=== PATIENT | male | born 1950 | race Caucasian/White ===

== ENCOUNTER 2024-09-07 07:46 | Inpatient (IN) | payer OTHER ==
[~2024-09-07] VITALS: Ht 177.8 cm; Wt 84.9 kg
--- NOTE | 2024-09-07 08:00 | ECG ---
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
--- NOTE | 2024-09-07 08:04 | ED.PDOC ---
SOB-HPI HPI Comments 74 year old male DK presents to the ED with chief complaint of SOB. EMS reports patient is coming from home where he had been experiencing intermittent SOB for the past 6 weeks, worsening over time. Patient relays that he feels out of breath when exerting himself lightly. EMS states patient had been on 91% spO2 when placed on a mask, however they got it up to 93% on 6L of O2 via NC. Patient denies any chest pain, cough, fever, chills, dizziness, headache, or N/V. Time Seen by MD: 07:54 Reviewed notes: Nurses Notes, Vault Manager Notes, Medications, Allergies Information Source: Patient, Emergency Med Personnel Mode of Arrival: EMS Severity: Moderate Timing: Weeks Duration: Intermittent Context: At Rest, With Light Exertion PE Risk Factors: None History of: None Prehospital treatment: Oxygen Modifying Factors: Nothing Associated Signs and Symptoms: None Past Medical History PAST MEDICAL HISTORY: Cancer, DM, High Lipids, HTN Surgical History: Pacemaker Family History Family History: Reviewed,noncontributory to illness Social History Smoker: Non-Smoker Alcohol: Denies ETOH Use Drugs: Denies Drug Use Lives In: Home Constitutional: denies: chills, diaphoresis, fatigue, fever, malaise, sweats, weakness, others EENTM: denies: blurred vision, double vision, ear bleeding, ear discharge, ear drainage, ear pain, ear ringing, eye pain, eye redness, hearing loss, mouth pain, mouth swelling, nasal discharge, nose bleeding, nose congestion, nose pain, photophobia, tearing, throat pain, throat swelling, voice changes, others Respiratory: reports: shortness of breath, SOB with excertion; denies: cough, hemoptysis, orthopnea, SOB at rest, stridor, wheezing, others Cardiovascular: denies: chest pain, dizzy spells, diaphoresis, Dyspnea on exertion, edema, irregular heart beat, left arm pain, lightheadedness, palpitations, PND, syncope, others Gastrointestinal: denies: abdomen distended, abdominal pain, blood streaked bowels, constipated, diarrhea, dysphagia, difficulty swallowing, hematemesis, melena, nausea, poor appetite, poor fluid intake, rectal bleeding, rectal pain, vomiting, others Genitourinary: denies: burning, dysuria, flank pain, frequency, hematuria, incontinence, penile discharge, penile sore, pain, testicle pain, testicle swel ling, urgency, others Neurological: denies: dizziness, fainting, headache, left sided numbness, left sided weakness, numbness, paresthesia, pre-existing deficit, right sided numbness, right sided weakness, seizure, speech problems, tingling, tremors, weakness, others Musculoskeletal: denies: back pain, gout, joint pain, joint swelling, muscle pain, muscle stiffness, neck pain, others Integumetry: denies: bruises, change in color, change in hair/nails, dryness, laceration, lesions, lumps, rash, wounds, others Allergic/Immunocompromised: denies: Difficulty Healing, Frequent Infections, Hives, Itching, others Hematologic/Lymphatic: denies: anemia, blood clots, easy bleeding, easy bruising, swollen glands, others Endocrine: denies: excessive hunger, excessive sweating, excessive thirst, excessive urination, flushing, intolerance to cold, intolerance to heat, unexplained weight gain, unexplained weight loss, others Psychiatric: denies: anxiety, bipolar disorder, depression, hopeless, panic disorder, schizophrenia, sleepless, suicidal, others All Other Systems: Reviewed and Negative Physical Exam General Appearance: Moderate Distress, Normal HEENT: Normal ENT Inspection, PERRL/EOMI Neck: Full Range of Motion, Non-Tender, Normal, Normal Inspection Respiratory: Accessory Muscle Use, Chest Non-Tender, Respiratory Distress, Other (Coarse breath sounds) Cardiovascular: No Edema, No JVD, No Murmur, No Gallop, Normal Peripheral Pulses, Regular Rate/Rhythm Breast Exam: Deferred Gastrointestinal: No Organomegaly, Non Tender, No Pulsatile Mass, Normal Bowel Sounds, Soft Genitalia: Deferred Pelvic: Deferred Rectal: Deferred Extremities: No calf tenderness, Normal capillary refill, Normal range of motion, Non-tender, Pedal edema, Other (Bilateral lower extremity pitting edema) Musculoskeletal : Apperance: Normal Neurologic: Alert, umbrella frame maker II-XII nml as Tested, No Motor Deficits, Normal Affect, Normal Mood, No Sensory Deficits Cerebellar Function: NOT DONE Reflexes: NOT DONE Skin: Dry, Normal Color, Warm Peripheral Pulses: 3+ Radial (R), 3+ Radial (L) Lymphatic: No Adenopathy Was a procedure done? Was a procedure done?: No Differential Dx Differential Diagnosis: Anxiety, Asthma, Bronchitis, CHF, COPD X-Ray, Labs, Meds, VS Vital Signs Date Time Temp Pulse Resp B/P (MAP) Pulse Ox O2 Delivery O2 Flow Rate FiO2 09/07/24 11:39 66 09/07/24 10:00 65 22 139/70 (93) 96 09/07/24 08:35 70 21 166/81 (109) 96 09/07/24 08:35 166/81 09/07/24 08:35 70 21 94 Nasal Cannula* 4 36 09/07/24 07:59 72 09/07/24 07:50 97.6 72 20 162/82 (108) 93 Lab Test 09/07/24 09:10 09/07/24 08:30 Range/Units White Blood Count 8.7 4.4-10.8 10^3/uL Red Blood Count 3.42 L 4.5-5.90 10^6/uL Hemoglobin 9.6 L 13.5-17.5 g/dL Hematocrit 29.5 L 41.0-53.0 % Mean Corpuscular Volume 86.4 80.0-100.0 fL Mean Corpuscular Hemoglobin 28.0 28.0-32.0 pg Mean Corpuscular Hemoglobin Concent 32.4 32.0-36.0 g/dL Red Cell Distribution Width 17.4 H 11.8-14.3 % Platelet Count 235 140-450 10^3/uL Mean Platelet Volume 8.2 6.9-10.8 fL Neutrophils (%) (Auto) 74.5 37.0-80.0 % Lymphocytes (%) (Auto) 13.8 10.0-50.0 % Monocytes (%) (Auto) 6.9 0.0-12.0 % Eosinophils (%) (Auto) 3.7 0.0-7.0 % Basophils (%) (Auto) 1.1 0.0-2.0 % Neutrophils # (Auto) 6.5 1.6-8.6 10 ^3/uL Lymphocytes # (Auto) 1.2 0.4-5.4 10 ^3/uL Monocytes # (Auto) 0.6 0-1.3 10 ^3/uL Eosinophils # (Auto) 0.3 0-0.8 10 ^3/uL Basophils # (Auto) 0.1 0-0.2 10 ^3/uL Nucleated Red Blood Cells 0.0 % Sodium Level 139 136-145 mmol/L Potassium Level 4.2 3.5-5.1 mmol/L Chloride Level 110 H 98-107 mmol/L Carbon Dioxide Level 17 L 20-31 mmol/L Anion Gap 12 5-15 Blood Urea Nitrogen 46 H 9-23 mg/dL Creatinine 2.53 H 0.700-1.30 mg/dL Glomerular Filtration Rate Calc 26 >90 mL/min BUN/Creatinine Ratio 18.2 10.0-20.0 Serum Glucose 108 H 74-106 mg/dL Lactic Acid Level 1.0 0.4-2.0 mmol/L Calcium Level 9.2 8.7-10.4 mg/dL Troponin I High Sensitivity 55 *H </=54 ng/L B-Type Natriuretic Peptide 1001.77 0-100 pg/mL Blood Gas Specimen Type Arterial Blood Gas Sample Site Right radial Blood Gas Patient Temperature 37.0 Arterial Blood Date Drawn Arterial Blood pH 7.427 7.350-7.450 Arterial Blood Partial Pressure CO2 23.1 L 35.0-48.0 mmHg Arterial Blood Partial Pressure O2 78.0 L 83.0-108.0 mmHg Arterial Blood HCO3 14.9 L 21.0-28.0 mmol/L Arterial Blood Oxygen Saturation 94.6 94.0-98.0 % Arterial Blood Base Excess -7.9 L -2.0-3.0 mmol/L Arterial Blood Oxyhemoglobin 93.8 L 94.0-98.0 % Arterial Blood Carboxyhemoglobin 0.2 L 0.5-1.5 % Arterial Blood Methemoglobin 0.6 0.0-1.5 % Andrés Test Yes Blood Gas Total Hemoglobin 10.70 L 13.5-17.5 g/dL Blood Gas Liter Flow 4.00 Blood Gas Modality Nasal cannula FiO2 % 36.0 Current Medications Medications (Trade) Dose Ordered Sig/Mario Route Start Time Stop Time Status Last Admin Furosemide (Lasix Injection) 20 mg ONCE ONCE IV 09/07/24 08:15 09/07/24 08:16 DC 09/07/24 08:35 Patient alert. Complaining of shortness a breath. Blood pressure elevated. Placed on oxygen. Has a pacemaker in place. Continues to use accessory muscles to help breathe. He is critical. Possibly will need intubation. EKG does show changes. Explained to the patient. Continue cardiac monitoring. Was given clonidine. Mild bilateral extremity pitting edema. [place] approved inpatient admission [id number]. Chest XR: FINDINGS: Lines and Tubes: Left chest wall pacemaker Lungs: Congestion Pleura: No effusion. No pneumothorax. Cardiomediastinal contours: Cardiomegaly Bones: Unremarkable IMPRESSION: Pulmonary vascular congestion Time of 1ST Reevaluation: 08:54 Reevaluation 1ST: Unchanged Patient Education/Counseling: Diagnosis, Treatment Family Education/Counseling: No Family Present Departure 1 Departure Time of Disposition: 08:11 Impression: Primary Impression: Acute respiratory failure Qualified Codes: J96.01 - Acute respiratory failure with hypoxia Additional Impressions: Hypertensive urgency Diastolic heart failure Qualified Codes: I50.33 - Acute on chronic diastolic (congestive) heart failure Disposition: ADMITTED INPATIENT Admit to: Med Surg Condition: Guarded Critical Care Note Critical Care Time?: Yes (45 min-critical care time only) Critical care comment: Placed on oxygen Stability Stability form required: No Heart Score Heart Score: Heart Score Response (Comments) Value History Slightly Suspicious 0 EKG Normal 0 Age >65 2 Risk Factors >3 or Hx ASHD 2 Troponin Normal limit 0 Total 4 I personally scribed for ROSIE BALL MD ([email or web address]) on 09/07/24 at 08:04. Electronically submitted by Doyle Villegas ([email or web address]). I personally scribed for ROSIE BALL MD ([email or web address]) on 09/07/24 at 08:55. Electronically submitted by Doyle Villegas ([email or web address]). ROSIE BALL MD Sep 07, 2024 08:04
[2024-09-07 08:35] VITALS: PULSE 70; RESP 21; O2SAT 94
[2024-09-07] MEDS: FUROSEMIDE 20 MG/2 ML VIAL IV ONE (08:35)
--- NOTE | 2024-09-07 08:49 | DVH ---
CHEST RADIOGRAPH Indication: sob Technique: Single frontal view of the chest was obtained COMPARISON: None FINDINGS: Lines and Tubes: Left chest wall pacemaker Lungs: Congestion Pleura: No effusion. No pneumothorax. Cardiomediastinal contours: Cardiomegaly Bones: Unremarkable IMPRESSION: Pulmonary vascular congestion
[2024-09-07 09:42] LABS: Basophils # (auto) 0.1 10 ^3/uL (0-0.2); Basophils % (auto) 1.1 % (0.0-2.0); Eosinophils # (auto) 0.3 10 ^3/uL (0-0.8); Eosinophils % (auto) 3.7 % (0.0-7.0); Hematocrit 29.5 % (41.0-53.0); Hemoglobin 9.6 g/dL (13.5-17.5); Lymphocytes # (auto) 1.2 10 ^3/uL (0.4-5.4); Lymphocytes % (auto) 13.8 % (10.0-50.0); Mean Corpuscular Hgb Conc. 32.4 g/dL (32.0-36.0); Mean Corpuscular Volume 86.4 fL (80.0-100.0); Monocytes # (auto) 0.6 10 ^3/uL (0-1.3); Monocytes % (auto) 6.9 % (0.0-12.0); Neutrophils # (auto) 6.5 10 ^3/uL (1.6-8.6); Neutrophils % (auto) 74.5 % (37.0-80.0); Platelet Count (auto) 235 10^3/uL (140-450); Red Blood Cells 3.42 10^6/uL (4.5-5.90); Red Cell Distribution Width 17.4 % (11.8-14.3); White Blood Cell 8.7 10^3/uL (4.4-10.8)
[2024-09-07 09:43] LABS: Potassium 4.2 mmol/L (3.5-5.1); Sodium 139 mmol/L (136-145)
[2024-09-07 09:44] LABS: Anion Gap 12 (5-15)
[2024-09-07 09:45] LABS: Calcium 9.2 mg/dL (8.7-10.4)
[2024-09-07 09:49] LABS: BUN/Creatinine Ratio 18.2 (10.0-20.0)
[2024-09-07 09:53] LABS: Blood Urea Nitrogen 46 mg/dL (9-23); Carbon Dioxide 17 mmol/L (20-31); Chloride 110 mmol/L (98-107); Glucose 108 mg/dL (74-106)
[2024-09-07 12:11] LABS: Base Excess -7.9 mmol/L (-2.0-3.0)
[2024-09-07 19:30] VITALS: RESP 22; O2SAT 92
--- NOTE | 2024-09-07 22:44 | DVHHPRES ---
History of Present Illness Resident Creating Document: ERA SPICER RESDIENT History of Present Illness This is a 74-year-old male with past medical history of atrial fibrillation (status post pacemaker), diabetes, dyslipidemia, hypertension, CKD grade 4, BPH brought to the hospital due to shortness of breaths functional class 4 since 6 weeks which progressively has worsened. Shortness of breaths increases with physical activity, and lying down on the bed. Patient also reports, PND, generalized weakness and constipation. Patient denies fever, cough, chest pain, nausea, vomiting, or any recent sick contact. PMHx: atrial fibrillation (status post pacemaker), diabetes, dyslipidemia, hypertension, CKD grade 4, BPH PSHx: Femur fracture (patient was recently at SNF for rehabilitation), bilate rally knee replacement, status post pacemaker Family history: Father had heart failure Social history: Patient uses walker for mobility, lives at home, denies smoking or any other drug use Home medication: Flomax 0.4 mg 2 tablets during the night, finasteride 5 mg daily, amlodipine 10 mg daily, atorvastatin 40 mg daily, sodium bicarbonate 600 mg t.i.d., Eliquis 5 mg b.i.d., sevelamer 800 mg, Lasix 20 mg daily, and insulin Allergic history: No known allergies Review of Systems Review of Systems General: Reports generalized weakness HEENT: No headaches, visiual changes, hearing loss, tinnitus, nasal congestion and discharge, and sore throat. Cardiovascular: Denies chest pain, palpitations, dyspnea on exertion, orthopnea, or claudication. Respiratory: Reports shortness of breath, PND and orthopnea Gastrointestinal: Reports constipation Genitourinary: No dysuria, hematuria, discharge, frequency, urgency, nocturia, incontinence, and urinary retention. Endocrine: No heat or cold intolerance, polydipsia, polyuria, and polyphagia. Neurological: No dizziness, extremity weakness and numbness, tremors, gait disturbance, seizures, and memory impairment. Psychiatric: Denies depression, anxiety,or insomnia. Musculoskeletal: Denies neck pain, stiffness and swelling, back pain, muscle weakness, joint pain, stiffness, swelling, or limited range of motion. Skin: No rashes, itching, skin lesion, changes in hair, nail, skin texture and breast. Hematologic/Lymphatic: Denies easy bruising, bleeding tendencies, or lymph node enlargement. Allergies: Coded Allergies: NO KNOWN ALLERGIES (Unverified , 09/07/24) Exam Vital Signs Vital Signs Date Time Temp Pulse Resp B/P (MAP) Pulse Ox O2 Delivery O2 Flow Rate FiO2 09/07/24 20:00 98.2 70 22 166/79 (108) 92 98.2 09/07/24 19:30 Nasal Cannula* 4 36 Exam General Appearance: Alert, Oriented X3, Cooperative, No acute distress HEENT: Atraumatic, PERRLA, EOMI, Mucous membrane moist/pink Respiratory: Bilateral lower zone crackles Cardiovascular: Regular rate, Normal S1, Normal S2, No murmurs, no chest wall tenderness Abdominal: Normal bowel sounds, Soft, No tenderness, No hepatospenomegaly, No masses Extremities: Bilateral pedal edema Skin: No rashes, No breakdown, No significant lesion Neuro: Normal gait, Normal speech, Strength at 5/5 X4 ext, Normal tone, Sensation intact, Cranial nerves 3-12 NL, Reflexes 2+ Psych/Mental Status: Mental status NL, Mood NL Labs/Xrays Labs Test 09/07/24 09:10 09/07/24 08:30 Range/Units White Blood Count 8.7 4.4-10.8 10^3/uL Red Blood Count 3.42 L 4.5-5.90 10^6/uL Hemoglobin 9.6 L 13.5-17.5 g/dL Hematocrit 29.5 L 41.0-53.0 % Mean Corpuscular Volume 86.4 80.0-100.0 fL Mean Corpuscular Hemoglobin 28.0 28.0-32.0 pg Mean Corpuscular Hemoglobin Concent 32.4 32.0-36.0 g/dL Red Cell Distribution Width 17.4 H 11.8-14.3 % Platelet Count 235 140-450 10^3/uL Mean Platelet Volume 8.2 6.9-10.8 fL Neutrophils (%) (Auto) 74.5 37.0-80.0 % Lymphocytes (%) (Auto) 13.8 10.0-50.0 % Monocytes (%) (Auto) 6.9 0.0-12.0 % Eosinophils (%) (Auto) 3.7 0.0-7.0 % Basophils (%) (Auto) 1.1 0.0-2.0 % Neutrophils # (Auto) 6.5 1.6-8.6 10 ^3/uL Lymphocytes # (Auto) 1.2 0.4-5.4 10 ^3/uL Monocytes # (Auto) 0.6 0-1.3 10 ^3/uL Eosinophils # (Auto) 0.3 0-0.8 10 ^3/uL Basophils # (Auto) 0.1 0-0.2 10 ^3/uL Nucleated Red Blood Cells 0.0 % Sodium Level 139 136-145 mmol/L Potassium Level 4.2 3.5-5.1 mmol/L Chloride Level 110 H 98-107 mmol/L Carbon Dioxide Level 17 L 20-31 mmol/L Anion Gap 12 5-15 Blood Urea Nitrogen 46 H 9-23 mg/dL Creatinine 2.53 H 0.700-1.30 mg/dL Glomerular Filtration Rate Calc 26 >90 mL/min BUN/Creatinine Ratio 18.2 10.0-20.0 Serum Glucose 108 H 74-106 mg/dL Lactic Acid Level 1.0 0.4-2.0 mmol/L Calcium Level 9.2 8.7-10.4 mg/dL Troponin I High Sensitivity 55 *H </=54 ng/L B-Type Natriuretic Peptide 1001.77 0-100 pg/mL Blood Gas Specimen Type Arterial Blood Gas Sample Site Right radial Blood Gas Patient Temperature 37.0 Arterial Blood Date Drawn Arterial Blood pH 7.427 7.350-7.450 Arterial Blood Partial Pressure CO2 23.1 L 35.0-48.0 mmHg Arterial Blood Partial Pressure O2 78.0 L 83.0-108.0 mmHg Arterial Blood HCO3 14.9 L 21.0-28.0 mmol/L Arterial Blood Oxygen Saturation 94.6 94.0-98.0 % Arterial Blood Base Excess -7.9 L -2.0-3.0 mmol/L Arterial Blood Oxyhemoglobin 93.8 L 94.0-98.0 % Arterial Blood Carboxyhemoglobin 0.2 L 0.5-1.5 % Arterial Blood Methemoglobin 0.6 0.0-1.5 % Andrés Test Yes Blood Gas Total Hemoglobin 10.70 L 13.5-17.5 g/dL Blood Gas Liter Flow 4.00 Blood Gas Modality Nasal cannula FiO2 % 36.0 Assessment/Plan Assessment/Plan Possible acute on chronic heart failure with volume overload History of hypertension History of AFib, status post pacemaker Chest x-ray shows bilateral lower and mid zone infiltration with pulmonary vascular congestion EKGs shows junctional rhythm, pacemaker interrogation BNP is raised at 1000 Echocardiogram Lasix 60 mg stat, 60 mg daily Continue amlodipine Start Jardiance 10 mg BiPAP Dyslipidemia Continue atorvastatin History of CKD grade 4 ABGs shows metabolic acidosis with respiratory compensation, pH 7.427 Continue sevelamer Hyperchloremia, monitoring History of diabetes type 2 Insulin mild SS History of BPH Continue Flomax and finasteride Moderate anemia, normocytic normochromic DIET: Cardiac diet DVT PROPHYLAXIS: Continue Eliquis BOWEL REGIMEN: Colace p.r.n. CODE STATUS: Goal of care discussed for more than 21 minutes, full code DISPOSITION: Telemetry Patient's status and paln discussed with the patient and at the bedside. Case discussed with Dr. Kelly Plan discussed with: Patient, Other (RN) My Orders Orders - ERA SPICER RESDIROSANA Procedure Category Date Status Time Admit ADMIT 09/07/24 Transmitted 22:43 Nitroglycerin PHA 09/07/24 Transmitted Sublingual (Ntrostat 22:45 Morphine Sulfate PHA 09/07/24 Transmitted Injection 22:45 Oxygen By Nasal RT 09/07/24 Transmitted Cannula 22:43 Stat Ekg For Chest LEONCIO 09/07/24 Transmitted Pain 22:43 Notify Md Of Changes LEONCIO 09/07/24 Transmitted From Base 22:43 Promotions Manager For LEONCIO 09/07/24 Transmitted 24 Hours 22:43 Emergency Dysrhythmia LEONCIO 09/07/24 Transmitted Protocol 22:43 Rhythm Strips Once LEONCIO 09/07/24 Transmitted Every Shift 22:43 Date of Service: Sep 08, 2024 Billing Provider: JENNIFER KELLY MD Common Visit Codes: [id number] INP/OBS CARE (HIGH) ERA SPICER RESDIENT Sep 07, 2024 22:44 JENNIFER KELLY MD Sep 09, 2024 09:38
[2024-09-07] MEDS ORDERED: NITROGLYCERIN 0.4 MG SL TAB SL PRN ×2 (22:45→23:00)
[2024-09-07] MEDS ORDERED: MORPHINE SULFATE INJ 2 MG/ml SYRG IV PRN ×2 (22:45→23:00)
[2024-09-08] MEDS ORDERED: DEXTROSE (50%) 50ML SYRG IV PRN (01:00)
[2024-09-08] MEDS: FINASTERIDE 5 MG TAB PO ONE (01:52)
[2024-09-08] MEDS: ATORVASTATIN 20 MG TAB PO ONE (01:52)
[2024-09-08] MEDS: TAMSULOSIN HYDROCHLORIDE 0.4 MG CAP PO ONE (01:52)
[2024-09-08] MEDS: FUROSEMIDE 100 MG/10ML VIAL IV ONE (01:53)
[2024-09-08] MEDS: SEVELAMER 800 MG TAB PO ONE (01:53)
[2024-09-08 02:18] LABS: Base Excess -7.7 mmol/L (-2.0-3.0)
[2024-09-08] MEDS: ACETAMINOPHEN 325 MG TAB PO PRN (02:23)
[2024-09-08] MEDS: MELATONIN 5 MG TAB PO SCH (02:24)
[2024-09-08 03:13] VITALS: BP 153/74; PULSE 72; RESP 25; TEMP 98.2; O2SAT 94
[2024-09-08] MEDS: InsuLIN REG 1unit/0.01ml Soln (100units/ml) SC SCH (04:04)
[2024-09-08] MEDS: ACCU-CHEK COMFORT CURVE STRIP VI SCH (04:05)
[2024-09-08] MEDS: FUROSEMIDE 40 MG/4 ML VIAL IV SCH ×2 (04:05→17:36)
[2024-09-08 04:31] LABS: Basophils # (auto) 0.1 10 ^3/uL (0-0.2); Basophils % (auto) 1.2 % (0.0-2.0); Eosinophils # (auto) 0.2 10 ^3/uL (0-0.8); Eosinophils % (auto) 2.9 % (0.0-7.0); Hematocrit 27.9 % (41.0-53.0); Hemoglobin 9.2 g/dL (13.5-17.5); Lymphocytes # (auto) 1.2 10 ^3/uL (0.4-5.4); Lymphocytes % (auto) 13.6 % (10.0-50.0); Mean Corpuscular Hemoglobin 28.8 pg (28.0-32.0); Mean Corpuscular Volume 87.3 fL (80.0-100.0); Monocytes # (auto) 0.7 10 ^3/uL (0-1.3); Monocytes % (auto) 7.7 % (0.0-12.0); Neutrophils # (auto) 6.4 10 ^3/uL (1.6-8.6); Neutrophils % (auto) 74.6 % (37.0-80.0); Platelet Count (auto) 219 10^3/uL (140-450); Red Blood Cells 3.19 10^6/uL (4.5-5.90); Red Cell Distribution Width 17.7 % (11.8-14.3); White Blood Cell 8.7 10^3/uL (4.4-10.8)
[2024-09-08 04:49] LABS: Alanine Aminotransferase 34 U/L (7-40); Albumin 3.7 g/dL (3.2-4.8); Anion Gap 12 (5-15); Aspartate Aminotransferase 35 U/L (13-40); BUN/Creatinine Ratio 18.8 (10.0-20.0); Bilirubin, Total 0.6 mg/dL (0.2-1.0); Potassium 4.5 mmol/L (3.5-5.1); Sodium 140 mmol/L (136-145); Total Protein 6.5 g/dL (5.7-8.2)
[2024-09-08 04:50] LABS: Alkaline Phosphatase 179 U/L (46-116); Blood Urea Nitrogen 46 mg/dL (9-23); Carbon Dioxide 17 mmol/L (20-31); Chloride 111 mmol/L (98-107); Glucose 161 mg/dL (74-106)
--- NOTE | 2024-09-08 06:15 | ECG ---
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
[2024-09-08 08:00] VITALS: PULSE 66; RESP 20; O2SAT 94
[2024-09-08] MEDS: SEVELAMER 800 MG TAB PO SCH (08:53)
[2024-09-08] MEDS ORDERED: FUROSEMIDE 40 MG/4 ML VIAL IV SCH (10:00)
[2024-09-08 10:38] LABS: Urine Bacteria None Seen /hpf (None Seen)
[2024-09-08] MEDS: APIXABAN 2.5 MG TAB PO SCH (10:42)
[2024-09-08] MEDS: FINASTERIDE 5 MG TAB PO SCH (10:42)
[2024-09-08] MEDS: EMPAGLIFLOZIN 10 MG TAB PO SCH (10:43)
[2024-09-08 11:05] LABS: Urine Blood 3+ /uL (Negative); Urine Clarity Clear (Clear); Urine Color Colorless (Yellow); Urine Protein, UAD TRACE (Negative); Urine Specific Gravity 1.008 (1.001-1.035); Urine Squamous Epithelial Cell None Seen /hpf (<5); Urine Urobilinogen Normal (Negative); Urine WBC 2 /HPF (0-3)
[2024-09-08 11:08] LABS: Amphetamine Screen, Urine Neg (NEGATIVE); Barbiturate Scree,Urine Neg (NEGATIVE); Benzodiazephine Screen, Urine Neg (NEGATIVE); Cannabinoid Screen, Urine Neg (NEGATIVE); Cocaine Screen, Urine Neg (NEGATIVE); Opiate Scree,Urine Neg (NEGATIVE); Phencyclidine Screen, Urine Neg (NEGATIVE)
--- NOTE | 2024-09-08 11:56 | DVHINCON2 ---
Date Seen: Sep 08, 2024 Referring Physician MD Marlon Reason for Consultation Pacemaker dysfunction History of Present Illness This is a pleasant 74-year-old man who presented to the emergency room via EMS with a chief complaint of shortness of breath. The patient complains of progressive shortness of breath associated with DOMÍNGUEZ, PND, and lower extremity edema for the past six weeks. Upon EMS arrival he was found with a oxygen saturation level in the 80s% for which he was provided supplemental oxygenation with improved O2 saturations. Denies chest pain, palpitations, diaphoresis, dizziness, or syncopal events. The patient does report a mechanical fall injury where he fell without LOC. Per at bedside, she is worried the patient's permanent pacemaker is not working properly given recent fall injury. They state the patient's pacemaker has not been interrogated since its implantation on 06/25/[address] Lucas at [facility]. The patient and denies ischemic workup in the past including stress test neither a cardiac catheter izations. Significant medical history includes congestive heart failure, unspecified atrial fibrillation on Eliquis therapy, status post permanent pacemaker implantation ([employer]) 06/25/2024, hypertension, dyslipidemia, chronic kidney disease stage 4, insulin-dependent diabetes mellitus, benign prostatic hyperplasia, and obesity. Past Medical History Past medical history reviewed. No other significant than mentioned above. Past Surgical History Permanent pacemaker implantation, 06/25/2024 Bilateral knees Tonsillectomy Right femur Family History Family history reviewed. Social History Denies the use of illicit drugs, alcohol, or tobacco use. Allergies: Coded Allergies: NO KNOWN ALLERGIES (Unverified , 09/07/24) Home Meds Home medications reviewed. Current Medications Current Medications Medications (Trade) Dose Ordered Sig/Mario Route PRN Reason Start Time Stop Time Status Last Admin Nitroglycerin (Ntrostat Sublingual) 0.4 mg Q5MINP PRN SL FOR CHEST PAIN 09/07/24 22:45 09/07/24 22:49 DC Morphine Sulfate 2 mg Q30M PRN IV FOR CHEST PAIN 09/07/24 22:45 09/07/24 22:49 DC Nitroglycerin (Ntrostat Sublingual) 0.4 mg Q5MINP PRN SL FOR CHEST PAIN 09/07/24 23:00 Morphine Sulfate 2 mg Q30M PRN IV FOR CHEST PAIN 09/07/24 23:00 2/3/25 00:58 DC Empaglifozin (Jardiance) 10 mg DAILY PO 09/08/24 10:00 09/08/24 10:43 Apixaban (Eliquis) 2.5 mg BID PO 09/08/24 10:00 09/08/24 10:42 Tamsulosin HCl (Flomax) 0.4 mg QPM PO 09/08/24 18:00 Finasteride (Proscar Tablet) 5 mg DAILY PO 09/08/24 10:00 09/08/24 10:42 Sevelamer HCl (Renagel) 800 mg TIDWM PO 09/08/24 08:00 09/08/24 08:53 Furosemide (Lasix Injection) 40 mg DAILY IV 09/08/24 10:00 09/08/24 03:47 DC Atorvastatin Calcium (Lipitor) 40 mg HS PO 09/08/24 22:00 Diagnostic Test (Pha) (Accu-Chek Comfort Curve T) 1 strip IQ4HR 09/08/24 04:00 09/08/24 08:00 Insulin Human Regular (InsuLIN R) IQ4HR SC 09/08/24 04:00 09/08/24 04:04 Dextrose 50 ml UD PRN IV Blood Sugar LESS THAN 60 09/08/24 01:00 Melatonin (Melatonin) 5 mg HS PO 09/08/24 02:30 09/08/24 02:24 Acetaminophen (Tylenol Tablet) 650 mg Q8HPRN PRN PO PAIN SCALE 1-3 OR TEMP>100.4 09/08/24 02:30 09/08/24 02:23 Furosemide (Lasix Injection) 60 mg DAILY IV 09/08/24 03:45 09/08/24 07:19 DC 09/08/24 04:05 Sodium Bicarbonate 650 mg TID PO 09/08/24 14:00 Furosemide (Lasix Injection) 40 mg DAILY IV 09/09/24 10:00 Review of Systems Constitutional: No symptom reported Ears, Nose, & Throat: No symptom reported Eyes: No symptom reported Neurological: No symptoms reported Pulmonary/Respiratory: SOB, DOMÍNGUEZ, PND Cardiovascular: BLE edema Gastrointestinal: No symptom reported Genitourinary: No symptom reported Musculoskeletal: No symptom reported Skin: No symptom reported Psychiatric: No symptom reported Endocrine: No symptom reported Hemotologic/Lymphatic: No symptom reported Vital Signs Vital Signs Date Time Temp Pulse Resp B/P (MAP) Pulse Ox O2 Delivery O2 Flow Rate FiO2 09/08/24 08:49 97.8 65 20 131/91 (104) 93 97.8 09/08/24 03:13 5.0 40 09/07/24 19:30 Nasal Cannula* Physical Exam General Appearance: Cooperative. Lethargic. Obese. Multiple acute respiratory distress Head Exam: Normal inspection Neck Exam: Normal inspection. Non-tender. Normal alignment Pulmonary/Respiratory: Chest non-tender. Crackles to bilateral breath sounds Cardiovascular/Chest: Irregularly irregular rate and rhythm. AFib, controlled rate. No murmurs. No JVD. Peripheral Pulses: 2+ Radial (R). 2+ Radial (L). 2+ Pedal (R). 2+ Pedal (L) Abdominal Exam: Normal bowel sounds. Soft. Nontender. No hepatospenomegaly. No masses Ankle Exam: Positive ankle edema, 2+ Lower extremities: Positive lower extremity edema, 2+ Neuro/Mental Status: A&O x4. Coherent Thoughts/Psych: Normal thought pattern. Appropriate mood and affect. Good judgement and insight Appearance: In no acute distress Skin Exam: Normal inspection. Normal color. Warm. Dry Labs/Diagnostic Data Labs Test 09/08/24 10:15 09/08/24 08:30 09/08/24 03:54 09/08/24 01:50 Range/Units Urine Color Colorless Yellow Urine Clarity Clear Clear Urine pH 5.0 5.0-9.0 Urine Specific Vance 1.008 1.001-1.035 Urine Protein Trace H Negative Urine Ketones Negative Negative Urine Blood 3+ H Negative /uL Urine Nitrite Negative Negative Urine Bilirubin Negative Negative Urine Urobilinogen Normal Negative mg/dL Urine Leukocyte Esterase Negative Negative /uL Urine RBC 80 0 - 3 /hpf Urine Microscopic WBC 2 0-3 /HPF Urine Squamous Epithelial Cells None seen <5 /hpf Urine Bacteria None seen None Seen /hpf Urine Glucose Normal Normal mg/dL Urine Opiates Screen Neg NEGATIVE Urine Fentanyl Screen Neg NEGATIVE Urine Barbiturates Screen Neg NEGATIVE Urine Phencyclidine Screen Neg NEGATIVE Urine Amphetamines Screen Neg NEGATIVE Urine Benzodiazepines Screen Neg NEGATIVE Urine Cocaine Screen Neg NEGATIVE Urine Cannabinoids Screen Neg NEGATIVE POC Glucose 113 H 70-106 mg/dl White Blood Count 8.7 4.4-10.8 10^3/uL Red Blood Count 3.19 L 4.5-5.90 10^6/uL Hemoglobin 9.2 L 13.5-17.5 g/dL Hematocrit 27.9 L 41.0-53.0 % Mean Corpuscular Volume 87.3 80.0-100.0 fL Mean Corpuscular Hemoglobin 28.8 28.0-32.0 pg Mean Corpuscular Hemoglobin Concent 33.0 32.0-36.0 g/dL Red Cell Distribution Width 17.7 H 11.8-14.3 % Platelet Count 219 140-450 10^3/uL Mean Platelet Volume 8.0 6.9-10.8 fL Neutrophils (%) (Auto) 74.6 37.0-80.0 % Lymphocytes (%) (Auto) 13.6 10.0-50.0 % Monocytes (%) (Auto) 7.7 0.0-12.0 % Eosinophils (%) (Auto) 2.9 0.0-7.0 % Basophils (%) (Auto) 1.2 0.0-2.0 % Neutrophils # (Auto) 6.4 1.6-8.6 10 ^3/uL Lymphocytes # (Auto) 1.2 0.4-5.4 10 ^3/uL Monocytes # (Auto) 0.7 0-1.3 10 ^3/uL Eosinophils # (Auto) 0.2 0-0.8 10 ^3/uL Basophils # (Auto) 0.1 0-0.2 10 ^3/uL Nucleated Red Blood Cells 0.0 % Sodium Level 140 136-145 mmol/L Potassium Level 4.5 3.5-5.1 mmol/L Chloride Level 111 H 98-107 mmol/L Carbon Dioxide Level 17 L 20-31 mmol/L Anion Gap 12 5-15 Blood Urea Nitrogen 46 H 9-23 mg/dL Creatinine 2.45 H 0.700-1.30 mg/dL Glomerular Filtration Rate Calc 27 >90 mL/min BUN/Creatinine Ratio 18.8 10.0-20.0 Serum Glucose 161 H 74-106 mg/dL Calcium Level 9.0 8.7-10.4 mg/dL Magnesium Level 2.3 1.6-2.6 mg/dL Total Bilirubin 0.6 0.2-1.0 mg/dL Aspartate Amino Transferase (AST) 35 13-40 U/L Alanine Aminotransferase (ALT) 34 7-40 U/L Alkaline Phosphatase 179 H 46-116 U/L Troponin I High Sensitivity 50 </=54 ng/L Total Protein 6.5 5.7-8.2 g/dL Albumin 3.7 3.2-4.8 g/dL Blood Gas Specimen Type Arterial Blood Gas Sample Site Right radial Blood Gas Patient Temperature 37.0 Arterial Blood Date Drawn Arterial Blood pH 7.422 7.350-7.450 Arterial Blood Partial Pressure CO2 23.8 L 35.0-48.0 mmHg Arterial Blood Partial Pressure O2 69.9 L 83.0-108.0 mmHg Arterial Blood HCO3 15.2 L 21.0-28.0 mmol/L Arterial Blood Oxygen Saturation 93.5 L 94.0-98.0 % Arterial Blood Base Excess -7.7 L -2.0-3.0 mmol/L Arterial Blood Oxyhemoglobin 92.9 L 94.0-98.0 % Arterial Blood Carboxyhemoglobin 0.1 L 0.5-1.5 % Arterial Blood Methemoglobin 0.5 0.0-1.5 % Andrés Test Yes Blood Gas Total Hemoglobin 10.80 L 13.5-17.5 g/dL Blood Gas Liter Flow 5.00 Blood Gas Modality Nasal cannula Blood Gas Spontaneous Rate 20 FiO2 % 40.0 Test 09/07/24 09:10 Range/Units Lactic Acid Level 1.0 0.4-2.0 mmol/L B-Type Natriuretic Peptide 1001.77 0-100 pg/mL Microbiology Date/Time Source Procedure Growth Status 09/07/24 11:42 Urine - Jensen Port Urine Culture - Preliminary Resulted 09/07/24 09:10 Blood Blood Culture - Preliminary NO GROWTH AFTER 24 HOURS OF INCUBATION. Resulted Assessment Acute on chronic unspecified heart failure, NYHA Class IV Acute hypoxic respiratory failure NSTEMI, likely type 2 secondary to above Unspecified atrial fibrillation, on Eliquis therapy Presence of dual-chamber permanent pacemaker ([employer]) Insulin-dependent diabetes mellitus Hypertension Dyslipidemia Advanced CKD Stage IV Anemia and chronic disease Obesity Plan/Recommendation (Dr. Patterson) The patient with a decompensated heart failure we will continue preload and afterload reduction as tolerated. Strict I&Os, daily weight, fluid restrictions. Initiate GDMT for CHF including Coreg and Jardiance. Rest of medications held given advanced CKD. The patient could benefit for eventual ischemic work-up once renal function recovers vs HD initiation. Continue Eliquis therapy ([id number] Score: 4 points, HAS-BLED Score: 3 points) and BB for rate control. Pacemaker interrogation completed with device function found to be optimal with no evidence of dysfunction. Thank you for allowing us to participate in this patient's care. Please call if you have any questions or concerns. This medical document was created using an electronic medical record system with voice recognition software and computerized dictation system. Although this document has been carefully reviewed, there might still be some phonetic and typographical errors. Occasional wrong-word or ``sound-alike substitutions may have occurred due to the inherent limitations of voice recognition software. These areas are purely typographical due to imperfections of the software programs and do not reflect any compromise in the patient's medical care. Please read the chart carefully and recognize, using context, where these substitutions have occurred. Plan discussed with: Patient, Other NYHA Physical activity limitations: Class3(Marked) ordinary (activity causes symtoms) Date of Service: Sep 08, 2024 Billing Provider: SILVA JOHNSTON Cardiology Common Codes: [id number] INP/OBS CARE (High) SILVA JOHNSTON Sep 08, 2024 11:56
[2024-09-08] MEDS: CARVEDILOL 3.125 MG TAB PO ONE (12:19)
[2024-09-08] MEDS: APIXABAN 2.5 MG TAB PO ONE (12:20)
--- NOTE | 2024-09-08 12:40 | DVHPN2 ---
Progress Note Date Seen: Sep 08, 2024 Medical Necessity Reason Pt with a Central, PICC or Fol: Yes The following are medically ne: Pa Catheter Reason for pa catheter: Strict I&O Subjective Patient reports: No new complaints Review of Systems: HEENT:Normal, CVS:Normal, RESPIRATORY:Normal, GI:Normal, :Normal, MSK:Normal, NEURO:Normal Objective vital signs Vital Sign Date Time Temp Pulse Resp B/P (MAP) Pulse Ox O2 Delivery O2 Flow Rate FiO2 09/08/24 12:19 65 147/69 09/08/24 11:30 98.2 20 94 98.2 09/08/24 03:13 5.0 40 09/07/24 19:30 Nasal Cannula* Total Intake and Output 09/07/24 09/07/24 09/08/24 15:00 23:00 07:00 Output Total 800 ml 1100 ml Balance -800 ml -1100 ml medications Current Medications Medications Dose Ordered Sig/Mario Route Start Time Stop Time Status Last Admin Dose Admin Nitroglycerin 0.4 mg Q5MINP PRN SL 09/07/24 23:00 Empaglifozin 10 mg DAILY PO 09/08/24 10:00 09/08/24 10:43 10 MG Tamsulosin HCl 0.4 mg QPM PO 09/08/24 18:00 Finasteride 5 mg DAILY PO 09/08/24 10:00 09/08/24 10:42 5 MG Sevelamer HCl 800 mg TIDWM PO 09/08/24 08:00 09/08/24 12:19 800 MG Atorvastatin Calcium 40 mg HS PO 09/08/24 22:00 Diagnostic Test (Pha) 1 strip IQ4HR 09/08/24 04:00 09/08/24 12:29 1 STRIP Insulin Human Regular IQ4HR SC 09/08/24 04:00 09/08/24 12:26 3 UNITS Dextrose 50 ml UD PRN IV 09/08/24 01:00 Melatonin 5 mg HS PO 09/08/24 02:30 09/08/24 02:24 5 MG Acetaminophen 650 mg Q8HPRN PRN PO 09/08/24 02:30 09/08/24 02:23 650 MG Sodium Bicarbonate 650 mg TID PO 09/08/24 14:00 Apixaban 5 mg BID PO 09/08/24 22:00 Furosemide 40 mg BIDD IV 09/08/24 18:00 Carvedilol 3.125 mg Q12HR PO 09/08/24 22:00 Examination: GENERAL:Normal, HEENT:Normal, NECK:Normal, LUNGS:Normal, LUNGS:Abnormal (on oxygen), CVS:Normal, ABDOMEN:Normal, MSK:Normal, MSK:Abnormal (edema++), SKIN:Normal, NEURO:Normal, :Normal laboratory and microbiology Laboratory Tests 09/08/24 03:54 Test 09/08/24 03:54 Range/Units Serum Glucose 161 H 74-106 mg/dL Microbiology Date/Time Source Procedure Growth Status 09/07/24 11:42 Urine - Pa Port Urine Culture - Preliminary Resulted 09/07/24 09:10 Blood Blood Culture - Preliminary NO GROWTH AFTER 24 HOURS OF INCUBATION. Resulted Problem List/Assessment/Plan Problem List/Assessment/Plan #1 acute resp failure: cont oxygen #2 acute systolic/diastolic heart failure: lasix iv #3 a fib with secondary hypercoaguable state: on eliquis #4 s/p pacer #5 ckd stage 4 #6 dm: ssi #7 anemia #8 nstemi ?type 2 advance care planning- full code- time spent 19 mins Plan discussed with: Patient, Spouse Date of Service: Sep 08, 2024 Billing Provider: ALCIDES GUZMAN MD Common Visit Codes: [id number] INP/OBS CARE(HIGH) Secondary Visit Codes: [id number] CARE PLAN 30 MINUTES ALCIDES GUZMAN MD Sep 08, 2024 12:40
--- NOTE | 2024-09-08 13:29 | DVH ---
INDICATION: RENAL FAILURE TECHNIQUE: Multiple real-time sonographic images of the kidneys and bladder were obtained. COMPARISON: None FINDINGS: The right kidney measures 8 cm in length, which is small in size. There is cortical renal atrophy of the right kidney. There is hydronephrosis. Dilated right proximal ureter is visualized. Suggestion of echogenic foci in the lower pole of the right kidney suggestive of renal calcifications. The left kidney measures 12 cm in length, which is normal in size. There is increased echogenicity of the left kidney. No hydronephrosis. The urinary bladder is decompressed with Jensen catheter. Incidentally visualized small to moderate right pleural effusion. IMPRESSION: Mild right hydronephrosis. Dilated right proximal ureter is visualized. Suggestion of echogenic foci in the lower pole of the right kidney suggestive of renal calcifications. Right cortical renal atroph y and scarring.
[2024-09-08] MEDS ORDERED: SODIUM BICARBONATE 650 MG TAB PO SCH (14:00)
[2024-09-08] MEDS: TAMSULOSIN HYDROCHLORIDE 0.4 MG CAP PO SCH (17:36)
[2024-09-08 20:30] VITALS: PULSE 69; RESP 18; O2SAT 96
[2024-09-08] MEDS: CARVEDILOL 3.125 MG TAB PO SCH (21:52)
[2024-09-08] MEDS: APIXABAN 5 MG TAB PO SCH (21:52)
[2024-09-08] MEDS: ATORVASTATIN 20 MG TAB PO SCH (21:52)
[2024-09-08] MEDS: SODIUM BICARBONATE 650 MG TAB PO SCH (21:53)
[2024-09-08 23:43] VITALS: BP 140/78; PULSE 56; RESP 19; TEMP 98.1; O2SAT 91
[2024-09-09] VITALS (8 sets, daily range): BP systolic 120–157; BP diastolic 56–79; PULSE 65–66; RESP 16–20; TEMP 97.4–98.7; O2SAT 91–98
[2024-09-09] MEDS ORDERED: AMLO1TAB22 PO (05:54)
[2024-09-09] MEDS ORDERED: ATOR-507 PO (05:54)
[2024-09-09] MEDS ORDERED: FINA5TAB4 PO (05:54)
[2024-09-09] MEDS ORDERED: APIX5TAB PO (05:54)
[2024-09-09] MEDS ORDERED: TAMS-35 PO (05:54)
[2024-09-09] MEDS ORDERED: INSREG3 SC (05:54)
[2024-09-09] MEDS ORDERED: FURO1TAB33 PO (05:54)
--- NOTE | 2024-09-09 06:45 | DVH ---
EXAM: XR Cervical Spine, 6 or More Views CLINICAL INDICATION: CHF TECHNIQUE: Frontal, lateral, oblique and flexion/extension views of the cervical spine. COMPARISON: XY CHEST PORTABLE on DOS: 09/07/24 FINDINGS: VERTEBRAE: Unremarkable. No acute fracture. Normal alignment. No instability. DISC SPACES: No acute findings. No significant narrowing. SOFT TISSUES: Unremarkable. HEART: Cardiomegaly with pulmonary congestion and edema. Superimposed pneumonia cannot be excluded. Left cardiac. OTHER FINDINGS: . . . .. IMPRESSION: Cardiomegaly with pulmonary congestion and edema. Superimposed pneumonia cannot be excluded.
[2024-09-09 07:47] LABS: Basophils # (auto) 0.1 10 ^3/uL (0-0.2); Basophils % (auto) 1.2 % (0.0-2.0); Eosinophils # (auto) 0.5 10 ^3/uL (0-0.8); Eosinophils % (auto) 5.7 % (0.0-7.0); Hematocrit 30.7 % (41.0-53.0); Hemoglobin 10.2 g/dL (13.5-17.5); Lymphocytes # (auto) 1.3 10 ^3/uL (0.4-5.4); Lymphocytes % (auto) 14.2 % (10.0-50.0); Mean Corpuscular Hemoglobin 28.5 pg (28.0-32.0); Mean Corpuscular Hgb Conc. 33.4 g/dL (32.0-36.0); Mean Corpuscular Volume 85.2 fL (80.0-100.0); Monocytes # (auto) 0.7 10 ^3/uL (0-1.3); Monocytes % (auto) 7.2 % (0.0-12.0); Neutrophils # (auto) 6.6 10 ^3/uL (1.6-8.6); Neutrophils % (auto) 71.7 % (37.0-80.0); Platelet Count (auto) 257 10^3/uL (140-450); Red Cell Distribution Width 17.4 % (11.8-14.3); White Blood Cell 9.2 10^3/uL (4.4-10.8)
--- NOTE | 2024-09-09 09:00 | DVHPN2 ---
Consult Progress Note Date Seen: Sep 09, 2024 Subjective Review of Systems: CVS:Normal, RESPIRATORY:Abnormal, NEURO:Normal Other Systems: C/o mild SOB, improving Objective vital signs Vital Sign Date Time Temp Pulse Resp B/P (MAP) Pulse Ox O2 Delivery O2 Flow Rate FiO2 09/09/24 08:37 66 157/79 09/09/24 05:00 98.2 19 94 98.2 09/08/24 23:43 Nasal Cannula* 6 44 Total Intake and Output 09/08/24 09/08/24 09/09/24 15:00 23:00 07:00 Intake Total 250 ml Output Total 2500 ml 1050 ml Balance -2500 ml -800 ml medications Current Medications Medications Dose Ordered Sig/Mario Route Start Time Stop Time Status Last Admin Dose Admin Nitroglycerin 0.4 mg Q5MINP PRN SL 09/07/24 23:00 Empaglifozin 10 mg DAILY PO 09/08/24 10:00 09/09/24 08:31 10 MG Tamsulosin HCl 0.4 mg QPM PO 09/08/24 18:00 09/08/24 17:36 0.4 MG Finasteride 5 mg DAILY PO 09/08/24 10:00 09/09/24 08:30 5 MG Sevelamer HCl 800 mg TIDWM PO 09/08/24 08:00 09/09/24 08:30 800 MG Atorvastatin Calcium 40 mg HS PO 09/08/24 22:00 09/08/24 21:52 40 MG Diagnostic Test (Pha) 1 strip IQ4HR 09/08/24 04:00 09/09/24 08:00 1 STRIP Insulin Human Regular IQ4HR SC 09/08/24 04:00 09/08/24 23:34 3 UNITS Dextrose 50 ml UD PRN IV 09/08/24 01:00 Melatonin 5 mg HS PO 09/08/24 02:30 09/08/24 21:52 5 MG Acetaminophen 650 mg Q8HPRN PRN PO 09/08/24 02:30 09/08/24 02:23 650 MG Apixaban 5 mg BID PO 09/08/24 22:00 09/09/24 08:30 5 MG Furosemide 40 mg BIDD IV 09/08/24 18:00 09/09/24 05:10 40 MG Carvedilol 3.125 mg Q12HR PO 09/08/24 22:00 09/09/24 08:37 3.125 MG Sodium Bicarbonate 650 mg BID PO 09/08/24 22:00 09/09/24 08:30 650 MG Examination: LUNGS:Abnormal (Bilateral crackles), CVS:Normal (V-paced rhythm), NEURO:Normal laboratory and microbiology Laboratory Tests 09/09/24 07:00 Test 09/09/24 07:00 Range/Units Serum Glucose Pending Problem List/Assessment/Plan Problem List/Assessment/Plan Acute on chronic decompensated HFrEF, NYHA Class IV Acute hypoxic respiratory failure NSTEMI, likely type 2 secondary to above Unspecified atrial fibrillation, on Eliquis therapy Presence of dual-chamber permanent pacemaker ([employer]) Aortic valve stenosis, moderate degree Pulmonary hypertension, moderate to severe degree Insulin-dependent diabetes mellitus Hypertension Dyslipidemia Advanced CKD Stage IV Anemia and chronic disease Obesity Plan/Recommendation (Dr. Patterson) Transthoracic echocardiogram revealed EF 40% with predominant septal hypokinesis, moderate TR, moderate PAH, and moderate aortic stenosis. Continue preload and afterload reduction as tolerated. Strict I&Os, daily weight, fluid restrictions. Continue GDMT for CHF including Coreg and Jardiance. Rest of medications held given advanced CKD. The patient could benefit for eventual ischemic work-up once renal function recovers vs HD initiation. Continue Eliquis therapy ([id number] Score: 4 points, HAS-BLED Score: 3 points) and BB for rate control. Pacemaker interrogation completed with device function found to be optimal and no evidence of dysfunction. Thank you for allowing us to participate in this patient's care. Please call if you have any questions or concerns. This medical document was created using an electronic medical record system with voice recognition software and computerized dictation system. Although this document has been carefully reviewed, there might still be some phonetic and typographical errors. Occasional wrong-word or ``sound-alike substitutions may have occurred due to the inherent limitations of voice recognition software. These areas are purely typographical due to imperfections of the software programs and do not reflect any compromise in the patient's medical care. Please read the chart carefully and recognize, using context, where these substitutions have occurred. Plan discussed with: Patient, Other Date of Service: Sep 09, 2024 Billing Provider: SILVA JOHNSTON SPA MANAGER Cardiology Common Codes: [id number] HOSP CARESILVA Hutchinson [facility] Sep 09, 2024 09:00
[2024-09-09 09:04] LABS: Anion Gap 13 (5-15); Sodium 143 mmol/L (136-145)
[2024-09-09 09:05] LABS: Calcium 9.4 mg/dL (8.7-10.4)
[2024-09-09 09:08] LABS: Carbon Dioxide 20 mmol/L (20-31); Chloride 110 mmol/L (98-107)
[2024-09-09 09:10] LABS: BUN/Creatinine Ratio 19.7 (10.0-20.0); Glucose 95 mg/dL (74-106)
--- NOTE | 2024-09-09 09:20 | DVHSR ---
APPROVED REPORT EXAM: Two-dimensional and M-mode echocardiogram with Doppler and color Doppler. Blood Pressure: 148/64 mmHg INDICATION HF Surgery/Intervention Pacemaker: [employer] Height: 5'10", Weight: 200 DIMENSIONS LVDd4.2 (3.8-5.7cm)LA (2D)4.3 (1.9-4.0cm)Aortic Root3.8 (2.0-3.7cm) LVDs3.2 (2.5-4.0cm)LA (MM) (1.9-4.0cm)Aortic Cusp Exc1.0 (1.5-2.0cm) EF (%) 45.0 (55-70%)Rt. Atrium4.2 (1.9-4.0cm)Asc. Aorta cm IVSd1.2 (0.7-1.1cm)RV (D) (1.8-2.4cm) PWd1.3 (0.7-1.1cm) Mitral Valve MitralMitral Stenosis E wave1.20m/sMV Mean GR.mmHg A wave0.44m/sMV Peak GR.mmHg E/A ratio2.72D MVAcm2 DECEL [id number] 1/2 Timems Aortic Valve Aortic ValveAortic Stenosis V10.59m/Radha Mean GR.14mmHg V22.56m/Radha Peak GR.26mmHg LVOT Diameter2.4 (1.8-2.4cm)Doppler AVA1.04cm2 Pulmonic Valve V21.08m/s Tricuspid Valve TR Velocity3.34m/s [id number] Other Information Quality : LimitedRhythm : Technically limited study due to body habitus. Conclusion Sinus rhythm. Bi atrial enlargement. Aortic root enlargement. LVH. Aortic sclerosis/stenosis and diminished excursion of leaflets with a 26 mmHg peak gradient and a 14 mmHg mean gradient accross the AV. This suggest moderate given diminished cardiac output. OMID 1. 04 squared cm . Moderate MAC, normal TV and PV. EF diminished at 40% with predominant septal hypokinesis. Underlying global hypkinesis. Normal RV fu nction. Moderate MR and TR with pulmonary HTN. Small pericardial effusion not hemodynamically significant. Pacing lead noted in RV
[2024-09-09 09:28] LABS: Blood Urea Nitrogen 46 mg/dL (9-23)
[2024-09-09] MEDS ORDERED: FUROSEMIDE 40 MG/4 ML VIAL IV SCH (10:00)
[2024-09-09] MEDS: metOLazone 5 MG TAB PO ONE (10:30)
[2024-09-09] MEDS ORDERED: DEXTROSE (50%) 50ML SYRG IV PRN (10:30)
--- NOTE | 2024-09-09 10:31 | DVHPN2 ---
Progress Note Date Seen: Sep 09, 2024 Medical Necessity Reason Pt with a Central, PICC or Fol: Yes The following are medically ne: Pa Catheter Reason for pa catheter: Strict I&O Subjective Patient reports: No new complaints Review of Systems: HEENT:Normal, CVS:Normal, RESPIRATORY:Normal, GI:Normal, :Normal, MSK:Normal, NEURO:Normal Objective vital signs Vital Sign Date Time Temp Pulse Resp B/P (MAP) Pulse Ox O2 Delivery O2 Flow Rate FiO2 09/09/24 09:50 97.5 66 20 157/79 (105) 95 97.5 09/08/24 23:43 Nasal Cannula* 6 44 Total Intake and Output 09/08/24 09/08/24 09/09/24 15:00 23:00 07:00 Intake Total 250 ml Output Total 2500 ml 1050 ml Balance -2500 ml -800 ml medications Current Medications Medications Dose Ordered Sig/Mario Route Start Time Stop Time Status Last Admin Dose Admin Nitroglycerin 0.4 mg Q5MINP PRN SL 09/07/24 23:00 Empaglifozin 10 mg DAILY PO 09/08/24 10:00 09/09/24 08:31 10 MG Tamsulosin HCl 0.4 mg QPM PO 09/08/24 18:00 09/08/24 17:36 0.4 MG Finasteride 5 mg DAILY PO 09/08/24 10:00 09/09/24 08:30 5 MG Sevelamer HCl 800 mg TIDWM PO 09/08/24 08:00 09/09/24 08:30 800 MG Atorvastatin Calcium 40 mg HS PO 09/08/24 22:00 09/08/24 21:52 40 MG Diagnostic Test (Pha) 1 strip IQ4HR 09/08/24 04:00 09/09/24 08:00 1 STRIP Insulin Human Regular IQ4HR SC 09/08/24 04:00 09/08/24 23:34 3 UNITS Dextrose 50 ml UD PRN IV 09/08/24 01:00 Melatonin 5 mg HS PO 09/08/24 02:30 09/08/24 21:52 5 MG Acetaminophen 650 mg Q8HPRN PRN PO 09/08/24 02:30 09/08/24 02:23 650 MG Apixaban 5 mg BID PO 09/08/24 22:00 09/09/24 08:30 5 MG Furosemide 40 mg BIDD IV 09/08/24 18:00 09/09/24 05:10 40 MG Carvedilol 3.125 mg Q12HR PO 09/08/24 22:00 09/09/24 08:37 3.125 MG Sodium Bicarbonate 650 mg BID PO 09/08/24 22:00 09/09/24 08:30 650 MG Examination: GENERAL:Normal, HEENT:Normal, NECK:Normal, LUNGS:Normal, LUNGS:Abnormal (on oxygen, rales+), ABDOMEN:Normal, MSK:Normal, SKIN:Normal, NEURO:Normal, :Normal laboratory and microbiology Laboratory Tests 09/09/24 07:00 Test 09/09/24 07:00 Range/Units Serum Glucose 95 74-106 mg/dL Microbiology Date/Time Source Procedure Growth Status 09/07/24 11:42 Urine - Pa Port Urine Culture - Preliminary Resulted 09/07/24 09:10 Blood Blood Culture - Preliminary NO GROWTH AFTER 48 HOURS OF INCUBATION. Resulted Problem List/Assessment/Plan Problem List/Assessment/Plan #1 acute resp failure: cont oxygen #2 acute systolic/diastolic heart failure: lasix iv, metolazone #3 a fib with secondary hypercoaguable state: on eliquis #4 s/p pacer #5 ckd stage 4 #6 dm: ssi #7 anemia #8 nstemi ?type 2 advance care planning- full code- time spent 19 mins Plan discussed with: Patient, Spouse My Orders My Orders Orders - ALCIDES GUZMAN MD Procedure Category Date Status Time Sodium Bicarb Tab PHA 09/08/24 In Process 22:00 *[facility] CONS 09/08/24 Transmitted [place] 12:35 Kidney US 09/08/24 Resulted 12:35 Chest Portable XY 09/09/24 Resulted 06:00 Hemoglobin A1c LAB 09/09/24 In Process 06:00 Date of Service: Sep 09, 2024 Billing Provider: ALCIDES GUZMAN MD Common Visit Codes: [id number] INP/OBS CARE([facility]) ALCIDES GUZMAN MD Sep 09, 2024 10:31
[2024-09-09] MEDS: InsuLIN REG 1unit/0.01ml Soln (100units/ml) SC SCH (11:30)
[2024-09-09] MEDS: ACCU-CHEK COMFORT CURVE STRIP VI SCH (11:30)
--- NOTE | 2024-09-09 19:14 | DVHINCON2 ---
Date of service: Sep 09, 2024 Reason for Consultation jayro History of Present Illness 74 years old male with past medical history of AFib, pacemaker, diabetes, dyslipidemia, hypertension, Chronic kidney disease four, knee replacement, pacemaker placement, presented with chief complaints of shortness of breath progressively worsening Kidney ultrasound has been done on admission showing mild right hydronephrosis dilated proximal ureter Past Medical History per hpi Past Surgical History per hpi Allergies: Coded Allergies: NO KNOWN ALLERGIES (Unverified , 09/07/24) Home Meds Reported Medications Insulin Regular (Human) (Humulin R) 100 Unit/Ml Inj, SC, INJ 09/09/24 Finasteride (Finasteride) 5 Mg Tab, 5 MG PO DAILY for 30 Days, MG 09/09/24 Apixaban Base (ELIQUIS) 5 Mg Tab, PO BID, TAB 09/09/24 Furosemide (Lasix) 20 Mg Tb, 20 MG PO, TAB 09/09/24 Tamsulosin Hcl (Flomax) 0.4 Mg Cap, 0.8 MG PO, CAP 09/09/24 Amlodipine Besylate (Amlodipine Besylate) 5 Mg Tab, 10 MG PO DAILY for 30 Days, MG 09/09/24 Atorvastatin Calcium (Lipitor) 40 Mg Tab, 40 MG PO, TAB 09/09/24 Current Medications Current Medications Medications (Trade) Dose Ordered Sig/Mario Route PRN Reason Start Time Stop Time Status Last Admin Atorvastatin Calcium (Lipitor) 40 mg HS PO 09/08/24 22:00 09/08/24 21:52 Furosemide (Lasix Injection) 40 mg DAILY IV 09/09/24 10:00 09/08/24 11:57 DC Apixaban (Eliquis) 5 mg BID PO 09/08/24 22:00 09/09/24 08:30 Carvedilol (Coreg Tablet) 3.125 mg Q12HR PO 09/08/24 22:00 09/09/24 08:37 Sodium Bicarbonate 650 mg BID PO 09/08/24 22:00 09/09/24 08:30 Diagnostic Test (Pha) (Accu-Chek Comfort Curve T) 1 strip ACHS 09/09/24 11:30 09/09/24 17:00 Insulin Human Regular (InsuLIN R) ACHS SC 09/09/24 11:30 09/09/24 11:30 Dextrose 50 ml UD PRN IV Blood Sugar LESS THAN 60 2/4/25 10:30 Docusate Sodium (Colace Capsule) 100 mg BIDPRN PRN PO FOR CONSTIPATION 09/09/24 16:00 Family History: Diabetes mellitus G8 BROTHER FH: kidney disease G8 SISTER Review of Systems HEENT-denies headache, denies vision changes, no hearing issue, denies neck complaints, denies throat issues Respiratory system-denies cough, + shortness of breath Cardiovascular system-denies chest pain, denies palpitations Abdomen-denies abdominal pain, denies nausea, denies vomiting, denies constipation or diarrhea Musculoskeletal-+swelling in the legs, denies pain in the extremities Genitourinary-denies urinary symptoms like dysuria, stream issues Neuro-denies dizziness, denies seizures Psychiatric-denies psychiatric history H&P Exam Vital Signs/I&O Vital Sign Date Time Temp Pulse Resp B/P (MAP) Pulse Ox O2 Delivery O2 Flow Rate FiO2 09/09/24 17:28 97.9 66 18 133/71 (91) 98 97.9 09/09/24 08:00 Nasal Cannula* 6 44 Intake and Output 09/08/24 09/09/24 19:00 07:00 Intake Total 250 ml Output Total 2500 ml 1050 ml Balance -2500 ml -800 ml Intake Oral 250 ml Output Urine Total 2500 ml 1050 ml Physical Exam General-not in any distress HEENT-normocephalic, no icterus, no pallor, neck supple Respiratory-fair air entry bilateral, no rhonchi, no wheeze [id number] heard, no murmurs appreciated Abdominal-soft, nontender, nondistended Musculoskeletal-+ pedal edema, no calf tenderness Genitourinary-deferred Neuro-awake alert oriented x3, Psychiatric-not agitated, cooperative, Labs/Diagnostic Data Labs/Diagnostic Data Laboratory Tests Test 09/09/24 12:24 09/09/24 12:23 09/09/24 08:22 09/09/24 07:00 Range/Units POC Glucose 244 H 254 H 105 70-106 mg/dl White Blood Count 9.2 4.4-10.8 10^3/uL Red Blood Count 3.60 L 4.5-5.90 10^6/uL Hemoglobin 10.2 L 13.5-17.5 g/dL Hematocrit 30.7 #L 41.0-53.0 % Mean Corpuscular Volume 85.2 80.0-100.0 fL Mean Corpuscular Hemoglobin 28.5 28.0-32.0 pg Mean Corpuscular Hemoglobin Concent 33.4 32.0-36.0 g/dL Red Cell Distribution Width 17.4 H 11.8-14.3 % Platelet Count 257 140-450 10^3/uL Mean Platelet Volume 8.2 6.9-10.8 fL Neutrophils (%) (Auto) 71.7 37.0-80.0 % Lymphocytes (%) (Auto) 14.2 10.0-50.0 % Monocytes (%) (Auto) 7.2 0.0-12.0 % Eosinophils (%) (Auto) 5.7 0.0-7.0 % Basophils (%) (Auto) 1.2 0.0-2.0 % Neutrophils # (Auto) 6.6 1.6-8.6 10 ^3/uL Lymphocytes # (Auto) 1.3 0.4-5.4 10 ^3/uL Monocytes # (Auto) 0.7 0-1.3 10 ^3/uL Eosinophils # (Auto) 0.5 0-0.8 10 ^3/uL Basophils # (Auto) 0.1 0-0.2 10 ^3/uL Nucleated Red Blood Cells 0.0 % Sodium Level 143 136-145 mmol/L Potassium Level 4.0 3.5-5.1 mmol/L Chloride Level 110 H 98-107 mmol/L Carbon Dioxide Level 20 20-31 mmol/L Anion Gap 13 5-15 Blood Urea Nitrogen 46 H 9-23 mg/dL Creatinine 2.33 H 0.700-1.30 mg/dL Glomerular Filtration Rate Calc 29 >90 mL/min BUN/Creatinine Ratio 19.7 10.0-20.0 Serum Glucose 95 74-106 mg/dL Hemoglobin A1c < 3.8 <5.7 % A1C Calcium Level 9.4 8.7-10.4 mg/dL Test 09/09/24 03:44 09/08/24 23:11 09/08/24 20:51 09/08/24 16:26 Range/Units POC Glucose 83 176 H 235 H 131 H 70-106 mg/dl Test 09/08/24 10:15 09/08/24 08:30 09/08/24 04:00 09/08/24 03:54 Range/Units Urine Color Colorless Yellow Urine Clarity Clear Clear Urine pH 5.0 5.0-9.0 Urine Specific [place] 1.008 1.001-1.035 Urine Protein Trace H Negative Urine Ketones Negative Negative Urine Blood 3+ H Negative /uL Urine Nitrite Negative Negative Urine Bilirubin Negative Negative Urine Urobilinogen Normal Negative mg/dL Urine Leukocyte Esterase Negative Negative /uL Urine RBC 80 0 - 3 /hpf Urine Microscopic WBC 2 0-3 /HPF Urine Squamous Epithelial Cells None seen <5 /hpf Urine Bacteria None seen None Seen /hpf Urine Glucose Normal Normal mg/dL Urine Opiates Screen Neg NEGATIVE Urine Fentanyl Screen Neg NEGATIVE Urine Barbiturates Screen Neg NEGATIVE Urine Phencyclidine Screen Neg NEGATIVE Urine Amphetamines Screen Neg NEGATIVE Urine Benzodiazepines Screen Neg NEGATIVE Urine Cocaine Screen Neg NEGATIVE Urine Cannabinoids Screen Neg NEGATIVE POC Glucose 113 H 163 H 70-106 mg/dl White Blood Count 8.7 4.4-10.8 10^3/uL Red Blood Count 3.19 L 4.5-5.90 10^6/uL Hemoglobin 9.2 L 13.5-17.5 g/dL Hematocrit 27.9 L 41.0-53.0 % Mean Corpuscular Volume 87.3 80.0-100.0 fL Mean Corpuscular Hemoglobin 28.8 28.0-32.0 pg Mean Corpuscular Hemoglobin Concent 33.0 32.0-36.0 g/dL Red Cell Distribution Width 17.7 H 11.8-14.3 % Platelet Count 219 140-450 10^3/uL Mean Platelet Volume 8.0 6.9-10.8 fL Neutrophils (%) (Auto) 74.6 37.0-80.0 % Lymphocytes (%) (Auto) 13.6 10.0-50.0 % Monocytes (%) (Auto) 7.7 0.0-12.0 % Eosinophils (%) (Auto) 2.9 0.0-7.0 % Basophils (%) (Auto) 1.2 0.0-2.0 % Neutrophils # (Auto) 6.4 1.6-8.6 10 ^3/uL Lymphocytes # (Auto) 1.2 0.4-5.4 10 ^3/uL Monocytes # (Auto) 0.7 0-1.3 10 ^3/uL Eosinophils # (Auto) 0.2 0-0.8 10 ^3/uL Basophils # (Auto) 0.1 0-0.2 10 ^3/uL Nucleated Red Blood Cells 0.0 % Sodium Level 140 136-145 mmol/L Potassium Level 4.5 3.5-5.1 mmol/L Chloride Level 111 H 98-107 mmol/L Carbon Dioxide Level 17 L 20-31 mmol/L Anion Gap 12 5-15 Blood Urea Nitrogen 46 H 9-23 mg/dL Creatinine 2.45 H 0.700-1.30 mg/dL Glomerular Filtration Rate Calc 27 >90 mL/min BUN/Creatinine Ratio 18.8 10.0-20.0 Serum Glucose 161 H 74-106 mg/dL Calcium Level 9.0 8.7-10.4 mg/dL Magnesium Level 2.3 1.6-2.6 mg/dL Total Bilirubin 0.6 0.2-1.0 mg/dL Aspartate Amino Transferase (AST) 35 13-40 U/L Alanine Aminotransferase (ALT) 34 7-40 U/L Alkaline Phosphatase 179 H 46-116 U/L Troponin I High Sensitivity 50 </=54 ng/L Total Protein 6.5 5.7-8.2 g/dL Albumin 3.7 3.2-4.8 g/dL Test 09/08/24 01:50 09/07/24 09:10 09/07/24 08:30 Range/Units Blood Gas Specimen Type Arterial Arterial Blood Gas Sample Site Right radial Right radial Blood Gas Patient Temperature 37.0 37.0 Arterial Blood Date Drawn [id number] Arterial Blood pH 7.422 7.427 7.350-7.450 Arterial Blood Partial Pressure CO2 23.8 L 23.1 L 35.0-48.0 mmHg Arterial Blood Partial Pressure O2 69.9 L 78.0 L 83.0-108.0 mmHg Arterial Blood HCO3 15.2 L 14.9 L 21.0-28.0 mmol/L Arterial Blood Oxygen Saturation 93.5 L 94.6 94.0-98.0 % Arterial Blood Base Excess -7.7 L -7.9 L -2.0-3.0 mmol/L Arterial Blood Oxyhemoglobin 92.9 L 93.8 L 94.0-98.0 % Arterial Blood Carboxyhemoglobin 0.1 L 0.2 L 0.5-1.5 % Arterial Blood Methemoglobin 0.5 0.6 0.0-1.5 % Andrés Test Yes Yes Blood Gas Total Hemoglobin 10.80 L 10.70 L 13.5-17.5 g/dL Blood Gas Liter Flow 5.00 4.00 Blood Gas Modality Nasal cannula Nasal cannula Blood Gas Spontaneous Rate 20 FiO2 % 40.0 36.0 White Blood Count 8.7 4.4-10.8 10^3/uL Red Blood Count 3.42 L 4.5-5.90 10^6/uL Hemoglobin 9.6 L 13.5-17.5 g/dL Hematocrit 29.5 L 41.0-53.0 % Mean Corpuscular Volume 86.4 80.0-100.0 fL Mean Corpuscular Hemoglobin 28.0 28.0-32.0 pg Mean Corpuscular Hemoglobin Concent 32.4 32.0-36.0 g/dL Red Cell Distribution Width 17.4 H 11.8-14.3 % Platelet Count 235 140-450 10^3/uL Mean Platelet Volume 8.2 6.9-10.8 fL Neutrophils (%) (Auto) 74.5 37.0-80.0 % Lymphocytes (%) (Auto) 13.8 10.0-50.0 % Monocytes (%) (Auto) 6.9 0.0-12.0 % Eosinophils (%) (Auto) 3.7 0.0-7.0 % Basophils (%) (Auto) 1.1 0.0-2.0 % Neutrophils # (Auto) 6.5 1.6-8.6 10 ^3/uL Lymphocytes # (Auto) 1.2 0.4-5.4 10 ^3/uL Monocytes # (Auto) 0.6 0-1.3 10 ^3/uL Eosinophils # (Auto) 0.3 0-0.8 10 ^3/uL Basophils # (Auto) 0.1 0-0.2 10 ^3/uL Nucleated Red Blood Cells 0.0 % Sodium Level 139 136-145 mmol/L Potassium Level 4.2 3.5-5.1 mmol/L Chloride Level 110 H 98-107 mmol/L Carbon Dioxide Level 17 L 20-31 mmol/L Anion Gap 12 5-15 Blood Urea Nitrogen 46 H 9-23 mg/dL Creatinine 2.53 H 0.700-1.30 mg/dL Glomerular Filtration Rate Calc 26 >90 mL/min BUN/Creatinine Ratio 18.2 10.0-20.0 Serum Glucose 108 H 74-106 mg/dL Lactic Acid Level 1.0 0.4-2.0 mmol/L Calcium Level 9.2 8.7-10.4 mg/dL Troponin I High Sensitivity 55 *H </=54 ng/L B-Type Natriuretic Peptide 1001.77 0-100 pg/mL Microbiology Date/Time Source Procedure Growth Status 09/07/24 11:42 Urine - [place] Port Urine Culture - Final Complete Assessment Acute kidney injury on Chronic kidney disease four likely cardiorenal syndrome Acute on chronic systolic Congestive heart failure exacerbation Aortic stenosis Acute hypoxic respiratory failure Mild right hydronephrosis//abnormal renal ultrasound Hematuria likely secondary to Jensen Recommendations Agree with IV Lasix b.i.d.,, SGLT2 I Urology consult We will follow renal function closely Plan discussed with: Patient QUITA BARNETT MD Sep 09, 2024 19:14
[2024-09-09] MEDS ORDERED: SEVE800T10 PO (20:37)
[2024-09-09] MEDS ORDERED: SODI650T PO (20:37)
[2024-09-09] MEDS ORDERED: INSU1INJ3 SC (20:41)
[2024-09-10] VITALS (8 sets, daily range): BP systolic 111–137; BP diastolic 55–75; PULSE 65–70; RESP 17–20; TEMP 97.6–99; O2SAT 91–100
[2024-09-10 07:47] LABS: Potassium 4.2 mmol/L (3.5-5.1); Sodium 143 mmol/L (136-145)
[2024-09-10 07:49] LABS: Anion Gap 12 (5-15); Calcium 9.3 mg/dL (8.7-10.4); Carbon Dioxide 24 mmol/L (20-31)
[2024-09-10 07:54] LABS: BUN/Creatinine Ratio 18.7 (10.0-20.0)
[2024-09-10 08:13] LABS: Blood Urea Nitrogen 47 mg/dL (9-23); Chloride 107 mmol/L (98-107); Glucose 143 mg/dL (74-106)
--- NOTE | 2024-09-10 10:18 | DVHDS2 ---
Discharge Summary Date of Admission Sep 07, 2024 at 22:43 Date of Discharge: Sep 10, 2024 Labs/Diagnostic Data: Laboratory Results Test 09/10/24 07:15 09/10/24 05:30 09/09/24 07:00 09/08/24 10:15 Sodium Level 143 mmol/L (136-145) Potassium Level 4.2 mmol/L (3.5-5.1) Chloride Level 107 mmol/L (98-107) Carbon Dioxide Level 24 mmol/L (20-31) Anion Gap 12 (5-15) Blood Urea Nitrogen 47 mg/dL (9-23) Creatinine 2.52 mg/dL (0.700-1.30) Glomerular Filtration Rate Calc 26 mL/min (>90) BUN/Creatinine Ratio 18.7 (10.0-20.0) Serum Glucose 143 mg/dL (74-106) Calcium Level 9.3 mg/dL (8.7-10.4) Thyroid Stimulating Hormone (TSH) 1.05 uIU/mL (0.55-4.78) Cortisol AM Sample 21.20 ug/dL (5.27-22.45) POC Glucose 145 mg/dl (70-106) White Blood Count 9.2 10^3/uL (4.4-10.8) Red Blood Count 3.60 10^6/uL (4.5-5.90) Hemoglobin 10.2 g/dL (13.5-17.5) Hematocrit 30.7 % (41.0-53.0) Mean Corpuscular Volume 85.2 fL (80.0-100.0) Mean Corpuscular Hemoglobin 28.5 pg (28.0-32.0) Mean Corpuscular Hemoglobin Concent 33.4 g/dL (32.0-36.0) Red Cell Distribution Width 17.4 % (11.8-14.3) Platelet Count 257 10^3/uL (140-450) Mean Platelet Volume 8.2 fL (6.9-10.8) Neutrophils (%) (Auto) 71.7 % (37.0-80.0) Lymphocytes (%) (Auto) 14.2 % (10.0-50.0) Monocytes (%) (Auto) 7.2 % (0.0-12.0) Eosinophils (%) (Auto) 5.7 % (0.0-7.0) Basophils (%) (Auto) 1.2 % (0.0-2.0) Neutrophils # (Auto) 6.6 10 ^3/uL (1.6-8.6) Lymphocytes # (Auto) 1.3 10 ^3/uL (0.4-5.4) Monocytes # (Auto) 0.7 10 ^3/uL (0-1.3) Eosinophils # (Auto) 0.5 10 ^3/uL (0-0.8) Basophils # (Auto) 0.1 10 ^3/uL (0-0.2) Nucleated Red Blood Cells 0.0 % Hemoglobin A1c < 3.8 % A1C (<5.7) Urine Color Colorless (Yellow) Urine Clarity Clear (Clear) Urine pH 5.0 (5.0-9.0) Urine Specific [place] 1.008 (1.001-1.035) Urine Protein Trace (Negative) Urine Ketones Negative (Negative) Urine Blood 3+ /uL (Negative) Urine Nitrite Negative (Negative) Urine Bilirubin Negative (Negative) Urine Urobilinogen Normal mg/dL (Negative) Urine Leukocyte Esterase Negative /uL (Negative) Urine RBC 80 /hpf (0 - 3) Urine Microscopic WBC 2 /HPF (0-3) Urine Squamous Epithelial Cells None seen /hpf (<5) Urine Bacteria None seen /hpf (None Seen) Urine Glucose Normal mg/dL (Normal) Urine Opiates Screen Neg (NEGATIVE) Urine Fentanyl Screen Neg (NEGATIVE) Urine Barbiturates Screen Neg (NEGATIVE) Urine Phencyclidine Screen Neg (NEGATIVE) Urine Amphetamines Screen Neg (NEGATIVE) Urine Benzodiazepines Screen Neg (NEGATIVE) Urine Cocaine Screen Neg (NEGATIVE) Urine Cannabinoids Screen Neg (NEGATIVE) Test 09/08/24 03:54 09/08/24 01:50 09/07/24 09:10 Magnesium Level 2.3 mg/dL (1.6-2.6) Total Bilirubin 0.6 mg/dL (0.2-1.0) Aspartate Amino Transferase (AST) 35 U/L (13-40) Alanine Aminotransferase (ALT) 34 U/L (7-40) Alkaline Phosphatase 179 U/L (46-116) Troponin I High Sensitivity 50 ng/L (</=54) Total Protein 6.5 g/dL (5.7-8.2) Albumin 3.7 g/dL (3.2-4.8) Blood Gas Specimen Type Arterial Blood Gas Sample Site Right radial Blood Gas Patient Temperature 37.0 Arterial Blood Date Drawn Arterial Blood pH 7.422 (7.350-7.450) Arterial Blood Partial Pressure CO2 23.8 mmHg (35.0-48.0) Arterial Blood Partial Pressure O2 69.9 mmHg (83.0-108.0) Arterial Blood HCO3 15.2 mmol/L (21.0-28.0) Arterial Blood Oxygen Saturation 93.5 % (94.0-98.0) Arterial Blood Base Excess -7.7 mmol/L (-2.0-3.0) Arterial Blood Oxyhemoglobin 92.9 % (94.0-98.0) Arterial Blood Carboxyhemoglobin 0.1 % (0.5-1.5) Arterial Blood Methemoglobin 0.5 % (0.0-1.5) Andrés Test Yes Blood Gas Total Hemoglobin 10.80 g/dL (13.5-17.5) Blood Gas Liter Flow 5.00 Blood Gas Modality Nasal cannula Blood Gas Spontaneous Rate 20 FiO2 % 40.0 Lactic Acid Level 1.0 mmol/L (0.4-2.0) B-Type Natriuretic Peptide 1001.77 pg/mL (0-100) Other Laboratory Tests 09/10/24 07:15 09/09/24 07:00 Brief Hx & Hospital Course: see dictated note Condition at Discharge: Fair Final Diagnosis/Problems List chf Discharge Disposition: Acute Care Facility Discharge Instruct/Medications Diet: Cardiac 2g Na,low cholest Activity: No Restrictions, As Tolerated Follow Up/Referral: [facility] with [facility] Medications: per oct Discharge Statement: "Patient was advised to return to the ER or call 911 if any headaches, dizziness, shortness of breath, chest pain, abdominal pain, bleeding, fevers, or worsening of medical condition. Patient was counseled about treatment plan, medications, possible side effects, patientverbalized understanding. All questions were answered to the best of my ability. This discharge took greater then 30 minutes in planning, reviewing documentation, counseling the patient, and discussing with other team members." ASSESSMENT ASSESSMENT Assessment chf Date of Service: Sep 10, 2024 Billing Provider: ALCIDES GUZMAN MD Common Visit Codes: 45843-BHE/OBS DISCH DAY >30min ALCIDES GUZMAN MD Sep 10, 2024 10:18
--- NOTE | 2024-09-10 10:38 | DVHDS ---
DATE OF DISCHARGE: 09/10/2024 TRANSFER SUMMARY DATE OF TRANSFER: 09/10/2024 The patient is a 74-year-old gentleman who was admitted with history of increasing shortness of breath and generalized weakness. He has history of atrial fibrillation, pacemaker, congestive heart failure, CKD stage IV, BPH, diabetes, hyperlipidemia, and hypertension. HOSPITAL COURSE: The patient had evidence of congestive heart failure. The patient had blood cultures and urine cultures that were negative. Creatinine remained at about 2.3-2.5. The patient's BNP was elevated. Troponin was elevated at 55. The patient was seen in Cardiology consult by Dr. Patterson. Echocardiogram done showed ejection fraction of 40%. The patient will now be transferred to [place] for further management. FINAL DIAGNOSES: * Acute respiratory failure. * Acute systolic/diastolic heart failure. * Atrial fibrillation with secondary hypercoagulable state. * History of pacemaker. * Chronic kidney disease stage IV. * Diabetes mellitus. * Anemia. * [id number] myocardial infarction, questionable type 2. Time spent in discharge planning and review of plan with the patient, nursing, and paperwork was 41 minutes. MD ASHKAN Aj/POLO TID: [id number] RECEIPT: [id number]
[2024-09-10] MEDS: metOLazone 5 MG TAB PO ONE (11:15)
--- NOTE | 2024-09-10 12:48 | DVHPN2 ---
Consult Progress Note Date Seen: Sep 10, 2024 Subjective Review of Systems: CVS:Normal, RESPIRATORY:Normal, NEURO:Normal Objective vital signs Vital Sign Date Time Temp Pulse Resp B/P (MAP) Pulse Ox O2 Delivery O2 Flow Rate FiO2 09/10/24 11:15 118/57 09/10/24 10:45 66 09/10/24 08:58 99.0 18 91 99.0 09/10/24 08:00 Nasal Cannula* 6 44 Total Intake and Output 09/09/24 09/09/24 09/10/24 15:00 23:00 07:00 Intake Total 400 ml 550 ml Output Total 4250 ml Balance 400 ml -3700 ml medications Current Medications Medications Dose Ordered Sig/Mario Route Start Time Stop Time Status Last Admin Dose Admin Nitroglycerin 0.4 mg Q5MINP PRN SL 09/07/24 23:00 Empaglifozin 10 mg DAILY PO 09/08/24 10:00 09/10/24 09:45 10 MG Tamsulosin HCl 0.4 mg QPM PO 09/08/24 18:00 09/09/24 19:00 0.4 MG Finasteride 5 mg DAILY PO 09/08/24 10:00 09/10/24 09:44 5 MG Sevelamer HCl 800 mg TIDWM PO 09/08/24 08:00 09/10/24 12:39 800 MG Atorvastatin Calcium 40 mg HS PO 09/08/24 22:00 09/09/24 21:13 40 MG Melatonin 5 mg HS PO 09/08/24 02:30 09/09/24 21:13 5 MG Acetaminophen 650 mg Q8HPRN PRN PO 09/08/24 02:30 09/08/24 02:23 650 MG Apixaban 5 mg BID PO 09/08/24 22:00 09/10/24 09:44 5 MG Furosemide 40 mg BIDD IV 09/08/24 18:00 09/10/24 05:34 40 MG Carvedilol 3.125 mg Q12HR PO 09/08/24 22:00 09/10/24 09:45 3.125 MG Sodium Bicarbonate 650 mg BID PO 09/08/24 22:00 09/10/24 09:44 650 MG Diagnostic Test (Pha) 1 strip ACHS 09/09/24 11:30 09/10/24 11:15 1 STRIP Insulin Human Regular ACHS SC 09/09/24 11:30 09/10/24 06:18 2 UNITS Dextrose 50 ml UD PRN IV 09/09/24 10:30 Docusate Sodium 100 mg BIDPRN PRN PO 09/09/24 16:00 Metolazone 2.5 mg DAILY PO 09/11/24 10:00 Examination: LUNGS:Normal, CVS:Normal, NEURO:Normal laboratory and microbiology Laboratory Tests 09/10/24 07:15 09/09/24 07:00 Test 09/10/24 07:15 Range/Units Serum Glucose 143 H 74-106 mg/dL Problem List/Assessment/Plan Problem List/Assessment/Plan Acute on chronic decompensated HFrEF, NYHA Class IV Acute hypoxic respiratory failure NSTEMI, likely type 2 secondary to above Unspecified atrial fibrillation, on Eliquis therapy Presence of dual-chamber permanent pacemaker ([employer] [employer]) Aortic valve stenosis, moderate degree Pulmonary hypertension, moderate to severe degree Insulin-dependent diabetes mellitus Hypertension Dyslipidemia Advanced CKD Stage IV Anemia and chronic disease Obesity Plan/Recommendation (Dr. Patterson) Transthoracic echocardiogram revealed EF 40% with predominant septal hypokinesis, moderate TR, moderate PAH, and moderate aortic stenosis. Continue preload and afterload reduction as tolerated. Strict I&Os, daily weight, fluid restrictions. Continue GDMT for CHF including Coreg and Jardiance. Rest of medications held given advanced CKD. The patient could benefit for eventual ischemic work-up once renal function recovers vs HD initiation. Continue Eliquis therapy ([id number] Score: 4 points, HAS-BLED Score: 3 points) and BB for rate control. Pacemaker interrogation completed with device function found to be optimal and no evidence of dysfunction. Cardiac stable. We will sign off at this time. Kindly call if in need to re-consult. Thank you for allowing us to participate in this patient's care. This medical document was created using an electronic medical record system with voice recognition software and computerized dictation system. Although this document has been carefully reviewed, there might still be some phonetic and typographical errors. Occasional wrong-word or ``sound-alike substitutions may have occurred due to the inherent limitations of voice recognition software. These areas are purely typographical due to imperfections of the software programs and do not reflect any compromise in the patient's medical care. Please read the chart carefully and recognize, using context, where these substitutions have occurred. Plan discussed with: Patient, Other Date of Service: Sep 10, 2024 Billing Provider: SILVA JOHNSTON Cardiology Common Codes: 49070-IHEONTUOZS INP/OBS CARE(Mod) SILVA JOHNSTON Sep 10, 2024 12:47
--- NOTE | 2024-09-10 16:55 | DVHPN2 ---
Progress Note Date Seen: Sep 10, 2024 Medical Necessity Reason Pt with a Central, PICC or Fol: Yes The following are medically ne: Pa Catheter Reason for pa catheter: Strict I&O Subjective Patient reports: No new complaints, Feels better Review of Systems: HEENT:Normal, CVS:Normal, RESPIRATORY:Normal, GI:Normal, :Normal, MSK:Normal, NEURO:Normal Objective vital signs Vital Sign Date Time Temp Pulse Resp B/P (MAP) Pulse Ox O2 Delivery O2 Flow Rate FiO2 09/10/24 13:02 98.2 66 18 123/58 (79) 100 98.2 09/10/24 08:00 Nasal Cannula* 6 44 Total Intake and Output 09/09/24 09/09/24 09/10/24 15:00 23:00 07:00 Intake Total 400 ml 550 ml Output Total 4250 ml Balance 400 ml -3700 ml medications Current Medications Medications Dose Ordered Sig/Mario Route Start Time Stop Time Status Last Admin Dose Admin Nitroglycerin 0.4 mg Q5MINP PRN SL 09/07/24 23:00 Empaglifozin 10 mg DAILY PO 09/08/24 10:00 09/10/24 09:45 10 MG Tamsulosin HCl 0.4 mg QPM PO 09/08/24 18:00 09/09/24 19:00 0.4 MG Finasteride 5 mg DAILY PO 09/08/24 10:00 09/10/24 09:44 5 MG Sevelamer HCl 800 mg TIDWM PO 09/08/24 08:00 09/10/24 12:39 800 MG Atorvastatin Calcium 40 mg HS PO 09/08/24 22:00 09/09/24 21:13 40 MG Melatonin 5 mg HS PO 09/08/24 02:30 09/09/24 21:13 5 MG Acetaminophen 650 mg Q8HPRN PRN PO 09/08/24 02:30 09/08/24 02:23 650 MG Apixaban 5 mg BID PO 09/08/24 22:00 09/10/24 09:44 5 MG Carvedilol 3.125 mg Q12HR PO 09/08/24 22:00 09/10/24 09:45 3.125 MG Sodium Bicarbonate 650 mg BID PO 09/08/24 22:00 09/10/24 09:44 650 MG Diagnostic Test (Pha) 1 strip ACHS 09/09/24 11:30 09/10/24 11:15 1 STRIP Insulin Human Regular ACHS SC 09/09/24 11:30 09/10/24 06:18 2 UNITS Dextrose 50 ml UD PRN IV 09/09/24 10:30 Docusate Sodium 100 mg BIDPRN PRN PO 09/09/24 16:00 Metolazone 2.5 mg DAILY PO 09/11/24 10:00 Furosemide 20 mg BIDD IV 09/10/24 18:00 UNV Examination: GENERAL:Normal, HEENT:Normal, NECK:Normal, LUNGS:Normal, CVS:Normal, ABDOMEN:Normal, MSK:Normal, SKIN:Normal, NEURO:Normal, :Normal laboratory and microbiology Laboratory Tests 09/10/24 07:15 09/09/24 07:00 Test 09/10/24 07:15 Range/Units Serum Glucose 143 H 74-106 mg/dL Microbiology Date/Time Source Procedure Growth Status 09/07/24 11:42 Urine - Pa Port Urine Culture - Final Complete 09/07/24 09:10 Blood Blood Culture - Preliminary NO GROWTH AFTER 72 HOURS OF INCUBATION. Resulted Problem List/Assessment/Plan Problem List/Assessment/Plan Acute kidney injury on Chronic kidney disease four likely obstructive etiology + cardiorenal syndrome Acute on chronic systolic Congestive heart failure exacerbation Aortic stenosis Acute hypoxic respiratory failure Mild right hydronephrosis//abnormal renal ultrasound Hematuria likely secondary to Pa Recommendations Reduce Lasix dose approximately 12 L urine output recorded yesterday and today//hold metolazone Urology consult given ultrasound findings Plan for transfer to [facility] We will follow renal function closely Plan discussed with: Patient My Orders My Orders Orders - QUITA BARNETT MD Procedure Category Date Status Time Furosemide Injection PHA 09/10/24 Logged (Lasix Injection) 18:00 QUITA BARNETT MD Sep 10, 2024 16:55
[2024-09-10] MEDS: FUROSEMIDE 20 MG/2 ML VIAL IV SCH (17:24)
--- NOTE | 2024-09-10 17:53 | DVH ---
CHEST RADIOGRAPH Indication: edema Technique: Single frontal view of the chest was obtained Comparison: XY CHEST PORTABLE on DOS: 09/09/24, XY CHEST PORTABLE on DOS: 09/07/24 FINDINGS: Lines and Tubes: None. Left-sided approach dual lead pacemaker terminating within right atrium and r ight ventricle. Lungs: No focal consolidation. Diffuse interstitial prominence with obscuration of the left hemidiaph ragm No pneumothorax. Cardiomediastinal contours: Borderline cardiomegaly Bones: No acute osseous abnormality. IMPRESSION: Borderline cardiomegaly with pulmonary edema and possible small left-sided pleural effusion ; improve d from prior imaging. Underlying infectious process can not be excluded
[2024-09-10] MEDS: DOCUSATE SOD 100 MG CAP PO PRN (20:09)
[2024-09-11] VITALS (8 sets, daily range): BP systolic 120–140; BP diastolic 63–76; PULSE 62–70; RESP 17–20; TEMP 97.3–98.3; O2SAT 92–98
--- NOTE | 2024-09-11 06:56 | DVH ---
CHEST RADIOGRAPH Indication: chf Technique: Single frontal view of the chest was obtained Comparison: XY CHEST PORTABLE on DOS: 09/10/24 FINDINGS: Lines and Tubes: Dual-chamber pacemaker with right atrial and ventricular leads. Lungs: Pulmonary edema is unchanged. Pleura: Stable left pleural effusion. No pneumothorax. Cardiomediastinal contours: Cardiomegaly. Bones: No acute osseous abnormality. IMPRESSION: 1. No significant interval change.
[2024-09-11 07:33] LABS: Calcium 9.1 mg/dL (8.7-10.4); Chloride 105 mmol/L (98-107); Potassium 3.5 mmol/L (3.5-5.1); Sodium 139 mmol/L (136-145)
[2024-09-11 07:34] LABS: Anion Gap 10 (5-15); Carbon Dioxide 24 mmol/L (20-31)
[2024-09-11 07:39] LABS: BUN/Creatinine Ratio 18.9 (10.0-20.0); Blood Urea Nitrogen 47 mg/dL (9-23); Glucose 172 mg/dL (74-106)
--- NOTE | 2024-09-11 09:58 | DVHPN2 ---
Progress Note Date Seen: Sep 11, 2024 Medical Necessity Reason Pt with a Central, PICC or Fol: No Reason for pa catheter: Strict I&O Subjective Patient reports: No new complaints Review of Systems: HEENT:Normal, CVS:Normal, RESPIRATORY:Normal, GI:Normal, :Normal, MSK:Normal, NEURO:Normal Objective vital signs Vital Sign Date Time Temp Pulse Resp B/P (MAP) Pulse Ox O2 Delivery O2 Flow Rate FiO2 09/11/24 06:11 120/76 09/11/24 05:00 98.0 70 17 93 98.0 09/10/24 20:00 Nasal Cannula* 6 44 Total Intake and Output 09/10/24 09/10/24 09/11/24 15:00 23:00 07:00 Intake Total 700 ml 310 ml Output Total 3000 ml 1900 ml Balance -2300 ml -1590 ml medications Current Medications Medications Dose Ordered Sig/Mario Route Start Time Stop Time Status Last Admin Dose Admin Nitroglycerin 0.4 mg Q5MINP PRN SL 09/07/24 23:00 Empaglifozin 10 mg DAILY PO 09/08/24 10:00 09/10/24 09:45 10 MG Tamsulosin HCl 0.4 mg QPM PO 09/08/24 18:00 09/10/24 17:24 0.4 MG Finasteride 5 mg DAILY PO 09/08/24 10:00 09/10/24 09:44 5 MG Sevelamer HCl 800 mg TIDWM PO 09/08/24 08:00 09/10/24 17:23 800 MG Atorvastatin Calcium 40 mg HS PO 09/08/24 22:00 09/10/24 20:09 40 MG Melatonin 5 mg HS PO 09/08/24 02:30 09/10/24 20:23 5 MG Acetaminophen 650 mg Q8HPRN PRN PO 09/08/24 02:30 09/08/24 02:23 650 MG Apixaban 5 mg BID PO 09/08/24 22:00 09/10/24 20:10 5 MG Carvedilol 3.125 mg Q12HR PO 09/08/24 22:00 09/10/24 20:10 3.125 MG Sodium Bicarbonate 650 mg BID PO 09/08/24 22:00 09/10/24 20:23 650 MG Diagnostic Test (Pha) 1 strip ACHS 09/09/24 11:30 09/11/24 06:11 1 STRIP Insulin Human Regular ACHS SC 09/09/24 11:30 09/11/24 06:12 3 UNITS Dextrose 50 ml UD PRN IV 09/09/24 10:30 Docusate Sodium 100 mg BIDPRN PRN PO 09/09/24 16:00 09/10/24 20:09 100 MG Furosemide 20 mg BIDD IV 09/10/24 18:00 09/11/24 06:11 20 MG Examination: GENERAL:Normal, HEENT:Normal, NECK:Normal, LUNGS:Normal, LUNGS:Abnormal (ON OXYGEN), CVS:Normal, ABDOMEN:Normal, MSK:Normal, SKIN:Normal, NEURO:Normal, :Normal laboratory and microbiology Laboratory Tests 09/11/24 06:36 09/09/24 07:00 Test 09/11/24 06:36 Range/Units Serum Glucose 172 H 74-106 mg/dL Microbiology Date/Time Source Procedure Growth Status 09/07/24 11:42 Urine - Pa Port Urine Culture - Final Complete 09/07/24 09:10 Blood Blood Culture - Preliminary NO GROWTH AFTER 72 HOURS OF INCUBATION. Resulted Problem List/Assessment/Plan Problem List/Assessment/Plan #1 acute resp failure: cont oxygen #2 acute systolic/diastolic heart failure: lasix iv, metolazone #3 a fib with secondary hypercoaguable state: on eliquis #4 s/p pacer #5 ckd stage 4 #6 dm: ssi #7 anemia #8 nstemi ?type 2 dc plan for am advance care planning- full code- time spent 19 mins Plan discussed with: Patient My Orders My Orders Orders - ALCIDES GUZMAN MD Procedure Category Date Status Time Discharge DISCHARGE 09/10/24 Transmitted 10:06 * Trucker Hand CONS 09/10/24 Transmitted Consult Chest Portable XY 09/11/24 Resulted 06:00 D/C Pa LEONCIO 09/11/24 Verified 09:55 Basic Metabolic Panel LAB 09/12/24 Verified 06:00 Abg W/ Co-Ox RT 09/12/24 Verified 06:00 Date of Service: Sep 11, 2024 Billing Provider: ALCIDES GUZMAN MD Common Visit Codes: [id number] INP/OBS CARE(HIGH) ALCIDES GUZMAN MD Sep 11, 2024 09:58
[2024-09-11] MEDS ORDERED: metOLazone 5 MG TAB PO SCH (10:00)
[2024-09-11] MEDS ORDERED: DOCUSATE SOD 100 MG CAP PO PRN (10:00)
[2024-09-11] MEDS: FUROSEMIDE 20 MG/2 ML VIAL IV ONE (10:11)
[2024-09-11] MEDS: POLYETHYLENE GLYCOL 17 GM PWDR PO ONE (10:15)
[2024-09-11] MEDS: metOLazone 5 MG TAB PO ONE (10:15)
[2024-09-11] MEDS: DOCUSATE SOD 100 MG CAP PO ONE (10:16)
--- NOTE | 2024-09-11 16:44 | DVHPN2 ---
Progress Note Date Seen: Sep 11, 2024 Medical Necessity Reason Pt with a Central, PICC or Fol: No Reason for pa catheter: Strict I&O Subjective Patient reports: No new complaints, Feels better Objective vital signs Vital Sign Date Time Temp Pulse Resp B/P (MAP) Pulse Ox O2 Delivery O2 Flow Rate FiO2 09/11/24 13:00 98.3 65 18 137/68 (91) 98 98.3 09/11/24 08:00 Nasal Cannula* 5 40 Total Intake and Output 09/10/24 09/10/24 09/11/24 15:00 23:00 07:00 Intake Total 700 ml 310 ml Output Total 3000 ml 1900 ml Balance -2300 ml -1590 ml medications Current Medications Medications Dose Ordered Sig/Mario Route Start Time Stop Time Status Last Admin Dose Admin Nitroglycerin 0.4 mg Q5MINP PRN SL 09/07/24 23:00 Empaglifozin 10 mg DAILY PO 09/08/24 10:00 09/11/24 10:12 10 MG Tamsulosin HCl 0.4 mg QPM PO 09/08/24 18:00 09/10/24 17:24 0.4 MG Finasteride 5 mg DAILY PO 09/08/24 10:00 09/11/24 10:12 5 MG Sevelamer HCl 800 mg TIDWM PO 09/08/24 08:00 09/11/24 12:16 800 MG Atorvastatin Calcium 40 mg HS PO 09/08/24 22:00 09/10/24 20:09 40 MG Melatonin 5 mg HS PO 09/08/24 02:30 09/10/24 20:23 5 MG Acetaminophen 650 mg Q8HPRN PRN PO 09/08/24 02:30 09/08/24 02:23 650 MG Apixaban 5 mg BID PO 09/08/24 22:00 09/11/24 10:12 5 MG Carvedilol 3.125 mg Q12HR PO 09/08/24 22:00 09/11/24 10:12 3.125 MG Sodium Bicarbonate 650 mg BID PO 09/08/24 22:00 09/11/24 10:11 650 MG Diagnostic Test (Pha) 1 strip ACHS 09/09/24 11:30 09/11/24 11:30 1 STRIP Insulin Human Regular ACHS SC 09/09/24 11:30 09/11/24 12:15 4 UNITS Dextrose 50 ml UD PRN IV 09/09/24 10:30 Furosemide 20 mg BIDD IV 09/10/24 18:00 09/11/24 06:11 20 MG Docusate Sodium 100 mg BIDPRN PRN PO 09/11/24 10:00 laboratory and microbiology Laboratory Tests 09/11/24 06:36 09/09/24 07:00 Test 09/11/24 06:36 Range/Units Serum Glucose 172 H 74-106 mg/dL Microbiology Date/Time Source Procedure Growth Status 09/07/24 11:42 Urine - Pa Port Urine Culture - Final Complete 09/07/24 09:10 Blood Blood Culture - Preliminary NO GROWTH AFTER 72 HOURS OF INCUBATION. Resulted Problem List/Assessment/Plan Problem List/Assessment/Plan Acute kidney injury on Chronic kidney disease four likely obstructive etiology + cardiorenal syndrome Acute on chronic systolic Congestive heart failure exacerbation Aortic stenosis Acute hypoxic respiratory failure Mild right hydronephrosis//abnormal renal ultrasound Hematuria likely secondary to Ap Recommendations Reduce Lasix dose Urology consult given ultrasound findings Plan for transfer to [facility] We will follow renal function closely Plan discussed with: Patient My Orders My Orders Orders - QUITA BARNETT MD Procedure Category Date Status Time Chest Portable XY 09/10/24 Resulted 16:55 Furosemide Injection PHA 09/10/24 In Process (Lasix Injection) 18:00 QUITA BARNETT MD Sep 11, 2024 16:44
[2024-09-12 01:00] VITALS: BP 126/54; PULSE 65; RESP 20; TEMP 98.1; O2SAT 95
[2024-09-12 05:00] VITALS: BP 141/69; PULSE 61; RESP 18; TEMP 98; O2SAT 96
[2024-09-12 06:55] LABS: Anion Gap 11 (5-15); Carbon Dioxide 26 mmol/L (20-31); Chloride 103 mmol/L (98-107); Potassium 3.9 mmol/L (3.5-5.1); Sodium 140 mmol/L (136-145)
[2024-09-12 06:57] LABS: Calcium 8.9 mg/dL (8.7-10.4)
[2024-09-12 07:01] LABS: BUN/Creatinine Ratio 19.4 (10.0-20.0); Glucose 184 mg/dL (74-106)
[2024-09-12 07:03] LABS: Blood Urea Nitrogen 52 mg/dL (9-23)
[2024-09-12 08:00] VITALS: PULSE 65; PULSE 66; RESP 17; O2SAT 96
[2024-09-12 09:00] VITALS: BP 110/72; PULSE 66; RESP 17; TEMP 98; O2SAT 96
[2024-09-12 12:02] LABS: Base Excess 1.2 mmol/L (-2.0-3.0)
[2024-09-12 13:00] VITALS: BP 146/72; PULSE 65; RESP 17; TEMP 97.5; O2SAT 96
[2024-09-12] MEDS ORDERED: FURO1TAB31 PO (14:41)
--- NOTE | 2024-09-12 14:46 | DVHPN2 ---
Subjective Patient denies any symptoms at this time. Reviewed: Care Plan, H&P, Labs, Medications, Previous Orders Changes from previous H/P or p: No Changes General: Per HPI Objective Vitals Vital Signs Date Time Temp Pulse Resp B/P (MAP) Pulse Ox O2 Delivery O2 Flow Rate FiO2 09/12/24 13:00 97.5 65 17 146/72 (96) 96 97.5 09/12/24 08:00 Nasal Cannula* 2 28 Intake/Output Intake and Output 09/12/24 07:00 Intake Total 1710 ml Output Total 1400 ml Balance 310 ml Intake Oral 1710 ml Output Urine Total 1400 ml # Voids 2 # Bowel Movements 1 General Appearance: Alert, Oriented X3, Cooperative, No acute distress HEENT: Atraumatic, PERRLA Lungs: Clear to auscultation, Normal air movement Cardiovascular: Normal S1, Normal S2, Other (Irregular) Abdomen: Normal bowel sounds, Soft, No tenderness Musculoskeletal: Normal sensory function, Normal motor function Extremities: No clubbing, No cyanosis, No edema Neuro: Normal gait, Normal speech Skin: Dry, Intact Psych/Mental Status: Mental status NL, Mood NL Medications Current Medications Medications Dose Ordered Sig/Mario Route Start Time Stop Time Status Last Admin Dose Admin Nitroglycerin 0.4 mg Q5MINP PRN SL 09/07/24 23:00 Empaglifozin 10 mg DAILY PO 09/08/24 10:00 09/12/24 09:04 10 MG Tamsulosin HCl 0.4 mg QPM PO 09/08/24 18:00 09/11/24 17:33 0.4 MG Finasteride 5 mg DAILY PO 09/08/24 10:00 09/12/24 09:04 5 MG Sevelamer HCl 800 mg TIDWM PO 09/08/24 08:00 09/12/24 11:33 800 MG Atorvastatin Calcium 40 mg HS PO 09/08/24 22:00 09/11/24 21:16 40 MG Melatonin 5 mg HS PO 09/08/24 02:30 09/11/24 21:16 5 MG Acetaminophen 650 mg Q8HPRN PRN PO 09/08/24 02:30 09/12/24 12:15 650 MG Apixaban 5 mg BID PO 09/08/24 22:00 09/12/24 09:04 5 MG Carvedilol 3.125 mg Q12HR PO 09/08/24 22:00 09/12/24 09:04 3.125 MG Sodium Bicarbonate 650 mg BID PO 09/08/24 22:00 09/12/24 09:04 650 MG Diagnostic Test (Pha) 1 strip ACHS 09/09/24 11:30 09/12/24 11:33 1 STRIP Insulin Human Regular ACHS SC 09/09/24 11:30 09/12/24 11:36 6 UNITS Dextrose 50 ml UD PRN IV 09/09/24 10:30 Furosemide 20 mg BIDD IV 09/10/24 18:00 09/12/24 05:50 20 MG Docusate Sodium 100 mg BIDPRN PRN PO 09/11/24 10:00 Laboratory Results Laboratory Tests 09/09/24 07:00 09/12/24 06:08 Chemistry Test 09/12/24 06:08 Calcium Level 8.9 mg/dL (8.7-10.4) Urinalysis Test 09/08/24 10:15 Urine Color Colorless (Yellow) Urine Clarity Clear (Clear) Urine pH 5.0 (5.0-9.0) Urine Specific [place] 1.008 (1.001-1.035) Urine Protein Trace (Negative) H Urine Ketones Negative (Negative) Urine Blood 3+ /uL (Negative) H Urine Nitrite Negative (Negative) Urine Bilirubin Negative (Negative) Urine Urobilinogen Normal mg/dL (Negative) Urine Leukocyte Esterase Negative /uL (Negative) Urine RBC 80 /hpf (0 - 3) Urine Microscopic WBC 2 /HPF (0-3) Urine Squamous Epithelial Cells None seen /hpf (<5) Urine Bacteria None seen /hpf (None Seen) Urine Glucose Normal mg/dL (Normal) Blood Gas Results Test 09/12/24 11:56 Arterial Blood pH 7.489 (7.350-7.450) FiO2 % 21.0 Microbiology Microbiology Date/Time Source Procedure Growth Status 09/07/24 11:42 Urine - [place] Port Urine Culture - Final Complete 09/07/24 09:10 Blood Blood Culture - Final NO GROWTH AFTER 5 DAYS OF INCUBATION. Complete Labs and/or images reviewed: Labs reviewed by me, Image(s) reviewed by me Assessment/Plan Assessment/Plan Impression: -acute hypoxic respiratory failure -acute on chronic systolic and diastolic heart failure -atrial fibrillation -chronic kidney disease stage four -diabetes mellitus -anemia of chronic disease -NSTEMI type 2 secondary to decompensated heart failure Plan: -patient has been weaned off of oxygen -nephrology consultation: Recommendations reviewed -anticoagulation with Eliquis -continue goal-directed heart failure medication. -discussion made with primary hospitalist. Patient will be discharged home instead of being transferred to acute care facility within the [facility]. Patient was had medication reconciliation performed of his medications. Lasix will be increased from 20 mg to 40 mg p.o. daily. Patient will follow up with his [facility] PCP with the next 1-2 weeks. Total time spent with patient discussing and formulating plan of care: 35 minutes. This medical document was created using an electronic medical record system with arGEN-[employer] dictation system. Although this document has been carefully reviewed, there may still be some phonetic and typographical errors. These areas are purely typographical due to imperfections of the software programs, and do not reflect any compromise in the patient's medical care. Plan discussed with: Patient, Other (RN) Date of Service: Sep 12, 2024 Billing Provider: DUKE MOHAN NP Common Visit Codes: [id number] INP/OBS CARE(HIGH) DUKE MOHAN NP Sep 12, 2024 14:45
[2024-09-12 15:31] VITALS: BP 136/71; PULSE 78; RESP 18; TEMP 98.4; O2SAT 98
== END 2024-09-12 17:36 | disposition home or self-care (01) | DRG 280 ==
LOC: ER 07:46 → EDBD 07:46 → ER 10:30 → TELE 22:43 → ER 22:50 → TELE-CENTR 09-08 23:00
PROVIDERS: ATTEND Nurse Practitioner Acute Care
DX: I13.0 Hypertensive heart and chronic kidney disease with heart failure and stage 1 through stage 4 chronic kidney disease, or unspecified chronic kidney disease (principal); I50.43 Acute on chronic combined systolic (congestive) and diastolic (congestive) heart failure; I21.A1 Myocardial infarction type 2; J96.01 Acute respiratory failure with hypoxia; N18.4 Chronic kidney disease, stage 4 (severe); N13.30 Unspecified hydronephrosis; N17.9 Acute kidney failure, unspecified; D68.69 Other thrombophilia; D63.1 Anemia in chronic kidney disease; I16.0 Hypertensive urgency; I48.91 Unspecified atrial fibrillation; E66.9 Obesity, unspecified; N40.0 Benign prostatic hyperplasia without lower urinary tract symptoms; E11.22 Type 2 diabetes mellitus with diabetic chronic kidney disease; E78.5 Hyperlipidemia, unspecified; E87.8 Other disorders of electrolyte and fluid balance, not elsewhere classified; I35.0 Nonrheumatic aortic (valve) stenosis; Z96.659 Presence of unspecified artificial knee joint; Z95.0 Presence of cardiac pacemaker; Z79.01 Long term (current) use of anticoagulants; Z79.4 Long term (current) use of insulin; Z83.3 Family history of diabetes mellitus; Z68.26 Body mass index [BMI] 26.0-26.9, adult
CPT/HCPCS: 36415; 36600; 71045; 76775; 80048; 80053; 80307; 81001; 82533; 82805; 82962; 83036; 83605; 83735; 83880; 84443; 84484; 85025; 87040; 87086; 93005; 93306; 96374; 97110; 97116; 97163; 99291; G0378; J1815

== ENCOUNTER 2024-10-14 11:49 | Inpatient (IN) | payer OTHER ==
[~2024-10-14] VITALS: Ht 177.8 cm; Wt 86.3 kg
[~2024-10-14 11:49] MED LIST: AMLO1TAB22 PO; APIX5TAB PO; ATOR-507 PO; FINA5TAB4 PO; FURO1TAB31 PO; INSU1INJ3 SC; SEVE800T10 PO; SODI650T PO; TAMS-35 PO
--- NOTE | 2024-10-14 12:06 | ECG ---
[facility] Test Date: 2024-10-14 Test Time: 11:58:37 Pat Name: LISA HERRERA Department: ER Room: 0223T Gender: M [employer] Supervisor: MIGUEL : 1950 Requested By: IGNACIO MARTINEZ Order Number: [id number] Reading MD: Valdo Patterson Measurements Intervals [place] Rate: 99 P: 0 NC: 0 QRS: -58 QRSD: 179 T: -80 QT: 370 QTc: 475 Interpretive Statements Atrial fibrillation Ventricular bigeminy Left bundle branch block Electronically Signed On 10-18-2024 18:42:54 PDT by Valdo Patterson Please click the below link to view image of tracing.
[2024-10-14] MEDS: DEXTROSE 50% SYRINGE 50 ML IV ONE (12:07)
[2024-10-14 12:10] VITALS: O2SAT 97
--- NOTE | 2024-10-14 12:15 | ED.PDOC ---
Altered Mental Status HPI Comments 74 year old male brought in by EMS presents to the ED with a chief complaint of ALOC onset today (10/14/24.) Per EMS, patient was found by with low blood sugar, states blood sugar is usually low when he wakes up, drinks orange juice and improves. EMS states upon their arrival patient's BS was 32 with pinpoint pupils, Narcan was given, placed on O2. Upon ED arrival, BS was 47, BP 132/67, O2 82% NC was not able to answer questions, was placed on NRB 15L improved to 97%, treated with 1 amp dextrose improved BS to 147. Patient was only able to say he was cold, not answering questions. PMHx HTN, DM, HLD, CHF, CKF. No other symptoms or modifying factors present at this time. Chief Complaint: ALOC Time Seen by MD: 11:47 Primary Care Provider: UNKNOWN Reviewed Notes: Medications, Allergies Allergies: Coded Allergies: NO KNOWN ALLERGIES (Unverified , 09/07/24) Home Meds Active Scripts Furosemide (Lasix) 40 Mg Tab, 40 MG PO DAILY for 30 Days, #30 TAB Prov:[facility] 09/12/24 Reported Medications Insulin NPH Isophane & Reg (Hu (Humulin 70/30 Kwikpen (70-30) 100 Unit/ml) 1 Inj Inj, SC IF BS >100, GIVE 30 UNITS INSULIN SC. 09/09/24 Sevelamer Carbonate (Sevelamer Carbonate) 800 Mg Tab, 1 TAB PO TID 09/09/24 Sodium Bicarbonate (Sodium Bicarbonate) 650 Mg Tab, 650 MG PO TID, TAB 09/09/24 Finasteride (Finasteride) 5 Mg Tab, 5 MG PO DAILY for 30 Days, MG 09/09/24 Apixaban Base (ELIQUIS) 5 Mg Tab, 5 MG PO BID, TAB 09/09/24 Tamsulosin Hcl (Flomax) 0.4 Mg Cap, 0.8 MG PO HS, CAP 09/09/24 Amlodipine Besylate (Amlodipine Besylate) 5 Mg Tab, 10 MG PO DAILY for 30 Days, MG 09/09/24 Atorvastatin Calcium (Lipitor) 40 Mg Tab, 40 MG PO DAILY, TAB 09/09/24 Information Source: Patient, Emergency Med Personnel Mode of Arrival: EMS Severity: Moderate Timing: Hours Duration: Since onset Prehospital treatment: Oxygen Quality: Decreased Alertness, Change in Behavior History of: Diabetes Past Medical History PAST MEDICAL HISTORY: Cancer, CHF, CKF, DM, High Lipids, HTN Surgical History: Pacemaker Family History Family History: Reviewed,noncontributory to illness Social History Smoker: Non-Smoker Alcohol: Denies ETOH Use Drugs: Denies Drug Use Lives In: Home Unable to Obtain due to: Altered Mental Status Physical Exam General Appearance: No Apparent Distress, Normal HEENT: Normal ENT Inspection, Pharynx Normal, TMs Normal Neck: Full Range of Motion, Non-Tender, Normal, Normal Inspection Respiratory: Chest Non-Tender, Lungs Clear, No Accessory Muscle Use, No Respiratory Distress, Normal Breath Sounds Cardiovascular: No Edema, No JVD, No Murmur, No Gallop, Normal Peripheral Pulses, Regular Rate/Rhythm Breast Exam: Deferred Gastrointestinal: No Organomegaly, Non Tender, No Pulsatile Mass, Normal Bowel Sounds, Soft Genitalia: Deferred Pelvic: Deferred Rectal: Deferred Extremities: No calf tenderness, Normal capillary refill, Normal inspection, Normal range of motion, Non-tender, No pedal edema Musculoskeletal : Apperance: Normal Neurologic: Other (Patient unresponsive) Cerebellar Function: Normal Reflexes: Normal Skin: Dry, Normal Color, Warm Lymphatic: No Adenopathy Was a procedure done? Was a procedure done?: No Differential Diagnosis (ALOC) Differential Diagnosis: Hypoglycemia, DKA, Encephalopathy, Sepsis, Hypoxemia, Drug Overdose, Heart Failure, Renal Failure X-Ray, Labs, Meds, VS Vital Signs Date Time Temp Pulse Resp B/P (MAP) Pulse Ox O2 Delivery O2 Flow Rate FiO2 10/14/24 14:45 65 12 134/64 10/14/24 14:00 65 14 126/64 10/14/24 13:21 97.1 65 17 139/56 (83) 95 97.1 10/14/24 12:40 69 15 133/56 (81) 96 10/14/24 12:10 97 Non-Rebreather 15 N/A 10/14/24 12:08 92.5 65 25 92/43 (59) 97 92.5 10/14/24 11:58 99 10/14/24 11:49 92.5 72 20 132/86 (101) 92 Lab Test 10/14/24 14:19 10/14/24 13:28 10/14/24 12:31 10/14/24 12:19 Range/Units Lactic Acid Level 2.0 0.4-2.0 mmol/L Troponin I High Sensitivity 94 *H </=54 ng/L Urine Color Yellow Yellow Urine Clarity Clear Clear Urine pH 6.5 5.0-9.0 Urine Specific [place] 1.014 1.001-1.035 Urine Protein 1+ H Negative Urine Ketones Negative Negative Urine Blood Negative Negative /uL Urine Nitrite Negative Negative Urine Bilirubin Negative Negative Urine Urobilinogen Normal Negative mg/dL Urine Leukocyte Esterase Negative Negative /uL Urine RBC <1 0 - 3 /hpf Urine Microscopic WBC < 1 0-3 /HPF Urine Squamous Epithelial Cells Few <5 /hpf Urine Bacteria None seen None Seen /hpf Urine Glucose Normal Normal mg/dL Blood Gas Specimen Type Venous Blood Gas Sample Site Other Blood Gas Patient Temperature 37.0 Arterial Blood Date Drawn [id number] Andrés Test N/a Venous Blood pH 7.435 H 7.320-7.430 Venous Blood pCO2 at Patient Temp 33.6 L 38.0-54.0 mmHg Venous Blood pO2 at Patient Temp 48.2 H 23.0-48.0 mmHg Venous Blood HCO3 22.1 22.0-29.0 mmol/L Venous Blood Base Excess -1.4 -2.0-3.0 mmol/L Blood Gas Liter Flow 15.00 Blood Gas Modality Mask - nrb FiO2 % 100.0 Blood Gas Comments Test 10/14/24 12:10 Range/Units White Blood Count 7.7 4.4-10.8 10^3/uL Red Blood Count 3.57 L 4.5-5.90 10^6/uL Hemoglobin 10.1 L 13.5-17.5 g/dL Hematocrit 31.2 L 41.0-53.0 % Mean Corpuscular Volume 87.2 80.0-100.0 fL Mean Corpuscular Hemoglobin 28.4 28.0-32.0 pg Mean Corpuscular Hemoglobin Concent 32.6 32.0-36.0 g/dL Red Cell Distribution Width 18.7 H 11.8-14.3 % Platelet Count 152 140-450 10^3/uL Mean Platelet Volume 8.6 6.9-10.8 fL Neutrophils (%) (Auto) 82.2 H 37.0-80.0 % Lymphocytes (%) (Auto) 10.5 10.0-50.0 % Monocytes (%) (Auto) 6.1 0.0-12.0 % Eosinophils (%) (Auto) 0.3 0.0-7.0 % Basophils (%) (Auto) 0.9 0.0-2.0 % Neutrophils # (Auto) 6.4 1.6-8.6 10 ^3/uL Lymphocytes # (Auto) 0.8 0.4-5.4 10 ^3/uL Monocytes # (Auto) 0.5 0-1.3 10 ^3/uL Eosinophils # (Auto) 0 0-0.8 10 ^3/uL Basophils # (Auto) 0.1 0-0.2 10 ^3/uL Nucleated Red Blood Cells 0.0 % Sodium Level 142 136-145 mmol/L Potassium Level 4.8 3.5-5.1 mmol/L Chloride Level 107 98-107 mmol/L Carbon Dioxide Level 22 20-31 mmol/L Anion Gap 13 5-15 Blood Urea Nitrogen 47 H 9-23 mg/dL Creatinine 3.31 H 0.700-1.30 mg/dL Glomerular Filtration Rate Calc 19 >90 mL/min BUN/Creatinine Ratio 14.2 10.0-20.0 Serum Glucose 143 H 74-106 mg/dL Lactic Acid Level 3.5 *H 0.4-2.0 mmol/L Calcium Level 9.5 8.7-10.4 mg/dL Total Bilirubin 0.9 0.2-1.0 mg/dL Aspartate Amino Transferase (AST) 29 13-40 U/L Alanine Aminotransferase (ALT) 28 7-40 U/L Alkaline Phosphatase 124 H 46-116 U/L Troponin I High Sensitivity 78 *H </=54 ng/L B-Type Natriuretic Peptide 556.86 0-100 pg/mL Total Protein 7.7 5.7-8.2 g/dL Albumin 4.5 3.2-4.8 g/dL Current Medications Medications (Trade) Dose Ordered Sig/Mario Route Start Time Stop Time Status Last Admin Dextrose 50 ml ONCE ONCE IV 10/14/24 12:15 10/14/24 12:16 DC 10/14/24 12:18 Cefepime HCl 50 ml @ 12.5 mls/hr ONCE ONCE IV 10/14/24 13:00 10/14/24 16:59 10/14/24 13:40 Morphine Sulfate 4 mg ONCE ONCE IV 10/14/24 13:15 10/14/24 14:24 DC 10/14/24 14:00 Ondansetron HCl (Zofran) 4 mg ONCE ONCE IV 10/14/24 13:15 10/14/24 14:24 DC 10/14/24 14:[address] [address] Ph: [phone] DIAGNOSTIC IMAGING Diagnostic Imaging Report : [id number] Signed PATIENT: LISA HERRERAT: [id number] UNIT: [id number] : 1950 LOC: ER ROOM / BED: / AGE / SEX: 74 / M ADM STATUS: REG ER SERVICE 1200 ORDERING PHYSICIAN: IGNACIO MARTINEZ MD PROCEDURE(s): CXRP - CHEST PORTABLE REASON: ams ORDER NUMBER(s): [id number], ACCESSION NUMBER(s): [id number] CHEST RADIOGRAPH Indication: ams Technique: Single frontal view of the chest was obtained COMPARISON: XY CHEST PORTABLE on DOS: 09/11/24, XY CHEST PORTABLE on DOS: 09/10/24, XY CHEST PORTABLE on DOS: 09/09/24, XY CHEST PORTABLE on DOS: 09/07/24 FINDINGS: Lines and Tubes: Left chest wall pacemaker Lungs: Multifocal airspace disease. Pleura: No effusion. No pneumothorax. Cardiomediastinal contours: Cardiomegaly Bones: Unremarkable IMPRESSION: Multifocal airspace disease. ATED BY: JEREMIAH ORTEGA MD DICTATED DATE/TIME: 10/14/24 122 SIGNED BY: JEREMIAH ORTEGA MD SIGNED DATE/TIME: 10/14/24 1223 CC: [address] [address] Ph: [phone] DIAGNOSTIC IMAGING Diagnostic Imaging Report : [id number] Signed PATIENT: LISA HERRERAT: [id number] UNIT: [id number] : 1950 LOC: ER ROOM / BED: / AGE / SEX: 74 / M ADM STATUS: REG ER SERVICE 1200 ORDERING PHYSICIAN: IGNACIO MARTINEZ MD PROCEDURE(s): HWOCT - HEAD WITHOUT CONTRAST REASON: [facility] ORDER NUMBER(s): [id number], ACCESSION NUMBER(s): [id number] EXAM: CT HEAD WITHOUT CONTRAST HISTORY: ams COMPARISON: None TECHNIQUE: Axial images of the head were obtained and reformatted in coronal and sagittal planes. All CT scans at this medical facility are performed using dose modulation techniques as appropriate to a performed exam including the following: Automated exposure control was utilized; adjustment of the MA and/or KV according to patient size; and use of iterative reconstruction technique. CT Dose: CTDI volume is 69.55 mGy. Dose-length product is 1370.31 mGy*cm FINDINGS: There is no evidence of acute intracranial hemorrhage, mass, mass effect midline shift. There is no hydrocephalus or extra-axial fluid collection. There are c hronic microvascular ischemic changes in the supratentorial white matter. There is a small chronic lacunar infarct right caudate head region. Is likely a small chronic infarct in the right frontal lobe, just anterior to the right lateral ventricle. The visualized paranasal sinuses and mastoid air cells are clear. The calvarium is intact. IMPRESSION: 1. No acute intracranial process. HS:Y ATED BY: BRANDYN LUCAS MD DICTATED DATE/TIME: 10/14/241331 SIGNED BY: BRANDYN LUCAS MD SIGNED DATE/TIME: 10/14/241331 CC: Time of 1ST Reevaluation: 12:17 Reevaluation 1ST: Unchanged Patient Education/Counseling: Diagnosis, Treatment, Prognosis Family Education/Counseling: No Family Present Additional Information The following tests were ordered, and results were reviewed by me: BNP, CBC, CMP, LA W/ REFLEX, TROP -x3, UA, XY CHEST, CT HEAD WITHOUT CONTRAST, BLOOD CULTURE, VBG, EKG Additional Information was gathered from interviewing the following independent historians: EMS I reviewed and agreed with the following test results read by other providers: XY CHEST, CT HEAD WITHOUT CONTRAST I discussed treatment and results with medical personnel and: patient Departure 1 Departure Time of Disposition: 15:24 ([facility] authorization [id number] to admit here.Patient presented unresponsive likely secondary to hypoglycemia. Patient with elevated lactic acid elevated troponin. We will empirically cover patient with antibiotics. Patient has a amount of heart failure so we will not give the patient a fluid bolus and patient is blood pressure within range. We will admit patient for further workup and expert consultation.) Impression: Primary Impression: Metabolic encephalopathy Additional Impressions: Hypocalcemia Generalized weakness Disposition: ADMITTED INPATIENT Admit to: [facility] Condition: Guarded Critical Care Note Critical Care Time?: Yes Critical care comment: Altered mental status, unresponsive Authorized and Performed by: Ignacio Martinez MD Total critical care time: Approximately 49 minutes Due to a high probability of clinically significant, life threatening de terioration, the patient required my highest level of preparedness to intervene emergently and I personally spent this critical care time directly and personally managing the patient. This critical care time included obtaining a history; examining the patient; pulse oximetry; ordering and review of studies; arranging urgent treatment with development of a management plan; evaluation of patient's response to treatment; frequent reassessment; and, discussions with other providers. This critical care time was performed to assess and manage the high probability of imminent, life-threatening deterioration that could result in multi-organ failure. It was exclusive of separately billable procedures and treating other patients and teaching time. Please see my other sections and the rest of the note for further information on patient assessment and treatment. Stability Stability form required: No I personally scribed for IGNACIO MARTINEZ MD ([email or web address]) on 10/14/24 at 12:15. Electronically submitted by Karen Hilliard ([email or web address]). I personally scribed for IGNACIO MARTINEZ MD ([email or web address]) on 10/14/24 at 12:16. Electronically submitted by Karen Hilliard ([email or web address]). I personally scribed for IGNACIO MARTINEZ MD ([email or web address]) on 10/14/24 at 12:33. Electronically submitted by Karen Hilliard ([email or web address]). I personally scribed for IGNACIO MARTINEZ MD ([email or web address]) on 10/14/24 at 12:40. Electronically submitted by Karen Hilliard ([email or web address]). I personally scribed for IGNACIO MARTINEZ MD ([email or web address]) on 10/14/24 at 13:52. Electronically submitted by Karen Hilliard ([email or web address]). IGNACIO MARTINEZ MD Oct 14, 2024 12:15
[2024-10-14] MEDS: DEXTROSE (50%) 50ML SYRG IV ONE (12:18)
[2024-10-14 12:24] LABS: Basophils # (auto) 0.1 10 ^3/uL (0-0.2); Basophils % (auto) 0.9 % (0.0-2.0); Eosinophils # (auto) 0 10 ^3/uL (0-0.8); Eosinophils % (auto) 0.3 % (0.0-7.0); Hematocrit 31.2 % (41.0-53.0); Hemoglobin 10.1 g/dL (13.5-17.5); Lymphocytes # (auto) 0.8 10 ^3/uL (0.4-5.4); Lymphocytes % (auto) 10.5 % (10.0-50.0); Mean Corpuscular Hemoglobin 28.4 pg (28.0-32.0); Mean Corpuscular Hgb Conc. 32.6 g/dL (32.0-36.0); Mean Corpuscular Volume 87.2 fL (80.0-100.0); Monocytes # (auto) 0.5 10 ^3/uL (0-1.3); Monocytes % (auto) 6.1 % (0.0-12.0); Neutrophils # (auto) 6.4 10 ^3/uL (1.6-8.6); Neutrophils % (auto) 82.2 % (37.0-80.0); Platelet Count (auto) 152 10^3/uL (140-450); Red Blood Cells 3.57 10^6/uL (4.5-5.90); Red Cell Distribution Width 18.7 % (11.8-14.3); White Blood Cell 7.7 10^3/uL (4.4-10.8)
--- NOTE | 2024-10-14 12:25 | DVH ---
CHEST RADIOGRAPH Indication: ams Technique: Single frontal view of the chest was obtained COMPARISON: XY CHEST PORTABLE on DOS: 09/11/24, XY CHEST PORTABLE on DOS: 09/10/24, XY CHEST PORTABLE on DOS: 09/09/24, XY CHEST PORTABLE on DOS: 09/07/24 FINDINGS: Lines and Tubes: Left chest wall pacemaker Lungs: Multifocal airspace disease. Pleura: No effusion. No pneumothorax. Cardiomediastinal contours: Cardiomegaly Bones: Unremarkable IMPRESSION: Multifocal airspace disease.
[2024-10-14 12:32] LABS: Urine Bacteria None Seen /hpf (None Seen)
[2024-10-14 12:42] LABS: Alanine Aminotransferase 28 U/L (7-40); Albumin 4.5 g/dL (3.2-4.8); Anion Gap 13 (5-15); Aspartate Aminotransferase 29 U/L (13-40); BUN/Creatinine Ratio 14.2 (10.0-20.0); Bilirubin, Total 0.9 mg/dL (0.2-1.0); Calcium 9.5 mg/dL (8.7-10.4); Carbon Dioxide 22 mmol/L (20-31); Potassium 4.8 mmol/L (3.5-5.1); Sodium 142 mmol/L (136-145); Total Protein 7.7 g/dL (5.7-8.2)
[2024-10-14 12:46] LABS: Urine Blood Negative /uL (Negative); Urine Clarity Clear (Clear); Urine Color Yellow (Yellow); Urine Protein, UAD 1+ (Negative); Urine Specific Gravity 1.014 (1.001-1.035); Urine Squamous Epithelial Cell FEW /hpf (<5); Urine Urobilinogen Normal (Negative); Urine WBC < 1 /HPF (0-3); Urine pH 6.5 (5.0-9.0)
[2024-10-14 12:56] LABS: Alkaline Phosphatase 124 U/L (46-116); Blood Urea Nitrogen 47 mg/dL (9-23); Chloride 107 mmol/L (98-107); Glucose 143 mg/dL (74-106); Lactic Acid w/Reflex 3.5 mmol/L (0.4-2.0)
--- NOTE | 2024-10-14 13:34 | DVH ---
EXAM: CT HEAD WITHOUT CONTRAST HISTORY: ams COMPARISON: None TECHNIQUE: Axial images of the head were obtained and reformatted in coronal and sagittal planes. All CT scans at this medical facility are performed using dose modulation techniques as appropriate t o a performed exam including the following: Automated exposure control was utilized; adjustment of th e MA and/or KV according to patient size; and use of iterative reconstruction technique. CT Dose: CTDI volume is 69.55 mGy. Dose-length product is 1370.31 mGy*cm FINDINGS: There is no evidence of acute intracranial hemorrhage, mass, mass effect midline shift. There is no h ydrocephalus or extra-axial fluid collection. There are chronic microvascular ischemic changes in th e supratentorial white matter. There is a small chronic lacunar infarct right caudate head region. I s likely a small chronic infarct in the right frontal lobe, just anterior to the right lateral ventri fili. The visualized paranasal sinuses and mastoid air cells are clear. The calvarium is intact. IMPRESSION: 1. No acute intracranial process. HS:Y
[2024-10-14] MEDS: CEFEPIME 2GM/50ML NS 50 ML IV ONE (13:40)
[2024-10-14] MEDS: ONDANSETRON HCL 4 MG/2 ML VIAL IV ONE (14:00)
[2024-10-14] MEDS: MORPHINE SULFATE 4 MG/ML SYR/VIAL IV ONE (14:00)
[2024-10-14] MEDS ORDERED: MORPHINE SULFATE INJ 2 MG/ml SYRG IV PRN (19:15)
[2024-10-14] MEDS ORDERED: DEXTROSE (50%) 50ML SYRG IV PRN (19:15)
[2024-10-14] MEDS ORDERED: ACETAMINOPHEN 325 MG TAB PO PRN (19:15)
[2024-10-14] MEDS ORDERED: ONDANSETRON HCL 4 MG/2 ML VIAL IV PRN (19:15)
[2024-10-14] MEDS ORDERED: NITROGLYCERIN 0.4 MG SL TAB SL PRN (19:15)
[2024-10-14 19:38] VITALS: PULSE 65; RESP 14; O2SAT 94
--- NOTE | 2024-10-14 21:07 | DVHHP2 ---
History of Present Illness Reason for Visit: Altered mental status History of Present Illness 74-year-old male presents for evaluation of altered mental status. Patient was noted by to be progressively more confused. Noted to have low blood sugars. Patient was also mildly hypoxic on arrival and was placed on non-rebreather. Patient is currently lethargic oriented x2. No complaints of chest pain. No abdominal pain. Past Medical History Diabetes mellitus, kidney disease dyslipidemia hypertension, cancer Past Surgical History Pacemaker Family History Noncontributory Smoke: No ALCOHOL: none Drugs: None Lives: with Family Review of Systems Allergies: Coded Allergies: NO KNOWN ALLERGIES (Unverified , 09/07/24) Medications Current Medications Medications Dose Ordered Sig/Mario Route Start Time Stop Time Status Last Admin Dose Admin Ceftriaxone Sodium 50 ml @ 100 mls/hr DAILY@09 IV 10/15/24 09:00 UNV Azithromycin 250 ml @ 125 mls/hr DAILY IV 10/15/24 10:00 UNV Amlodipine Besylate 10 mg DAILY PO 10/15/24 10:00 UNV Apixaban 5 mg BID PO 10/14/24 22:00 UNV Atorvastatin Calcium 40 mg HS PO 10/14/24 22:00 UNV Furosemide 40 mg DAILY PO 10/15/24 10:00 UNV Tamsulosin HCl 0.4 mg QPM PO 10/15/24 18:00 UNV Sodium Bicarbonate 650 mg BID PO 10/14/24 22:00 UNV Sevelamer HCl 800 mg TIDWM PO 10/15/24 08:00 UNV Diagnostic Test (Pha) 1 strip IQ4HR 10/14/24 20:00 UNV Insulin Human Regular IQ4HR SC 10/14/24 20:00 UNV Dextrose 50 ml UD PRN IV 10/14/24 19:15 UNV Acetaminophen/ Hydrocodone Bitart 1 tab Q4HP PRN PO 10/14/24 19:15 UNV Ondansetron HCl 4 mg Q4HP PRN IV 10/14/24 19:15 UNV Acetaminophen 650 mg Q6HP PRN PO 10/14/24 19:15 UNV Nitroglycerin 0.4 mg Q5MINP PRN SL 10/14/24 19:15 UNV Morphine Sulfate 2 mg Q30M PRN IV 10/14/24 19:15 UNV Exam Vital Signs Vital Signs Date Time Temp Pulse Resp B/P (MAP) Pulse Ox O2 Delivery O2 Flow Rate FiO2 10/14/24 19:38 98.0 65 14 129/68 (88) 94 98.0 10/14/24 19:38 Nasal Cannula* 6 N/A Non-Rebreather Exam Gen: 74-year-old male in mild distress Skin: Warm, dry, normal color and texture, no rash. HEENT: Normocephalic atraumatic, mucous membranes moist and pink. Neck: Cervical and supraclavicular nodes normal without enlargement, trachea is midline, thyroid gland is normal without masses. Pulmonary: Lateral rhonchi Cardiac: Regular rate and rhythm. No murmur Abdomen: Soft, nontender, nondistended, bowel sounds present all 4 quadrants, no guarding, no rigidity, no organomegaly. Extremities: No cyanosis, clubbing, no edema Neuro: Lethargic, normal affect and speech, no focal motor deficits. Labs/Xrays ORDERING PHYSICIAN: ERA SPICER PROCEDURE(s): ECIDC - ECHO 2D MODE CARDIAC DOP REASON: HF ORDER NUMBER(s): [id number], ACCESSION NUMBER(s): [id number] APPROVED REPORT EXAM: Two-dimensional and M-mode echocardiogram with Doppler and color Doppler. Blood Pressure: 148/64 mmHg INDICATION HF Surgery/Intervention Pacemaker: RISK FACTORS Height: 5'10", Weight: 200 DIMENSIONS LVDd 4.2 (3.8-5.7cm) LA (2D) 4.3 (1.9-4.0cm) Aortic Root 3.8 (2.0- 3.7cm) LVDs 3.2 (2.5-4.0cm) LA (MM) (1.9-4.0cm) Aortic Cusp Exc 1.0 (1.5- 2.0cm) EF (%) 45.0 (55-70%) Rt. Atrium 4.2 (1.9-4.0cm) Asc. Aorta cm IVSd 1.2 (0.7-1.1cm) RV (D) (1.8-2.4cm) PWd 1.3 (0.7-1.1cm) Mitral Valve Mitral Mitral Stenosis E wave 1.20m/s MV Mean GR. mmHg A wave 0.44m/s MV Peak GR. mmHg E/A ratio 2.7 2D MVA cm2 DECEL Time 175ms PRESS 1/2 Time ms Aortic Valve Aortic Valve Aortic Stenosis V1 0.59m/s AO Mean GR. 14mmHg V2 2.56m/s AO Peak GR. 26mmHg LVOT Diameter 2.4 (1.8-2.4cm) Doppler OMID 1.04cm2 Pulmonic Valve V2 1.08m/s Tricuspid Valve TR Velocity 3.34m/s RVSP 53mmHg Other Information Quality : Limited Rhythm : Technically limited study due to body habitus. Conclusion Sinus rhythm. Bi atrial enlargement. Aortic root enlargement. LVH. Aortic sclerosis/stenosis and diminished excursion of leaflets with a 26 mmHg peak gradient and a 14 mmHg mean gradient accross the AV. This suggest moderate given diminished cardiac output. OMID 1.04 squared cm . Moderate MAC, normal TV and PV. EF diminished at 40% with predominant septal hypokinesis. Underlying global hypkinesis. Normal RV function. Moderate MR and TR with pulmonary HTN. Small pericardial effusion not hemodynamically significant. Pacing lead noted in RV SIGNED BY: MARILY HERNANDEZ Sr., MD ORDERING PHYSICIAN: IGNACIO MARTINEZ MD PROCEDURE(s): CXRP - CHEST PORTABLE REASON: [facility] ORDER NUMBER(s): [id number], ACCESSION NUMBER(s): [id number] CHEST RADIOGRAPH Indication: ams Technique: Single frontal view of the chest was obtained COMPARISON: XY CHEST PORTABLE on DOS: 09/11/24, XY CHEST PORTABLE on DOS: 09/10/24, XY CHEST PORTABLE on DOS: 09/09/24, XY CHEST PORTABLE on DOS: 09/07/24 FINDINGS: Lines and Tubes: Left chest wall pacemaker Lungs: Multifocal airspace disease. Pleura: No effusion. No pneumothorax. Cardiomediastinal contours: Cardiomegaly Bones: Unremarkable IMPRESSION: Multifocal airspace disease. 12: ORDERING PHYSICIAN: IGNACIO MARTINEZ MD PROCEDURE(s): HWOCT - HEAD WITHOUT CONTRAST REASON: [facility] ORDER NUMBER(s): [id number], ACCESSION NUMBER(s): [id number] EXAM: CT HEAD WITHOUT CONTRAST HISTORY: ams COMPARISON: None TECHNIQUE: Axial images of the head were obtained and reformatted in coronal and sagittal planes. All CT scans at this medical facility are performed using dose modulation techniques as appropriate to a performed exam including the following: Automated exposure control was utilized; adjustment of the MA and/or KV according to patient size; and use of iterative reconstruction technique. CT Dose: CTDI volume is 69.55 mGy. Dose-length product is 1370.31 mGy*cm FINDINGS: There is no evidence of acute intracranial hemorrhage, mass, mass effect midline shift. There is no hydrocephalus or extra-axial fluid collection. There are chronic microvascular ischemic changes in the supratentorial white matter. There is a small chronic lacunar infarct right caudate head region. Is likely a small chronic infarct in the right frontal lobe, just anterior to the right lateral ventricle. The visualized paranasal sinuses and mastoid air cells are clear. The calvarium is intact. IMPRESSION: 1. No acute intracranial process. HS:Y ATED BY: BRANDYN LUCAS MD DICTATED DATE/TIME: 10/14/24 1332 Labs Test 10/14/24 18:49 10/14/24 15:26 10/14/24 14:19 10/14/24 12:31 Range/Units POC Glucose 127 H 70-106 mg/dl Troponin I High Sensitivity 139 *H </=54 ng/L Lactic Acid Level 2.0 0.4-2.0 mmol/L Urine Color Yellow Yellow Urine Clarity Clear Clear Urine pH 6.5 5.0-9.0 Urine Specific [place] 1.014 1.001-1.035 Urine Protein 1+ H Negative Urine Ketones Negative Negative Urine Blood Negative Negative /uL Urine Nitrite Negative Negative Urine Bilirubin Negative Negative Urine Urobilinogen Normal Negative mg/dL Urine Leukocyte Esterase Negative Negative /uL Urine RBC <1 0 - 3 /hpf Urine Microscopic WBC < 1 0-3 /HPF Urine Squamous Epithelial Cells Few <5 /hpf Urine Bacteria None seen None Seen /hpf Urine Glucose Normal Normal mg/dL Test 10/14/24 12:19 10/14/24 12:10 Range/Units Blood Gas Specimen Type Venous Blood Gas Sample Site Other Blood Gas Patient Temperature 37.0 Arterial Blood Date Drawn [id number] Andrés Test N/a Venous Blood pH 7.435 H 7.320-7.430 Venous Blood pCO2 at Patient Temp 33.6 L 38.0-54.0 mmHg Venous Blood pO2 at Patient Temp 48.2 H 23.0-48.0 mmHg Venous Blood HCO3 22.1 22.0-29.0 mmol/L Venous Blood Base Excess -1.4 -2.0-3.0 mmol/L Blood Gas Liter Flow 15.00 Blood Gas Modality Mask - nrb FiO2 % 100.0 Blood Gas Comments White Blood Count 7.7 4.4-10.8 10^3/uL Red Blood Count 3.57 L 4.5-5.90 10^6/uL Hemoglobin 10.1 L 13.5-17.5 g/dL Hematocrit 31.2 L 41.0-53.0 % Mean Corpuscular Volume 87.2 80.0-100.0 fL Mean Corpuscular Hemoglobin 28.4 28.0-32.0 pg Mean Corpuscular Hemoglobin Concent 32.6 32.0-36.0 g/dL Red Cell Distribution Width 18.7 H 11.8-14.3 % Platelet Count 152 140-450 10^3/uL Mean Platelet Volume 8.6 6.9-10.8 fL Neutrophils (%) (Auto) 82.2 H 37.0-80.0 % Lymphocytes (%) (Auto) 10.5 10.0-50.0 % Monocytes (%) (Auto) 6.1 0.0-12.0 % Eosinophils (%) (Auto) 0.3 0.0-7.0 % Basophils (%) (Auto) 0.9 0.0-2.0 % Neutrophils # (Auto) 6.4 1.6-8.6 10 ^3/uL Lymphocytes # (Auto) 0.8 0.4-5.4 10 ^3/uL Monocytes # (Auto) 0.5 0-1.3 10 ^3/uL Eosinophils # (Auto) 0 0-0.8 10 ^3/uL Basophils # (Auto) 0.1 0-0.2 10 ^3/uL Nucleated Red Blood Cells 0.0 % Sodium Level 142 136-145 mmol/L Potassium Level 4.8 3.5-5.1 mmol/L Chloride Level 107 98-107 mmol/L Carbon Dioxide Level 22 20-31 mmol/L Anion Gap 13 5-15 Blood Urea Nitrogen 47 H 9-23 mg/dL Creatinine 3.31 H 0.700-1.30 mg/dL Glomerular Filtration Rate Calc 19 >90 mL/min BUN/Creatinine Ratio 14.2 10.0-20.0 Serum Glucose 143 H 74-106 mg/dL Calcium Level 9.5 8.7-10.4 mg/dL Total Bilirubin 0.9 0.2-1.0 mg/dL Aspartate Amino Transferase (AST) 29 13-40 U/L Alanine Aminotransferase (ALT) 28 7-40 U/L Alkaline Phosphatase 124 H 46-116 U/L B-Type Natriuretic Peptide 556.86 0-100 pg/mL Total Protein 7.7 5.7-8.2 g/dL Albumin 4.5 3.2-4.8 g/dL Assessment/Plan Assessment/Plan Assessment Metabolic encephalopathy Multifocal pneumonia Early sepsis Hypoglycemia Diabetes mellitus Mild troponin elevation Acute on chronic renal failure Status post pacemaker Plan Admit the patient to telemetry to the hospitalist Resume home medications Nephrology consultation Rocephin/azithromycin Continue treatment per orders. Plan discussed with: Patient My Orders Orders - CASHALCIDES Cruz AGACNP Procedure Category Date Status Time Ceftriaxone 1gm/50ml PHA 10/15/24 Logged D5w (Rocephin) 09:00 Azithromycin 500mg/ PHA 10/15/24 Logged 250ml (Zithromax 50 10:00 Azithromycin 500mg/ PHA 10/14/24 Logged 250ml (Zithromax 50 19:15 Sodium Chloride 0.9% PHA 10/14/24 Logged 19:15 Consistent DIET 10/15/24 Transmitted Carb(Ccho)Diabetes Breakfast Amlodipine Tablet PHA 10/15/24 Logged (Norvasc Tablet) 10:00 Apixaban (Eliquis) PHA 10/14/24 Logged 22:00 Atorvastatin (Lipitor) PHA 10/14/24 Logged 22:00 Furosemide Tablet PHA 10/15/24 Logged (Lasix Tablet) 10:00 Tamsulosin PHA 10/15/24 Logged Hydrochloride (Flomax) 18:00 Sodium Bicarb Tab PHA 10/14/24 Logged 22:00 Sevelamer (Renagel) PHA 10/15/24 Logged 08:00 *[facility] CONS 10/14/24 Transmitted -[place] 19:10 Basic Metabolic Panel LAB 10/15/24 Verified 04:00 Glucose Blood PHA 10/14/24 Logged (Accu-Chek Comfort 20:00 Insulin R (Human) PHA 10/14/24 Logged (Insulin R) 20:00 Dextrose 50% Syringe PHA 10/14/24 Logged 19:15 Admit ADMIT 10/14/24 Transmitted 19:10 Hydrocodone-Acet PHA 10/14/24 Logged 5/325mg Tab ([place] 19:15 Ondansetron Hcl PHA 10/14/24 Logged (Zofran) 19:15 Complete Blood Count LAB 10/15/24 Verified 04:00 Condition: Fair [place] 10/14/24 In Process 19:10 Acetaminophen Tablet [facility] 10/14/24 Logged (Tylenol Tablet) 19:15 Bedrest With Bathroom [facility] 10/14/24 In Process Privileg 19:10 Nitroglycerin [facility] 10/14/24 Logged Sublingual (Ntrostat 19:15 Morphine Sulfate [facility] 10/14/24 Logged Injection 19:15 Stat Ekg For Chest [facility] 10/14/24 In Process Pain 19:10 Notify Md Of Changes [facility] 10/14/24 In Process From Base 19:10 [employer] [facility] 10/14/24 In Process 24 Hours 19:10 Emergency Dysrhythmia [facility] 10/14/24 In Process Protocol 19:10 Rhythm Strips Once [facility] 10/14/24 In Process Every Shift 19:10 Oxygen By Nasal RT 10/14/24 Transmitted Cannula 19:10 Aspirin Tablet [facility] 10/15/24 Verified 10:00 Date of Service: Oct 14, 2024 Billing Provider: ALCIDES CASH Common Visit Codes: [id number] INP/OBS CARE (HIGH) ALCIDES CASH Oct 14, 2024 21:07
[2024-10-14] MEDS ORDERED: ALBUTEROL SULF 2.5 MG/0.5ML(0.5%) NEB SOLN NEB PRN (21:15)
[2024-10-14 21:54] VITALS: PULSE 65; RESP 18; O2SAT 97
[2024-10-14] MEDS: InsuLIN REG 1unit/0.01ml Soln (100units/ml) SC SCH (22:00)
[2024-10-14] MEDS: SODIUM CHLORIDE 0.9% 1,000 ML IV ONE (22:16)
[2024-10-14] MEDS: SODIUM BICARBONATE 650 MG TAB PO SCH (22:17)
[2024-10-14] MEDS: AZITHROMYCIN 500MG/ 250ML 250 ML IV ONE (22:17)
[2024-10-14] MEDS: APIXABAN 5 MG TAB PO SCH (22:17)
[2024-10-14] MEDS: HYDROcodone-ACET 5/325MG TAB PO PRN (22:18)
[2024-10-14] MEDS: ATORVASTATIN 20 MG TAB PO SCH (22:18)
[2024-10-14] MEDS: ACCU-CHEK COMFORT CURVE STRIP VI SCH (22:19)
[2024-10-15] VITALS (12 sets, daily range): BP systolic 110–148; BP diastolic 60–70; PULSE 61–86; RESP 16–20; TEMP 98.1–98.7; O2SAT 90–97
[2024-10-15 07:25] LABS: Basophils # (auto) 0.1 10 ^3/uL (0-0.2); Basophils % (auto) 1.2 % (0.0-2.0); Eosinophils # (auto) 0.2 10 ^3/uL (0-0.8); Eosinophils % (auto) 3.5 % (0.0-7.0); Hematocrit 31.6 % (41.0-53.0); Hemoglobin 9.8 g/dL (13.5-17.5); Lymphocytes # (auto) 1.2 10 ^3/uL (0.4-5.4); Lymphocytes % (auto) 19.6 % (10.0-50.0); Mean Corpuscular Hemoglobin 27.8 pg (28.0-32.0); Mean Corpuscular Hgb Conc. 31.1 g/dL (32.0-36.0); Mean Corpuscular Volume 89.4 fL (80.0-100.0); Monocytes # (auto) 0.5 10 ^3/uL (0-1.3); Monocytes % (auto) 7.6 % (0.0-12.0); Neutrophils # (auto) 4.2 10 ^3/uL (1.6-8.6); Neutrophils % (auto) 68.1 % (37.0-80.0); Nucleated Red Blood Cells % 0.2 %; Platelet Count (auto) 136 10^3/uL (140-450); Red Blood Cells 3.53 10^6/uL (4.5-5.90); Red Cell Distribution Width 19.8 % (11.8-14.3); White Blood Cell 6.2 10^3/uL (4.4-10.8)
[2024-10-15] MEDS: amLODIPine BESYLATE 5 MG TAB PO SCH (09:19)
[2024-10-15] MEDS: FUROSEMIDE 40 MG TAB PO SCH (09:20)
[2024-10-15] MEDS: SEVELAMER 800 MG TAB PO SCH (09:20)
[2024-10-15] MEDS: cefTRIAXone 1GM/50ML D5W 50 ML IV SCH (09:21)
[2024-10-15] MEDS ORDERED: AZITHROMYCIN 500MG/ 250ML 250 ML IV SCH (10:00)
--- NOTE | 2024-10-15 11:15 | DVHPN2 ---
Progress Note Date Seen: Oct 15, 2024 Medical Necessity Reason Pt with a Central, PICC or Fol: Yes The following are medically ne: Pa Catheter Reason for pa catheter: Strict I&O Subjective Patient reports: No new complaints Review of Systems: HEENT:Normal, CVS:Normal, RESPIRATORY:Normal, GI:Normal, :Normal, MSK:Normal, NEURO:Normal Objective vital signs Vital Sign Date Time Temp Pulse Resp B/P (MAP) Pulse Ox O2 Delivery O2 Flow Rate FiO2 10/15/24 09:29 98.4 66 18 118/70 (86) 94 98.4 10/15/24 01:46 Nasal Cannula* 6 44 Total Intake and Output 10/14/24 10/14/24 10/15/24 15:00 23:00 07:00 Intake Total 12.5 ml 25.0 ml Output Total 500 ml Balance 12.5 ml 25.0 ml -500 ml medications Current Medications Medications Dose Ordered Sig/Mario Route Start Time Stop Time Status Last Admin Dose Admin Ceftriaxone Sodium 50 ml @ 100 mls/hr DAILY@09 IV 10/15/24 09:00 10/15/24 09:21 100 MLS/HR Azithromycin 250 ml @ 125 mls/hr DAILY IV 10/15/24 10:00 Amlodipine Besylate 10 mg DAILY PO 10/15/24 10:00 10/15/24 09:19 10 MG Apixaban 5 mg BID PO 10/14/24 22:00 10/15/24 09:20 5 MG Atorvastatin Calcium 40 mg HS PO 10/14/24 22:00 10/14/24 22:18 40 MG Furosemide 40 mg DAILY PO 10/15/24 10:00 10/15/24 09:20 40 MG Tamsulosin HCl 0.4 mg QPM PO 10/15/24 18:00 Sodium Bicarbonate 650 mg BID PO 10/14/24 22:00 10/15/24 09:21 650 MG Sevelamer HCl 800 mg TIDWM PO 10/15/24 08:00 10/15/24 09:20 800 MG Diagnostic Test (Pha) 1 strip IQ4HR 10/14/24 20:00 10/15/24 08:00 1 STRIP Insulin Human Regular IQ4HR SC 10/14/24 20:00 10/15/24 00:00 3 UNITS Dextrose 50 ml UD PRN IV 10/14/24 19:15 Acetaminophen/ Hydrocodone Bitart 1 tab Q4HP PRN PO 10/14/24 19:15 10/14/24 22:18 1 TAB Ondansetron HCl 4 mg Q4HP PRN IV 10/14/24 19:15 Acetaminophen 650 mg Q6HP PRN PO 10/14/24 19:15 Nitroglycerin 0.4 mg Q5MINP PRN SL 10/14/24 19:15 Morphine Sulfate 2 mg Q30M PRN IV 10/14/24 19:15 Aspirin 162 mg DAILY PO 10/15/24 10:00 Albuterol 2.5 mg Q6HPRN PRN NEB 10/14/24 21:15 Examination: GENERAL:Normal, HEENT:Normal, NECK:Normal, LUNGS:Normal, LUNGS:Abnormal (on oxygen, rales), CVS:Normal, ABDOMEN:Normal, MSK:Normal, MSK:Abnormal (edema+), SKIN:Normal, NEURO:Normal, :Normal laboratory and microbiology Laboratory Tests 10/15/24 06:07 Test 10/15/24 08:39 Range/Units Serum Glucose Pending Problem List/Assessment/Plan Problem List/Assessment/Plan * Acute respiratory failure. * Acute systolic/diastolic heart failure: lasix iv * Atrial fibrillation with secondary hypercoagulable state. * History of pacemaker. * Chronic kidney disease stage IV: nephro eval * Diabetes mellitus: ssi * encephalopathy with hypoglycemia: ssi * Anemia/thrombocytopenia * nstemi ?type 2 advance care planning- full code- time spent 19 mins Plan discussed with: Patient Date of Service: Oct 15, 2024 Billing Provider: ALCIDES GUZMAN MD Common Visit Codes: [id number] INP/OBS CARE(HIGH) Secondary Visit Codes: [id number] CARE PLAN 30 MINUTES ALCIDES GUZMAN MD Oct 15, 2024 11:14
[2024-10-15 12:04] LABS: Chloride 106 mmol/L (98-107); Sodium 136 mmol/L (136-145)
[2024-10-15 12:05] LABS: Anion Gap 6 (5-15); Carbon Dioxide 24 mmol/L (20-31)
[2024-10-15 12:06] LABS: Calcium 9.5 mg/dL (8.7-10.4)
--- NOTE | 2024-10-15 12:08 | DVHINCON2 ---
OSKAR ZULETA RESIDENT 10/15/24 1208: Date of service: Oct 15, 2024 Referring Physician Bharath Cash Reason for Consultation RADHA on CKD History of Present Illness Mr. Hoover, a 74-year-old male with a history of diabetes, kidney disease, dyslipidemia, hypertension, and cancer, and a pacemaker, presented with altered mental status, progressively worsening confusion, and low blood sugar. He was mildly hypoxic on arrival and placed on a non-rebreather mask. Currently, he is lethargic and oriented to person and place, with no complaints of chest or abdominal pain. Poor historian, caregiver yet to talk to. Past Medical History Diabetes mellitus, kidney disease dyslipidemia hypertension, cancer Past Surgical History Pacemaker Allergies: Coded Allergies: NO KNOWN ALLERGIES (Unverified , 09/07/24) Home Meds Active Scripts Furosemide (Lasix) 40 Mg Tab, 40 MG PO DAILY for 30 Days, #30 TAB Prov:DUKE MOHAN RIVET THROWER 09/12/24 Reported Medications Insulin NPH Isophane & Reg (Hu (Humulin 70/30 Kwikpen (70-30) 100 Unit/ml) 1 Inj Inj, SC IF BS >100, GIVE 30 UNITS INSULIN SC. 09/09/24 Sevelamer Carbonate (Sevelamer Carbonate) 800 Mg Tab, 1 TAB PO TID 09/09/24 Sodium Bicarbonate (Sodium Bicarbonate) 650 Mg Tab, 650 MG PO TID, TAB 09/09/24 Finasteride (Finasteride) 5 Mg Tab, 5 MG PO DAILY for 30 Days, MG 09/09/24 Apixaban Base (ELIQUIS) 5 Mg Tab, 5 MG PO BID, TAB 09/09/24 Tamsulosin Hcl (Flomax) 0.4 Mg Cap, 0.8 MG PO HS, CAP 09/09/24 Amlodipine Besylate (Amlodipine Besylate) 5 Mg Tab, 10 MG PO DAILY for 30 Days, MG 09/09/24 Atorvastatin Calcium (Lipitor) 40 Mg Tab, 40 MG PO DAILY, TAB 09/09/24 Current Medications Current Medications Medications (Trade) Dose Ordered Sig/Mario Route PRN Reason Start Time Stop Time Status Last Admin Ceftriaxone Sodium 50 ml @ 100 mls/hr DAILY@09 IV 10/15/24 09:00 10/15/24 11:16 DC 10/15/24 09:21 Azithromycin 250 ml @ 125 mls/hr DAILY IV 10/15/24 10:00 10/15/24 11:16 DC Amlodipine Besylate (Norvasc Tablet) 10 mg DAILY PO 10/15/24 10:00 10/15/24 11:16 DC 10/15/24 09:19 Apixaban (Eliquis) 5 mg BID PO 10/14/24 22:00 10/15/24 11:16 DC 10/15/24 09:20 Atorvastatin Calcium (Lipitor) 40 mg HS PO 10/14/24 22:00 10/14/24 22:18 Furosemide (Lasix Tablet) 40 mg DAILY PO 10/15/24 10:00 10/15/24 11:16 DC 10/15/24 09:20 Tamsulosin HCl (Flomax) 0.4 mg QPM PO 10/15/24 18:00 Sodium Bicarbonate 650 mg BID PO 10/14/24 22:00 10/15/24 09:21 Sevelamer HCl (Renagel) 800 mg TIDWM PO 10/15/24 08:00 10/15/24 09:20 Diagnostic Test (Pha) (Accu-Chek Comfort Curve T) 1 strip IQ4HR 10/14/24 20:00 10/15/24 08:00 Insulin Human Regular (InsuLIN R) IQ4HR SC 10/14/24 20:00 10/15/24 00:00 Dextrose 50 ml UD PRN IV Blood Sugar LESS THAN 60 10/14/24 19:15 Acetaminophen/ Hydrocodone Bitart ([place]lin 5/325MG Tab) 1 tab Q4HP PRN PO MODERATE PAIN (4-6 PAIN SCALE) 10/14/24 19:15 10/14/24 22:18 Ondansetron HCl (Zofran) 4 mg Q4HP PRN IV NAUSEA / VOMITING 10/14/24 19:15 Acetaminophen (Tylenol Tablet) 650 mg Q6HP PRN PO PAIN SCALE 1-3 OR TEMP>100.4 10/14/24 19:15 Nitroglycerin (Ntrostat Sublingual) 0.4 mg Q5MINP PRN SL FOR CHEST PAIN 10/14/24 19:15 Morphine Sulfate 2 mg Q30M PRN IV FOR CHEST PAIN 10/14/24 19:15 Aspirin 162 mg DAILY PO 10/15/24 10:00 Albuterol (Ventolin Medneb) 2.5 mg Q6HPRN PRN NEB SHORTNESS OF BREATH 10/14/24 21:15 Apixaban (Eliquis) 2.5 mg BID PO 10/15/24 22:00 Furosemide (Lasix Injection) 40 mg BIDD IV 10/15/24 18:00 Finasteride (Proscar Tablet) 5 mg DAILY PO 10/16/24 10:00 Family History: Diabetes mellitus G8 BROTHER FH: kidney disease G8 SISTER Review of Systems HEENT:Normal, CVS:Normal, RESPIRATORY:Normal, GI:Normal, :Normal, MSK:Normal, NEURO: Confusion, hypoglycemia H&P Exam Vital Signs/I&O Vital Sign Date Time Temp Pulse Resp B/P (MAP) Pulse Ox O2 Delivery O2 Flow Rate FiO2 10/15/24 09:29 98.4 66 18 118/70 (86) 94 98.4 10/15/24 09:09 Nasal Cannula* 6 44 Intake and Output0 10/14/24 10/15/24 19:00 07:00 Intake Total 37.5 ml Output Total 500 ml Balance 37.5 ml -500 ml Intake IV Total 37.5 ml Output Urine Total 500 ml Physical Exam GENERAL:Normal, HEENT:Normal, NECK:Normal, LUNGS:Normal 6L NC, CVS:Normal, ABDOMEN:Normal, MSK:Abnormal, SKIN:Normal, NEURO:Normal, :Normal Labs/Diagnostic Data Labs/Diagnostic Data Laboratory Tests Test 10/15/24 09:07 10/15/24 08:39 10/15/24 06:07 10/15/24 04:24 Range/Units POC Glucose 130 H 125 H 70-106 mg/dl White Blood Count 6.2 4.4-10.8 10^3/uL Red Blood Count 3.53 L 4.5-5.90 10^6/uL Hemoglobin 9.8 L 13.5-17.5 g/dL Hematocrit 31.6 L 41.0-53.0 % Mean Corpuscular Volume 89.4 80.0-100.0 fL Mean Corpuscular Hemoglobin 27.8 L 28.0-32.0 pg Mean Corpuscular Hemoglobin Concent 31.1 L 32.0-36.0 g/dL Red Cell Distribution Width 19.8 H 11.8-14.3 % Platelet Count 136 L 140-450 10^3/uL Mean Platelet Volume 8.9 6.9-10.8 fL Neutrophils (%) (Auto) 68.1 37.0-80.0 % Lymphocytes (%) (Auto) 19.6 10.0-50.0 % Monocytes (%) (Auto) 7.6 0.0-12.0 % Eosinophils (%) (Auto) 3.5 0.0-7.0 % Basophils (%) (Auto) 1.2 0.0-2.0 % Neutrophils # (Auto) 4.2 1.6-8.6 10 ^3/uL Lymphocytes # (Auto) 1.2 0.4-5.4 10 ^3/uL Monocytes # (Auto) 0.5 0-1.3 10 ^3/uL Eosinophils # (Auto) 0.2 0-0.8 10 ^3/uL Basophils # (Auto) 0.1 0-0.2 10 ^3/uL Nucleated Red Blood Cells 0.2 % Test 10/15/24 00:39 10/14/24 21:15 10/14/24 18:49 10/14/24 17:54 Range/Units POC Glucose 173 H 148 H 127 H 57 L 70-106 mg/dl Test 10/14/24 15:26 10/14/24 14:19 10/14/24 13:28 10/14/24 12:31 Range/Units Troponin I High Sensitivity 139 *H 94 *H </=54 ng/L Lactic Acid Level 2.0 0.4-2.0 mmol/L Urine Color Yellow Yellow Urine Clarity Clear Clear Urine pH 6.5 5.0-9.0 Urine Specific [place] 1.014 1.001-1.035 Urine Protein 1+ H Negative Urine Ketones Negative Negative Urine Blood Negative Negative /uL Urine Nitrite Negative Negative Urine Bilirubin Negative Negative Urine Urobilinogen Normal Negative mg/dL Urine Leukocyte Esterase Negative Negative /uL Urine RBC <1 0 - 3 /hpf Urine Microscopic WBC < 1 0-3 /HPF Urine Squamous Epithelial Cells Few <5 /hpf Urine Bacteria None seen None Seen /hpf Urine Glucose Normal Normal mg/dL Test 10/14/24 12:19 10/14/24 12:10 Range/Units Blood Gas Specimen Type Venous Blood Gas Sample Site Other Blood Gas Patient Temperature 37.0 Arterial Blood Date Drawn Andrés Test N/a Venous Blood pH 7.435 H 7.320-7.430 Venous Blood pCO2 at Patient Temp 33.6 L 38.0-54.0 mmHg Venous Blood pO2 at Patient Temp 48.2 H 23.0-48.0 mmHg Venous Blood HCO3 22.1 22.0-29.0 mmol/L Venous Blood Base Excess -1.4 -2.0-3.0 mmol/L Blood Gas Liter Flow 15.00 Blood Gas Modality Mask - nrb FiO2 % 100.0 Blood Gas Comments White Blood Count 7.7 4.4-10.8 10^3/uL Red Blood Count 3.57 L 4.5-5.90 10^6/uL Hemoglobin 10.1 L 13.5-17.5 g/dL Hematocrit 31.2 L 41.0-53.0 % Mean Corpuscular Volume 87.2 80.0-100.0 fL Mean Corpuscular Hemoglobin 28.4 28.0-32.0 pg Mean Corpuscular Hemoglobin Concent 32.6 32.0-36.0 g/dL Red Cell Distribution Width 18.7 H 11.8-14.3 % Platelet Count 152 140-450 10^3/uL Mean Platelet Volume 8.6 6.9-10.8 fL Neutrophils (%) (Auto) 82.2 H 37.0-80.0 % Lymphocytes (%) (Auto) 10.5 10.0-50.0 % Monocytes (%) (Auto) 6.1 0.0-12.0 % Eosinophils (%) (Auto) 0.3 0.0-7.0 % Basophils (%) (Auto) 0.9 0.0-2.0 % Neutrophils # (Auto) 6.4 1.6-8.6 10 ^3/uL Lymphocytes # (Auto) 0.8 0.4-5.4 10 ^3/uL Monocytes # (Auto) 0.5 0-1.3 10 ^3/uL Eosinophils # (Auto) 0 0-0.8 10 ^3/uL Basophils # (Auto) 0.1 0-0.2 10 ^3/uL Nucleated Red Blood Cells 0.0 % Sodium Level 142 136-145 mmol/L Potassium Level 4.8 3.5-5.1 mmol/L Chloride Level 107 98-107 mmol/L Carbon Dioxide Level 22 20-31 mmol/L Anion Gap 13 5-15 Blood Urea Nitrogen 47 H 9-23 mg/dL Creatinine 3.31 H 0.700-1.30 mg/dL Glomerular Filtration Rate Calc 19 >90 mL/min BUN/Creatinine Ratio 14.2 10.0-20.0 Serum Glucose 143 H 74-106 mg/dL Lactic Acid Level 3.5 *H 0.4-2.0 mmol/L Calcium Level 9.5 8.7-10.4 mg/dL Total Bilirubin 0.9 0.2-1.0 mg/dL Aspartate Amino Transferase (AST) 29 13-40 U/L Alanine Aminotransferase (ALT) 28 7-40 U/L Alkaline Phosphatase 124 H 46-116 U/L Troponin I High Sensitivity 78 *H </=54 ng/L B-Type Natriuretic Peptide 556.86 0-100 pg/mL Total Protein 7.7 5.7-8.2 g/dL Albumin 4.5 3.2-4.8 g/dL Assessment Nephrology Consult Assessment: #Likely RADHA due to VMN, could be cardiorenal in etiology #Chronic kidney disease stage IV, follows nephrology in [facility]. #Acute respiratory failure on 6 L NC. #Acute systolic/diastolic heart failure #Atrial fibrillation with secondary hypercoagulable state. #History of pacemaker. #H/o Diabetes mellitus HbA1c 3.8 likely adjusted due to progressive CKD #thrombocytopenia #Likely NSTEMI II #Known BPH, yet to rule out postrenal obstruction Findings: #GFR: 26>24>19 #Creatinine: 2.33>2.49>2.68>3.31 #I&O: 37.5-500= -462.5, still making urine. #Urinalysis, mostly unremarkable, 1+ protein but Ur Sp Gr. 1.014 Plan/Recommendation Plan: #Continue lasix 40 bid daily. #Strict I&O and check Daily weight, Avoid Nephrotoxics, Avoid hyper/hypo tension, Fluid Restriction, cardiac diet with 2 gm salt restriction. #Daily BMP, and Correct electrolytes. #Kidney Ultrasound ordered to follow. #Electrolytes urine K Na Protein Creatinine, check FeNa and BUN: Cr. ratio. #Rest of the treatment as per primary team. Thank you for the opportunity to follow up on your patient. In case of any question feel free to reach out to the Nephrology team. Discussed with Nephrology attending Dr. Wright. Plan discussed with: Patient, Other (primary team, RN) FRANK WRIGTH MD 10/15/24 1246: Date of service: Oct 15, 2024 Referring Physician BHARATH CASH, NURSE PRACTITIONER Reason for Consultation Acute kidney injury Allergies: Coded Allergies: NO KNOWN ALLERGIES (Unverified , 09/07/24) Home Meds Active Scripts Furosemide (Lasix) 40 Mg Tab, 40 MG PO DAILY for 30 Days, #30 TAB Prov:DUKE MOHAN RIVET THROWER 09/12/24 Reported Medications Insulin NPH Isophane & Reg (Hu (Humulin 70/30 Kwikpen (70-30) 100 Unit/ml) 1 Inj Inj, SC IF BS >100, GIVE 30 UNITS INSULIN SC. 09/09/24 Sevelamer Carbonate (Sevelamer Carbonate) 800 Mg Tab, 1 TAB PO TID 09/09/24 Sodium Bicarbonate (Sodium Bicarbonate) 650 Mg Tab, 650 MG PO TID, TAB 09/09/24 Finasteride (Finasteride) 5 Mg Tab, 5 MG PO DAILY for 30 Days, MG 09/09/24 Apixaban Base (ELIQUIS) 5 Mg Tab, 5 MG PO BID, TAB 09/09/24 Tamsulosin Hcl (Flomax) 0.4 Mg Cap, 0.8 MG PO HS, CAP 09/09/24 Amlodipine Besylate (Amlodipine Besylate) 5 Mg Tab, 10 MG PO DAILY for 30 Days, MG 09/09/24 Atorvastatin Calcium (Lipitor) 40 Mg Tab, 40 MG PO DAILY, TAB 09/09/24 Family History: Diabetes mellitus G8 BROTHER FH: kidney disease G8 SISTER Assessment Patient seen and examined by myself today on rounds with the medicine resident. I agree with his assessment and plan as documented in this consult note OSKAR ZULETA RESIDENT Oct 15, 2024 12:08 FRANK WRIGHT MD Oct 15, 2024 12:46
[2024-10-15 12:10] LABS: BUN/Creatinine Ratio 14.2 (10.0-20.0); Glucose 103 mg/dL (74-106)
[2024-10-15 12:13] LABS: Blood Urea Nitrogen 46 mg/dL (9-23)
[2024-10-15] MEDS: ASPirin 81 mg TAB PO SCH (12:22)
[2024-10-15 12:25] LABS: Potassium 5.6 mmol/L (3.5-5.1)
[2024-10-15] MEDS: FUROSEMIDE 40 MG/4 ML VIAL IV ONE (12:44)
[2024-10-15] MEDS: SODIUM ZIRCONIUM CYCL 10 GM PAK PO ONE ×2 (13:21→22:28)
[2024-10-15] MEDS: DEXTROSE (50%) 50ML SYRG IV ONE ×2 (13:21→22:22)
[2024-10-15] MEDS: InsuLIN REG 1unit/0.01ml Soln (100units/ml) IV ONE ×2 (13:30→22:38)
--- NOTE | 2024-10-15 13:42 | DVH ---
INDICATION: RADHA TECHNIQUE: Multiple real-time sonographic images of the kidneys and bladder were obtained. COMPARISON: US KIDNEY on DOS: 09/08/24 FINDINGS: The right kidney measures 9 cm in length, which is normal in size. There is normal echogeni city of the right kidney. No hydronephrosis. The left kidney measures 11 cm in length, which is normal in size. There is normal echogenicity of th e left kidney. No hydronephrosis. 1 left renal cyst. No large intraluminal masses are seen in the bladder. Small bilateral pleural effusions IMPRESSION: 1. Normal sonographic appearance of the kidneys. No hydronephrosis. 2. Small bilateral pleural effusions
[2024-10-15 15:08] LABS: Sodium Urine < 10 mmol/L (40-220)
[2024-10-15 15:11] LABS: Protein, Urine 121.7 mg/dL (1-14)
[2024-10-15 15:14] LABS: Creatinine, Urine 96.93 mg/dL (30.0-125.0)
--- NOTE | 2024-10-15 16:41 | DVH ---
EXAM: US RT UPPER DVT Clinical History: R/O DVT Comparison: None Technique: Duplex Doppler evaluation of the deep venous systems of the right upper extremity including color D oppler and spectral/pulsed waveform analysis was performed. Findings: Normal compressibility and color Doppler flow is seen in the right upper extremity veins including th e internal jugular, subclavian, axillary, brachial, radial and ulnar veins. Impression: 1. No sonographic evidence for right upper extremity DVT.
[2024-10-15] MEDS: TAMSULOSIN HYDROCHLORIDE 0.4 MG CAP PO SCH (18:16)
[2024-10-15] MEDS: FUROSEMIDE 40 MG/4 ML VIAL IV SCH (18:16)
[2024-10-15] MEDS: CALCIUM GLUC 1,000mg/50ml-NS 50 ML IV ONE (22:18)
[2024-10-15] MEDS: MELATONIN 5 MG TAB PO ONE (22:29)
[2024-10-15] MEDS: SODIUM BICARB 8.4% 50Meq/50ml SYR Vial IV ONE (22:29)
[2024-10-15] MEDS: APIXABAN 5 MG TAB PO SCH (22:30)
[2024-10-16] VITALS (9 sets, daily range): BP systolic 107–137; BP diastolic 46–69; PULSE 60–67; RESP 16–20; TEMP 97.7–98.4; O2SAT 88–95
[2024-10-16] MEDS: FINASTERIDE 5 MG TAB PO SCH (08:48)
[2024-10-16 10:15] LABS: Basophils # (auto) 0.1 10 ^3/uL (0-0.2); Basophils % (auto) 1.8 % (0.0-2.0); Eosinophils # (auto) 0.3 10 ^3/uL (0-0.8); Eosinophils % (auto) 5.8 % (0.0-7.0); Hematocrit 28.1 % (41.0-53.0); Hemoglobin 9.2 g/dL (13.5-17.5); Lymphocytes # (auto) 1.1 10 ^3/uL (0.4-5.4); Lymphocytes % (auto) 19.7 % (10.0-50.0); Mean Corpuscular Hemoglobin 28.5 pg (28.0-32.0); Mean Corpuscular Hgb Conc. 32.8 g/dL (32.0-36.0); Mean Corpuscular Volume 87.1 fL (80.0-100.0); Monocytes # (auto) 0.5 10 ^3/uL (0-1.3); Monocytes % (auto) 8.4 % (0.0-12.0); Neutrophils # (auto) 3.6 10 ^3/uL (1.6-8.6); Neutrophils % (auto) 64.3 % (37.0-80.0); Platelet Count (auto) 114 10^3/uL (140-450); Red Blood Cells 3.23 10^6/uL (4.5-5.90); Red Cell Distribution Width 18.8 % (11.8-14.3); White Blood Cell 5.6 10^3/uL (4.4-10.8)
[2024-10-16 10:31] LABS: Alanine Aminotransferase 18 U/L (7-40); Albumin 3.7 g/dL (3.2-4.8); Alkaline Phosphatase 95 U/L (46-116); Anion Gap 8 (5-15); Aspartate Aminotransferase 19 U/L (13-40); BUN/Creatinine Ratio 15.7 (10.0-20.0); Calcium 8.9 mg/dL (8.7-10.4); Carbon Dioxide 27 mmol/L (20-31); Chloride 101 mmol/L (98-107); Sodium 136 mmol/L (136-145); Total Protein 6.2 g/dL (5.7-8.2)
[2024-10-16 10:32] LABS: Bilirubin, Total 0.7 mg/dL (0.2-1.0)
[2024-10-16 10:43] LABS: Blood Urea Nitrogen 54 mg/dL (9-23); Glucose 112 mg/dL (74-106); Potassium 5.1 mmol/L (3.5-5.1)
--- NOTE | 2024-10-16 11:56 | DVHPN2 ---
Progress Note Date Seen: Oct 16, 2024 Medical Necessity Reason Pt with a Central, PICC or Fol: Yes The following are medically ne: Pa Catheter Reason for pa catheter: Strict I&O Subjective Patient reports: No new complaints Other Systems: Patient seen and examined by myself today in follow-up Objective vital signs Vital Sign Date Time Temp Pulse Resp B/P (MAP) Pulse Ox O2 Delivery O2 Flow Rate FiO2 10/16/24 08:57 97.8 67 16 137/69 (91) 90 97.8 10/15/24 20:22 Nasal Cannula 4.0 10/15/24 20:22 36 Total Intake and Output 10/15/24 10/15/24 10/16/24 15:00 23:00 07:00 Intake Total 850 ml 814 ml Output Total 425 ml 400 ml Balance 425 ml 414 ml medications Current Medications Medications Dose Ordered Sig/Mario Route Start Time Stop Time Status Last Admin Dose Admin Atorvastatin Calcium 40 mg HS PO 10/14/24 22:00 10/15/24 22:29 40 MG Tamsulosin HCl 0.4 mg QPM PO 10/15/24 18:00 10/15/24 18:16 0.4 MG Sodium Bicarbonate 650 mg BID PO 10/14/24 22:00 10/16/24 08:48 650 MG Sevelamer HCl 800 mg TIDWM PO 10/15/24 08:00 10/16/24 11:34 800 MG Diagnostic Test (Pha) 1 strip IQ4HR 10/14/24 20:00 10/16/24 11:36 1 STRIP Insulin Human Regular IQ4HR SC 10/14/24 20:00 10/15/24 20:26 3 UNITS Dextrose 50 ml UD PRN IV 10/14/24 19:15 Acetaminophen/ Hydrocodone Bitart 1 tab Q4HP PRN PO 10/14/24 19:15 10/15/24 13:44 1 TAB Ondansetron HCl 4 mg Q4HP PRN IV 10/14/24 19:15 Acetaminophen 650 mg Q6HP PRN PO 10/14/24 19:15 Nitroglycerin 0.4 mg Q5MINP PRN SL 10/14/24 19:15 Morphine Sulfate 2 mg Q30M PRN IV 10/14/24 19:15 Aspirin 162 mg DAILY PO 10/15/24 10:00 10/16/24 08:48 162 MG Albuterol 2.5 mg Q6HPRN PRN NEB 10/14/24 21:15 Apixaban 2.5 mg BID PO 10/15/24 22:00 10/16/24 08:49 2.5 MG Furosemide 40 mg BIDD IV 10/15/24 18:00 10/16/24 05:47 40 MG Finasteride 5 mg DAILY PO 10/16/24 10:00 10/16/24 08:48 5 MG Examination: LUNGS:Normal, CVS:Normal, MSK:Normal laboratory and microbiology Laboratory Tests 10/16/24 10:00 Test 10/16/24 10:00 Range/Units Serum Glucose 112 H 74-106 mg/dL Microbiology Date/Time Source Procedure Growth Status 10/14/24 12:10 Blood Blood Culture - Preliminary NO GROWTH AFTER 24 HOURS OF INCUBATION. Resulted Problem List/Assessment/Plan Problem List/Assessment/Plan Acute kidney injury superimposed Chronic Kidney Disease stage 4 secondary to hemodynamic mediated Chronic kidney disease stage IV, follows nephrology in [facility]. Acute respiratory failure on 6 L NC. Acute systolic/diastolic heart failure Atrial fibrillation with secondary hypercoagulable state. Diabetes mellitus Thrombocytopenia, mild NSTEMI BPH Anemia of chronic kidney disease Recommendations Kidney function stabilize Chronic Kidney Disease stage 4 Increased urine output I agree with diuresis Kidney ultrasound reported within normal limit No indication for acute hemodialysis Blood pressure control Renal diet We will continue to follow up Plan discussed with: Patient FRANK BIANCHI MD Oct 16, 2024 11:56
--- NOTE | 2024-10-16 13:13 | DVHDS2 ---
Discharge Summary Date of Admission Oct 14, 2024 at 19:10 Date of Discharge: Oct 16, 2024 Labs/Diagnostic Data: Laboratory Results Test 10/16/24 11:31 10/16/24 10:00 10/15/24 14:50 10/14/24 15:26 POC Glucose 102 mg/dl (70-106) White Blood Count 5.6 10^3/uL (4.4-10.8) Red Blood Count 3.23 10^6/uL (4.5-5.90) Hemoglobin 9.2 g/dL (13.5-17.5) Hematocrit 28.1 % (41.0-53.0) Mean Corpuscular Volume 87.1 fL (80.0-100.0) Mean Corpuscular Hemoglobin 28.5 pg (28.0-32.0) Mean Corpuscular Hemoglobin Concent 32.8 g/dL (32.0-36.0) Red Cell Distribution Width 18.8 % (11.8-14.3) Platelet Count 114 10^3/uL (140-450) Mean Platelet Volume 8.6 fL (6.9-10.8) Neutrophils (%) (Auto) 64.3 % (37.0-80.0) Lymphocytes (%) (Auto) 19.7 % (10.0-50.0) Monocytes (%) (Auto) 8.4 % (0.0-12.0) Eosinophils (%) (Auto) 5.8 % (0.0-7.0) Basophils (%) (Auto) 1.8 % (0.0-2.0) Neutrophils # (Auto) 3.6 10 ^3/uL (1.6-8.6) Lymphocytes # (Auto) 1.1 10 ^3/uL (0.4-5.4) Monocytes # (Auto) 0.5 10 ^3/uL (0-1.3) Eosinophils # (Auto) 0.3 10 ^3/uL (0-0.8) Basophils # (Auto) 0.1 10 ^3/uL (0-0.2) Nucleated Red Blood Cells 0.0 % Sodium Level 136 mmol/L (136-145) Potassium Level 5.1 mmol/L (3.5-5.1) Chloride Level 101 mmol/L (98-107) Carbon Dioxide Level 27 mmol/L (20-31) Anion Gap 8 (5-15) Blood Urea Nitrogen 54 mg/dL (9-23) Creatinine 3.43 mg/dL (0.700-1.30) Glomerular Filtration Rate Calc 18 mL/min (>90) BUN/Creatinine Ratio 15.7 (10.0-20.0) Serum Glucose 112 mg/dL (74-106) Calcium Level 8.9 mg/dL (8.7-10.4) Total Bilirubin 0.7 mg/dL (0.2-1.0) Aspartate Amino Transferase (AST) 19 U/L (13-40) Alanine Aminotransferase (ALT) 18 U/L (7-40) Alkaline Phosphatase 95 U/L (46-116) Total Protein 6.2 g/dL (5.7-8.2) Albumin 3.7 g/dL (3.2-4.8) Urine Osmolality 404 mOsm/kg Urine Creatinine 96.93 mg/dL (30.0-125.0) Urine Sodium < 10 mmol/L (40-220) Urine Total Protein 121.7 mg/dL (1-14) Troponin I High Sensitivity 139 ng/L (</=54) Test 10/14/24 14:19 10/14/24 12:31 10/14/24 12:19 10/14/24 12:10 Lactic Acid Level 2.0 mmol/L (0.4-2.0) Urine Color Yellow (Yellow) Urine Clarity Clear (Clear) Urine pH 6.5 (5.0-9.0) Urine Specific Phyllis 1.014 (1.001-1.035) Urine Protein 1+ (Negative) Urine Ketones Negative (Negative) Urine Blood Negative /uL (Negative) Urine Nitrite Negative (Negative) Urine Bilirubin Negative (Negative) Urine Urobilinogen Normal mg/dL (Negative) Urine Leukocyte Esterase Negative /uL (Negative) Urine RBC <1 /hpf (0 - 3) Urine Microscopic WBC < 1 /HPF (0-3) Urine Squamous Epithelial Cells Few /hpf (<5) Urine Bacteria None seen /hpf (None Seen) Urine Glucose Normal mg/dL (Normal) Blood Gas Specimen Type Venous Blood Gas Sample Site Other Blood Gas Patient Temperature 37.0 Arterial Blood Date Drawn Andrés Test N/a Venous Blood pH 7.435 (7.320-7.430) Venous Blood pCO2 at Patient Temp 33.6 mmHg (38.0-54.0) Venous Blood pO2 at Patient Temp 48.2 mmHg (23.0-48.0) Venous Blood HCO3 22.1 mmol/L (22.0-29.0) Venous Blood Base Excess -1.4 mmol/L (-2.0-3.0) Blood Gas Liter Flow 15.00 Blood Gas Modality Mask - nrb FiO2 % 100.0 Blood Gas Comments B-Type Natriuretic Peptide 556.86 pg/mL (0-100) Other Laboratory Tests 10/16/24 10:00 Brief Hx & Hospital Course: SEE DICTATED NOTE Condition at Discharge: Fair Final Diagnosis/Problems List chf Discharge Disposition: Acute Care Facility Discharge Instruct/Medications Diet: Cardiac 2g Na,low cholest Activity: No Restrictions, As Tolerated Follow Up/Referral: fu with flanagan Medications: per oct Discharge Statement: "Patient was advised to return to the ER or call 911 if any headaches, dizziness, shortness of breath, chest pain, abdominal pain, bleeding, fevers, or worsening of medical condition. Patient was counseled about treatment plan, medications, possible side effects, patientverbalized understanding. All questions were answered to the best of my ability. This discharge took greater then 30 minutes in planning, reviewing documentation, counseling the patient, and discussing with other team members." ASSESSMENT ASSESSMENT Assessment chf Date of Service: Oct 16, 2024 Billing Provider: ALCIDES GUZMAN MD Common Visit Codes: 85985-LNU/OBS DISCH DAY >30min ALCIDES GUZMAN MD Oct 16, 2024 13:13
[2024-10-16] MEDS ORDERED: DEXTROSE (50%) 50ML SYRG IV PRN (13:15)
--- NOTE | 2024-10-16 13:28 | DVHDS ---
DATE OF DISCHARGE: 10/16/2024 HISTORY OF PRESENT ILLNESS: The patient is a 74-year-old gentleman who was admitted with history of increasing confusion and low blood sugars. The patient was also hypoxic. He has history of previous kidney disease, pacemaker, diabetes, congestive heart failure, hypertension, hyperlipidemia. HOSPITAL COURSE: The patient was seen in nephrology consult by Dr. Wright. The patient's creatinine was elevated at 3.31. BNP was 556. The patient also had mildly elevated troponin levels and was noted to be hypoglycemic. The patient's blood cultures have been negative. Chest x-ray showed evidence of multifocal airspace disease. Renal ultrasound showed no hydronephrosis. The patient had a head CT that showed no acute intracranial process and Doppler of right upper extremity was negative for DVT. The patient will now be transferred to [place] for further management. FINAL DIAGNOSES: Therefore, * [id number] systolic/diastolic heart failure. * Acute respiratory failure. * Encephalopathy with hypoglycemia. * Atrial fibrillation with secondary hypercoagulable state. * History of pacemaker. * Chronic kidney disease, stage 4. * Diabetes mellitus. * Anemia with thrombocytopenia. * Non-ST elevation myocardial infarction, likely type 2. Time spent in discharge planning and review of plan with the patient, nursing and paperwork was 39 minutes. MD ASHKAN Aj/BALTAZAR TID: [id number] RECEIPT: [id number]
[2024-10-16] MEDS: FUROSEMIDE 100 MG/10ML VIAL IV SCH (18:48)
[2024-10-16] MEDS: ACCU-CHEK COMFORT CURVE STRIP VI SCH (18:49)
[2024-10-16] MEDS: InsuLIN REG 1unit/0.01ml Soln (100units/ml) SC SCH (18:49)
[2024-10-17] VITALS (10 sets, daily range): BP systolic 121–135; BP diastolic 44–72; PULSE 58–74; RESP 16–20; TEMP 97.2–98.8; O2SAT 90–97
[2024-10-17 06:55] LABS: Basophils # (auto) 0.1 10 ^3/uL (0-0.2); Basophils % (auto) 1.4 % (0.0-2.0); Eosinophils # (auto) 0.2 10 ^3/uL (0-0.8); Eosinophils % (auto) 3.4 % (0.0-7.0); Hematocrit 28.6 % (41.0-53.0); Hemoglobin 9.4 g/dL (13.5-17.5); Lymphocytes # (auto) 0.8 10 ^3/uL (0.4-5.4); Lymphocytes % (auto) 11.2 % (10.0-50.0); Mean Corpuscular Hgb Conc. 32.8 g/dL (32.0-36.0); Mean Corpuscular Volume 85.1 fL (80.0-100.0); Monocytes # (auto) 0.5 10 ^3/uL (0-1.3); Monocytes % (auto) 7.2 % (0.0-12.0); Neutrophils # (auto) 5.4 10 ^3/uL (1.6-8.6); Neutrophils % (auto) 76.8 % (37.0-80.0); Nucleated Red Blood Cells % 0.1 %; Platelet Count (auto) 115 10^3/uL (140-450); Red Blood Cells 3.36 10^6/uL (4.5-5.90); Red Cell Distribution Width 18.4 % (11.8-14.3); White Blood Cell 7.1 10^3/uL (4.4-10.8)
[2024-10-17 06:58] LABS: Chloride 100 mmol/L (98-107); Potassium 4.5 mmol/L (3.5-5.1); Sodium 137 mmol/L (136-145)
[2024-10-17 06:59] LABS: Anion Gap 11 (5-15); Carbon Dioxide 26 mmol/L (20-31)
[2024-10-17 07:04] LABS: BUN/Creatinine Ratio 15.6 (10.0-20.0); Blood Urea Nitrogen 54 mg/dL (9-23); Glucose 98 mg/dL (74-106)
--- NOTE | 2024-10-17 10:33 | DVHPNRES ---
Progress Note Date Seen: Oct 17, 2024 Resident Creating Document: OSKAR ZULETA RESIDENT Medical Necessity Reason Pt with a Central, PICC or Fol: Yes The following are medically ne: Pa Catheter Reason for pa catheter: Strict I&O Subjective Patient reports: Feels better Objective vital signs Vital Sign Date Time Temp Pulse Resp B/P (MAP) Pulse Ox O2 Delivery O2 Flow Rate FiO2 10/17/24 06:20 94 Nasal Cannula* 3 32 10/17/24 05:55 135/44 10/17/24 05:00 97.2 65 16 97.2 Total Intake and Output 10/16/24 10/16/24 10/17/24 15:00 23:00 07:00 Intake Total 650 ml 200 ml Output Total 800 ml 1800 ml Balance -150 ml -1600 ml medications Current Medications Medications Dose Ordered Sig/Mario Route Start Time Stop Time Status Last Admin Dose Admin Atorvastatin Calcium 40 mg HS PO 10/14/24 22:00 10/16/24 22:08 40 MG Tamsulosin HCl 0.4 mg QPM PO 10/15/24 18:00 10/16/24 18:47 0.4 MG Sodium Bicarbonate 650 mg BID PO 10/14/24 22:00 10/17/24 09:54 650 MG Sevelamer HCl 800 mg TIDWM PO 10/15/24 08:00 10/17/24 09:54 800 MG Acetaminophen/ Hydrocodone Bitart 1 tab Q4HP PRN PO 10/14/24 19:15 10/15/24 13:44 1 TAB Ondansetron HCl 4 mg Q4HP PRN IV 10/14/24 19:15 Acetaminophen 650 mg Q6HP PRN PO 10/14/24 19:15 Nitroglycerin 0.4 mg Q5MINP PRN SL 10/14/24 19:15 Morphine Sulfate 2 mg Q30M PRN IV 10/14/24 19:15 Aspirin 162 mg DAILY PO 10/15/24 10:00 10/17/24 09:54 162 MG Albuterol 2.5 mg Q6HPRN PRN NEB 10/14/24 21:15 Apixaban 2.5 mg BID PO 10/15/24 22:00 10/17/24 09:54 2.5 MG Finasteride 5 mg DAILY PO 10/16/24 10:00 10/17/24 09:54 5 MG Furosemide 80 mg BIDD IV 10/16/24 18:00 10/17/24 05:55 80 MG Diagnostic Test (Pha) 1 strip ACHS 10/16/24 17:00 10/17/24 06:26 1 STRIP Insulin Human Regular ACHS SC 10/16/24 17:00 10/16/24 22:13 4 UNITS Dextrose 50 ml UD PRN IV 10/16/24 13:15 Examination GENERAL:Normal, HEENT:Normal, NECK:Normal, LUNGS:Normal 2L NC, CVS:Normal, ABDOMEN:Normal, MSK:Abnormal, mild 1+ pitting edema b/l LL, left elbow injury now dressed, no active bleeding, SKIN:Normal, NEURO:Normal, hard of hearing, :Normal laboratory and microbiology Laboratory Tests 10/17/24 05:45 Test 10/17/24 05:45 Range/Units Serum Glucose 98 74-106 mg/dL Microbiology Date/Time Source Procedure Growth Status 10/14/24 12:10 Blood Blood Culture - Preliminary NO GROWTH AFTER 48 HOURS OF INCUBATION. Resulted Labs and/or images reviewed: Labs reviewed by me, Image(s) reviewed by me Problem List/Assessment/Plan Problem List/Assessment/Plan Mr. Hoover, a 74-year-old male with a history of diabetes, kidney disease, dyslipidemia, hypertension, and cancer, and a pacemaker, presented with altered mental status, progressively worsening confusion, and low blood sugar. He was mildly hypoxic on arrival and placed on a non-rebreather mask. Currently, he is lethargic and oriented to person and place, with no complaints of chest or abdominal pain. Poor historian, caregiver yet to talk to. Feels better diuresing well on IV lasix, hypoxemia improving now on 2L NC. Assessment: #Likely RADHA due to VMN, could be cardiorenal in etiology #Chronic kidney disease stage IV, follows nephrology in [facility]. #Acute respiratory failure on 6 L NC>2L #Acute systolic/diastolic heart failure #Atrial fibrillation with secondary hypercoagulable state. #History of pacemaker. #H/o Diabetes mellitus HbA1c imrpoved adjusted due to progressive CKD #thrombocytopenia,stable. #Likely NSTEMI II Findings: #GFR: 26>24>19>18>18 #Creatinine: 2.33>2.49>2.68>3.31>3.23>3.43>3.46 #I&O: 850-2600=-1750 #Urinalysis, mostly unremarkable, 1+ protein but Ur Sp Gr. 1.014 #Kidney Ultrasound, unremakrable #Hyperkalemia improved with lasix, insulin, dextrose and lokelma. Plan: #Continue lasix 80 bid daily. Sodium bicarbonate 650 bid continue. #Strict I&O and check Daily weight, Avoid Nephrotoxics, Avoid hyper/hypo tension, Fluid Restriction, cardiac diet with 2 gm salt restriction. #Daily BMP, and Correct electrolytes. #Rest of the treatment as per primary team. Ok to transfer to [facility] from nephrology perspective. Thank you for the opportunity to follow up on your patient. In case of any question feel free to reach out to the Nephrology team. Discussed with Nephrology attending Dr. Whitney. Plan discussed with: Patient, Other (RN primary team. ) My Orders My Orders Orders - OSKAR ZULETA RESIDENT Procedure Category Date Status Time Furosemide Injection PHA 10/16/24 In Process (Lasix Injection) 18:00 Dietary Evaluation Review Comments: 1. If not on HD, CCHO-60 Renal Sepcific 60g protein restriction, 3K, low Phos Diet 2. If on HD, CCHO-60 Renal standard 3K, low phos dietdiet Expected Outcomes/Goals: controlled DM, less uremic symptoms OSKAR ZULETA RESIDENT Oct 17, 2024 10:33
--- NOTE | 2024-10-17 16:49 | DVHPN2 ---
Subjective update 10/17 - patient improving edema in rales. Improving symptomatically. Nephrology following. No acute indication of HD. Yesterday plan was to transfer patient to [place] for ongoing diuresis, and consult in network nephrology/primary retail security professional. Patient wants to transfer plan and continue thickening of the left lateral treatment here at [facility]. We will continue diuresis polyps and appreciate nephrology following. Patient is closing to euvolemia. Patient likely to be discharge tomorrow once off of oxygen as he was no on home oxygen. Likely DC home tomorrow with Lasix 40 p.o. b.i.d. up to t.i.d. p.r.n. to control low-sodium edema. Reviewed: H&P Changes from previous H/P or p: No Changes General: Per HPI Objective Vitals Vital Signs Date Time Temp Pulse Resp B/P (MAP) Pulse Ox O2 Delivery O2 Flow Rate FiO2 10/17/24 13:00 97.9 66 16 130/67 (88) 92 97.9 10/17/24 08:00 Nasal Cannula* 3 32 Intake/Output Intake and Output 10/17/24 07:00 Intake Total 850 ml Output Total 2600 ml Balance -1750 ml Intake Oral 850 ml Output Urine Total 2600 ml Exam GEN: Healthy appearing, well-developed, NAD. HEENT: NC/AT; MMM. CV: Systolic murmur 2/6 LUNGS: Rales up to mid lungs bilateral ABD: Soft, NT/ND, NBS, no masses or organomegaly. EXT: Pitting edema bilateral extremities +1 up to olguin NEURO: Ambulating with no limitations. No focal deficits. Only for Medications Current Medications Medications Dose Ordered Sig/Mario Route Start Time Stop Time Status Last Admin Dose Admin Atorvastatin Calcium 40 mg HS PO 10/14/24 22:00 10/16/24 22:08 40 MG Tamsulosin HCl 0.4 mg QPM PO 10/15/24 18:00 10/16/24 18:47 0.4 MG Sodium Bicarbonate 650 mg BID PO 10/14/24 22:00 10/17/24 09:54 650 MG Sevelamer HCl 800 mg TIDWM PO 10/15/24 08:00 10/17/24 12:19 800 MG Acetaminophen/ Hydrocodone Bitart 1 tab Q4HP PRN PO 10/14/24 19:15 10/15/24 13:44 1 TAB Ondansetron HCl 4 mg Q4HP PRN IV 10/14/24 19:15 Acetaminophen 650 mg Q6HP PRN PO 10/14/24 19:15 Nitroglycerin 0.4 mg Q5MINP PRN SL 10/14/24 19:15 Morphine Sulfate 2 mg Q30M PRN IV 10/14/24 19:15 Aspirin 162 mg DAILY PO 10/15/24 10:00 10/17/24 09:54 162 MG Apixaban 2.5 mg BID PO 10/15/24 22:00 10/17/24 09:54 2.5 MG Finasteride 5 mg DAILY PO 10/16/24 10:00 10/17/24 09:54 5 MG Furosemide 80 mg BIDD IV 10/16/24 18:00 10/17/24 05:55 80 MG Diagnostic Test (Pha) 1 strip ACHS 10/16/24 17:00 10/17/24 12:17 1 STRIP Insulin Human Regular ACHS SC 10/16/24 17:00 10/17/24 12:18 4 UNITS Dextrose 50 ml UD PRN IV 10/16/24 13:15 Laboratory Results Laboratory Tests 10/17/24 05:45 Chemistry Test 10/17/24 05:45 Calcium Level 9.0 mg/dL (8.7-10.4) Urinalysis Test 10/14/24 12:31 10/15/24 14:50 Urine Color Yellow (Yellow) Urine Clarity Clear (Clear) Urine pH 6.5 (5.0-9.0) Urine Specific [place] 1.014 (1.001-1.035) Urine Protein 1+ (Negative) H Urine Ketones Negative (Negative) Urine Blood Negative /uL (Negative) Urine Nitrite Negative (Negative) Urine Bilirubin Negative (Negative) Urine Urobilinogen Normal mg/dL (Negative) Urine Leukocyte Esterase Negative /uL (Negative) Urine RBC <1 /hpf (0 - 3) Urine Microscopic WBC < 1 /HPF (0-3) Urine Squamous Epithelial Cells Few /hpf (<5) Urine Bacteria None seen /hpf (None Seen) Urine Glucose Normal mg/dL (Normal) Urine Osmolality 404 mOsm/kg Urine Creatinine 96.93 mg/dL (30.0-125.0) Urine Sodium < 10 mmol/L (40-220) L Urine Total Protein 121.7 mg/dL (1-14) H Microbiology Microbiology Date/Time Source Procedure Growth Status 10/14/24 12:10 Blood Blood Culture - Preliminary NO GROWTH AFTER 72 HOURS OF INCUBATION. Resulted Labs and/or images reviewed: Labs reviewed by me, Image(s) reviewed by me Assessment/Plan Assessment/Plan Mr. Hoover, a 74-year-old male with a history of diabetes, kidney disease, dyslipidemia, hypertension, and cancer, and a pacemaker, presented with altered mental status, progressively worsening confusion, and low blood sugar. He was mildly hypoxic on arrival and placed on a non-rebreather mask. update 10/17 - patient improving edema in rales. Improving symptomatically. Nephrology following. No acute indication of HD. Yesterday plan was to transfer patient to [place] for ongoing diuresis, and consult in network nephrology/primary retail security professional. Patient wants to transfer plan and continue thickening of the left lateral treatment here at [facility]. We will continue diuresis polyps and appreciate nephrology following. Patient is closing to euvolemia. Patient likely to be discharge tomorrow once off of oxygen as he was no on home oxygen. Likely DC home tomorrow with Lasix 40 p.o. b.i.d. up to t.i.d. p.r.n. to control low-sodium edema. * [id number] systolic/diastolic heart failure * Acute respiratory failure * Encephalopathy with hypoglycemia * Atrial fibrillation with secondary hypercoagulable state * History of pacemaker * Chronic kidney disease, stage 4 * Diabetes mellitus * Anemia with thrombocytopenia * Non-ST elevation myocardial infarction, likely type 2 -Continue home medication Eliquis, aspirin, Lipitor, finasteride, Flomax - continue cefdinir 100 p.o. t.i.d. with meals -Per nephrology started sodium bicarb 650 mg p.o. b.i.d. -Nasal cannula oxygen goal > under 2% -Continue Lasix IV 80 b.i.d., under euvolemia, likely we will reach tomorrow -Appreciate continued following with Nephrology -Diabetic diet Diabetic diet DVT prophylaxis on home Eliquis GI prophylaxis tolerating p.o. Med surge Full code Plan discussed with: Patient My Orders Orders - CATRACHITA BRIONES MD Procedure Category Date Status Time * [place] Waitress/Waiter CONS 10/17/24 Transmitted Consult Date of Service: Oct 17, 2024 Billing Provider: CATRACHITA BRIONES MD Common Visit Codes: [id number] INP/OBS CARE(HIGH) CATRACHITA BRIONES MD Oct 17, 2024 16:49
[2024-10-18] VITALS (8 sets, daily range): BP systolic 116–144; BP diastolic 50–70; PULSE 62–67; RESP 16–18; TEMP 97.7–98.7; O2SAT 94–98
[2024-10-18 07:38] LABS: Alanine Aminotransferase 16 U/L (7-40); Albumin 3.3 g/dL (3.2-4.8); Alkaline Phosphatase 93 U/L (46-116); Anion Gap 12 (5-15); Aspartate Aminotransferase 19 U/L (13-40); BUN/Creatinine Ratio 13.7 (10.0-20.0); Bilirubin, Total 0.9 mg/dL (0.2-1.0); Calcium 8.8 mg/dL (8.7-10.4); Carbon Dioxide 23 mmol/L (20-31); Chloride 102 mmol/L (98-107); Potassium 3.8 mmol/L (3.5-5.1); Sodium 137 mmol/L (136-145); Total Protein 5.9 g/dL (5.7-8.2)
[2024-10-18 07:41] LABS: Blood Urea Nitrogen 43 mg/dL (9-23); Glucose 110 mg/dL (74-106)
--- NOTE | 2024-10-18 17:44 | DVHPN2 ---
Subjective Reported dark tarry stools Reviewed: H&P Changes from previous H/P or p: No Changes General: Per HPI Objective Vitals Vital Signs Date Time Temp Pulse Resp B/P (MAP) Pulse Ox O2 Delivery O2 Flow Rate FiO2 10/18/24 17:38 127/86 10/18/24 16:47 97.7 65 18 94 97.7 10/18/24 08:00 Nasal Cannula* 3 32 Intake/Output Intake and Output 10/18/24 06:59 Intake Total 1700 ml Output Total 6000 ml Balance -4300 ml Intake Oral 1700 ml Output Urine Total 6000 ml # Bowel Movements 1 General Appearance: Alert, Oriented X3, Cooperative, mild distress HEENT: Atraumatic, PERRLA Neck: Carotid Bruits [place] Lungs: Clear to auscultation, Normal air movement Cardiovascular: Normal S1, Normal S2 Abdomen: Normal bowel sounds, Soft, No tenderness, No hepatospenomegaly, No masses Musculoskeletal: Normal sensory function, Normal motor function Neuro: Normal gait, Normal speech Psych/Mental Status: Mental status NL, Mood NL Medications Current Medications Medications Dose Ordered Sig/Mario Route Start Time Stop Time Status Last Admin Dose Admin Atorvastatin Calcium 40 mg HS PO 10/14/24 22:00 10/17/24 22:02 40 MG Tamsulosin HCl 0.4 mg QPM PO 10/15/24 18:00 10/18/24 17:28 0.4 MG Sodium Bicarbonate 650 mg BID PO 10/14/24 22:00 10/18/24 10:32 650 MG Sevelamer HCl 800 mg TIDWM PO 10/15/24 08:00 10/18/24 17:28 800 MG Acetaminophen/ Hydrocodone Bitart 1 tab Q4HP PRN PO 10/14/24 19:15 10/15/24 13:44 1 TAB Ondansetron HCl 4 mg Q4HP PRN IV 10/14/24 19:15 Acetaminophen 650 mg Q6HP PRN PO 10/14/24 19:15 Nitroglycerin 0.4 mg Q5MINP PRN SL 10/14/24 19:15 Morphine Sulfate 2 mg Q30M PRN IV 10/14/24 19:15 Apixaban 2.5 mg BID PO 10/15/24 22:00 10/18/24 10:32 2.5 MG Finasteride 5 mg DAILY PO 10/16/24 10:00 10/18/24 10:32 5 MG Furosemide 80 mg BIDD IV 10/16/24 18:00 10/18/24 17:38 80 MG Diagnostic Test (Pha) 1 strip ACHS 10/16/24 17:00 10/18/24 17:37 1 STRIP Insulin Human Regular ACHS SC 10/16/24 17:00 10/18/24 17:36 4 UNITS Dextrose 50 ml UD PRN IV 10/16/24 13:15 Pantoprazole Sodium 40 mg DAILY IV 10/19/24 10:00 UNV Laboratory Results Laboratory Tests 10/17/24 05:45 10/18/24 04:41 Chemistry Test 10/18/24 04:41 Albumin 3.3 g/dL (3.2-4.8) Calcium Level 8.8 mg/dL (8.7-10.4) Total Protein 5.9 g/dL (5.7-8.2) LFT Test 10/18/24 04:41 Alanine Aminotransferase (ALT) 16 U/L (7-40) Alkaline Phosphatase 93 U/L (46-116) Aspartate Amino Transferase (AST) 19 U/L (13-40) Total Bilirubin 0.9 mg/dL (0.2-1.0) Urinalysis Test 10/14/24 12:31 10/15/24 14:50 Urine Color Yellow (Yellow) Urine Clarity Clear (Clear) Urine pH 6.5 (5.0-9.0) Urine Specific [place] 1.014 (1.001-1.035) Urine Protein 1+ (Negative) H Urine Ketones Negative (Negative) Urine Blood Negative /uL (Negative) Urine Nitrite Negative (Negative) Urine Bilirubin Negative (Negative) Urine Urobilinogen Normal mg/dL (Negative) Urine Leukocyte Esterase Negative /uL (Negative) Urine RBC <1 /hpf (0 - 3) Urine Microscopic WBC < 1 /HPF (0-3) Urine Squamous Epithelial Cells Few /hpf (<5) Urine Bacteria None seen /hpf (None Seen) Urine Glucose Normal mg/dL (Normal) Urine Osmolality 404 mOsm/kg Urine Creatinine 96.93 mg/dL (30.0-125.0) Urine Sodium < 10 mmol/L (40-220) L Urine Total Protein 121.7 mg/dL (1-14) H Microbiology Microbiology Date/Time Source Procedure Growth Status 3/11/25 12:10 Blood Blood Culture - Preliminary NO GROWTH AFTER 72 HOURS OF INCUBATION. Resulted Labs and/or images reviewed: Labs reviewed by me, Image(s) reviewed by me Assessment/Plan Assessment/Plan Impression: * Acute respiratory failure. * Acute systolic/diastolic heart failure: lasix iv * Atrial fibrillation with secondary hypercoagulable state. * History of pacemaker. * Chronic kidney disease stage IV: nephro eval * Diabetes mellitus: ssi * encephalopathy with hypoglycemia: ssi * Anemia/thrombocytopenia * nstemi ?type 2 Events: Patient had bloody stool. -stop aspirin, continue Eliquis -start PPI -FOBT -repeat H&H in a.m. -re-evaluate for discharge in a.m. Total time spent with patient discussing and formulating plan of care: 35 minutes. This medical document was created using an electronic medical record system with [employer] dictation system. Although this document has been carefully reviewed, there may still be some phonetic and typographical errors. These areas are purely typographical due to imperfections of the software programs, and do not reflect any compromise in the patient's medical care. Plan discussed with: Patient, Other (RN) My Orders Orders - DUKE MOHAN NP Procedure Category Date Status Time Cover Wound With Dry LEONCIO 10/18/24 In Process Dressing 10:33 Stool Occult Blood LAB 10/18/24 Logged 16:00 Hemoglobin & LAB 10/19/24 Verified Hematocrit 04:00 Pantoprazole PHA 10/19/24 Logged (Protonix) 10:00 Date of Service: Oct 18, 2024 Billing Provider: DUKE MOHAN NP Common Visit Codes: [id number] INP/OBS CARE(HIGH) DUKE MOHAN NP Oct 18, 2024 17:44
[2024-10-19] VITALS (8 sets, daily range): BP systolic 120–148; BP diastolic 51–68; PULSE 59–71; RESP 16–19; TEMP 97.4–98.8; O2SAT 96–99
[2024-10-19 02:30] LABS: Basophils # (auto) 0.1 10 ^3/uL (0-0.2); Basophils % (auto) 1.7 % (0.0-2.0); Eosinophils # (auto) 0.2 10 ^3/uL (0-0.8); Eosinophils % (auto) 2.9 % (0.0-7.0); Hematocrit 31.2 % (41.0-53.0); Hemoglobin 10.6 g/dL (13.5-17.5); Lymphocytes # (auto) 1.1 10 ^3/uL (0.4-5.4); Lymphocytes % (auto) 14.8 % (10.0-50.0); Mean Corpuscular Hemoglobin 28.7 pg (28.0-32.0); Mean Corpuscular Hgb Conc. 33.9 g/dL (32.0-36.0); Mean Corpuscular Volume 84.8 fL (80.0-100.0); Monocytes # (auto) 0.6 10 ^3/uL (0-1.3); Monocytes % (auto) 7.6 % (0.0-12.0); Neutrophils # (auto) 5.6 10 ^3/uL (1.6-8.6); Platelet Count (auto) 141 10^3/uL (140-450); Red Blood Cells 3.68 10^6/uL (4.5-5.90); Red Cell Distribution Width 18.6 % (11.8-14.3); White Blood Cell 7.6 10^3/uL (4.4-10.8)
[2024-10-19 07:26] LABS: Hematocrit 31.1 % (41.0-53.0); Hemoglobin 10.7 g/dL (13.5-17.5)
--- NOTE | 2024-10-19 10:03 | DVHPN2 ---
Subjective Denies any further rectal bleeding. Reviewed: H&P Changes from previous H/P or p: No Changes General: Per HPI Objective Vitals Vital Signs Date Time Temp Pulse Resp B/P (MAP) Pulse Ox O2 Delivery O2 Flow Rate FiO2 10/19/24 05:30 139/54 10/19/24 05:00 98.7 65 19 97 98.7 10/18/24 20:00 Nasal Cannula* 3 32 Intake/Output Intake and Output 10/19/24 07:00 Intake Total 1235 ml Output Total 4050 ml Balance -2815 ml Intake Oral 1235 ml Output Urine Total 4050 ml # Bowel Movements 3 General Appearance: Alert, Oriented X3, Cooperative, mild distress HEENT: Atraumatic, PERRLA Neck: Carotid Bruits [place] Lungs: Clear to auscultation, Normal air movement Cardiovascular: Normal S1, Normal S2 Abdomen: Normal bowel sounds, Soft, No tenderness, No hepatospenomegaly, No masses Musculoskeletal: Normal sensory function, Normal motor function Neuro: Normal gait, Normal speech Psych/Mental Status: Mental status NL, Mood NL Medications Current Medications Medications Dose Ordered Sig/Mario Route Start Time Stop Time Status Last Admin Dose Admin Atorvastatin Calcium 40 mg HS PO 10/14/24 22:00 10/18/24 22:05 40 MG Tamsulosin HCl 0.4 mg QPM PO 10/15/24 18:00 10/18/24 17:28 0.4 MG Sodium Bicarbonate 650 mg BID PO 10/14/24 22:00 10/18/24 22:05 650 MG Sevelamer HCl 800 mg TIDWM PO 10/15/24 08:00 10/19/24 08:32 800 MG Acetaminophen/ Hydrocodone Bitart 1 tab Q4HP PRN PO 10/14/24 19:15 10/15/24 13:44 1 TAB Ondansetron HCl 4 mg Q4HP PRN IV 10/14/24 19:15 Acetaminophen 650 mg Q6HP PRN PO 10/14/24 19:15 Nitroglycerin 0.4 mg Q5MINP PRN SL 10/14/24 19:15 Morphine Sulfate 2 mg Q30M PRN IV 10/14/24 19:15 Apixaban 2.5 mg BID PO 10/15/24 22:00 10/18/24 22:05 2.5 MG Finasteride 5 mg DAILY PO 10/16/24 10:00 10/18/24 10:32 5 MG Furosemide 80 mg BIDD IV 10/16/24 18:00 10/19/24 05:30 80 MG Diagnostic Test (Pha) 1 strip ACHS 10/16/24 17:00 10/19/24 06:12 1 STRIP Insulin Human Regular ACHS SC 10/16/24 17:00 10/18/24 22:06 3 UNITS Dextrose 50 ml UD PRN IV 10/16/24 13:15 Pantoprazole Sodium 40 mg DAILY IV 10/19/24 10:00 Laboratory Results Laboratory Tests 10/18/24 04:41 10/19/24 02:08 10/19/24 06:43 Urinalysis Test 10/14/24 12:31 10/15/24 14:50 Urine Color Yellow (Yellow) Urine Clarity Clear (Clear) Urine pH 6.5 (5.0-9.0) Urine Specific [place] 1.014 (1.001-1.035) Urine Protein 1+ (Negative) H Urine Ketones Negative (Negative) Urine Blood Negative /uL (Negative) Urine Nitrite Negative (Negative) Urine Bilirubin Negative (Negative) Urine Urobilinogen Normal mg/dL (Negative) Urine Leukocyte Esterase Negative /uL (Negative) Urine RBC <1 /hpf (0 - 3) Urine Microscopic WBC < 1 /HPF (0-3) Urine Squamous Epithelial Cells Few /hpf (<5) Urine Bacteria None seen /hpf (None Seen) Urine Glucose Normal mg/dL (Normal) Urine Osmolality 404 mOsm/kg Urine Creatinine 96.93 mg/dL (30.0-125.0) Urine Sodium < 10 mmol/L (40-220) L Urine Total Protein 121.7 mg/dL (1-14) H Microbiology Microbiology Date/Time Source Procedure Growth Status 10/14/24 12:10 Blood Blood Culture - Preliminary NO GROWTH AFTER 72 HOURS OF INCUBATION. Resulted Labs and/or images reviewed: Labs reviewed by me, Image(s) reviewed by me Assessment/Plan Assessment/Plan Impression: -acute respiratory failure -acute on chronic systolic and diastolic heart failure -atrial fibrillation -diabetes mellitus -metabolic encephalopathy -anemia -rectal bleeding -NSTEMI, probable type 2 -CKD stage 4 Plan: -FOBT positive, aspirin stopped, continue with IV Protonix. Continue Eliquis given no drop in H&H. GI consultation -continue O2 supplementation to keep saturation greater 92% -nephrology consultation: Recommendations reviewed -regular insulin sliding scale -repeat BMP, H&H in a.m.. -physical therapy -long discussion made with the patient regarding further course of action. Patient request not to be transferred to [facility]. Patient also is agreeable for GI consultation and repeat labs tomorrow. Total time spent with patient discussing and formulating plan of care: 35 minutes. This medical document was created using an electronic medical record system with [employer] dictation system. Although this document has been carefully reviewed, there may still be some phonetic and typographical errors. These areas are purely typographical due to imperfections of the software programs, and do not reflect any compromise in the patient's medical care. Plan discussed with: Patient, Other (RN) My Orders Orders - DUKE MOHAN NP Procedure Category Date Status Time Cover Wound With Dry LEONCIO 10/18/24 In Process Dressing 10:33 Pantoprazole PHA 10/19/24 In Process (Protonix) 10:00 * Gi Dvh Dispatcher Maintenance CONS 10/19/24 Transmitted 08:53 Basic Metabolic Panel LAB 10/20/24 Verified 04:00 Hemoglobin & LAB 10/20/24 Verified Hematocrit 04:00 Date of Service: Oct 19, 2024 Billing Provider: DUKE MOHAN NP Common Visit Codes: [id number] INP/OBS CARE(HIGH) DUKE MOHAN NP Oct 19, 2024 10:03
[2024-10-19] MEDS: PANTOPRAZOLE 40 MG/10 ML VIAL INJ IV SCH (10:42)
--- NOTE | 2024-10-19 10:52 | DVHPN2 ---
Progress Note - Dictate Date Seen: Oct 19, 2024 Medical Necessity Reason Pt with a Central, PICC or Fol: Yes The following are medically ne: Pa Catheter Reason for pa catheter: Strict I&O Subjective Transfer held due to concern for possible enteral blood loss vital signs Vital Sign Date Time Temp Pulse Resp B/P (MAP) Pulse Ox O2 Delivery O2 Flow Rate FiO2 10/19/24 09:00 97.4 65 17 148/55 (86) 96 97.4 10/18/24 20:00 Nasal Cannula* 3 32 Total Intake and Output 10/18/24 10/18/24 10/19/24 15:00 23:00 07:00 Intake Total 960 ml 275 ml Output Total 1100 ml 2950 ml Balance -140 ml -2675 ml medications Current Medications Medications Dose Ordered Sig/Mario Route Start Time Stop Time Status Last Admin Dose Admin Atorvastatin Calcium 40 mg HS PO 10/14/24 22:00 10/18/24 22:05 40 MG Tamsulosin HCl 0.4 mg QPM PO 10/15/24 18:00 10/18/24 17:28 0.4 MG Sodium Bicarbonate 650 mg BID PO 10/14/24 22:00 10/19/24 10:42 650 MG Sevelamer HCl 800 mg TIDWM PO 10/15/24 08:00 10/19/24 08:32 800 MG Acetaminophen/ Hydrocodone Bitart 1 tab Q4HP PRN PO 10/14/24 19:15 10/15/24 13:44 1 TAB Ondansetron HCl 4 mg Q4HP PRN IV 10/14/24 19:15 Acetaminophen 650 mg Q6HP PRN PO 10/14/24 19:15 Nitroglycerin 0.4 mg Q5MINP PRN SL 10/14/24 19:15 Morphine Sulfate 2 mg Q30M PRN IV 10/14/24 19:15 Apixaban 2.5 mg BID PO 10/15/24 22:00 10/19/24 10:42 2.5 MG Finasteride 5 mg DAILY PO 10/16/24 10:00 10/19/24 10:42 5 MG Furosemide 80 mg BIDD IV 10/16/24 18:00 10/19/24 05:30 80 MG Diagnostic Test (Pha) 1 strip ACHS 10/16/24 17:00 10/19/24 06:12 1 STRIP Insulin Human Regular ACHS SC 10/16/24 17:00 10/18/24 22:06 3 UNITS Dextrose 50 ml UD PRN IV 10/16/24 13:15 Pantoprazole Sodium 40 mg DAILY IV 10/19/24 10:00 10/19/24 10:42 40 MG objective Gen: nad heent: nc/at, mmm lungs: cta anteriorly cvs: no rub abd: soft, bowel sounds audible ext: no edema skin: no rash neuro: alert and oriented laboratory and microbiology Laboratory Tests 10/19/24 06:43 10/19/24 02:08 10/18/24 04:41 Test 10/18/24 04:41 Range/Units Serum Glucose 110 H 74-106 mg/dL Assessment/Plan IMP: 1) Hemodynamically mediated RADHA/VMN, prerenal state 2) CKD stage IV - being followed at [place] 3) acute hypoxemic respiratory failure 4) acute systolic and diastolic heart failure 5) type 2 diabetes with CKD REC: - continue with oral loop diuretic - we will repeat basic chemistry panel in a.m. - noted possible transfer to [facility] Dietary Evaluation Review Comments: [facility]. [facility] 60g protein restriction, 3K, low Phos Diet 2. If on HD, CCHO-60 Renal standard 3K, low phos dietdiet Expected Outcomes/Goals: controlled DM, less uremic symptoms Plan discussed with: Patient KAYLEIGH CARDENAS MD Oct 19, 2024 10:51
--- NOTE | 2024-10-19 15:42 | DVHINCON2 ---
Date of service: Oct 19, [address] Martinez Reason for Consultation GI bleed rectal bleeding History of Present Illness This 74-year-old had be admitted to the hospital with altered level of consciousness with low blood sugars. Blood sugar was 47 on admission patient has been better was about to be discharged but had some rectal bleeding and hence the reason for the GI consult Denies any abdominal pain nausea vomiting hematemesis had some mild rectal bleeding. Per the apparently as per the patient in the bleeding has stopped now Has history of hypertension diabetes congestive heart failure chronic kidney failure he is also on Eliquis Past Medical History Diabetes hypertension hyperlipidemia congestive heart failure: Kidney failure And hypoglycemic Past Surgical History None Family History: Diabetes mellitus G8 BROTHER FH: kidney disease G8 SISTER Family History Noncontributory Social History Denies smoking or drinking Allergies: Coded Allergies: NO KNOWN ALLERGIES (Unverified , 09/07/24) Home Meds Active Scripts Furosemide (Lasix) 40 Mg Tab, 40 MG PO DAILY for 30 Days, #30 TAB Prov:DUKE MOHAN CATEGORY ANALYST 09/12/24 Reported Medications Insulin NPH Isophane & Reg (Hu (Humulin 70/30 Kwikpen (70-30) 100 Unit/ml) 1 Inj Inj, SC IF BS >100, GIVE 30 UNITS INSULIN SC. 09/09/24 Sevelamer Carbonate (Sevelamer Carbonate) 800 Mg Tab, 1 TAB PO TID 09/09/24 Sodium Bicarbonate (Sodium Bicarbonate) 650 Mg Tab, 650 MG PO TID, TAB 09/09/24 Finasteride (Finasteride) 5 Mg Tab, 5 MG PO DAILY for 30 Days, MG 09/09/24 Apixaban Base (ELIQUIS) 5 Mg Tab, 5 MG PO BID, TAB 09/09/24 Tamsulosin Hcl (Flomax) 0.4 Mg Cap, 0.8 MG PO HS, CAP 09/09/24 Amlodipine Besylate (Amlodipine Besylate) 5 Mg Tab, 10 MG PO DAILY for 30 Days, MG 09/09/24 Atorvastatin Calcium (Lipitor) 40 Mg Tab, 40 MG PO DAILY, TAB 09/09/24 Current Medications Current Medications Medications (Trade) Dose Ordered Sig/Mario Route PRN Reason Start Time Stop Time Status Last Admin Pantoprazole Sodium (Protonix) 40 mg DAILY IV 10/19/24 10:00 10/19/24 10:42 Review of Systems Unremarkable Vital Signs Vital Signs Date Time Temp Pulse Resp B/P (MAP) Pulse Ox O2 Delivery O2 Flow Rate FiO2 10/19/24 12:45 97.8 59 16 142/66 (91) 96 97.8 10/19/24 08:00 Nasal Cannula* 3 32 Physical Exam Abdomen soft nontender no mass bowel sounds normal Vital signs stable Lungs clear cardiovascular unremarkable Extremities no edema no varicose Neuro grossly intact Labs/Diagnostic Data Labs Test 10/19/24 12:17 10/19/24 06:43 10/19/24 02:08 10/19/24 00:10 Range/Units POC Glucose 211 H 70-106 mg/dl Hemoglobin 10.7 L 13.5-17.5 g/dL Hematocrit 31.1 L 41.0-53.0 % White Blood Count 7.6 4.4-10.8 10^3/uL Red Blood Count 3.68 L 4.5-5.90 10^6/uL Mean Corpuscular Volume 84.8 80.0-100.0 fL Mean Corpuscular Hemoglobin 28.7 28.0-32.0 pg Mean Corpuscular Hemoglobin Concent 33.9 32.0-36.0 g/dL Red Cell Distribution Width 18.6 H 11.8-14.3 % Platelet Count 141 140-450 10^3/uL Mean Platelet Volume 8.4 6.9-10.8 fL Neutrophils (%) (Auto) 73.0 37.0-80.0 % Lymphocytes (%) (Auto) 14.8 10.0-50.0 % Monocytes (%) (Auto) 7.6 0.0-12.0 % Eosinophils (%) (Auto) 2.9 0.0-7.0 % Basophils (%) (Auto) 1.7 0.0-2.0 % Neutrophils # (Auto) 5.6 1.6-8.6 10 ^3/uL Lymphocytes # (Auto) 1.1 0.4-5.4 10 ^3/uL Monocytes # (Auto) 0.6 0-1.3 10 ^3/uL Eosinophils # (Auto) 0.2 0-0.8 10 ^3/uL Basophils # (Auto) 0.1 0-0.2 10 ^3/uL Nucleated Red Blood Cells 0.0 % Stool Occult Blood Positive Negative Stool Occult Blood Sample #3 Negative Test 10/18/24 04:41 10/15/24 14:50 10/14/24 15:26 10/14/24 14:19 Range/Units Sodium Level 137 136-145 mmol/L Potassium Level 3.8 3.5-5.1 mmol/L Chloride Level 102 98-107 mmol/L Carbon Dioxide Level 23 20-31 mmol/L Anion Gap 12 5-15 Blood Urea Nitrogen 43 #H 9-23 mg/dL Creatinine 3.15 H 0.700-1.30 mg/dL Glomerular Filtration Rate Calc 20 >90 mL/min BUN/Creatinine Ratio 13.7 10.0-20.0 Serum Glucose 110 H 74-106 mg/dL Calcium Level 8.8 8.7-10.4 mg/dL Total Bilirubin 0.9 0.2-1.0 mg/dL Aspartate Amino Transferase (AST) 19 13-40 U/L Alanine Aminotransferase (ALT) 16 7-40 U/L Alkaline Phosphatase 93 46-116 U/L Total Protein 5.9 5.7-8.2 g/dL Albumin 3.3 3.2-4.8 g/dL Urine Osmolality 404 mOsm/kg Urine Creatinine 96.93 30.0-125.0 mg/dL Urine Sodium < 10 L 40-220 mmol/L Urine Total Protein 121.7 H 1-14 mg/dL Troponin I High Sensitivity 139 *H </=54 ng/L Lactic Acid Level 2.0 0.4-2.0 mmol/L Test 10/14/24 12:31 10/14/24 12:19 10/14/24 12:10 Range/Units Urine Color Yellow Yellow Urine Clarity Clear Clear Urine pH 6.5 5.0-9.0 Urine Specific [place] 1.014 1.001-1.035 Urine Protein 1+ H Negative Urine Ketones Negative Negative Urine Blood Negative Negative /uL Urine Nitrite Negative Negative Urine Bilirubin Negative Negative Urine Urobilinogen Normal Negative mg/dL Urine Leukocyte Esterase Negative Negative /uL Urine RBC <1 0 - 3 /hpf Urine Microscopic WBC < 1 0-3 /HPF Urine Squamous Epithelial Cells Few <5 /hpf Urine Bacteria None seen None Seen /hpf Urine Glucose Normal Normal mg/dL Blood Gas Specimen Type Venous Blood Gas Sample Site Other Blood Gas Patient Temperature 37.0 Arterial Blood Date Drawn [id number] Andrés Test N/a Venous Blood pH 7.435 H 7.320-7.430 Venous Blood pCO2 at Patient Temp 33.6 L 38.0-54.0 mmHg Venous Blood pO2 at Patient Temp 48.2 H 23.0-48.0 mmHg Venous Blood HCO3 22.1 22.0-29.0 mmol/L Venous Blood Base Excess -1.4 -2.0-3.0 mmol/L Blood Gas Liter Flow 15.00 Blood Gas Modality Mask - nrb FiO2 % 100.0 Blood Gas Comments B-Type Natriuretic Peptide 556.86 0-100 pg/mL Microbiology Date/Time Source Procedure Growth Status 10/14/24 12:10 Blood Blood Culture - Final NO GROWTH AFTER 5 DAYS OF INCUBATION. Complete Assessment 74-year-old with a history of hypoglycemia admitted with blood sugar was corrected patient has got history of diabetes hypertension congestive heart failure according kidney failure patient had some rectal bleeding apparently which has stopped now hemoglobin is stable patient is also on Eliquis Hemoglobin is 10 Impression from constipation as well as some irritation in the colon nonspecific colitis especially with the Eliquis Plan/Recommendation We will recommend to watch closely make sure the stools are soft A follow the hemoglobin If bleeding persist may need to for further evaluation and stopping the Eliquis, the time being the patient seems to have no further bleeding and stable Recommend stool softeners and supportive care and follow the hemoglobin closely May need elective workup later especially if bleeding persists Thank you Dr. Balderrama Plan discussed with: Patient SUSANA BALDERRAMA MD Oct 19, 2024 15:42
[2024-10-20 01:00] VITALS: BP 123/52; PULSE 65; RESP 17; TEMP 97.9; O2SAT 94
[2024-10-20 05:00] VITALS: BP 105/54; PULSE 67; RESP 17; TEMP 98.2; O2SAT 96
[2024-10-20 06:13] VITALS: BP 118/50
[2024-10-20 07:16] LABS: Anion Gap 8 (5-15); Carbon Dioxide 30 mmol/L (20-31); Chloride 103 mmol/L (98-107); Sodium 141 mmol/L (136-145)
[2024-10-20 07:17] LABS: Calcium 9.2 mg/dL (8.7-10.4)
[2024-10-20 07:21] LABS: Hematocrit 31.9 % (41.0-53.0); Hemoglobin 10.5 g/dL (13.5-17.5)
[2024-10-20 07:22] LABS: BUN/Creatinine Ratio 15.8 (10.0-20.0)
[2024-10-20 07:26] LABS: Blood Urea Nitrogen 42 mg/dL (9-23); Glucose 113 mg/dL (74-106); Potassium 3.5 mmol/L (3.5-5.1)
[2024-10-20 08:00] VITALS: PULSE 65; RESP 19; O2SAT 96
[2024-10-20 08:56] VITALS: BP 120/66; PULSE 65; RESP 19; TEMP 97.6; O2SAT 96
--- NOTE | 2024-10-20 10:26 | DVHPNRES ---
Progress Note Date Seen: Oct 20, 2024 Resident Creating Document: OSKAR ZULETA RESIDENT Medical Necessity Reason Pt with a Central, PICC or Fol: Yes The following are medically ne: Pa Catheter Reason for pa catheter: Strict I&O Subjective Patient reports: No new complaints, Feels better Review of Systems: HEENT:Normal, CVS:Normal, RESPIRATORY:Abnormal (1L/RA, subjective SOB , PND, orhtopenea continues. ), GI:Normal, :Normal, MSK:Normal, NEURO:Normal Objective vital signs Vital Sign Date Time Temp Pulse Resp B/P (MAP) Pulse Ox O2 Delivery O2 Flow Rate FiO2 10/20/24 08:56 97.6 65 19 120/66 (84) 96 97.6 10/19/24 20:00 Nasal Cannula* 3 32 Total Intake and Output 10/19/24 10/19/24 10/20/24 15:00 23:00 07:00 Intake Total 500 ml 0 ml Balance 500 ml 0 ml medications Current Medications Medications Dose Ordered Sig/Mario Route Start Time Stop Time Status Last Admin Dose Admin Atorvastatin Calcium 40 mg HS PO 10/14/24 22:00 10/19/24 21:14 40 MG Tamsulosin HCl 0.4 mg QPM PO 10/15/24 18:00 10/19/24 17:42 0.4 MG Sodium Bicarbonate 650 mg BID PO 10/14/24 22:00 10/20/24 09:04 650 MG Sevelamer HCl 800 mg TIDWM PO 10/15/24 08:00 10/20/24 09:05 800 MG Acetaminophen/ Hydrocodone Bitart 1 tab Q4HP PRN PO 10/14/24 19:15 10/15/24 13:44 1 TAB Ondansetron HCl 4 mg Q4HP PRN IV 10/14/24 19:15 Acetaminophen 650 mg Q6HP PRN PO 10/14/24 19:15 Nitroglycerin 0.4 mg Q5MINP PRN SL 10/14/24 19:15 Morphine Sulfate 2 mg Q30M PRN IV 10/14/24 19:15 Apixaban 2.5 mg BID PO 10/15/24 22:00 10/20/24 09:05 2.5 MG Finasteride 5 mg DAILY PO 10/16/24 10:00 10/20/24 09:04 5 MG Furosemide 80 mg BIDD IV 10/16/24 18:00 10/19/24 17:43 80 MG Diagnostic Test (Pha) 1 strip ACHS 10/16/24 17:00 10/20/24 06:05 1 STRIP Insulin Human Regular ACHS SC 10/16/24 17:00 10/19/24 21:26 6 UNITS Dextrose 50 ml UD PRN IV 10/16/24 13:15 Pantoprazole Sodium 40 mg DAILY IV 10/19/24 10:00 10/20/24 09:04 40 MG Examination GENERAL:Normal, HEENT:Normal, NECK:Normal, LUNGS:Normal 1L NC/RA, CVS:Normal, ABDOMEN:Normal, MSK:Abnormal, improved pitting edema b/l LL,close to euvolemia left elbow injury now dressed, no active bleeding, SKIN:Normal, NEURO:Normal, hard of hearing b/l, :Normal laboratory and microbiology Laboratory Tests 10/20/24 06:39 10/19/24 02:08 Test 10/20/24 06:39 Range/Units Serum Glucose 113 H 74-106 mg/dL Microbiology Date/Time Source Procedure Growth Status 10/14/24 12:10 Blood Blood Culture - Final NO GROWTH AFTER 5 DAYS OF INCUBATION. Complete Labs and/or images reviewed: Labs reviewed by me, Image(s) reviewed by me Problem List/Assessment/Plan Problem List/Assessment/Plan Mr. Hoover, a 74-year-old male with a history of diabetes, kidney disease, dyslipidemia, hypertension, and cancer, and a pacemaker, presented with altered mental status, progressively worsening confusion, and low blood sugar. He was mildly hypoxic on arrival and placed on a non-rebreather mask. Currently, he is lethargic and oriented to person and place, with no complaints of chest or abdominal pain. Poor historian, caregiver yet to talk to. Feels better diuresing well on IV lasix, hypoxemia improving now on 2L NC>1L. At home not on home oxygen, eager to go home, continues to show reluctance to go to [facility]. Assessment: # Likely RADHA due to VMN, could be cardiorenal in etiology, improving. # Chronic kidney disease stage IV, follows nephrology in [facility]. # Acute respiratory failure on 6 L NC>2L>1L / RA # Acute systolic/diastolic heart failure # Atrial fibrillation with secondary hypercoagulable state. # History of pacemaker. # H/o Diabetes mellitus HbA1c imrpoved adjusted due to progressive CKD # thrombocytopenia, imrpoved stable. # Likely NSTEMI II # Hyperkalemia improved with lasix, insulin, dextrose and lokelma. # Aortic sclerosis/stenosis likely contributory to Findings: #BUN: 47>46>54>54>43>42 #GFR: 26>24>19>18>18>20>25 #Creatinine: 2.33>2.49>2.68>3.31>3.23>3.43>3.46>3.15>2.65 #Lat 24 hour, I&O: [id number] #Urinalysis, mostly unremarkable, 1+ protein but Ur Sp Gr. 1.014 <10 Na #Kidney Ultrasound, unremakrable #Close to euvolumia Plan: #Recheck CXR #Continue IV lasix 80 bid daily. Sodium bicarbonate 650 bid and sevelamer 800 po tid continue. #Strict I&O and check Daily weight, Avoid Nephrotoxics, Avoid hyper/hypo tension, Fluid Restriction, cardiac diet with 2 gm salt restriction. #Daily BMP, check phosphate, magnesium and Correct electrolytes. #At discharge consider 60mg BID lasix oral with close follow up with primary Management Analyst at [facility] in a week. #Rest of the treatment as per primary team, and GI. Ok to transfer to [facility] from nephrology perspective. Thank you for the opportunity to follow up on your patient. In case of any question feel free to reach out to the Nephrology team. Discussed with Nephrology attending Dr. Barnett. Addendum Patient seen and examined, plan discussed with resident. Agree with above, we will follow closely Plan discussed with: Patient, Other (RN, Primary team. ) Dietary Evaluation Review Comments: 1. If not on HD, CCHO-60 Renal Sepcific 60g protein restriction, 3K, low Phos Diet 2. If on HD, CCHO-60 Renal standard 3K, low phos dietdiet Expected Outcomes/Goals: controlled DM, less uremic symptoms OSKAR ZULETA Oct 20, 2024 10:26 QUITA BARNETT MD Oct 20, 2024 16:01
[2024-10-20] MEDS ORDERED: FURO1TAB31 PO (11:27)
--- NOTE | 2024-10-20 11:29 | DVHPN2 ---
Progress Note Date Seen: Oct 20, 2024 Medical Necessity Reason Pt with a Central, PICC or Fol: No Subjective Patient reports: No new complaints Review of Systems: HEENT:Normal, CVS:Normal, RESPIRATORY:Normal, GI:Normal, :Normal, MSK:Normal, NEURO:Normal Objective vital signs Vital Sign Date Time Temp Pulse Resp B/P (MAP) Pulse Ox O2 Delivery O2 Flow Rate FiO2 10/20/24 08:56 97.6 65 19 120/66 (84) 96 97.6 10/19/24 20:00 Nasal Cannula* 3 32 Total Intake and Output 10/19/24 10/19/24 10/20/24 14:59 22:59 06:59 Intake Total 500 ml 0 ml Balance 500 ml 0 ml medications Current Medications Medications Dose Ordered Sig/Mario Route Start Time Stop Time Status Last Admin Dose Admin Atorvastatin Calcium 40 mg HS PO 10/14/24 22:00 10/19/24 21:14 40 MG Tamsulosin HCl 0.4 mg QPM PO 10/15/24 18:00 10/19/24 17:42 0.4 MG Sodium Bicarbonate 650 mg BID PO 10/14/24 22:00 10/20/24 09:04 650 MG Sevelamer HCl 800 mg TIDWM PO 10/15/24 08:00 10/20/24 09:05 800 MG Acetaminophen/ Hydrocodone Bitart 1 tab Q4HP PRN PO 10/14/24 19:15 10/15/24 13:44 1 TAB Ondansetron HCl 4 mg Q4HP PRN IV 10/14/24 19:15 Acetaminophen 650 mg Q6HP PRN PO 10/14/24 19:15 Nitroglycerin 0.4 mg Q5MINP PRN SL 10/14/24 19:15 Morphine Sulfate 2 mg Q30M PRN IV 10/14/24 19:15 Apixaban 2.5 mg BID PO 10/15/24 22:00 10/20/24 09:05 2.5 MG Finasteride 5 mg DAILY PO 10/16/24 10:00 10/20/24 09:04 5 MG Furosemide 80 mg BIDD IV 10/16/24 18:00 10/19/24 17:43 80 MG Diagnostic Test (Pha) 1 strip ACHS 10/16/24 17:00 10/20/24 06:05 1 STRIP Insulin Human Regular ACHS SC 10/16/24 17:00 10/19/24 21:26 6 UNITS Dextrose 50 ml UD PRN IV 10/16/24 13:15 Pantoprazole Sodium 40 mg DAILY IV 10/19/24 10:00 10/20/24 09:04 40 MG Examination: GENERAL:Normal, HEENT:Normal, NECK:Normal, LUNGS:Normal, CVS:Normal, ABDOMEN:Normal, MSK:Normal, SKIN:Normal, NEURO:Normal, :Normal laboratory and microbiology Laboratory Tests 10/20/24 06:39 10/19/24 02:08 Test 10/20/24 06:39 Range/Units Serum Glucose 113 H 74-106 mg/dL Microbiology Date/Time Source Procedure Growth Status 10/14/24 12:10 Blood Blood Culture - Final NO GROWTH AFTER 5 DAYS OF INCUBATION. Complete Problem List/Assessment/Plan Problem List/Assessment/Plan * Acute respiratory failure. * Acute systolic/diastolic heart failure: lasix iv * Atrial fibrillation with secondary hypercoagulable state. * History of pacemaker. * Chronic kidney disease stage IV: nephro eval * Diabetes mellitus: ssi * encephalopathy with hypoglycemia: ssi * Anemia/thrombocytopenia * nstemi ?type 2 advance care planning- full code- time spent 19 mins dc planning for today, increase lasix to 60 mg bid Plan discussed with: Patient, Spouse My Orders My Orders Orders - ALCIDES GUZMAN MD Procedure Category Date Status Time Discontinue Jensen LEONCIO 10/20/24 In Process Catheter 11:16 Discharge DISCHARGE 10/20/24 Transmitted 11:16 Dietary Evaluation Review Comments: 1. If not on HD, CCHO-60 Renal Sepcific 60g protein restriction, 3K, low Phos Diet 2. If on HD, CCHO-60 Renal standard 3K, low phos dietdiet Expected Outcomes/Goals: controlled DM, less uremic symptoms Date of Service: Oct 20, 2024 Billing Provider: ALCIDES GUZMAN MD Common Visit Codes: [id number] INP/OBS CARE(HIGH) ALCIDES GUZMAN MD Oct 20, 2024 11:29
--- NOTE | 2024-10-20 12:25 | DVHPN2 ---
Progress Note Date Seen: Oct 20, 2024 Resident Creating Document: WESLY SCHAFFER RESIDENT Medical Necessity Reason Pt with a Central, PICC or Fol: No Subjective Review of Systems 74-year-old had be admitted to the hospital with altered level of consciousness with low blood sugars. Blood sugar was 47 on admission patient has been better was about to be discharged but had some rectal bleeding and hence the reason for the GI consult Denies any abdominal pain nausea vomiting hematemesis had some mild rectal bleeding. Per the apparently as per the patient in the bleeding has stopped now Has history of hypertension diabetes congestive heart failure chronic kidney failure he is also on Eliquis. Patient does not want any GI procedures like EGD, colonoscopy due to patient's concern about risks of the procedures. Objective vital signs Vital Sign Date Time Temp Pulse Resp B/P (MAP) Pulse Ox O2 Delivery O2 Flow Rate FiO2 10/20/24 08:56 97.6 65 19 120/66 (84) 96 97.6 10/19/24 20:00 Nasal Cannula* 3 32 Total Intake and Output 10/19/24 10/19/24 10/20/24 15:00 23:00 07:00 Intake Total 500 ml 0 ml Balance 500 ml 0 ml medications Current Medications Medications Dose Ordered Sig/Mario Route Start Time Stop Time Status Last Admin Dose Admin Atorvastatin Calcium 40 mg HS PO 10/14/24 22:00 10/19/24 21:14 40 MG Tamsulosin HCl 0.4 mg QPM PO 10/15/24 18:00 10/19/24 17:42 0.4 MG Sodium Bicarbonate 650 mg BID PO 10/14/24 22:00 10/20/24 09:04 650 MG Sevelamer HCl 800 mg TIDWM PO 10/15/24 08:00 10/20/24 09:05 800 MG Acetaminophen/ Hydrocodone Bitart 1 tab Q4HP PRN PO 10/14/24 19:15 10/15/24 13:44 1 TAB Ondansetron HCl 4 mg Q4HP PRN IV 10/14/24 19:15 Acetaminophen 650 mg Q6HP PRN PO 10/14/24 19:15 Nitroglycerin 0.4 mg Q5MINP PRN SL 10/14/24 19:15 Morphine Sulfate 2 mg Q30M PRN IV 10/14/24 19:15 Apixaban 2.5 mg BID PO 10/15/24 22:00 10/20/24 09:05 2.5 MG Finasteride 5 mg DAILY PO 10/16/24 10:00 10/20/24 09:04 5 MG Furosemide 80 mg BIDD IV 10/16/24 18:00 10/19/24 17:43 80 MG Diagnostic Test (Pha) 1 strip ACHS 10/16/24 17:00 10/20/24 06:05 1 STRIP Insulin Human Regular ACHS SC 10/16/24 17:00 10/19/24 21:26 6 UNITS Dextrose 50 ml UD PRN IV 10/16/24 13:15 Pantoprazole Sodium 40 mg DAILY IV 10/19/24 10:00 10/20/24 09:04 40 MG Examination General: Patient is not in acute distress Abdomen soft nontender no mass bowel sounds normal MSK:Abnormal, mild 1+ pitting edema b/l LL, left elbow injury now dressed, no active bleeding, Neuro grossly intact laboratory and microbiology Laboratory Tests 10/20/24 06:39 10/19/24 02:08 Test 10/20/24 06:39 Range/Units Serum Glucose 113 H 74-106 mg/dL Microbiology Date/Time Source Procedure Growth Status 10/14/24 12:10 Blood Blood Culture - Final NO GROWTH AFTER 5 DAYS OF INCUBATION. Complete Problem List/Assessment/Plan Problem List/Assessment/Plan # Anemia/thrombocytopenia # constipation # nonspecific colitis # RADHA on CKD #Acute systolic/diastolic heart failure #Atrial fibrillation with secondary hypercoagulable state. #History of pacemaker. #H/o Diabetes mellitus HbA1c imrpoved adjusted due to progressive CKD #thrombocytopenia,stable. #Likely NSTEMI II - continue Protonix 40 mg daily - stool softeners and supportive care and follow the hemoglobin close - May need elective workup later especially if bleeding persists -CEA ordered - Patient does not want any GI procedures like EGD, colonoscopy due to patient's concern about risks of the procedures. Thank you so much for the opportunity to consult on your patient. GI team will follow the patient. In case of any questions or concerns please feel free to reach out. Case discussed with Dr. Lee Ann Baxter. The patient and caregiver team agreed to the plan. Plan discussed with: Patient Dietary Evaluation Review Comments: 1. If not on HD, CCHO-60 Renal Sepcific 60g protein restriction, 3K, low Phos Diet 2. If on HD, CCHO-60 Renal standard 3K, low phos dietdiet Expected Outcomes/Goals: controlled DM, less uremic symptoms WESLY SCHAFFER RESIDENT Oct 20, 2024 12:25
[2024-10-20 13:03] VITALS: BP 138/69; PULSE 78; RESP 19; TEMP 97.5; O2SAT 96
--- NOTE | 2024-10-20 13:41 | DVH ---
EXAM: XY CHEST PORTABLE Indication: CHF exacerbation and hypoxia interval change Technique: Single frontal view of the chest was obtained Comparison: XY CHEST PORTABLE on DOS: 10/14/24, XY CHEST PORTABLE on DOS: 09/11/24, XY CHEST PORTABLE on DOS: 09/10/24, XY CHEST PORTABLE on DOS: 09/09/24, XY CHEST PORTABLE on DOS: 09/07/24 FINDINGS: Lines and Tubes: Cardiac pacemaker projects over left chest wall. Lungs: Pulmonary vascular congestion. Pleura: Trace left pleural effusion. No pneumothorax. Cardiomediastinal contours: Cardiomegaly. Bones: No acute osseous abnormality. IMPRESSION: Cardiomegaly with pulmonary vascular congestion. Trace left pleural effusion.
== END 2024-10-20 16:00 | disposition home or self-care (01) | DRG 280 ==
LOC: ER 11:49 → EDBD 11:49 → OVERFLOW 19:10 → TELE-CENTR 19:20
PROVIDERS: ADMIT Internal Medicine; ATTEND Internal Medicine
DX: I13.0 Hypertensive heart and chronic kidney disease with heart failure and stage 1 through stage 4 chronic kidney disease, or unspecified chronic kidney disease (principal); G93.41 Metabolic encephalopathy; I21.A1 Myocardial infarction type 2; J96.01 Acute respiratory failure with hypoxia; I50.43 Acute on chronic combined systolic (congestive) and diastolic (congestive) heart failure; N17.0 Acute kidney failure with tubular necrosis; D68.69 Other thrombophilia; K62.5 Hemorrhage of anus and rectum; N18.4 Chronic kidney disease, stage 4 (severe); E11.649 Type 2 diabetes mellitus with hypoglycemia without coma; I48.91 Unspecified atrial fibrillation; D69.6 Thrombocytopenia, unspecified; N40.0 Benign prostatic hyperplasia without lower urinary tract symptoms; D64.9 Anemia, unspecified; E11.22 Type 2 diabetes mellitus with diabetic chronic kidney disease; E78.5 Hyperlipidemia, unspecified; K59.00 Constipation, unspecified; K52.9 Noninfective gastroenteritis and colitis, unspecified; E83.51 Hypocalcemia; Z95.0 Presence of cardiac pacemaker; Z79.01 Long term (current) use of anticoagulants; Z83.3 Family history of diabetes mellitus; Z79.899 Other long term (current) drug therapy; Z79.4 Long term (current) use of insulin
CPT/HCPCS: 36415; 36600; 70450; 71045; 76775; 80048; 80053; 81001; 82270; 82378; 82570; 82805; 82962; 83605; 83735; 83880; 83935; 84100; 84132; 84156; 84300; 84484; 85014; 85018; 85025; 86850; 86900; 86901; 87040; 93005; 93971; 97110; 97116; 97163; 97530; 99291; G0378; J0692; J1815; J2405; J2470

== ENCOUNTER 2024-10-25 10:03 | Emergency (ER) | payer OTHER ==
[~2024-10-25] VITALS: Ht 175.3 cm; Wt 94.0 kg
[2024-10-25 10:10] VITALS: PULSE 65; RESP 13; O2SAT 96
--- NOTE | 2024-10-25 10:32 | ED.PDOC ---
Musculoskeletal HPI Comments 74 year old male brought in by EMS presents to the ED with a chief complaint of fall onset today (10/25/24) around 09:40. Per EMS, states patient was walking to the bathroom when he began experiencing dizziness, slipped on tile floor, fell on the ground and landed on RT side. Patient is currently experiencing RT hip and RT thigh pain as well as neck pain and headache. Upon EMS arrival BS was in the 30s, D10 was given, BS increased to 187. Upon triage BS was 151. Patient was placed on c-collar by EMS and was given D10 and Fentanyl for pain. He is currently on Eliquis. PMHx CHF, HLD, HTN, DM, cancer. Denies LOC, chest pain, shortness of breath, nausea, vomiting, diarrhea, abdominal pain. No other symptoms or modifying factors present at this time. Chief Complaint: Fall Injury Time Seen by MD: 10:15 Primary Care Provider: UNKNOWN Reviewed Notes: Medications, Allergies Allergies: Coded Allergies: NO KNOWN ALLERGIES (Unverified , 09/07/24) Home Meds Active Scripts Furosemide (Lasix) 40 Mg Tab, 60 MG PO BID for 30 Days, #90 TAB 1 Refill Prov:ALCIDES GUZMAN MD 10/20/24 Reported Medications Insulin NPH Isophane & Reg (Hu (Humulin 70/30 Kwikpen (70-30) 100 Unit/ml) 1 Inj Inj, SC IF BS >100, GIVE 30 UNITS INSULIN SC. 09/09/24 Sevelamer Carbonate (Sevelamer Carbonate) 800 Mg Tab, 1 TAB PO TID 09/09/24 Sodium Bicarbonate (Sodium Bicarbonate) 650 Mg Tab, 650 MG PO TID, TAB 09/09/24 Finasteride (Finasteride) 5 Mg Tab, 5 MG PO DAILY for 30 Days, MG 09/09/24 Apixaban Base (ELIQUIS) 5 Mg Tab, 5 MG PO BID, TAB 09/09/24 Tamsulosin Hcl (Flomax) 0.4 Mg Cap, 0.8 MG PO HS, CAP 09/09/24 Amlodipine Besylate (Amlodipine Besylate) 5 Mg Tab, 10 MG PO DAILY for 30 Days, MG 09/09/24 Atorvastatin Calcium (Lipitor) 40 Mg Tab, 40 MG PO DAILY, TAB 09/09/24 Discontinued Scripts Furosemide (Lasix) 40 Mg Tab, 40 MG PO DAILY for 30 Days, #30 TAB Prov:BANILTON PattonWALL GELACIO 09/12/24 Information Source: Patient, Emergency Med Personnel Mode of Arrival: EMS Location: Right Extremity Location: Hip, Thigh Timing: Hours Prehospital treatment: C-Collar, Pain Meds (fentanyl), Treatment (D-10) Severity: Moderate Able to Move Extremity: Yes Bear Weight: Limited Pain: Moderate Mechanism: Spontaneous Circumstances: Fall Onset of Symptoms: After Trauma Symptoms: Swelling, Pain DVT Risk Factors: CHF Associated signs and symptoms: Thigh pain, Hip pain, Neck pain Past Medical History PAST MEDICAL HISTORY: Cancer, CHF, CKF, DM, High Lipids, HTN Surgical History: Pacemaker Family History Family History: Reviewed,noncontributory to illness Social History Smoker: Non-Smoker Alcohol: Denies ETOH Use Drugs: Denies Drug Use Lives In: Home Constitutional: denies: chills, diaphoresis, fatigue, fever, malaise, sweats, weakness, others EENTM: denies: blurred vision, double vision, ear bleeding, ear discharge, ear drainage, ear pain, ear ringing, eye pain, eye redness, hearing loss, mouth pain, mouth swelling, nasal discharge, nose bleeding, nose congestion, nose pain, photophobia, tearing, throat pain, throat swelling, voice changes, others Respiratory: denies: cough, hemoptysis, orthopnea, SOB at rest, shortness of breath, SOB with excertion, stridor, wheezing, others Cardiovascular: denies: chest pain, dizzy spells, diaphoresis, Dyspnea on exertion, edema, irregular heart beat, left arm pain, lightheadedness, palpitations, PND, syncope, others Gastrointestinal: denies: abdomen distended, abdominal pain, blood streaked bowels, constipated, diarrhea, dysphagia, difficulty swallowing, hematemesis, melena, nausea, poor appetite, poor fluid intake, rectal bleeding, rectal pain, vomiting, others Genitourinary: denies: burning, dysuria, flank pain, frequency, hematuria, incontinence, penile discharge, penile sore, pain, testicle pain, testicle swelling, urgency, others Neurological: reports: headache; denies: dizziness, fainting, left sided numbness, left sided weakness, numbness, paresthesia, pre-existing deficit, right sided numbness, right sided weakness, seizure, speech problems, tingling, tremors, weakness, others Musculoskeletal: reports: joint pain, neck pain, others (RT hip pain, RT thigh pain, ); denies: back pain, gout, joint swelling, muscle pain, muscle stiffness Integumetry: denies: bruises, change in color, change in hair/nails, dryness, laceration, lesions, lumps, rash, wounds, others Allergic/Immunocompromised: denies: Difficulty Healing, Frequent Infections, Hives, Itching, others Hematologic/Lymphatic: denies: anemia, blood clots, easy bleeding, easy bruising, swollen glands, others Endocrine: denies: excessive hunger, excessive sweating, excessive thirst, excessive urination, flushing, intolerance to cold, intolerance to heat, unexplained weight gain, unexplained weight loss, others Psychiatric: denies: anxiety, bipolar disorder, depression, hopeless, panic disorder, schizophrenia, sleepless, suicidal, others All Other Systems: Reviewed and Negative Physical Exam General Appearance: No Apparent Distress, Normal HEENT: Normal ENT Inspection, Pharynx Normal, TMs Normal Neck: Full Range of Motion, Non-Tender, Normal, Normal Inspection Respiratory: Chest Non-Tender, Lungs Clear, No Accessory Muscle Use, No Respiratory Distress, Normal Breath Sounds Cardiovascular: No Edema, No JVD, No Murmur, No Gallop, Normal Peripheral Pulses, Regular Rate/Rhythm Breast Exam: Deferred Gastrointestinal: No Organomegaly, Non Tender, No Pulsatile Mass, Normal Bowel Sounds, Soft Genitalia: Deferred Pelvic: Deferred Rectal: Deferred Extremities: Normal capillary refill, Pedal edema (+2), Tender (cervical spine, RT hip ) Musculoskeletal : Apperance: Normal Neurologic: Alert, manager quality II-XII nml as Tested, No Motor Deficits, Normal Affect, Normal Mood, No Sensory Deficits Cerebellar Function: Normal Reflexes: Normal Skin: Dry, Normal Color, Warm Lymphatic: No Adenopathy Was a procedure done? Was a procedure done?: No EKG EKG : Concan: LAD Cardiac Rhythm: NSR (65 bpm) Hypertrophy: LVH (with secondary repolarization abnormality) Comments short IA intervals. Nonspecific IVCD with LAD. LVH with secondary repolarization abnormality. Baseline wander in lead (s) V3. Differential Diagnosis EXT Differential Diagnosis: Fracture, Sprain, Dislocation, DJD, Contusion, Strain, Neurovascular injury, Arthritis, Bursitis X-Ray, Labs, Meds, VS Vital Signs Date Time Temp Pulse Resp B/P (MAP) Pulse Ox O2 Delivery O2 Flow Rate FiO2 10/25/24 14:32 65 16 121/65 10/25/24 14:06 65 18 121/65 10/25/24 14:00 65 16 121/65 (83) 95 10/25/24 13:03 126/62 10/25/24 12:00 65 10/25/24 12:00 65 18 131/64 (86) 97 10/25/24 10:11 97.8 67 18 142/70 (94) 98 97.8 10/25/24 10:10 65 13 137/66 (89) 96 10/25/24 10:10 65 13 96 Nasal Cannula* 2 28 10/25/24 10:06 65 Lab Test 10/25/24 13:49 10/25/24 12:02 10/25/24 11:15 10/25/24 10:30 Range/Units POC Glucose 135 H 116 H 125 H 70-106 mg/dl White Blood Count 6.8 4.4-10.8 10^3/uL Red Blood Count 3.60 L 4.5-5.90 10^6/uL Hemoglobin 10.2 L 13.5-17.5 g/dL Hematocrit 30.8 L 41.0-53.0 % Mean Corpuscular Volume 85.5 80.0-100.0 fL Mean Corpuscular Hemoglobin 28.2 28.0-32.0 pg Mean Corpuscular Hemoglobin Concent 33.0 32.0-36.0 g/dL Red Cell Distribution Width 18.0 H 11.8-14.3 % Platelet Count 180 140-450 10^3/uL Mean Platelet Volume 8.7 6.9-10.8 fL Neutrophils (%) (Auto) 76.0 37.0-80.0 % Lymphocytes (%) (Auto) 13.8 10.0-50.0 % Monocytes (%) (Auto) 7.5 0.0-12.0 % Eosinophils (%) (Auto) 2.0 0.0-7.0 % Basophils (%) (Auto) 0.7 0.0-2.0 % Neutrophils # (Auto) 5.2 1.6-8.6 10 ^3/uL Lymphocytes # (Auto) 0.9 0.4-5.4 10 ^3/uL Monocytes # (Auto) 0.5 0-1.3 10 ^3/uL Eosinophils # (Auto) 0.1 0-0.8 10 ^3/uL Basophils # (Auto) 0 0-0.2 10 ^3/uL Nucleated Red Blood Cells 0.1 % Sodium Level 141 136-145 mmol/L Potassium Level 3.7 3.5-5.1 mmol/L Chloride Level 105 98-107 mmol/L Carbon Dioxide Level 26 20-31 mmol/L Anion Gap 10 5-15 Blood Urea Nitrogen 43 H 9-23 mg/dL Creatinine 2.32 H 0.700-1.30 mg/dL Glomerular Filtration Rate Calc 29 >90 mL/min BUN/Creatinine Ratio 18.5 10.0-20.0 Serum Glucose 155 H 74-106 mg/dL Calcium Level 9.4 8.7-10.4 mg/dL Troponin I High Sensitivity 24 </=54 ng/L Current Medications Medications (Trade) Dose Ordered Sig/Mario Route Start Time Stop Time Status Last Admin Fentanyl Citrate 12.5 mcg ONCE ONCE IV 10/25/24 12:45 10/25/24 12:50 DC 10/25/24 13:03 Sodium Chloride 1,000 ml @ 100 mls/hr Q10H ONCE IV 10/25/24 12:45 10/25/24 22:44 10/25/24 13:07 Morphine Sulfate 2 mg ONCE ONCE IV 10/25/24 14:00 10/25/24 14:01 DC 10/25/24 14:06 Ondansetron HCl (Zofran) 4 mg ONCE ONCE IV 10/25/24 14:00 10/25/24 14:01 DC 10/25/24 14:[address] [address] Ph: [phone] DIAGNOSTIC IMAGING Diagnostic Imaging Report : [id number] Signed PATIENT: LISA HERRERAACCT: [id number] UNIT: [id number] : 1950 LOC: ER ROOM / BED: / AGE / SEX: 74 / M ADM STATUS: REG ER SERVICE 1017 ORDERING PHYSICIAN: PANFILO SIDDIQUI MD PROCEDURE(s): CS2 - CERVICAL WITHOUT CONTRAST REASON: INJURY ORDER NUMBER(s): [id number], ACCESSION NUMBER(s): [id number] Procedure: CT CERVICAL WITHOUT CONTRAST 10/25/2024 10:28 AM Indication: INJURY Comparison Study: None. Technique: Axial images were obtained and reformatted in coronal and sagittal planes. All CT scans at this medical facility are performed using dose modulation techniques as appropriate to a performed exam including the following: Automated exposure control was utilized; adjustment of the MA and/or KV according to patient size; and use of iterative reconstruction technique. CT Dose: CTDI volume is 19.22 mGy. Dose-length product is 554.99 mGy*cm FINDINGS: Bones: The vertebrae are normal in height. 2 mm grade 1 anterolisthesis of C7 on T1, likely degenerative in nature. Lateral masses C1 and C2 are well aligned. The posterior facet joints are well aligned. Multilevel degenerative disc disease, uncovertebral and posterior facet arthropathy of the cervical spine with evidence of central canal and neural foramina stenosis. Soft tissues: Paraspinal and prevertebral soft tissues are within normal limits. Atherosclerotic calcification of the bilateral carotids. Partially seen left subclavian line. Small bilateral pleural effusions noted, right greater than left. IMPRESSION: 1. Straightening of normal lordosis that could be positional, reflect muscle spasm or pain. Correlate clinically. 2. No acute osseous abnormality. 3. Multilevel degenerative disc disease and posterior facet arthropathy of the cervical spine. ATED BY: IRLANDA DELGADO MD DICTATED DATE/TIME: 10/25/241134 SIGNED BY: IRLANDA DELGADO MD SIGNED DATE/TIME: 10/25/24 113 CC: [place] [id number] Ph: [phone] DIAGNOSTIC IMAGING Diagnostic Imaging Report : [id number] Signed PATIENT: LISA HERRERAACCT: [id number] UNIT: [id number] : 1950 LOC: ER ROOM / BED: / AGE / SEX: 74 / M ADM STATUS: REG ER SERVICE 1017 ORDERING PHYSICIAN: PANFILO SIDDIQUI MD PROCEDURE(s): RHPCT - CT R HIP WITH OUT CONTRAST REASON: INJURY ORDER NUMBER(s): [id number], ACCESSION NUMBER(s): [id number] Procedure: CT CT R HIP WITH OUT CONTRAST 10/25/2024 10:31 AM Indication: INJURY Comparison Study: None Technique: Axial images right hip were obtained and reformatted in coronal and sagittal planes. All CT scans at this medical facility are performed using dose modulation techniques as appropriate to a performed exam including the following: Automated exposure control was utilized; adjustment of the MA and/or KV according to patient size; and use of iterative reconstruction technique. CT Dose: CTDI volume is 13.69 mGy. Dose-length product is 315.64 mGy*cm FINDINGS: Bones: Acute comminuted nondisplaced intra-articular fracture of the acetabulum. The hip joint is maintained. Intertrochanteric fracture status post ORIF with 3 partially threaded screws. Nondisplaced fracture of degraded trochanter noted. Deformity of the femoral neck suggesting an old impacted subcapital femoral neck fracture. Acute nondisplaced fracture of the superior and inferior pubic rami noted. Symphysis pubis is not included in the field of view and can not be evaluated. Soft tissues: Diffuse atherosclerotic calcification noted . IMPRESSION: 1. Acute comminuted nondisplaced intra-articular acetabular fracture. 2. Acute nondisplaced superior and inferior pubic rami fractures. 3. Subacute intertrochanteric fracture and chronic appearing subcapital femoral neck fracture status post ORIF. ATED BY: IRLANDA DELGADO MD DICTATED DATE/TIME: 10/25/24 115 SIGNED BY: IRLANDA DELGADO MD SIGNED DATE/TIME: 10/25/241157 CC: [place] [id number] Ph: [phone] DIAGNOSTIC IMAGING Diagnostic Imaging Report : [id number] Signed PATIENT: LISA HERRERAACCT: [id number] UNIT: [id number] : 1950 LOC: ER ROOM / BED: / AGE / SEX: 74 / M ADM STATUS: REG ER SERVICE 16 ORDERING PHYSICIAN: PANFILO SIDDIQUI MD PROCEDURE(s): HWOCT - HEAD WITHOUT CONTRAST REASON: INJURY ORDER NUMBER(s): [id number], ACCESSION NUMBER(s): [id number] EXAM: CT Head Without Intravenous Contrast CLINICAL INDICATION: INJURY TECHNIQUE: Axial computed tomography images of the head/brain without intravenous contrast. This CT exam was performed using one or more of the following dose reduction techniques: automated exposure control, adjustment of the mA and/or kV according to patient size, and/or use of iterative reconstruction technique. CONTRAST: RADIATION DOSE: CTDIvol = 53.99 mGy, DLP = 971.88 mGy-cm COMPARISON: CT HEAD WITHOUT CONTRAST on DOS: 10/14/24 FINDINGS: BRAIN AND EXTRA-AXIAL SPACES: Areas of decreased attenuation in the deep cerebral white matter are consistent with small vessel ischemic/degenerative changes. No acute intracranial hemorrhage, midline shift or mass effect. If symptoms persist, further evaluation with MRI is recommended. The cerebral and cerebellar sulci are prominent consistent with brain atrophy. BONES/JOINTS: Unremarkable. No acute fracture. SOFT TISSUES: Unremarkable. SINUSES: Unremarkable as visualized. No acute sinusitis. MASTOID AIR CELLS: Unremarkable as visualized. No mastoid effusion. OTHER FINDINGS: . . IMPRESSION: 1. Small vessel ischemic/degenerative changes. 2. No acute intracranial hemorrhage, midline shift or mass effect. If symptoms persist, further evaluation with MRI is recommended. 3. Generalized brain atrophy. ATED BY: MARIANA THIBODEAUX MD DICTATED DATE/TIME: 10/25/241108 SIGNED BY: MARIANA THIBODEAUX MD SIGNED DATE/TIME: 10/25/241108 CC: [place] [address] Ph: [phone] DIAGNOSTIC IMAGING Diagnostic Imaging Report : [id number] Signed PATIENT: LISA HERRERAT: [id number] UNIT: [id number] : 1950 LOC: ER ROOM / BED: / AGE / SEX: 74 / M ADM STATUS: REG ER SERVICE 16 ORDERING PHYSICIAN: PANFILO SIDDIQUI MD PROCEDURE(s): RFEM - R FEMUR XRAY REASON: INJURY ORDER NUMBER(s): [id number], ACCESSION NUMBER(s): [id number] XY R FEMUR XRAY, INDICATION: INJURY TECHNICAL DATA: Frontal and lateral views were obtained of the right femur. COMPARISON: None FINDINGS: Intact right femur hardware from an old healed fracture deformity. Soft tissues are normal. IMPRESSION: Intact right femur hardware from an old healed fracture deformity. No acute fracture or dislocation. ATED BY: DUSTY SALGADO MD DICTATED DATE/TIME: 10/25/24 1120 SIGNED BY: DUSTY SALGADO MD SIGNED DATE/TIME: 10/25/24 1120 CC: [place] [id number] Ph: [phone] DIAGNOSTIC IMAGING Diagnostic Imaging Report : [id number] Signed PATIENT: LISA HERRERA EARLACCT: [id number] UNIT: [id number] : 1950 LOC: ER ROOM / BED: / AGE / SEX: 74 / M ADM STATUS: REG ER SERVICE 1017 ORDERING PHYSICIAN: PANFILO SIDDIQUI MD PROCEDURE(s): CXRP - CHEST PORTABLE REASON: INJURY ORDER NUMBER(s): [id number], ACCESSION NUMBER(s): [id number] EXAM: XR Chest, 1 View CLINICAL INDICATION: INJURY TECHNIQUE: Frontal view of the chest. COMPARISON: XY CHEST PORTABLE on DOS: 10/20/24, XY CHEST PORTABLE on DOS: 10/14/24, XY CHEST PORTABLE on DOS: 09/11/24, XY CHEST PORTABLE on DOS: 09/10/24, XY CHEST PORTABLE on DOS: 09/09/24 FINDINGS: LUNGS AND PLEURAL SPACES: Mild pulmonary congestion. No consolidation. No pneumothorax. HEART: Unremarkable. No cardiomegaly. MEDIASTINUM: Unremarkable. Normal mediastinal contour. BONES/JOINTS: Unremarkable. No acute fracture. TUBES, LINES AND DEVICES: Left-sided cardiac pacemaker. OTHER FINDINGS: . . IMPRESSION: Mild pulmonary congestion. ATED BY: MARIANA THIBODEAUX MD DICTATED DATE/TIME: 10/25/24 1158 SIGNED BY: MARIANA THIBODEAUX MD SIGNED DATE/TIME: 10/25/24 1158 CC: Time of 1ST Reevaluation: 10:45 Reevaluation 1ST: Unchanged Time of 2ND Reevaluation: 13:13 Reevaluation 2ND: Improved Patient Education/Counseling: Diagnosis, Treatment, Prognosis, Need For Follow Up Family Education/Counseling: Diagnosis, Treatment, Prognosis, Need For Follow Up Additional Information Previous visit documents reviewed: 10/14/24, 09/07/2024 The following tests were ordered, and results were reviewed by me: EKG, CT R HIP WITHOUT CONTRAST, XR R FEMUR, CT HEAD WITHOUT CONTRAST, XY CHEST, CT CERVICAL WITHOUT CONTRAST, TROP, CBC, BMP Additional Information was gathered from interviewing the following independent historians: EMS, I reviewed and agreed with the following test results read by other providers: CT R HIP WITHOUT CONTRAST, XR R FEMUR,, knee xray, CT HEAD WITHOUT CONTRAST, XY CHEST, CT CERVICAL WITHOUT CONTRAST I discussed treatment and results with medical personnel and: Patient, and Dr Celestin at [facility]. i also sent the ct images and videos to his secured [employer] number for his orthopedist to review #[phone] Departure 1 Departure Time of Disposition: 13:15 Impression: Primary Impression: Falling Additional Impressions: Acetabulum fracture Qualified Codes: S32.401A - Unspecified fracture of right acetabulum, initial encounter for closed fracture Pubic ramus fracture Qualified Codes: S32.591A - Other specified fracture of right pubis, initial encounter for closed fracture Intertrochanteric fracture Qualified Codes: S72.144A - Nondisplaced intertrochanteric fracture of right femur, initial encounter for closed fracture Disposition: 02 SHORT TERM HOSPITAL Condition: Serious Discharged With: Self, Spouse Critical Care Note Critical Care Time?: Yes (55 min-critical care time only) Critical care comment: Due to concerns for patients condition deteriorating, the care required my highest level of attention and readiness to intervene. I assessed the patient, reviewed the medical records, ordered the appropriate tests and treatments, then reassessed for results and responsiveness. I communicated with medical personnel and consultants and formulated a plan of care. Total critical care time excludes any procedures Stability Stability form required: Yes Initial call: 13:00 Stable for transfer: Intended for transfer (higher level of care. acetabular fracture) I personally scribed for PANFILO SIDDIQUI MD ([facility]) on 10/25/24 at 10:32. Electr onically submitted by Karen Hilliard ([email or web address]). I personally scribed for PANFILO SIDDIQUI MD ([facility]) on 10/25/24 at 10:33. Electronically submitted by Karen Hilliard ([email or web address]). I personally scribed for PANFILO SIDDIQUI MD ([facility]) on 10/25/24 at 11:57. Electronically submitted by Karen Hilliard ([email or web address]). I personally scribed for PANFILO SIDDIQUI MD ([facility]) on 10/25/24 at 12:37. Electronically submitted by Karen Hilliard ([email or web address]). I personally scribed for PANFILO SIDDIQUI MD ([facility]) on 10/25/24 at 13:09. Electronically submitted by Karen Hilliard ([email or web address]). PANFILO SIDDIQUI MD Oct 25, 2024 10:32
[2024-10-25 10:42] LABS: Basophils # (auto) 0 10 ^3/uL (0-0.2); Basophils % (auto) 0.7 % (0.0-2.0); Eosinophils # (auto) 0.1 10 ^3/uL (0-0.8); Hematocrit 30.8 % (41.0-53.0); Hemoglobin 10.2 g/dL (13.5-17.5); Lymphocytes # (auto) 0.9 10 ^3/uL (0.4-5.4); Lymphocytes % (auto) 13.8 % (10.0-50.0); Mean Corpuscular Hemoglobin 28.2 pg (28.0-32.0); Mean Corpuscular Volume 85.5 fL (80.0-100.0); Monocytes # (auto) 0.5 10 ^3/uL (0-1.3); Monocytes % (auto) 7.5 % (0.0-12.0); Neutrophils # (auto) 5.2 10 ^3/uL (1.6-8.6); Nucleated Red Blood Cells % 0.1 %; Platelet Count (auto) 180 10^3/uL (140-450); White Blood Cell 6.8 10^3/uL (4.4-10.8)
[2024-10-25 10:53] LABS: Chloride 105 mmol/L (98-107); Potassium 3.7 mmol/L (3.5-5.1); Sodium 141 mmol/L (136-145)
[2024-10-25 10:55] LABS: Anion Gap 10 (5-15); Calcium 9.4 mg/dL (8.7-10.4); Carbon Dioxide 26 mmol/L (20-31)
[2024-10-25 11:00] LABS: BUN/Creatinine Ratio 18.5 (10.0-20.0); Blood Urea Nitrogen 43 mg/dL (9-23); Glucose 155 mg/dL (74-106)
--- NOTE | 2024-10-25 11:12 | DVH ---
EXAM: CT Head Without Intravenous Contrast CLINICAL INDICATION: INJURY TECHNIQUE: Axial computed tomography images of the head/brain without intravenous contrast. This CT exam was performed using one or more of the following dose reduction techniques: automated exposure control, adjustment of the mA and/or kV according to patient size, and/or use of iterative reconstru ction technique. CONTRAST: RADIATION DOSE: CTDIvol = 53.99 mGy, DLP = 971.88 mGy-cm COMPARISON: CT HEAD WITHOUT CONTRAST on DOS: 10/14/24 FINDINGS: BRAIN AND EXTRA-AXIAL SPACES: Areas of decreased attenuation in the deep cerebral white matter are consistent with small vessel ischemic/degenerative changes. No acute intracranial hemorrhage, midlin e shift or mass effect. If symptoms persist, further evaluation with MRI is recommended. The cerebra l and cerebellar sulci are prominent consistent with brain atrophy. BONES/JOINTS: Unremarkable. No acute fracture. SOFT TISSUES: Unremarkable. SINUSES: Unremarkable as visualized. No acute sinusitis. MASTOID AIR CELLS: Unremarkable as visualized. No mastoid effusion. OTHER FINDINGS: . . IMPRESSION: 1. Small vessel ischemic/degenerative changes. 2. No acute intracranial hemorrhage, midline shift or mass effect. If symptoms persist, further eval uation with MRI is recommended. 3. Generalized brain atrophy.
--- NOTE | 2024-10-25 11:22 | DVH ---
XY R FEMUR XRAY, INDICATION: INJURY TECHNICAL DATA: Frontal and lateral views were obtained of the right femur. COMPARISON: None FINDINGS: Intact right femur hardware from an old healed fracture deformity. Soft tissues are normal. IMPRESSION: Intact right femur hardware from an old healed fracture deformity. No acute fracture or dislocation.
--- NOTE | 2024-10-25 11:38 | DVH ---
Procedure: CT CERVICAL WITHOUT CONTRAST 10/25/2024 10:28 AM Indication: INJURY Comparison Study: None. Technique: Axial images were obtained and reformatted in coronal and sagittal planes. All CT scans at this medical facility are performed using dose modulation techniques as appropriate t o a performed exam including the following: Automated exposure control was utilized; adjustment of th e MA and/or KV according to patient size; and use of iterative reconstruction technique. CT Dose: CTDI volume is 19.22 mGy. Dose-length product is 554.99 mGy*cm FINDINGS: Bones: The vertebrae are normal in height. 2 mm grade 1 anterolisthesis of C7 on T1, likely degenera tive in nature. Lateral masses C1 and C2 are well aligned. The posterior facet joints are well aligne d. Multilevel degenerative disc disease, uncovertebral and posterior facet arthropathy of the cervica l spine with evidence of central canal and neural foramina stenosis. Soft tissues: Paraspinal and prevertebral soft tissues are within normal limits. Atherosclerotic calc ification of the bilateral carotids. Partially seen left subclavian line. Small bilateral pleural eff usions noted, right greater than left. IMPRESSION: 1. Straightening of normal lordosis that could be positional, reflect muscle spasm or pain. Correlate clinically. 2. No acute osseous abnormality. 3. Multilevel degenerative disc disease and posterior facet arthropathy of the cervical spine.
--- NOTE | 2024-10-25 12:00 | DVH ---
Procedure: CT CT R HIP WITH OUT CONTRAST 10/25/2024 10:31 AM Indication: INJURY Comparison Study: None Technique: Axial images right hip were obtained and reformatted in coronal and sagittal planes. All C T scans at this medical facility are performed using dose modulation techniques as appropriate to a p erformed exam including the following: Automated exposure control was utilized; adjustment of the MA and/or KV according to patient size; and use of iterative reconstruction technique. CT Dose: CTDI vol ume is 13.69 mGy. Dose-length product is 315.64 mGy*cm FINDINGS: Bones: Acute comminuted nondisplaced intra-articular fracture of the acetabulum. The hip joint is ma intained. Intertrochanteric fracture status post ORIF with 3 partially threaded screws. Nondisplaced fracture of degraded trochanter noted. Deformity of the femoral neck suggesting an old impacted subca pital femoral neck fracture. Acute nondisplaced fracture of the superior and inferior pubic rami note d. Symphysis pubis is not included in the field of view and can not be evaluated. Soft tissues: Diffuse atherosclerotic calcification noted . IMPRESSION: 1. Acute comminuted nondisplaced intra-articular acetabular fracture. 2. Acute nondisplaced superior and inferior pubic rami fractures. 3. Subacute intertrochanteric fracture and chronic appearing subcapital femoral neck fracture status post ORIF.
--- NOTE | 2024-10-25 12:00 | DVH ---
EXAM: XR Chest, 1 View CLINICAL INDICATION: INJURY TECHNIQUE: Frontal view of the chest. COMPARISON: XY CHEST PORTABLE on DOS: 10/20/24, XY CHEST PORTABLE on DOS: 10/14/24, XY CHEST PORTABLE on DOS: 09/11/24, XY CHEST PORTABLE on DOS: 09/10/24, XY CHEST PORTABLE on DOS: 09/09/24 FINDINGS: LUNGS AND PLEURAL SPACES: Mild pulmonary congestion. No consolidation. No pneumothorax. HEART: Unremarkable. No cardiomegaly. MEDIASTINUM: Unremarkable. Normal mediastinal contour. BONES/JOINTS: Unremarkable. No acute fracture. TUBES, LINES AND DEVICES: Left-sided cardiac pacemaker. OTHER FINDINGS: . . IMPRESSION: Mild pulmonary congestion.
[2024-10-25] MEDS: fentaNYL CITRATE 100 MCG/2 ML VL IV ONE (13:03)
[2024-10-25] MEDS: SODIUM CHLORIDE 0.9% 1,000 ML IV ONE (13:07)
--- NOTE | 2024-10-25 13:36 | DVH ---
CLINICAL INDICATION: injury TECHNIQUE: 3-view right knee XY R KNEE 3V XRAY Comparison: None FINDINGS/IMPRESSION: : Right knee prosthesis well positioned. No loosening. Severe vascular calcification of the superficia l femoral and popliteal arteries. No acute changes
[2024-10-25] MEDS: ONDANSETRON HCL 4 MG/2 ML VIAL IV ONE (14:05)
[2024-10-25] MEDS: MORPHINE SULFATE INJ 2 MG/ml SYRG IV ONE ×2 (14:06→17:45)
[2024-10-25 18:00] VITALS: TEMP 97.8; O2SAT 94
[2024-10-25 18:31] VITALS: BP 129/69; PULSE 65; RESP 16
--- NOTE | 2024-10-27 10:01 | ECG ---
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
== END 2024-10-25 18:50 | disposition short-term general hospital (02) ==
LOC: EDUNIT# 10:03 → EDBD 10:03 → ER 10:03
DX: S32.401A Unspecified fracture of right acetabulum, initial encounter for closed fracture (principal); S32.501A Unspecified fracture of right pubis, initial encounter for closed fracture; S72.144A Nondisplaced intertrochanteric fracture of right femur, initial encounter for closed fracture; E11.9 Type 2 diabetes mellitus without complications; E78.5 Hyperlipidemia, unspecified; I11.0 Hypertensive heart disease with heart failure; I50.9 Heart failure, unspecified; Z79.899 Other long term (current) drug therapy; Z95.0 Presence of cardiac pacemaker; Z79.01 Long term (current) use of anticoagulants; W01.0XXA Fall on same level from slipping, tripping and stumbling without subsequent striking against object, initial encounter; Y93.89 Activity, other specified; Y92.89 Other specified places as the place of occurrence of the external cause; Y99.8 Other external cause status
CPT/HCPCS: 36415; 51702; 70450; 71045; 72125; 73552; 73562; 73700; 80048; 82947; 84484; 85025; 93005; 96361; 96374; 96375; 96376; 99285; A4315; J2270; J2405; J3010; 82962

== ENCOUNTER 2025-01-20 23:08 | Inpatient (IN) | payer OTHER ==
[~2025-01-20] VITALS: Ht 180.3 cm; Wt 93.2 kg
[~2025-01-20 23:08] MED LIST changes: +AMLO1TAB23 PO; +FURO40TA4 PO
[2025-01-20 23:39] VITALS: PULSE 65; RESP 25; O2SAT 95
[2025-01-20] MEDS: DEXTROSE 50% SYRINGE 50 ML IV ONE (23:44)
[2025-01-20] MEDS: DEXTROSE (50%) 50ML SYRG IV ONE (23:45)
[2025-01-21 00:01] LABS: Basophils # (auto) 0.1 10 ^3/uL (0-0.2); Basophils % (auto) 1.5 % (0.0-2.0); Eosinophils # (auto) 0.1 10 ^3/uL (0-0.8); Eosinophils % (auto) 2.5 % (0.0-7.0); Hematocrit 32.3 % (41.0-53.0); Hemoglobin 10.7 g/dL (13.5-17.5); Lymphocytes # (auto) 1.1 10 ^3/uL (0.4-5.4); Lymphocytes % (auto) 21.3 % (10.0-50.0); Mean Corpuscular Hemoglobin 27.9 pg (28.0-32.0); Mean Corpuscular Hgb Conc. 33.1 g/dL (32.0-36.0); Mean Corpuscular Volume 84.1 fL (80.0-100.0); Monocytes # (auto) 0.5 10 ^3/uL (0-1.3); Neutrophils # (auto) 3.4 10 ^3/uL (1.6-8.6); Neutrophils % (auto) 64.7 % (37.0-80.0); Nucleated Red Blood Cells % 0.1 %; Platelet Count (auto) 133 10^3/uL (140-450); Red Blood Cells 3.84 10^6/uL (4.5-5.90); Red Cell Distribution Width 17.9 % (11.8-14.3); White Blood Cell 5.2 10^3/uL (4.4-10.8)
[2025-01-21 00:08] LABS: Urine Bacteria None Seen /hpf (None Seen)
[2025-01-21 00:14] LABS: Chloride 105 mmol/L (98-107); Potassium 4.6 mmol/L (3.5-5.1); Sodium 141 mmol/L (136-145)
[2025-01-21 00:15] LABS: Anion Gap 13 (5-15); Carbon Dioxide 23 mmol/L (20-31)
[2025-01-21 00:16] LABS: Calcium 8.5 mg/dL (8.7-10.4)
[2025-01-21 00:16] LABS: Urine Blood 1+ /uL (Negative); Urine Clarity Turbid (Clear); Urine Color Yellow (Yellow); Urine Protein, UAD 1+ (Negative); Urine Specific Gravity 1.016 (1.001-1.035); Urine Squamous Epithelial Cell None Seen /hpf (<5); Urine Urobilinogen Normal (Negative); Urine WBC 258 /HPF (0-3)
[2025-01-21 00:20] LABS: BUN/Creatinine Ratio 11.7 (10.0-20.0)
[2025-01-21 00:23] LABS: Blood Urea Nitrogen 52 mg/dL (9-23); Glucose 167 mg/dL (74-106); Lactic Acid w/Reflex 2.3 mmol/L (0.4-2.0)
[2025-01-21] MEDS: SODIUM CHLORIDE 0.9% 1,000 ML IV ONE ×2 (00:34)
[2025-01-21] MEDS: cefTRIAXone 1GM/50ML D5W 50 ML IV ONE (00:44)
--- NOTE | 2025-01-21 00:58 | DVH ---
CT HEAD WITHOUT CONTRAST INDICATION: aloc EXAM DATE: 01/21/2025 12:04 AM COMPARISON: CT HEAD WITHOUT CONTRAST on DOS: 10/25/24, CT HEAD WITHOUT CONTRAST on DOS: 10/14/24 RADIATION DOSE: CTDIvol: 61.03 mGy, DLP: 1200.8 mGy*cm PROCEDURE: CT scans of the head were obtained from the vertex to the skull base. Sagittal and coronal reconstructions were provided. All CT scans at this medical facility are performed using dose modulation techniques as appropriate t o a performed exam including the following: Automated exposure control was utilized; adjustment of th e MA and/or KV according to patient size; and use of iterative reconstruction technique. FINDINGS: Evaluation is degraded by motion artifact. No acute territorial infarct, intracranial hemorrhage, or mass effect. There are global involutional changes with compensatory prominence of the ventricles and sulci. Patchy periventricular and subcorti marisol white matter hypoattenuation is nonspecific but may be related to small vessel ischemic disease. Chronic deep cerebral lacunar infarcts. Tiny chronic right cerebellar infarct. There are bilateral lens implants. The paranasal sinuses and mastoid air cells are clear. The osseou s structures are unremarkable. IMPRESSION: 1. No acute territorial infarct, intracranial hemorrhage, or mass effect. 2. Age-related involutional changes. Chronic ischemic changes as detailed.
[2025-01-21] MEDS: ONDANSETRON HCL 4 MG/2 ML VIAL IV ONE (01:09)
[2025-01-21] MEDS: MORPHINE SULFATE 4 MG/ML SYR/VIAL IV ONE (01:10)
--- NOTE | 2025-01-21 01:17 | DVH ---
CHEST RADIOGRAPH Indication: sob Technique: Single frontal view of the chest was obtained Comparison: XY CHEST PORTABLE on DOS: 10/25/24, XY CHEST PORTABLE on DOS: 10/20/24, XY CHEST PORTABLE o n DOS: 10/14/24, XY CHEST PORTABLE on DOS: 09/11/24, XY CHEST PORTABLE on DOS: 09/10/24 FINDINGS/IMPRESSION: There are fqgu-uokixvp-ioph-right pleural effusions. There are hazy opacities throughout the lungs, likely at least partially referable to pulmonary vascular congestion. There is no definite pneumoth orax. Unchanged appearance of the cardiomediastinal silhouette. Left-sided dual-chamber pacemaker. Unchanged osseous structures.
--- NOTE | 2025-01-21 01:18 | ED.PDOC ---
History of Present Illness HPI Comments 74 y/o M is BIBA for c/o generalized weakness and visual hallucinations. Per EMS report, patient's spouse called, reporting on patient endorsing symptoms all day, today. He is reported to see bugs that are not there in regards to hallucinations. Patient has an extensive history that includes: AFib, acute res piratory failure, anemia with thrombocytopenia, CHF, CKF IV, encephalopathy with hypoglycemia, DM, HLD, HTN, NSTEMI II, and pacemaker. Vitals were noted to have been stable and within normal limits, with a blood glucose of 84. At time of assessment, patient also complains of generalized bodyaches and foul-smelling urine. Chief Complaint: General Weakness Time Seen by MD: 23:35 Primary Care Provider: UNKNOWN Reviewed Notes: Nurses Notes, Non Destructive Testing Specialist Notes, Medications, Allergies Allergies: Coded Allergies: NO KNOWN ALLERGIES (Unverified , 09/07/24) Home Meds Active Scripts Furosemide (Lasix) 40 Mg Tab, 60 MG PO BID for 30 Days, #90 TAB 1 Refill Prov:ALCIDES GUZMAN MD 10/20/24 Reported Medications Insulin NPH Isophane & Reg (Hu (Humulin 70/30 Kwikpen (70-30) 100 Unit/ml) 1 Inj Inj, SC IF BS >100, GIVE 30 UNITS INSULIN SC. 09/09/24 Sevelamer Carbonate (Sevelamer Carbonate) 800 Mg Tab, 1 TAB PO TID 09/09/24 Sodium Bicarbonate (Sodium Bicarbonate) 650 Mg Tab, 650 MG PO TID, TAB 09/09/24 Finasteride (Finasteride) 5 Mg Tab, 5 MG PO DAILY for 30 Days, MG 09/09/24 Apixaban Base (ELIQUIS) 5 Mg Tab, 5 MG PO BID, TAB 09/09/24 Tamsulosin Hcl (Flomax) 0.4 Mg Cap, 0.8 MG PO HS, CAP 09/09/24 Amlodipine Besylate (Amlodipine Besylate) 5 Mg Tab, 10 MG PO DAILY for 30 Days, MG 09/09/24 Atorvastatin Calcium (Lipitor) 40 Mg Tab, 40 MG PO DAILY, TAB 09/09/24 Information Source: Patient, Emergency Med Personnel Mode of Arrival: EMS Severity: Moderate Timing: Hours Duration: Since onset Prehospital treatment: 12 Lead EKG, Accucheck, Urgent Care Nurse Practitioner Past Medical History PAST MEDICAL HISTORY: AFIB, Anemia (with thrombocytopenia), CHF (chronic systolic/diastolic heart failure), CKF (stage IV), DM, High Lipids, HTN, DE (NSTEMI type II ) Past Medical History (Other): Acute respiratory failure Encephalopathy with hypoglycemia Surgical History: Pacemaker Family History Family History: Reviewed,noncontributory to illness Social History Smoker: Non-Smoker Alcohol: Denies ETOH Use Drugs: Denies Drug Use Lives In: Home All Other Systems: Reviewed and Negative (Comprehensive systems review obtained and negative except for what is stated in the HPI.) Physical Exam General Appearance: Mild Distress, Normal HEENT: Normal ENT Inspection, Pharynx Normal, TMs Normal Neck: Full Range of Motion, Non-Tender, Normal, Normal Inspection Respiratory: Chest Non-Tender, Lungs Clear, No Accessory Muscle Use, No Respiratory Distress, Normal Breath Sounds Cardiovascular: No Edema, No JVD, No Murmur, No Gallop, Normal Peripheral Pulses, Regular Rate/Rhythm Breast Exam: Deferred Gastrointestinal: No Organomegaly, Non Tender, No Pulsatile Mass, Normal Bowel Sounds, Soft Genitalia: Deferred Pelvic: Deferred Rectal: Deferred Extremities: No calf tenderness, Normal capillary refill, Normal inspection, Normal range of motion, Non-tender, No pedal edema Musculoskeletal : Apperance: Normal Neurologic: Alert (A&Ox4), surfboard maker II-XII nml as Tested, No Motor Deficits, Normal Affect, Normal Mood, No Sensory Deficits Cerebellar Function: Normal Reflexes: Normal Skin: Dry, Normal Color, Warm Lymphatic: No Adenopathy Was a procedure done? Was a procedure done?: No EKG EKG : Pulse Rate (adult): 65 [place]: Normal Cardiac Rhythm: Junctional Block: LBBB Hypertrophy: None ST: Normal Differential Dx Considerations may include: Viral syndrome, electrolyte imbalance, dehydration, UTI, encephalopathy, hypoglycemia, among others X-Ray, Labs, Meds, VS Vital Signs Date Time Temp Pulse Resp B/P (MAP) Pulse Ox O2 Delivery O2 Flow Rate FiO2 01/21/25 01:18 65 01/21/25 01:10 65 27 108/68 01/21/25 01:00 65 27 107/65 (79) 96 01/20/25 23:39 65 25 95 Nasal Cannula* 4 36 01/20/25 23:39 97.7 65 25 109/68 (82) 95 97.7 01/20/25 23:18 65 01/20/25 23:15 97.5 65 30 103/68 (80) 96 97.5 Lab Test 01/21/25 00:02 01/20/25 23:54 01/20/25 23:41 Range/Units Urine Color Yellow Yellow Urine Clarity Turbid H Clear Urine pH 7.0 5.0-9.0 Urine Specific [place] 1.016 1.001-1.035 Urine Protein 1+ H Negative Urine Ketones Negative Negative Urine Blood 1+ H Negative /uL Urine Nitrite Negative Negative Urine Bilirubin Negative Negative Urine Urobilinogen Normal Negative mg/dL Urine Leukocyte Esterase 3+ Negative /uL Urine RBC 23 0 - 3 /hpf Urine Microscopic WBC 258 H 0-3 /HPF Urine Squamous Epithelial Cells None seen <5 /hpf Urine Bacteria None seen None Seen /hpf Urine Glucose Normal Normal mg/dL White Blood Count 5.2 4.4-10.8 10^3/uL Red Blood Count 3.84 L 4.5-5.90 10^6/uL Hemoglobin 10.7 L 13.5-17.5 g/dL Hematocrit 32.3 L 41.0-53.0 % Mean Corpuscular Volume 84.1 80.0-100.0 fL Mean Corpuscular Hemoglobin 27.9 L 28.0-32.0 pg Mean Corpuscular Hemoglobin Concent 33.1 32.0-36.0 g/dL Red Cell Distribution Width 17.9 H 11.8-14.3 % Platelet Count 133 L 140-450 10^3/uL Mean Platelet Volume 8.7 6.9-10.8 fL Neutrophils (%) (Auto) 64.7 37.0-80.0 % Lymphocytes (%) (Auto) 21.3 10.0-50.0 % Monocytes (%) (Auto) 10.0 0.0-12.0 % Eosinophils (%) (Auto) 2.5 0.0-7.0 % Basophils (%) (Auto) 1.5 0.0-2.0 % Neutrophils # (Auto) 3.4 1.6-8.6 10 ^3/uL Lymphocytes # (Auto) 1.1 0.4-5.4 10 ^3/uL Monocytes # (Auto) 0.5 0-1.3 10 ^3/uL Eosinophils # (Auto) 0.1 0-0.8 10 ^3/uL Basophils # (Auto) 0.1 0-0.2 10 ^3/uL Nucleated Red Blood Cells 0.1 % Sodium Level 141 136-145 mmol/L Potassium Level 4.6 3.5-5.1 mmol/L Chloride Level 105 98-107 mmol/L Carbon Dioxide Level 23 20-31 mmol/L Anion Gap 13 5-15 Blood Urea Nitrogen 52 H 9-23 mg/dL Creatinine 4.46 H 0.700-1.30 mg/dL Glomerular Filtration Rate Calc 13 >90 mL/min BUN/Creatinine Ratio 11.7 10.0-20.0 Serum Glucose 167 H 74-106 mg/dL Lactic Acid Level 2.3 *H 0.4-2.0 mmol/L Calcium Level 8.5 L 8.7-10.4 mg/dL Ammonia 13 11-32 umol/L POC Glucose 54 L 70-106 mg/dl Current Medications Medications (Trade) Dose Ordered Sig/Mario Route Start Time Stop Time Status Last Admin Dextrose 50 ml ONCE ONCE IV 01/21/25 00:00 01/21/25 00:01 DC 01/20/25 23:45 Ceftriaxone Sodium 50 ml @ 100 mls/hr ONCE ONCE IV 01/21/25 00:30 01/21/25 00:59 DC 01/21/25 00:44 Sodium Chloride 1,000 ml @ 1,000 mls/hr Q1H ONCE IV 01/21/25 00:30 01/21/25 01:29 01/21/25 00:34 Morphine Sulfate 4 mg ONCE ONCE IV 01/21/25 01:00 01/21/25 01:01 DC 01/21/25 01:10 Ondansetron HCl (Zofran) 4 mg ONCE ONCE IV 01/21/25 01:00 01/21/25 01:01 DC 01/21/25 01:09 X-Ray, Labs, Meds, VS Comment Chest x-ray: FINDINGS/IMPRESSION: There are acau-auyyrym-uisq-right pleural effusions. There are hazy opacities throughout the lungs, likely at least partially referable to pulmonary vascular congestion. There is no definite pneumothorax. Unchanged appearance of the cardiomediastinal silhouette. Left-sided dual-chamber pacemaker. Unchanged osseous structures. Spoke with with [facility], they will work on transfer, authorization #[id number] Patient will be given Lasix 80 mg for peripheral edema Patient be started on Rocephin 1 g for urinary tract infection Patient is on 4 L nasal cannula maintaining 94% oxygenation Time of 1ST Reevaluation: 00:05 Reevaluation 1ST: Unchanged Patient Education/Counseling: Diagnosis, Treatment Family Education/Counseling: No Family Present Additional Information Previous visits reviewed: September 07, 2024, October 14, 2024, and October 25, 2024 encounters for heart failure, metabolic encephalopathy, and fall. The following tests were ordered, and results were reviewed by me: CT head w/o contrast, EKG, lactic acid, UA, ammonia, BMP, CBC, blood culture, CXR Additional Information was gathered from interviewing the following independent historians: EMS I reviewed and agreed with the following test results read by other providers: CT head w/o contrast, CXR I discussed treatment and results with medical personnel and: patient SEPSIS Sepsis Screen Date sepsis recognized/suspect: Jan 20, 2025 Time Sepsis recognized/suspect: 2338 Recent Procedure: No On Antibiotic Therapy: No Respiratory Rate >20: Yes Heart Rate >90: No Temp<36 C (96.8 F) or >38.3 C: No SBP <90 or MAP <65 mmHG: No New Acute Mental Status Change: Yes Is the patient on CPAP, BIPAP,: No Orders/Vitals/Labs Physician Orders Electrocardigram (01/20/25 23:32) Head Without Contrast (01/20/25 23:35) Chest Xray 1 View (01/20/25 23:35) Insert Jensen Catheter QSHIFT (01/20/25 23:49) Blood Culture (01/20/25 23:49) Sodium Chloride 0.9% (01/21/25 00:30) Sodium Chloride 0.9% (01/21/25 00:30) Furosemide Injection (Lasix Injection) (01/21/25 01:30) Vital Signs Date Time Temp Pulse Resp B/P (MAP) Pulse Ox O2 Delivery O2 Flow Rate FiO2 01/21/25 01:18 65 01/21/25 01:10 65 27 108/68 01/21/25 01:00 65 27 107/65 (79) 96 01/20/25 23:39 65 25 95 Nasal Cannula* 4 36 01/20/25 23:39 97.7 65 25 109/68 (82) 95 97.7 01/20/25 23:18 65 01/20/25 23:15 97.5 65 30 103/68 (80) 96 97.5 Laboratory Tests Test 01/20/25 23:54 Lactic Acid Level 2.3 mmol/L (0.4-2.0) *H White Blood Count 5.2 10^3/uL (4.4-10.8) Medications Medications Dose Ordered Sig/Mario Route Start Time Stop Time Status Last Admin Dose Admin Ceftriaxone Sodium 50 ml @ 100 mls/hr ONCE ONCE IV 01/21/25 00:30 01/21/25 00:59 DC 01/21/25 00:44 Dextrose 50 ml ONCE ONCE IV 01/21/25 00:00 01/21/25 00:01 DC 01/20/25 23:45 Morphine Sulfate 4 mg ONCE ONCE IV 01/21/25 01:00 01/21/25 01:01 DC 01/21/25 01:10 Ondansetron HCl 4 mg ONCE ONCE IV 01/21/25 01:00 01/21/25 01:01 DC 01/21/25 01:09 Sodium Chloride 1,000 ml @ 1,000 mls/hr Q1H ONCE IV 01/21/25 00:30 01/21/25 01:29 01/21/25 00:34 Departure 1 Departure Time of Disposition: 01:26 Impression: Primary Impression: Acute respiratory failure Qualified Codes: J96.01 - Acute respiratory failure with hypoxia Additional Impressions: Metabolic encephalopathy Generalized weakness UTI (urinary tract infection) Qualified Codes: N30.01 - Acute cystitis with hematuria Elevated lactic acid level Disposition: 02 SHORT TERM HOSPITAL Condition: Guarded Discharged With: Self Critical Care Note Critical Care Time?: No Stability Stability form required: No Heart Score Heart Score: Heart Score Response (Comments) Value History N/A 0 EKG N/A 0 Age N/A 0 Risk Factors N/A 0 Troponin N/A 0 Total 0 I personally scribed for BRANDON PÉREZ ([email or web address]) on 01/21/25 at 01:18. Electronically submitted by Roosevelt Byrd ([email or web address]). BRANDON PÉREZ [facility] Jan 21, 2025 01:18
[2025-01-21] MEDS: FUROSEMIDE 100 MG/10ML VIAL IV ONE ×2 (01:35→03:51)
[2025-01-21] MEDS: DEXTROSE (50%) 50ML SYRG IV ONE (01:49)
[2025-01-21] MEDS: DEXTROSE 10% 1,000 ML IV ONE (02:10)
--- NOTE | 2025-01-21 03:42 | DVHHPRES ---
History of Present Illness Resident Creating Document: KIRIT IBRAHIM RESIDENT History of Present Illness 74-year-old male with past medical history of CHF, AFib, history of pacemaker, CKD stage 4, diabetes mellitus, anemia, BPH, diabetes mellitus presented with complaints of generalized weakness and hallucinations as per past one day. also mentioned about foul smelling urine, patient is currently mentioning of no active complaints but does not remember what happened and why he came to the hospital. He Is Currently on 5 L of oxygen through facial mask. On Presenting to the ED patient was treated with IV fluids and IV antibiotics by the ER physician. Patient was not mentioning of any hallucinations, chest pain, shortness of breath, cough, nausea, vomiting, diarrhea, abdominal pain. Patient was recently [facility] eight weeks ago for right leg bone fracture for which he had rehab for two weeks and after that patient went to home. Medical history CHF, AFib, history of pacemaker, CKD stage 4, diabetes mellitus, anemia, BPH, diabetes mellitus Surgical history Surgery for hip fracture eight weeks ago Medication history Was, amlodipine, statins, finasteride, Lasix, insulin, tamsulosin Social history Denied smoking, marijuana, alcohol and any other drug intake Review of Systems Review of Systems as described in the HPI Allergies: Coded Allergies: NO KNOWN ALLERGIES (Unverified , 09/07/24) Exam Vital Signs Vital Signs Date Time Temp Pulse Resp B/P (MAP) Pulse Ox O2 Delivery O2 Flow Rate FiO2 01/21/25 02:10 65 16 106/66 01/21/25 01:00 96 01/20/25 23:39 Nasal Cannula* 4 36 01/20/25 23:39 97.7 97.7 Exam Examination General Appearance: Alert, Oriented X3, Cooperative, No acute distress HEENT: EOMI Respiratory: Clear to auscultation, Normal air movement Cardiovascular: Regular rate, Normal S1, Normal S2 Abdominal: Normal bowel sounds Extremities: No cyanosis, No edema, Normal pulses, No tenderness/swelling Skin: No rashes, No breakdown Neuro: Normal Speech POCUS done at bedside <50% collapsibility of IVC B lines with Pleural Effusion ( seen on lung USG) Labs/Xrays Labs Test 01/21/25 01:55 01/21/25 00:02 01/20/25 23:54 01/20/25 23:41 Range/Units Lactic Acid Level 1.8 0.4-2.0 mmol/L Urine Color Yellow Yellow Urine Clarity Turbid H Clear Urine pH 7.0 5.0-9.0 Urine Specific [place] 1.016 1.001-1.035 Urine Protein 1+ H Negative Urine Ketones Negative Negative Urine Blood 1+ H Negative /uL Urine Nitrite Negative Negative Urine Bilirubin Negative Negative Urine Urobilinogen Normal Negative mg/dL Urine Leukocyte Esterase 3+ Negative /uL Urine RBC 23 0 - 3 /hpf Urine Microscopic WBC 258 H 0-3 /HPF Urine Squamous Epithelial Cells None seen <5 /hpf Urine Bacteria None seen None Seen /hpf Urine Glucose Normal Normal mg/dL White Blood Count 5.2 4.4-10.8 10^3/uL Red Blood Count 3.84 L 4.5-5.90 10^6/uL Hemoglobin 10.7 L 13.5-17.5 g/dL Hematocrit 32.3 L 41.0-53.0 % Mean Corpuscular Volume 84.1 80.0-100.0 fL Mean Corpuscular Hemoglobin 27.9 L 28.0-32.0 pg Mean Corpuscular Hemoglobin Concent 33.1 32.0-36.0 g/dL Red Cell Distribution Width 17.9 H 11.8-14.3 % Platelet Count 133 L 140-450 10^3/uL Mean Platelet Volume 8.7 6.9-10.8 fL Neutrophils (%) (Auto) 64.7 37.0-80.0 % Lymphocytes (%) (Auto) 21.3 10.0-50.0 % Monocytes (%) (Auto) 10.0 0.0-12.0 % Eosinophils (%) (Auto) 2.5 0.0-7.0 % Basophils (%) (Auto) 1.5 0.0-2.0 % Neutrophils # (Auto) 3.4 1.6-8.6 10 ^3/uL Lymphocytes # (Auto) 1.1 0.4-5.4 10 ^3/uL Monocytes # (Auto) 0.5 0-1.3 10 ^3/uL Eosinophils # (Auto) 0.1 0-0.8 10 ^3/uL Basophils # (Auto) 0.1 0-0.2 10 ^3/uL Nucleated Red Blood Cells 0.1 % Sodium Level 141 136-145 mmol/L Potassium Level 4.6 3.5-5.1 mmol/L Chloride Level 105 98-107 mmol/L Carbon Dioxide Level 23 20-31 mmol/L Anion Gap 13 5-15 Blood Urea Nitrogen 52 H 9-23 mg/dL Creatinine 4.46 H 0.700-1.30 mg/dL Glomerular Filtration Rate Calc 13 >90 mL/min BUN/Creatinine Ratio 11.7 10.0-20.0 Serum Glucose 167 H 74-106 mg/dL Calcium Level 8.5 L 8.7-10.4 mg/dL Ammonia 13 11-32 umol/L POC Glucose 54 L 70-106 mg/dl Assessment/Plan Assessment/Plan Assessment and Plan # AHRF due to CHF exacerbation ?Pneumonia -IV lasix -IV antibiotics -sputum culture #?Sepsis due to UTI -IV fluids judicious use due to CHF exacerbations -Pancultures MRSA screen -meropenam considering multiple hospital admissions lactic acid levels #pleural effusion due to CHF -chest USG #Afib, controlled -heparin currently prophylactic, consider switching to eliquis #Metabolic encephalopathy due to UTI, hypoglycemia #Hypoglycemia due to Sepsis #Failure to thrive #UTI -IV D10 @ 40 cc/hr -IV meropenam -urine culture #HFrEF. acute exacerbation -echo BNP, Trops IV lasix Last echo 40% EF POCUS done at bedside <50% collapsibility of IVC, with diameter of approx 2. 45 B lines with Pleural Effusion ( seen on lung USG) Suggesting elevated CVP( volume overload ) #pulmonary hypertension, likely due to group 2 -last echo RVSP 53 mmHG -echo BNP, Trops IV lasix Last echo 40% EF #Mild thrombocytopenia , could be because of possible Sepsis -monitor #RADHA over CKD due to Cardiorenal Syndrome -IV lasix -monitor -Nephrology consult #history of pacemaker #DM2, currently hypoglycemic -accuchecks q2hr #Normocytic anemia, likely due to CKD FOBT positive during last admission, could be due to minor mucosal injury and patient on eliquis Repeat FOBT monitor CBC #History of BPH resume home meds on discharge DVT prophylaxis -Heparin SC Cardiac/Consistent Carb diet Code status: FULL CODE Case discussion with dr Orozco Plan discussed with: Patient, Other Date of Service: Jan 21, 2025 Billing Provider: TIA OROZCO MD Common Visit Codes: 26111-JOPEQZY INP/OBS CARE (HIGH) Secondary Visit Codes: 23558-VBIUOHLG CARE PLAN 30 MINUTES KIRIT IBRAHIM RESIDENT Jan 21, 2025 03:42
[2025-01-21] MEDS: MEROPENEM 500MG IVPB 50 ML IV ONE (03:48)
[2025-01-21] MEDS: FUROSEMIDE 20 MG/2 ML VIAL IV ONE (03:55)
[2025-01-21 04:23] LABS: Basophils # (auto) 0.1 10 ^3/uL (0-0.2); Eosinophils # (auto) 0.1 10 ^3/uL (0-0.8); Eosinophils % (auto) 2.5 % (0.0-7.0); Hematocrit 33.2 % (41.0-53.0); Hemoglobin 10.9 g/dL (13.5-17.5); Lymphocytes # (auto) 1.3 10 ^3/uL (0.4-5.4); Lymphocytes % (auto) 22.9 % (10.0-50.0); Mean Corpuscular Hgb Conc. 32.7 g/dL (32.0-36.0); Mean Corpuscular Volume 85.7 fL (80.0-100.0); Monocytes # (auto) 0.5 10 ^3/uL (0-1.3); Monocytes % (auto) 9.8 % (0.0-12.0); Neutrophils # (auto) 3.4 10 ^3/uL (1.6-8.6); Neutrophils % (auto) 62.8 % (37.0-80.0); Nucleated Red Blood Cells % 0.3 %; Platelet Count (auto) 141 10^3/uL (140-450); Red Blood Cells 3.88 10^6/uL (4.5-5.90); Red Cell Distribution Width 18.1 % (11.8-14.3); White Blood Cell 5.5 10^3/uL (4.4-10.8)
[2025-01-21 04:32] LABS: INR 1.45 (0.9-1.15); Partial Thromboplastin Time 38.7 SEC (24.5-34.5); Prothrombin Time 14.8 sec (9.3-11.8)
[2025-01-21 04:36] LABS: Alanine Aminotransferase 21 U/L (7-40); Alkaline Phosphatase 98 U/L (46-116); Anion Gap 13 (5-15); Aspartate Aminotransferase 25 U/L (<34); BUN/Creatinine Ratio 11.4 (10.0-20.0); Carbon Dioxide 24 mmol/L (20-31); Potassium 4.4 mmol/L (3.5-5.1); Total Protein 6.6 g/dL (5.7-8.2)
[2025-01-21 04:37] LABS: Albumin 3.7 g/dL (3.2-4.8); Bilirubin, Total 0.6 mg/dL (0.2-1.0)
[2025-01-21 04:40] LABS: Blood Urea Nitrogen 47 mg/dL (9-23); Calcium 8.4 mg/dL (8.7-10.4); Chloride 110 mmol/L (98-107); Glucose 56 mg/dL (74-106); Sodium 147 mmol/L (136-145)
[2025-01-21 04:42] LABS: COVID19 ANTIGEN SOFIA FIA NEGATIVE (NEGATIVE); Rapid Influenza A Negative (Negative); Rapid Influenza B Negative (Negative)
[2025-01-21] MEDS: DEXTROSE (50%) 50ML SYRG IV PRN (05:11)
[2025-01-21] MEDS: HEPARIN SODIUM (PORCINE) 5000 UNITS/ML 1ML VIAL SC SCH (06:23)
[2025-01-21] MEDS: InsuLIN REG 1unit/0.01ml Soln (100units/ml) SC SCH (06:28)
[2025-01-21] MEDS: ACCU-CHEK COMFORT CURVE STRIP VI SCH (06:28)
--- NOTE | 2025-01-21 07:11 | ECG ---
[facility] Test Date: 2025-01-20 Test Time: 23:18:50 Pat Name: LISA HERRERA Department: ED Room: 0277 Gender: M Manager Behavior: ED : 1950 Requested By: BRANDON PÉREZ Order Number: [id number] Reading MD: Valdo Patterson Measurements Intervals [place] Rate: 65 P: 0 IN: 0 QRS: -53 QRSD: 161 T: 112 QT: 508 QTc: 529 Interpretive Statements Junctional rhythm Left bundle branch block Electronically Signed On 01-23-2025 21:16:13 PDT by Valdo Patterson Please click the below link to view image of tracing.
[2025-01-21 08:00] VITALS: PULSE 65; RESP 14; O2SAT 92
--- NOTE | 2025-01-21 08:01 | DVH ---
US CHEST ULTRASOUND, HISTORY: pleural effusion COMPARISON(S): None TECHNICAL DATA: Transverse and longitudinal images are obtained of the chest. FINDING: IMPRESSION(S): Moderate bilateral pleural effusion.
[2025-01-21] MEDS: MEROPENEM 500MG IVPB 50 ML IV SCH (10:20)
[2025-01-21] MEDS: FUROSEMIDE 100 MG/10ML VIAL IV SCH (10:21)
[2025-01-21] MEDS: ALBUMIN 25% 100 ML IV ONE (11:19)
[2025-01-21 12:07] LABS: Folate (Folic Acid) > 48.00 ng/mL (>5.38)
--- NOTE | 2025-01-21 12:42 | DVH ---
CLINICAL INDICATION: Trauma, pain TECHNIQUE: XY R HIP COMPLETE XRAY Comparison: None FINDINGS/IMPRESSION: : There is no evidence of acute fracture or dislocation. Soft tissues are unremarkable. Sensitivity of the examination is limited secondary to under penetration of the views. Intramedullary amanda and screw fixation of the femur. Surgical screw fixation of the right hip. Moderate to severe degenerative changes of bilateral hips.
--- NOTE | 2025-01-21 13:27 | DVHPN2 ---
Subjective Seen and examined at bedside in the ED. Patient is on 8L oxygen facemask. I tried calling the patients spouse, no answer. Cont Merrem and add Doxy. Changes from previous H/P or p: No Changes Objective Vitals Vital Signs Date Time Temp Pulse Resp B/P (MAP) Pulse Ox O2 Delivery O2 Flow Rate FiO2 01/21/25 10:30 95.0 95.0 01/21/25 10:21 107/65 01/21/25 10:15 65 14 92 01/21/25 08:00 Simple Mask* 8 60 Intake/Output Intake and Output 01/21/25 07:00 Intake Total 1240 ml Balance 1240 ml Intake IV Total 1240 ml General Appearance: Alert, Oriented X3, Cooperative, mild distress Lungs: Other (Creps) Cardiovascular: Regular rate, Normal S1, Normal S2 Abdomen: Normal bowel sounds, Soft Psych/Mental Status: Mental status NL Medications Current Medications Medications Dose Ordered Sig/Mario Route Start Time Stop Time Status Last Admin Dose Admin Meropenem 50 ml @ 17 mls/hr Q12HR IV 01/21/25 10:00 01/21/25 10:20 17 MLS/HR Diagnostic Test (Pha) 1 strip ACHS 01/21/25 07:00 01/21/25 12:58 1 STRIP Insulin Human Regular ACHS SC 01/21/25 07:00 Dextrose 50 ml UD PRN IV 01/21/25 03:30 01/21/25 05:11 50 ML Heparin Sodium (Porcine) 5,000 units Q8HR SC 01/21/25 06:00 01/21/25 06:23 5,000 UNITS Furosemide 80 mg BIDD IV 01/21/25 08:00 01/21/25 10:21 80 MG Laboratory Results Laboratory Tests 01/21/25 03:52 Chemistry Test 01/20/25 23:54 01/21/25 03:52 Calcium Level 8.5 mg/dL (8.7-10.4) L 8.4 mg/dL (8.7-10.4) L Albumin 3.7 g/dL (3.2-4.8) Total Protein 6.6 g/dL (5.7-8.2) Coagulation Test 01/21/25 03:52 Prothrombin Time 14.8 sec (9.3-11.8) H Prothrombin Time INR 1.45 (0.9-1.15) H Activated Partial Thromboplast Time 38.7 SEC (24.5-34.5) H Cardiac Markers Test 01/20/25 23:53 B-Type Natriuretic Peptide 1313.25 pg/mL (0-100) LFT Test 01/21/25 03:52 Alanine Aminotransferase (ALT) 21 U/L (7-40) Alkaline Phosphatase 98 U/L (46-116) Aspartate Amino Transferase (AST) 25 U/L (<34) Total Bilirubin 0.6 mg/dL (0.2-1.0) HgA1c, TSH Test 01/20/25 23:53 Hemoglobin A1c 6.2 % A1C (<5.7) H Thyroid Stimulating Hormone (TSH) 3.98 uIU/mL (0.55-4.78) Urinalysis Test 01/21/25 00:02 Urine Color Yellow (Yellow) Urine Clarity Turbid (Clear) H Urine pH 7.0 (5.0-9.0) Urine Specific [place] 1.016 (1.001-1.035) Urine Protein 1+ (Negative) H Urine Ketones Negative (Negative) Urine Blood 1+ /uL (Negative) H Urine Nitrite Negative (Negative) Urine Bilirubin Negative (Negative) Urine Urobilinogen Normal mg/dL (Negative) Urine Leukocyte Esterase 3+ /uL (Negative) Urine RBC 23 /hpf (0 - 3) Urine Microscopic WBC 258 /HPF (0-3) H Urine Squamous Epithelial Cells None seen /hpf (<5) Urine Bacteria None seen /hpf (None Seen) Urine Glucose Normal mg/dL (Normal) Microbiology Microbiology Date/Time Source Procedure Growth Status 01/21/25 02:57 Nose MRSA Screen - Final Complete Assessment/Plan Assessment/Plan # Sepsis due to UTI vs PNA? - Abx # Acute on Chronic Systolic CHF - Lasix IV # Pulm HTN # RADHA on CKD4 due to ATN - Nephro Consult - Monitor renal function # Acute Hypoxic Resp Failure - Titrate Oxygen down critical care time 50 mins Unstable to transfer to [place] Plan discussed with: Patient My Orders Orders - TIA OROZCO MD Procedure Category Date Status Time R Hip Complete Xray XY 01/21/25 Resulted 10:54 Urinalysis LAB 01/21/25 Logged 13:21 Urine Sodium LAB 01/21/25 Logged 13:21 Urine Creatinine LAB 01/21/25 Logged 13:21 Osmolality Urine LAB 01/21/25 Logged 13:21 Urine LAB 01/21/25 Logged Protein/Creatinine Basic Metabolic Panel LAB 01/22/25 Verified 04:00 Complete Blood Count LAB 01/22/25 Verified 04:00 B-Type Natriuretic LAB 01/22/25 Verified Peptide 04:00 Magnesium LAB 01/22/25 Verified 04:00 Doxycycline Tablet PHA 01/21/25 Logged (Vibramycin Tablet) 22:00 Doxycycline Tablet PHA 01/21/25 Logged (Vibramycin Tablet) 13:30 Albuterol Medneb PHA 01/21/25 Logged (Ventolin Medneb) 13:30 Ipratropium Medneb PHA 01/21/25 Logged (Atrovent Medneb) 13:30 Date of Service: Jan 21, 2025 Billing Provider: TIA OROZCO MD Common Visit Codes: [id number] CARE 30-74 MIN TIA OROZCO MD Jan 21, 2025 13:27
[2025-01-21] MEDS ORDERED: ALBUTEROL SULF 2.5 MG/0.5ML(0.5%) NEB SOLN NEB PRN (13:30)
[2025-01-21] MEDS ORDERED: IPRATROPIUM BROM 0.5 MG/2.5ML INH SOL NEB PRN (13:30)
[2025-01-21 13:36] VITALS: BP 107/65; PULSE 66; RESP 16; TEMP 95; O2SAT 93
[2025-01-21] MEDS: DOXYCYCLINE 100 MG TAB/CAP PO ONE (13:39)
[2025-01-21 16:37] VITALS: O2SAT 94
[2025-01-21 18:46] VITALS: O2SAT 95
[2025-01-21 18:47] VITALS: O2SAT 95
--- NOTE | 2025-01-21 19:26 | DVHINCON2 ---
Date of service: Jan 21, 2025 Referring Physician Reason for Consultation RADHA History of Present Illness 74 years old male with past medical history of Congestive heart failure, AFib, history of pacemaker, Chronic kidney disease stage 4, diabetes, anemia, BPH, presented with chief complaints of generalized weakness and hallucinations Patient is somewhat poor historian he do not remember much He is being treated with IV antibiotics on diuretics Past Medical History per hpi Past Surgical History per hpi Allergies: Coded Allergies: NO KNOWN ALLERGIES (Unverified , 09/07/24) Home Meds Active Scripts Furosemide (Lasix) 40 Mg Tab, 60 MG PO BID for 30 Days, #90 TAB 1 Refill Prov:ALCIDES GUZMAN MD 10/20/24 Reported Medications Insulin NPH Isophane & Reg (Hu (Humulin 70/30 Kwikpen (70-30) 100 Unit/ml) 1 Inj Inj, SC IF BS >100, GIVE 30 UNITS INSULIN SC. 09/09/24 Sevelamer Carbonate (Sevelamer Carbonate) 800 Mg Tab, 1 TAB PO TID 09/09/24 Sodium Bicarbonate (Sodium Bicarbonate) 650 Mg Tab, 650 MG PO TID, TAB 09/09/24 Finasteride (Finasteride) 5 Mg Tab, 5 MG PO DAILY for 30 Days, MG 09/09/24 Apixaban Base (ELIQUIS) 5 Mg Tab, 5 MG PO BID, TAB 09/09/24 Tamsulosin Hcl (Flomax) 0.4 Mg Cap, 0.8 MG PO HS, CAP 09/09/24 Amlodipine Besylate (Amlodipine Besylate) 5 Mg Tab, 10 MG PO DAILY for 30 Days, MG 09/09/24 Atorvastatin Calcium (Lipitor) 40 Mg Tab, 40 MG PO DAILY, TAB 09/09/24 Current Medications Current Medications Medications (Trade) Dose Ordered Sig/Mario Route PRN Reason Start Time Stop Time Status Last Admin Meropenem 50 ml @ 17 mls/hr Q12HR IV 01/21/25 10:00 01/21/25 10:20 Diagnostic Test (Pha) (Accu-Chek Comfort Curve T) 1 strip ACHS 01/21/25 07:00 01/21/25 17:28 Insulin Human Regular (InsuLIN R) ACHS SC 01/21/25 07:00 Dextrose 50 ml UD PRN IV Blood Sugar LESS THAN 60 01/21/25 03:30 01/21/25 05:11 Heparin Sodium (Porcine) 5,000 units Q8HR SC 01/21/25 06:00 01/21/25 13:41 Furosemide (Lasix Injection) 80 mg BIDD IV 01/21/25 08:00 01/21/25 10:21 Doxycycline Monohydrate (Vibramycin Tablet) 100 mg Q12HR PO 01/21/25 22:00 Albuterol (Ventolin Medneb) 2.5 mg Q6HPRN PRN NEB SHORTNESS OF BREATH 01/21/25 13:30 Ipratropium [place] (Atrovent Medneb) 0.5 mg Q6HPRN PRN NEB SHORTNESS OF BREATH 01/21/25 13:30 Family History: Diabetes mellitus G8 BROTHER FH: kidney disease G8 SISTER Review of Systems Per HPI H&P Exam Vital Signs/I&O Vital Sign Date Time Temp Pulse Resp B/P (MAP) Pulse Ox O2 Delivery O2 Flow Rate FiO2 01/21/25 18:47 95 Simple Mask* 6 50 01/21/25 18:00 65 14 106/70 (82) 01/21/25 17:37 97.8 97.8 Intake and Output 01/20/25 01/21/25 19:00 07:00 Intake Total 1240 ml Balance 1240 ml Intake IV Total 1240 ml Physical Exam General-not in any distress HEENT-normocephalic, no icterus, no pallor, neck supple Respiratory-fair air entry bilateral, [id number] heard, Abdominal-soft, nontender, nondistended Musculoskeletal-+ pedal edema, no calf tenderness Genitourinary-deferred Neuro-awake alert oriented x1, Psychiatric-not agitated, cooperative, Labs/Diagnostic Data Labs/Diagnostic Data Laboratory Tests Test 01/21/25 17:12 01/21/25 13:04 01/21/25 11:31 01/21/25 10:18 Range/Units POC Glucose 163 H 134 H 117 H 51 L 70-106 mg/dl Test 01/21/25 10:09 01/21/25 03:52 01/21/25 02:57 01/21/25 01:55 Range/Units POC Glucose 44 *L 70-106 mg/dl White Blood Count 5.5 4.4-10.8 10^3/uL Red Blood Count 3.88 L 4.5-5.90 10^6/uL Hemoglobin 10.9 L 13.5-17.5 g/dL Hematocrit 33.2 L 41.0-53.0 % Mean Corpuscular Volume 85.7 80.0-100.0 fL Mean Corpuscular Hemoglobin 28.0 28.0-32.0 pg Mean Corpuscular Hemoglobin Concent 32.7 32.0-36.0 g/dL Red Cell Distribution Width 18.1 H 11.8-14.3 % Platelet Count 141 140-450 10^3/uL Mean Platelet Volume 8.9 6.9-10.8 fL Neutrophils (%) (Auto) 62.8 37.0-80.0 % Lymphocytes (%) (Auto) 22.9 10.0-50.0 % Monocytes (%) (Auto) 9.8 0.0-12.0 % Eosinophils (%) (Auto) 2.5 0.0-7.0 % Basophils (%) (Auto) 2.0 0.0-2.0 % Neutrophils # (Auto) 3.4 1.6-8.6 10 ^3/uL Lymphocytes # (Auto) 1.3 0.4-5.4 10 ^3/uL Monocytes # (Auto) 0.5 0-1.3 10 ^3/uL Eosinophils # (Auto) 0.1 0-0.8 10 ^3/uL Basophils # (Auto) 0.1 0-0.2 10 ^3/uL Nucleated Red Blood Cells 0.3 % Prothrombin Time 14.8 H 9.3-11.8 sec Prothrombin Time INR 1.45 H 0.9-1.15 Activated Partial Thromboplast Time 38.7 H 24.5-34.5 SEC Sodium Level 147 #H 136-145 mmol/L Potassium Level 4.4 3.5-5.1 mmol/L Chloride Level 110 H 98-107 mmol/L Carbon Dioxide Level 24 20-31 mmol/L Anion Gap 13 5-15 Blood Urea Nitrogen 47 H 9-23 mg/dL Creatinine 4.11 H 0.700-1.30 mg/dL Glomerular Filtration Rate Calc 14 >90 mL/min BUN/Creatinine Ratio 11.4 10.0-20.0 Serum Glucose 56 #L 74-106 mg/dL Lactic Acid Level 1.4 1.8 0.4-2.0 mmol/L Calcium Level 8.4 L 8.7-10.4 mg/dL Total Bilirubin 0.6 0.2-1.0 mg/dL Aspartate Amino Transferase (AST) 25 <34 U/L Alanine Aminotransferase (ALT) 21 7-40 U/L Alkaline Phosphatase 98 46-116 U/L Total Protein 6.6 5.7-8.2 g/dL Albumin 3.7 3.2-4.8 g/dL Influenza Type A Antigen Negative Negative Influenza Type B Antigen Negative Negative SARS-CoV-2 Antigen (Rapid) Negative NEGATIVE Test 01/21/25 00:02 01/20/25 23:54 01/20/25 23:53 01/20/25 23:41 Range/Units Urine Color Yellow Yellow Urine Clarity Turbid H Clear Urine pH 7.0 5.0-9.0 Urine Specific [place] 1.016 1.001-1.035 Urine Protein 1+ H Negative Urine Ketones Negative Negative Urine Blood 1+ H Negative /uL Urine Nitrite Negative Negative Urine Bilirubin Negative Negative Urine Urobilinogen Normal Negative mg/dL Urine Leukocyte Esterase 3+ Negative /uL Urine RBC 23 0 - 3 /hpf Urine Microscopic WBC 258 H 0-3 /HPF Urine Squamous Epithelial Cells None seen <5 /hpf Urine Bacteria None seen None Seen /hpf Urine Glucose Normal Normal mg/dL White Blood Count 5.2 4.4-10.8 10^3/uL Red Blood Count 3.84 L 4.5-5.90 10^6/uL Hemoglobin 10.7 L 13.5-17.5 g/dL Hematocrit 32.3 L 41.0-53.0 % Mean Corpuscular Volume 84.1 80.0-100.0 fL Mean Corpuscular Hemoglobin 27.9 L 28.0-32.0 pg Mean Corpuscular Hemoglobin Concent 33.1 32.0-36.0 g/dL Red Cell Distribution Width 17.9 H 11.8-14.3 % Platelet Count 133 L 140-450 10^3/uL Mean Platelet Volume 8.7 6.9-10.8 fL Neutrophils (%) (Auto) 64.7 37.0-80.0 % Lymphocytes (%) (Auto) 21.3 10.0-50.0 % Monocytes (%) (Auto) 10.0 0.0-12.0 % Eosinophils (%) (Auto) 2.5 0.0-7.0 % Basophils (%) (Auto) 1.5 0.0-2.0 % Neutrophils # (Auto) 3.4 1.6-8.6 10 ^3/uL Lymphocytes # (Auto) 1.1 0.4-5.4 10 ^3/uL Monocytes # (Auto) 0.5 0-1.3 10 ^3/uL Eosinophils # (Auto) 0.1 0-0.8 10 ^3/uL Basophils # (Auto) 0.1 0-0.2 10 ^3/uL Nucleated Red Blood Cells 0.1 % Sodium Level 141 136-145 mmol/L Potassium Level 4.6 3.5-5.1 mmol/L Chloride Level 105 98-107 mmol/L Carbon Dioxide Level 23 20-31 mmol/L Anion Gap 13 5-15 Blood Urea Nitrogen 52 H 9-23 mg/dL Creatinine 4.46 H 0.700-1.30 mg/dL Glomerular Filtration Rate Calc 13 >90 mL/min BUN/Creatinine Ratio 11.7 10.0-20.0 Serum Glucose 167 H 74-106 mg/dL Lactic Acid Level 2.3 *H 0.4-2.0 mmol/L Calcium Level 8.5 L 8.7-10.4 mg/dL Ammonia 13 11-32 umol/L Hemoglobin A1c 6.2 H <5.7 % A1C Troponin I High Sensitivity 26 </=54 ng/L B-Type Natriuretic Peptide 1313.25 0-100 pg/mL Vitamin B12 Level 1149 H 211-911 pg/mL Folic Acid > 48.00 >5.38 ng/mL Thyroid Stimulating Hormone (TSH) 3.98 0.55-4.78 uIU/mL POC Glucose 54 L 70-106 mg/dl Microbiology Date/Time Source Procedure Growth Status 01/21/25 02:57 Nose MRSA Screen - Final Complete Assessment Acute kidney injury hemodynamic mediated etiology baseline Chronic kidney disease four Acute hypoxic respiratory failure Hallucinations Bilateral pleural effusions Hypoglycemia Mild hypernatremia Recommendations Currently on IV diuretics-continue for now Echocardiogram pending Renally dose antibiotics We will follow closely Status post D10 drip Plan discussed with: Patient QUITA BARNETT MD Jan 21, 2025 19:26
[2025-01-21 19:30] VITALS: PULSE 85; RESP 20; O2SAT 94
[2025-01-21] MEDS: DOXYCYCLINE 100 MG TAB/CAP PO SCH (23:19)
[2025-01-22] VITALS (8 sets, daily range): BP systolic 93–112; BP diastolic 45–73; PULSE 54–101; RESP 13–20; TEMP 96.7–97.4; O2SAT 90–99
[2025-01-22 05:31] LABS: Basophils # (auto) 0.1 10 ^3/uL (0-0.2); Basophils % (auto) 1.2 % (0.0-2.0); Eosinophils # (auto) 0.1 10 ^3/uL (0-0.8); Eosinophils % (auto) 1.1 % (0.0-7.0); Hematocrit 35.4 % (41.0-53.0); Hemoglobin 11.5 g/dL (13.5-17.5); Lymphocytes % (auto) 15.2 % (10.0-50.0); Mean Corpuscular Hemoglobin 27.5 pg (28.0-32.0); Mean Corpuscular Hgb Conc. 32.5 g/dL (32.0-36.0); Mean Corpuscular Volume 84.6 fL (80.0-100.0); Monocytes # (auto) 0.6 10 ^3/uL (0-1.3); Monocytes % (auto) 9.2 % (0.0-12.0); Neutrophils # (auto) 4.7 10 ^3/uL (1.6-8.6); Neutrophils % (auto) 73.3 % (37.0-80.0); Nucleated Red Blood Cells % 0.1 %; Platelet Count (auto) 143 10^3/uL (140-450); Red Blood Cells 4.18 10^6/uL (4.5-5.90); Red Cell Distribution Width 18.1 % (11.8-14.3); White Blood Cell 6.4 10^3/uL (4.4-10.8)
[2025-01-22 05:42] LABS: Chloride 101 mmol/L (98-107); Sodium 138 mmol/L (136-145)
[2025-01-22 05:43] LABS: Anion Gap 14 (5-15); Carbon Dioxide 23 mmol/L (20-31)
[2025-01-22 05:48] LABS: BUN/Creatinine Ratio 12.1 (10.0-20.0)
[2025-01-22 05:51] LABS: Blood Urea Nitrogen 57 mg/dL (9-23); Calcium 8.5 mg/dL (8.7-10.4); Glucose 158 mg/dL (74-106); Magnesium 2.6 mg/dL (1.6-2.6)
[2025-01-22 05:53] LABS: Potassium 5.9 mmol/L (3.5-5.1)
[2025-01-22] MEDS: SODIUM BICARB 8.4% 50Meq/50ml SYR INJ IV ONE (06:25)
[2025-01-22] MEDS: SODIUM ZIRCONIUM CYCL 10 GM PAK PO ONE ×2 (06:28→11:15)
[2025-01-22] MEDS: ALBUTEROL SULF 2.5 MG/0.5ML(0.5%) NEB SOLN NEB ONE ×2 (06:40→11:17)
[2025-01-22] MEDS: CALCIUM GLUC 1,000mg/50ml-NS 50 ML IV ONE (07:01)
[2025-01-22] MEDS ORDERED: SODIUM ZIRCONIUM CYCL 10 GM PAK PO ONE (08:15)
--- NOTE | 2025-01-22 10:26 | DVH ---
RIGHT RIBS: 3 view(s) were obtained HISTORY: RIB PAIN COMPARISON: None. FINDINGS: Right ribs: Non displaced rib fractures involving the right posterior lateral 9th 10th, and 11th ribs . There is mild pulmonary vascular congestion. Mild enlargement of the cardiomediastinal soic. Left [place] pace with leads projecting over the atrial appendage and right ventricle. Partially imaged degene rative changes of the right glenohumeral joint. IMPRESSION: 1. Non displaced right 9th through 11th lateral rib fractures 2. Mild cardiomegaly and interstitial pulmonary edema
--- NOTE | 2025-01-22 11:10 | ECG ---
[facility] Test Date: 2025-01-22 Test Time: 06:06:04 Pat Name: LISA HERRERA Department: ED Room: 0277 Gender: M [employer] Testing Supervisor: SOLEDAD : 1950 Requested By: KIRIT IBRAHIM Order Number: [id number] Reading MD: Valdo Patterson Measurements Intervals [place] Rate: 81 P: 0 WV: 0 QRS: -80 QRSD: 171 T: 93 QT: 474 QTc: 551 Interpretive Statements Accelerated junctional rhythm Nonspecific IVCD with LAD Inferior infarct, old Anterior infarct, old Electronically Signed On 01-23-2025 21:18:18 PDT by Valdo Patterson Please click the below link to view image of tracing.
--- NOTE | 2025-01-22 12:05 | DVH ---
US THORACENTESIS HISTORY: THORACENTESIS PROCEDURE: Informed consent was obtained. The patient was seated on the bed. A limited localization u ltrasound of the left thorax was obtained, and the optimal approach was marked on the skin. The area was prepped with chlorhexidine which was allowed to dry and draped in the usual sterile fashion. Time out was performed. The skin and the soft tissues were infiltrated with 1% lidocaine. A 5.5 Vietnamese ce ntesis needle catheter was advanced into left pleural space. Following aspiration of fluid, the raegan ter was advanced and the needle removed. About 1500 cc of fluid was drained. FINDINGS: Moderate left pleural effusion. Aspirated fluid is serous. IMPRESSION: Left thoracentesis with 1.5L removed by Dr. Jarrell
--- NOTE | 2025-01-22 12:56 | DVH ---
EXAM: XY CHEST PORTABLE CLINICAL HISTORY: POST THORACENTESIS TECHNIQUE: Single AP view of the chest WID: COMPARISON: XY CHEST XRAY 1 VIEW on DOS: 01/21/25 FINDINGS: Lines and tubes: Left-sided dual lead pacemaker in place. Chest: Mild cardiomegaly and prominence of the central pulmonary vasculature. Diffuse hazy opacification of the right lung. Right pleural effusion. The left costophrenic angle is not included in the field of view. No pneumothorax. The osseous structures are grossly intact. IMPRESSION: 1. Diffuse hazy opacity in the right lung which could reflect layering pleural fluid and possibly als o airspace consolidation such as atelectasis or pneumonia. 2. Right pleural effusion. 3. Left costophrenic angle is not included in the field of view. 4. Mild cardiomegaly and mild prominence of the central pulmonary vasculature.
[2025-01-22 12:58] LABS: Creatinine, Urine 90.52 mg/dL (30.0-125.0)
[2025-01-22 13:01] LABS: Urine Protein/Creatinine Ratio 3.02
[2025-01-22 13:02] LABS: Protein, Urine 273.7 mg/dL (1-14)
[2025-01-22] MEDS: SODIUM ZIRCONIUM CYCL 10 GM PAK PO SCH (14:28)
[2025-01-22 14:54] LABS: Body Fluid Red Blood Cells 1294 CUMM (0-2000); Body Fluid White Blood Cells 919 CUMM (0-200)
--- NOTE | 2025-01-22 16:10 | DVHPN2 ---
Progress Note Date Seen: Jan 22, 2025 Medical Necessity Reason Pt with a Central, PICC or Fol: Yes Subjective Patient reports: No new complaints, Feels better Review of Systems: Deferred Objective vital signs Vital Sign Date Time Temp Pulse Resp B/P (MAP) Pulse Ox O2 Delivery O2 Flow Rate FiO2 01/22/25 15:30 81 18 106/58 (74) 98 01/22/25 12:36 Nasal Cannula* 4 36 01/22/25 04:00 98.0 98.0 Total Intake and Output 01/21/25 01/21/25 01/22/25 15:00 23:00 07:00 Intake Total 430 ml 553 ml Output Total 310 ml Balance 430 ml 243 ml medications Current Medications Medications Dose Ordered Sig/Mario Route Start Time Stop Time Status Last Admin Dose Admin Meropenem 50 ml @ 17 mls/hr Q12HR IV 01/21/25 10:00 01/22/25 10:00 17 MLS/HR Diagnostic Test (Pha) 1 strip ACHS 01/21/25 07:00 01/22/25 11:40 1 STRIP Insulin Human Regular ACHS SC 01/21/25 07:00 01/22/25 11:37 4 UNITS Dextrose 50 ml UD PRN IV 01/21/25 03:30 01/21/25 05:11 50 ML Heparin Sodium (Porcine) 5,000 units Q8HR SC 01/21/25 06:00 01/22/25 14:26 5,000 UNITS Furosemide 80 mg BIDD IV 01/21/25 08:00 01/22/25 06:10 80 MG Doxycycline Monohydrate 100 mg Q12HR PO 01/21/25 22:00 01/22/25 11:15 100 MG Albuterol 2.5 mg Q6HPRN PRN NEB 01/21/25 13:30 Ipratropium [place] 0.5 mg Q6HPRN PRN NEB 01/21/25 13:30 Zirconium Oxide 10 gm TID PO 01/22/25 14:00 01/24/25 06:01 01/22/25 14:28 10 GM Examination: GENERAL:Normal, MSK:Abnormal (Positive edema), NEURO:Normal laboratory and microbiology Laboratory Tests 01/22/25 04:49 Test 01/22/25 04:49 Range/Units Serum Glucose 158 #H 74-106 mg/dL Microbiology Date/Time Source Procedure Growth Status 01/21/25 02:57 Nose MRSA Screen - Final Complete 01/20/25 23:53 Blood Blood Culture - Preliminary NO GROWTH AFTER 24 HOURS OF INCUBATION. 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
--- NOTE | 2025-01-22 17:40 | DVHSR ---
APPROVED REPORT EXAM: Two-dimensional and M-mode echocardiogram with Doppler and color Doppler. Blood Pressure: 105/74 mmHg INDICATION HFrEF RISK FACTORS Height: 70, Weight: 160 DIMENSIONS LVDd5.0 (3.8-5.7cm)LA (2D)4.5 (1.9-4.0cm)Aortic Root3.6 (2.0-3.7cm) LVDs4.1 (2.5-4.0cm)LA (MM) (1.9-4.0cm)Aortic Cusp Exc0.5 (1.5-2.0cm) EF (%) 35.0 (55-70%)Rt. Atrium5.9 (1.9-4.0cm)Asc. Aorta cm IVSd1.4 (0.7-1.1cm)RV (D) (1.8-2.4cm) PWd1.4 (0.7-1.1cm) Mitral Valve MitralMitral Stenosis E wave1.15m/sMV Mean GR.mmHg A wavem/sMV Peak GR.63mmHg E/A ratio0.02D MVAcm2 Aortic Valve Aortic ValveAortic Stenosis V10.42m/Radha Mean GR.10mmHg V22.13m/Radha Peak GR.18mmHg LVOT Diameter2.5 (1.8-2.4cm)Doppler AVA0.97cm2 Pulmonic Valve V20.48m/s Tricuspid Valve TR Velocity2.72m/s [id number] Other Information Technically limited study due to patient moving. Conclusion Technically good study. Undetermined rhythm. Biatrial enlargement. Biventricular enlargement. Dilation of the aortic root. Moderate mitral annular calcification. There is at least mazcwktn-ni-gomggo aortic stenosis with sig nificant calcification of the aortic leaflets. Left ventricular ejection fraction is about 15-20% at best with severe global hypokinesis. There appears to be a low gradient aortic stenosis given poor ejection fraction. This may be under e stimated. If clinically indicated suggest dobutamine echocardiogram to determine severity and signif icance of aortic stenosis. There is severe mitral insufficiency. Severe tricuspid regurgitation. M ild pulmonic insufficiency. There is a large pleural effusion. There appears to be a [id number] pericardial effusion. It does not appear to be hemodynamically significant. There was no collapse of the RV or RA noted. Th ere appears to be high venous pressures.
--- NOTE | 2025-01-22 18:12 | DVHPN2 ---
Subjective Seen and examined at bedside, Patient is on 4L oxygen nasal cannula. Discussed ECHO findings with the patient. Patient reports he has a history of hear failure Changes from previous H/P or p: No Changes Objective Vitals Vital Signs Date Time Temp Pulse Resp B/P (MAP) Pulse Ox O2 Delivery O2 Flow Rate FiO2 01/22/25 17:20 97.4 54 18 93/45 (61) 90 97.4 01/22/25 12:36 Nasal Cannula* 4 36 Intake/Output Intake and Output 01/22/25 07:00 Intake Total 983 ml Output Total 310 ml Balance 673 ml Intake IV Total 983 ml Output Urine Total 310 ml General Appearance: Alert, Oriented X3, Cooperative, mild distress Lungs: Other (Creps) Cardiovascular: Regular rate, Normal S1, Normal S2 Abdomen: Normal bowel sounds, Soft Psych/Mental Status: Mental status NL Medications Current Medications Medications Dose Ordered Sig/Mario Route Start Time Stop Time Status Last Admin Dose Admin Meropenem 50 ml @ 17 mls/hr Q12HR IV 01/21/25 10:00 01/22/25 10:00 17 MLS/HR Diagnostic Test (Pha) 1 strip ACHS 01/21/25 07:00 01/22/25 11:40 1 STRIP Insulin Human Regular ACHS SC 01/21/25 07:00 01/22/25 11:37 4 UNITS Dextrose 50 ml UD PRN IV 01/21/25 03:30 01/21/25 05:11 50 ML Heparin Sodium (Porcine) 5,000 units Q8HR SC 01/21/25 06:00 01/22/25 14:26 5,000 UNITS Furosemide 80 mg BIDD IV 01/21/25 08:00 01/22/25 06:10 80 MG Doxycycline Monohydrate 100 mg Q12HR PO 01/21/25 22:00 01/22/25 11:15 100 MG Albuterol 2.5 mg Q6HPRN PRN NEB 01/21/25 13:30 Ipratropium [place] 0.5 mg Q6HPRN PRN NEB 01/21/25 13:30 Zirconium Oxide 10 gm TID PO 01/22/25 14:00 01/24/25 06:01 01/22/25 14:28 10 GM Laboratory Results Laboratory Tests 01/22/25 04:49 Chemistry Test 01/22/25 04:49 Calcium Level 8.5 mg/dL (8.7-10.4) L Magnesium Level 2.6 mg/dL (1.6-2.6) Cardiac Markers Test 01/22/25 04:49 B-Type Natriuretic Peptide 1427.35 pg/mL (0-100) Urinalysis Test 01/21/25 00:02 01/22/25 12:03 Urine Color Yellow (Yellow) Urine Clarity Turbid (Clear) H Urine pH 7.0 (5.0-9.0) Urine Specific [place] 1.016 (1.001-1.035) Urine Protein 1+ (Negative) H Urine Ketones Negative (Negative) Urine Blood 1+ /uL (Negative) H Urine Nitrite Negative (Negative) Urine Bilirubin Negative (Negative) Urine Urobilinogen Normal mg/dL (Negative) Urine Leukocyte Esterase 3+ /uL (Negative) Urine RBC 23 /hpf (0 - 3) Urine Microscopic WBC 258 /HPF (0-3) H Urine Squamous Epithelial Cells None seen /hpf (<5) Urine Bacteria None seen /hpf (None Seen) Urine Glucose Normal mg/dL (Normal) Urine Creatinine 90.52 mg/dL (30.0-125.0) Urine Protein/Creatinine Ratio 3.02 Urine Sodium 20 mmol/L (40-220) L Urine Total Protein 273.7 mg/dL (1-14) H Microbiology Microbiology Date/Time Source Procedure Growth Status 01/21/25 02:57 Nose MRSA Screen - Final Complete 01/20/25 23:53 Blood Blood Culture - Preliminary NO GROWTH AFTER 24 HOURS OF INCUBATION. Resulted Assessment/Plan Assessment/Plan # Sepsis due to UTI vs PNA? - Abx # Acute on Chronic Systolic CHF - Lasix IV # Severe Aortic Stenosis # Pulm HTN # RADHA on CKD4 due to ATN - Nephro Consult - Monitor renal function # Acute Hypoxic Resp Failure - Titrate Oxygen down critical care time 45 mins Unstable to transfer to [place] Plan discussed with: Patient My Orders Orders - TIA OROZCO MD Procedure Category Date Status Time * Radiologist Consult CONS 01/22/25 Transmitted 10:57 Chest Portable XY 01/22/25 Resulted 11:18 Thoracentesis US 01/22/25 Resulted 11:18 Protein, Body Fluid LAB 01/22/25 In Process 11:50 Glucose Body Fluid LAB 01/22/25 In Process 11:50 Gram Stain [place] 01/22/25 In Process 11:50 Routine Bacterial [place] 01/22/25 In Process Culture 11:50 [place] [facility] PATHOLOGY 01/22/25 Transmitted 11:50 Lactate LAB 01/22/25 In Process Dehydrogenase, Fluid 11:50 Date of Service: Jan 22, 2025 Billing Provider: TIA OROZCO MD Common Visit Codes: [id number] CARE 30-74 MIN TIA OROZCO MD Jan 22, 2025 18:12
[2025-01-22] MEDS: metOLazone 5 MG TAB PO ONE (22:11)
[2025-01-23] VITALS (7 sets, daily range): BP systolic 102–139; BP diastolic 66–90; PULSE 64–82; RESP 17–20; TEMP 96.2–97.8; O2SAT 93–98
[2025-01-23] MEDS: BUMETANIDE 1mg/4ml VIAL (0.25mg/ml) IV SCH (05:11)
[2025-01-23 07:38] LABS: Chloride 99 mmol/L (98-107); Sodium 137 mmol/L (136-145)
[2025-01-23 07:39] LABS: Anion Gap 13 (5-15); Calcium 9.1 mg/dL (8.7-10.4); Carbon Dioxide 25 mmol/L (20-31)
[2025-01-23 07:44] LABS: BUN/Creatinine Ratio 12.4 (10.0-20.0); Glucose 78 mg/dL (74-106)
[2025-01-23 08:01] LABS: Blood Urea Nitrogen 60 mg/dL (9-23); Potassium 5.2 mmol/L (3.5-5.1)
[2025-01-23] MEDS: metOLazone 5 MG TAB PO SCH (10:03)
--- NOTE | 2025-01-23 11:40 | DVHPN2 ---
Progress Note Date Seen: Jan 23, 2025 Medical Necessity Reason Pt with a Central, PICC or Fol: Yes Subjective Patient reports: No new complaints Other Systems: Patient seen and examined by myself today in follow-up Objective vital signs Vital Sign Date Time Temp Pulse Resp B/P (MAP) Pulse Ox O2 Delivery O2 Flow Rate FiO2 01/23/25 10:03 115/72 01/23/25 10:00 95 Nasal Cannula* 2 28 01/23/25 09:00 96.2 64 18 96.2 Total Intake and Output 01/22/25 01/22/25 01/23/25 14:59 22:59 06:59 Intake Total 1250 ml Output Total 290 ml Balance 960 ml medications Current Medications Medications Dose Ordered Sig/Mario Route Start Time Stop Time Status Last Admin Dose Admin Meropenem 50 ml @ 17 mls/hr Q12HR IV 01/21/25 10:00 01/23/25 10:05 17 MLS/HR Diagnostic Test (Pha) 1 strip ACHS 01/21/25 07:00 01/23/25 06:15 1 STRIP Insulin Human Regular ACHS SC 01/21/25 07:00 01/22/25 21:12 3 UNITS Dextrose 50 ml UD PRN IV 01/21/25 03:30 01/21/25 05:11 50 ML Heparin Sodium (Porcine) 5,000 units Q8HR SC 01/21/25 06:00 01/23/25 05:18 5,000 UNITS Doxycycline Monohydrate 100 mg Q12HR PO 01/21/25 22:00 01/23/25 10:02 100 MG Albuterol 2.5 mg Q6HPRN PRN NEB 01/21/25 13:30 Ipratropium [place] 0.5 mg Q6HPRN PRN NEB 01/21/25 13:30 Zirconium Oxide 10 gm TID PO 01/22/25 14:00 01/24/25 06:01 01/23/25 05:09 10 GM Metolazone 10 mg DAILY PO 01/23/25 10:00 01/23/25 10:03 10 MG Bumetanide 1 mg BIDD IV 01/23/25 06:00 01/23/25 05:11 1 MG Examination: LUNGS:Normal, CVS:Normal, MSK:Normal laboratory and microbiology Laboratory Tests 01/23/25 07:10 01/22/25 04:49 Test 01/23/25 07:10 Range/Units Serum Glucose 78 74-106 mg/dL Microbiology Date/Time Source Procedure Growth Status 01/21/25 02:57 Nose MRSA Screen - Final Complete 01/20/25 23:53 Blood Blood Culture - Preliminary NO GROWTH AFTER 48 HOURS OF INCUBATION. Resulted Problem List/Assessment/Plan Problem List/Assessment/Plan Acute kidney injury superimposed Chronic Kidney Disease secondary hemodynamic mediated Baseline kidney function is unknown Acute on chronic systolic Congestive heart failure Acute hypoxic respiratory failure Hallucinations Bilateral pleural effusions Diabetes mellitus type 2 Hypoglycemia Anemia of chronic kidney disease Recommendations Kidney function is stable Strict I&O's Thoracentesis I agree with diuresis Check kidney ultrasound Nephrotic proteinuria likely due underlying diabetes nephropathy We will continue to follow Plan discussed with: Patient FRANK BIANCHI MD Jan 23, 2025 11:40
[2025-01-23 12:07] LABS: Protein, Body Fluid 1.6 g/dL (.)
--- NOTE | 2025-01-23 12:13 | DVH ---
EXAM DESCRIPTION: RENAL ULTRASOUND CLINICAL HISTORY: jayro COMPARISON: US KIDNEY on DOS: 10/15/24, US KIDNEY on DOS: 09/08/24 TECHNIQUE: Multiplanar ultrasound examination of the kidneys and urinary bladder was performed. FINDINGS: The right kidney measures 7.7 cm. No renal calculus. No hydronephrosis.. No solid renal masses. The left kidney measures 10.9 cm. No renal calculus. No hydronephrosis.. No solid renal masses. Renal cortices are echogenic bilaterally. The bladder is decompressed with a pa catheter. Small volume ascities. IMPRESSION: 1. Echogenic kidneys, suggestive of medical renal disease. No hydronephrosis. 2. Small volume ascities.
[2025-01-23 12:35] LABS: Magnesium 2.5 mg/dL (1.6-2.6)
[2025-01-23 12:37] LABS: Phosphorus 6.2 mg/dL (2.4-5.1)
--- NOTE | 2025-01-23 12:43 | DVH ---
CHEST RADIOGRAPH Indication: POST THORACENTESIS Technique: Single frontal view of the chest was obtained COMPARISON: None FINDINGS: The cardiac silhouette is enlarged. The lungs demonstrate bilateral patchy airspace opacities. The pu lmonary vasculature is prominent. Small to moderate left pleural effusion. Left chest dual lead cardi ac pacer device.. There is no pneumothorax. IMPRESSION: As above
--- NOTE | 2025-01-23 13:39 | DVH ---
PROCEDURE: Ultrasound-guided thoracentesis Procedural Personnel Attending physician(s): Jordan Lopez Fellow physician(s): None Resident physician(s): None A dvanced practice provider(s): None Pre-procedure diagnosis: Dyspnea Post-procedure diagnosis: Same Indication: Therapeutic Additional clinical history: None Complications: No immediate complications. IMPRESSION: Ultrasound-guided thoracentesis with drainage of 1500 mL of serous fluid. Plan: Resume care by clinical team. Fluid analysis pending. PROCEDURE SUMMARY: - Ultrasound-guided thoracentesis - additional procedure(s): None PROCEDURE DETAILS: Pre-procedure Consent: Informed consent for the procedure including risks, benefits and alternatives was obtained and time-out was performed prior to the procedure. Preparation: The site was prepared an d draped using maximal sterile barrier technique including cutaneous antisepsis. Anesthesia/sedation level of anesthesia/sedation: No sedation Anesthesia/sedation administered by: Not applicable Total intra-service sedation time (minutes): Not applicable Limited thoracic ultrasound Limited thoracic ultrasound was performed. Left hemithorax findings: Not investigated Right hemithorax findings: Large pleural effusion Thoracentesis Local anesthesia was administered. A safe window for thoracentesis was identified with ultrasound. Th e pleural space was accessed and fluid return confirmed position. The fluid was drained. The catheter was removed and a sterile dressing was applied. Catheter size (Fr):5 Catheter valve: Yes Fluid appearance: serous Volume drained (mL): 1500 Post-drainage ultrasound: Not performed Additional Details Additional description of procedure: None Registry event: V/3/f Device used: None Equipment details: None Specimens removed: Aspirated fluid was not sent for analysis. Estimated blood loss (mL): Less than 10 Standardized report: [email or web address] Attestation Signer name: Jordan Lopez I attest that I was present for the entire procedure. I reviewed the stored images and agree with the report as written.
[2025-01-23 14:30] LABS: Body Fluid Red Blood Cells 1005 CUMM (0-2000); Body Fluid White Blood Cells 1871 CUMM (0-200)
--- NOTE | 2025-01-23 15:46 | DVHDS2 ---
Discharge Summary Date of Admission Jan 21, 2025 at 03:18 Date of Discharge: Jan 23, 2025 Admitting Diagnosis Sepsis due to UTI vs PNA Labs/Diagnostic Data: Laboratory Results Test 01/23/25 12:20 01/23/25 12:19 01/23/25 12:00 01/23/25 07:10 Urine Osmolality 324 mOsm/kg POC Glucose 88 mg/dl (70-106) Body Fluid Source Pleural fluid Body Fluid pH 8.0 Body Fluid WBC (Manual) 1871 CUMM (0-200) Body Fluid RBC (Manual) 1005 CUMM (0-2000) Body Fluid Mononuclear Cells 80 % Body Fluid Polymorphonuclear Cells 20 % (0-25) Sodium Level 137 mmol/L (136-145) Potassium Level 5.2 mmol/L (3.5-5.1) Chloride Level 99 mmol/L (98-107) Carbon Dioxide Level 25 mmol/L (20-31) Anion Gap 13 (5-15) Blood Urea Nitrogen 60 mg/dL (9-23) Creatinine 4.82 mg/dL (0.700-1.30) Glomerular Filtration Rate Calc 12 mL/min (>90) BUN/Creatinine Ratio 12.4 (10.0-20.0) Serum Glucose 78 mg/dL (74-106) Calcium Level 9.1 mg/dL (8.7-10.4) Phosphorus Level 6.2 mg/dL (2.4-5.1) Magnesium Level 2.5 mg/dL (1.6-2.6) Parathyroid Hormone (Intact) 371.8 pg/mL (18.4-80.1) Test 01/22/25 12:03 01/22/25 04:49 01/21/25 03:52 01/21/25 02:57 Urine Creatinine 90.52 mg/dL (30.0-125.0) Urine Protein/Creatinine Ratio 3.02 Urine Sodium 20 mmol/L (40-220) Urine Total Protein 273.7 mg/dL (1-14) White Blood Count 6.4 10^3/uL (4.4-10.8) Red Blood Count 4.18 10^6/uL (4.5-5.90) Hemoglobin 11.5 g/dL (13.5-17.5) Hematocrit 35.4 % (41.0-53.0) Mean Corpuscular Volume 84.6 fL (80.0-100.0) Mean Corpuscular Hemoglobin 27.5 pg (28.0-32.0) Mean Corpuscular Hemoglobin Concent 32.5 g/dL (32.0-36.0) Red Cell Distribution Width 18.1 % (11.8-14.3) Platelet Count 143 10^3/uL (140-450) Mean Platelet Volume 9.0 fL (6.9-10.8) Neutrophils (%) (Auto) 73.3 % (37.0-80.0) Lymphocytes (%) (Auto) 15.2 % (10.0-50.0) Monocytes (%) (Auto) 9.2 % (0.0-12.0) Eosinophils (%) (Auto) 1.1 % (0.0-7.0) Basophils (%) (Auto) 1.2 % (0.0-2.0) Neutrophils # (Auto) 4.7 10 ^3/uL (1.6-8.6) Lymphocytes # (Auto) 1.0 10 ^3/uL (0.4-5.4) Monocytes # (Auto) 0.6 10 ^3/uL (0-1.3) Eosinophils # (Auto) 0.1 10 ^3/uL (0-0.8) Basophils # (Auto) 0.1 10 ^3/uL (0-0.2) Nucleated Red Blood Cells 0.1 % B-Type Natriuretic Peptide 1427.35 pg/mL (0-100) Prothrombin Time 14.8 sec (9.3-11.8) Prothrombin Time INR 1.45 (0.9-1.15) Activated Partial Thromboplast Time 38.7 SEC (24.5-34.5) Lactic Acid Level 1.4 mmol/L (0.4-2.0) Total Bilirubin 0.6 mg/dL (0.2-1.0) Aspartate Amino Transferase (AST) 25 U/L (<34) Alanine Aminotransferase (ALT) 21 U/L (7-40) Alkaline Phosphatase 98 U/L (46-116) Total Protein 6.6 g/dL (5.7-8.2) Albumin 3.7 g/dL (3.2-4.8) Influenza Type A Antigen Negative (Negative) Influenza Type B Antigen Negative (Negative) SARS-CoV-2 Antigen (Rapid) Negative (NEGATIVE) Test 01/21/25 00:02 01/20/25 23:54 01/20/25 23:53 Urine Color Yellow (Yellow) Urine Clarity Turbid (Clear) Urine pH 7.0 (5.0-9.0) Urine Specific [place] 1.016 (1.001-1.035) Urine Protein 1+ (Negative) Urine Ketones Negative (Negative) Urine Blood 1+ /uL (Negative) Urine Nitrite Negative (Negative) Urine Bilirubin Negative (Negative) Urine Urobilinogen Normal mg/dL (Negative) Urine Leukocyte Esterase 3+ /uL (Negative) Urine RBC 23 /hpf (0 - 3) Urine Microscopic WBC 258 /HPF (0-3) Urine Squamous Epithelial Cells None seen /hpf (<5) Urine Bacteria None seen /hpf (None Seen) Urine Glucose Normal mg/dL (Normal) Ammonia 13 umol/L (11-32) Hemoglobin A1c 6.2 % A1C (<5.7) Troponin I High Sensitivity 26 ng/L (</=54) Vitamin B12 Level 1149 pg/mL (211-911) Folic Acid > 48.00 ng/mL (>5.38) Thyroid Stimulating Hormone (TSH) 3.98 uIU/mL (0.55-4.78) Other Laboratory Tests 01/23/25 07:10 01/22/25 04:49 Brief Hx & Hospital Course: 74-year-old male with past medical history of CHF, AFib, history of pacemaker, CKD stage 4, diabetes mellitus, anemia, BPH, diabetes mellitus presented with complaints of generalized weakness and hallucinations as per past one day. also mentioned about foul smelling urine, patient is currently mentioning of no active complaints but does not remember what happened and why he came to the hospital. He Is Currently on 5 L of oxygen through facial mask. On Presenting to the ED patient was treated with IV fluids and IV antibiotics by the ER physician. Patient has CKDIV and severe CHF with Aortic stenosis (See ECHO report), patient was treated with Merropenem and Bumex. Patient will be transferred to [facility] for continuity of care. Operations or Procedures ORDERING PHYSICIAN: KIRIT IBRAHIM PROCEDURE(s): [facility] - ECHO 2D MODE CARDIAC DOP REASON: HFrEF ORDER NUMBER(s): [id number], ACCESSION NUMBER(s): [id number] APPROVED REPORT EXAM: Two-dimensional and M-mode echocardiogram with Doppler and color Doppler. Blood Pressure: 105/74 mmHg INDICATION HFrEF RISK FACTORS Height: 70, Weight: 160 DIMENSIONS LVDd 5.0 (3.8-5.7cm) LA (2D) 4.5 (1.9-4.0cm) Aortic Root 3.6 (2.0- 3.7cm) LVDs 4.1 (2.5-4.0cm) LA (MM) (1.9-4.0cm) Aortic Cusp Exc 0.5 (1.5- 2.0cm) EF (%) 35.0 (55-70%) Rt. Atrium 5.9 (1.9-4.0cm) Asc. Aorta cm IVSd 1.4 (0.7-1.1cm) RV (D) (1.8-2.4cm) PWd 1.4 (0.7-1.1cm) Mitral Valve Mitral Mitral Stenosis E wave 1.15m/s MV Mean GR. mmHg A wave m/s MV Peak GR. 63mmHg E/A ratio 0.0 2D MVA cm2 Aortic Valve Aortic Valve Aortic Stenosis V1 0.42m/s AO Mean GR. 10mmHg V2 2.13m/s AO Peak GR. 18mmHg LVOT Diameter 2.5 (1.8-2.4cm) Doppler OMID 0.97cm2 Pulmonic Valve V2 0.48m/s Tricuspid Valve TR Velocity 2.72m/s RVSP 46mmHg Other Information Technically limited study due to patient moving. Conclusion Technically good study. Undetermined rhythm. Biatrial enlargement. Biventricular enlargement. Dilation of the aortic root. Moderate mitral annular calcification. There is at least [id number] aortic stenosis with significant calcification of the aortic leaflets. Left ventricular ejection fraction is about 15-20% at best with severe global hypokinesis. There appears to be a low gradient aortic stenosis given poor ejection fraction. This may be under estimated. If clinically indicated suggest dobutamine echocardiogram to determine severity and significance of aortic stenosis. There is severe mitral insufficiency. Severe tricuspid regurgitation. Mild pulmonic insufficiency. There is a large pleural effusion. There appears to be a [id number]-[id number] pericardial effusion. It does not appear to be hemodynamically significant. There was no collapse of the RV or RA noted. There appears to be high venous pressures. Condition at Discharge: Poor Final Diagnosis/Problems List # Sepsis due to UTI vs PNA? - Abx # Acute on Chronic Systolic CHF - Lasix IV # Severe Aortic Stenosis # Pulm HTN # RADHA on CKD4 due to ATN - Nephro Consult - Monitor renal function # Acute Hypoxic Resp Failure - Titrate Oxygen down Discharge Disposition: Acute Care Facility Discharge Instruct/Medications Diet: Cardiac 2g Na,low cholest, Renal Activity: Light activity Follow Up/Referral: [facility] Discharge Statement: "Patient was advised to return to the ER or call 911 if any headaches, dizziness, shortness of breath, chest pain, abdominal pain, bleeding, fevers, or worsening of medical condition. Patient was counseled about treatment plan, medications, possible side effects, patientverbalized understanding. All questions were answered to the best of my ability. This discharge took greater then 30 minutes in planning, reviewing documentation, counseling the patient, and discussing with other team members." ASSESSMENT ASSESSMENT Assessment Date of Service: Jan 23, 2025 Billing Provider: TIA OROZCO MD Common Visit Codes: 28411-GPQ/OBS DISCH DAY >30min TIA OROZCO MD Jan 23, 2025 15:46
[2025-01-24 12:07] LABS: Protein, Body Fluid 2.2 g/dL (.)
== END 2025-01-23 20:07 | disposition short-term general hospital (02) | DRG 871 ==
LOC: EDBD 23:08 → ER 23:08 → OVERFLOW 01-21 03:18 → WEST WING 01-22 17:19
PROVIDERS: ADMIT Internal Medicine; ATTEND Internal Medicine
DX: A41.9 Sepsis, unspecified organism (principal); G93.41 Metabolic encephalopathy; N17.0 Acute kidney failure with tubular necrosis; J96.01 Acute respiratory failure with hypoxia; I50.43 Acute on chronic combined systolic (congestive) and diastolic (congestive) heart failure; J18.9 Pneumonia, unspecified organism; E87.0 Hyperosmolality and hypernatremia; N18.4 Chronic kidney disease, stage 4 (severe); I13.0 Hypertensive heart and chronic kidney disease with heart failure and stage 1 through stage 4 chronic kidney disease, or unspecified chronic kidney disease; N30.01 Acute cystitis with hematuria; Z20.822 Contact with and (suspected) exposure to COVID-19; I27.20 Pulmonary hypertension, unspecified; D63.1 Anemia in chronic kidney disease; D69.6 Thrombocytopenia, unspecified; E11.649 Type 2 diabetes mellitus with hypoglycemia without coma; E11.22 Type 2 diabetes mellitus with diabetic chronic kidney disease; I77.810 Thoracic aortic ectasia; I35.0 Nonrheumatic aortic (valve) stenosis; I07.1 Rheumatic tricuspid insufficiency; I05.0 Rheumatic mitral stenosis; I05.8 Other rheumatic mitral valve diseases; R62.7 Adult failure to thrive; N40.0 Benign prostatic hyperplasia without lower urinary tract symptoms; I48.91 Unspecified atrial fibrillation; E78.5 Hyperlipidemia, unspecified; Z68.23 Body mass index [BMI] 23.0-23.9, adult; I25.2 Old myocardial infarction; Z83.3 Family history of diabetes mellitus; Z95.0 Presence of cardiac pacemaker
CPT/HCPCS: 36415; 70450; 71045; 71101; 73502; 76604; 76775; 76942; 80048; 80053; 81001; 82140; 82570; 82607; 82746; 82962; 83036; 83605; 83735; 83880; 83935; 83970; 83986; 84100; 84156; 84300; 84443; 84484; 85025; 85610; 85730; 87040; 87070; 87081; 87086; 87205; 87426; 87804; 89051; 93005; 93306; 94640; G0378; J1815; J2185; J2405; P9047

== ENCOUNTER 2025-02-13 17:51 | Inpatient (IN) | payer OTHER ==
[~2025-02-13] VITALS: Ht 182.9 cm; Wt 83.6 kg
[~2025-02-13 17:51] MED LIST changes: -AMLO1TAB22 PO; -FURO1TAB31 PO
--- NOTE | 2025-02-13 18:13 | ED.PDOC ---
SOB-HPI HPI Comments HPI: 74 year old male presents to the emergency department via EMS with a chief complaint of shortness of breath onset today (02/13/25). Per EMS, patient is from [facility], has been experiencing shortness of breath with cough, facility was trying to treat patient with a breathing treatment, patient refused, patient also refused to come to ED all morning until now. Patient began dialysis 3 weeks ago, last dialysis was yesterday. Upon EMS arrival, O2 sat was 78% on RA, given breathing treatment in route to ED. Patient states symptoms improved after breathing treatment. No other symptoms or modifying factors present at this time. Patient has history of coronary artery disease. later stated that he had an angiogram done recently and there was occlusion but patient was not a candidate for stents medical management only. She also stated that they stopped his Lasix at the nursing facility/post-acute Care due to some episodes of hypotension. He was recently diagnosed with a UTI in a previous hospitalization and was septic. Initial Vitals BP: 110/69 HR: 65 RR:22 O2: on 6L Temp: Past Medical History: HTN, HLD, RI, A-fib, CHF, CKF, DM Past Surgical History: pacemaker Social History: Denies ETOH, smoking, and drug use. Medications: Allergies: NKDA herrera: HPI: Poor Historian. Past Medical History: Past Surgical History: REVIEW OF SYSTEMS: CONSTITUTIONAL: Denies acute: fever, diaphoresis, chills, generalized weakness. HEAD: Denies acute: headache, photophobia Eyes: Denies acute: Double vision, vision loss, eye pain, eye discharge. EARS: Denies acute: tinnitus, hearing loss, ear discharge, ear pain, THROAT: Denies acute: sore throat, swelling, difficulty swallowing , pain with swallowing, change in voice. NECK: Denies acute: neck pain, neck swelling, stiff neck. HEART: Denies acute : chest pain, palpitations, LUNGS: Denies acute: SOB, wheezing, cough, hemoptysis ABDOMEN: Denies acute: abdominal pain, Nausea, Vomiting, diarrhea, melena , hematemesis, hematochezia SKIN: Denies acute: rash, redness, lesions, itchiness. EXTREMITIES: Denies acute: calf pain, numbness, tingling, weakness, denies pain in extremity. Denies acute: Low back pain. Neuro: Denies acute: focal neurological deficit, motor or sensory focal neurological deficit, tremors, seizure like activity, confusion, dizziness, change in mental status, loss of bowel or bladder function, cauda equina like symptoms. : Denies acute: dysuria, hematuria, flank pain, increase in urinary frequency. PSYCH: Denies acute: hallucination, suicidal ideation, homicidal ideation. FEMALE: Denies acute: abnormal vaginal bleeding, foul odor, unusual discharge. PHYSICAL EXAM: General: --------acute distress, awake and alert. Head: normocephalic, atraumatic. Neck: supple, trachea is midline, no swelling. Throat: Normal phonation. Eyes:, no erythema, no purulent discharge, no proptosis, no icterus. Heart: regular rate, regular rhythm, no significant murmur appreciated. Lungs: no apparent respiratory distress, Able to speak in full sentences. No wheezing, no rhonchi, no crackles. No stridors Clear to auscultation bilaterally. Abdomen: non tender to palpation, non distended, soft, no guarding, no rebound, + bowel sounds. Neuro: Awake, Alert, oriented to name, self, situation, follows commands GCS=15. Speech is normal. Skin: no petechia, no purpura, no cyanosis, non-pale, not jaundice. Lower extremities: --2/4 bilateral- Pitting edema no deformity, no focal swelling, no calf TTP. Makes eye contact. moves all four extremities. Face: no apparent facial droop. ED COURSE: DISCLAIMER: This medical document was created using an electronic medical record system with voice recognition software and computerized dictation system. Although this document has been carefully reviewed, there might still be some phonetic and typographical errors. Occasional wrong-word or "sound-alike" substitutions may have occurred due to the inherent limitations of voice recognition software. These areas are purely typographical due to imperfections of the software programs and do not reflect any compromise in the patient's medical care. Please read the chart carefully and recognize, using context, where these substitutions have occurred. Time Seen by MD: 18:05 Primary Care Provider: UNKNOWN Reviewed notes: Medications, Allergies Information Source: Patient, Emergency Med Personnel Mode of Arrival: EMS Severity: Moderate Timing: Hours Duration: Since onset Context: At Rest PE Risk Factors: None History of: CHF Prehospital treatment: Breathing Tx Modifying Factors: Nothing Associated Signs and Symptoms: Cough Past Medical History PAST MEDICAL HISTORY: AFIB, Anemia, CHF, CKF, DM, High Lipids, HTN, RI Surgical History: Pacemaker Family History Family History: Reviewed,noncontributory to illness Social History Smoker: Non-Smoker Alcohol: Denies ETOH Use Drugs: Denies Drug Use Lives In: Home Was a procedure done? Was a procedure done?: Yes Sedation Sedation?: No Intubation Indication: Respiratory Insufficiency Prep: Preoxygenation Pretreated with: Nothing Medicated with: Nothing Intubation Approach: Orotracheal Intubation size: cm (8) Informed consent obtained: No Risks/benefits/alt described: No Notes Pending post intubation x-ray X-Ray, Labs, Meds, VS Vital Signs Date Time Temp Pulse Resp B/P (MAP) Pulse Ox O2 Delivery O2 Flow Rate FiO2 02/13/25 22:19 65 111/60 02/13/25 22:05 111/60 02/13/25 21:50 73 9 97 Oxymizer 10 N/A 02/13/25 21:50 98.0 70 17 119/74 (89) 96 98.0 02/13/25 19:23 70 02/13/25 18:15 97.3 65 22 110/69 (83) 96 97.3 02/13/25 18:15 22 96 Nasal Cannula* 6 44 Lab Test 02/13/25 22:00 02/13/25 20:49 02/13/25 18:54 02/13/25 18:40 Range/Units Troponin I High Sensitivity 174 *H 162 *H 122 *H </=54 ng/L POC Glucose 106 70-106 mg/dl White Blood Count 6.4 4.4-10.8 10^3/uL Red Blood Count 4.01 L 4.5-5.90 10^6/uL Hemoglobin 11.0 L 13.5-17.5 g/dL Hematocrit 33.6 L 41.0-53.0 % Mean Corpuscular Volume 83.8 80.0-100.0 fL Mean Corpuscular Hemoglobin 27.4 L 28.0-32.0 pg Mean Corpuscular Hemoglobin Concent 32.7 32.0-36.0 g/dL Red Cell Distribution Width 17.4 H 11.8-14.3 % Platelet Count 177 140-450 10^3/uL Mean Platelet Volume 8.6 6.9-10.8 fL Neutrophils (%) (Auto) 78.1 37.0-80.0 % Lymphocytes (%) (Auto) 14.2 10.0-50.0 % Monocytes (%) (Auto) 6.9 0.0-12.0 % Eosinophils (%) (Auto) 0.5 0.0-7.0 % Basophils (%) (Auto) 0.3 0.0-2.0 % Neutrophils # (Auto) 5.0 1.6-8.6 10 ^3/uL Lymphocytes # (Auto) 0.9 0.4-5.4 10 ^3/uL Monocytes # (Auto) 0.4 0-1.3 10 ^3/uL Eosinophils # (Auto) 0 0-0.8 10 ^3/uL Basophils # (Auto) 0 0-0.2 10 ^3/uL Nucleated Red Blood Cells 0.1 % Sodium Level 136 136-145 mmol/L Potassium Level 3.7 3.5-5.1 mmol/L Chloride Level 95 L 98-107 mmol/L Carbon Dioxide Level 32 H 20-31 mmol/L Anion Gap 9 5-15 Blood Urea Nitrogen 22 9-23 mg/dL Creatinine 2.30 H 0.700-1.30 mg/dL Glomerular Filtration Rate Calc 29 >90 mL/min BUN/Creatinine Ratio 9.6 L 10.0-20.0 Serum Glucose 105 74-106 mg/dL Lactic Acid Level 1.9 0.4-2.0 mmol/L Calcium Level 9.1 8.7-10.4 mg/dL Magnesium Level 2.0 1.6-2.6 mg/dL Total Bilirubin 0.6 0.2-1.0 mg/dL Aspartate Amino Transferase (AST) 24 13-40 U/L Alanine Aminotransferase (ALT) 16 7-40 U/L Alkaline Phosphatase 104 46-116 U/L B-Type Natriuretic Peptide 4393.98 0-100 pg/mL Total Protein 6.2 5.7-8.2 g/dL Albumin 3.5 3.2-4.8 g/dL Current Medications Medications (Trade) Dose Ordered Sig/Mario Route Start Time Stop Time Status Last Admin Albuterol (Ventolin Medneb) 2.5 mg ONCE ONCE NEB 02/13/25 18:30 02/13/25 18:31 DC 02/13/25 20:03 Ipratropium [place] (Atrovent Medneb) 1 mg ONCE ONCE NEB 02/13/25 18:30 02/13/25 18:31 DC 02/13/25 20:03 Methylprednisolone Sodium Succinate (Solu Medrol) 125 mg ONCE ONCE IV 02/13/25 18:30 02/13/25 18:31 DC 02/13/25 22:02 Aspirin 325 mg ONCE ONCE PO 02/13/25 19:30 02/13/25 19:31 DC 02/13/25 22:06 Furosemide (Lasix Injection) 60 mg ONCE ONCE IV 02/13/25 20:00 02/13/25 20:04 DC 02/13/25 22:05 Piperacillin Sod/ Tazobactam Sod 100 ml @ 100 mls/hr ONCE ONCE IV 02/13/25 20:30 02/13/25 21:29 DC 02/13/25 22:14 Carvedilol (Coreg Tablet) 3.125 mg Q12HR PO 02/13/25 22:00 02/13/25 22:19 Sodium Chloride (Saline Lock Ns) 10 ml Q8HR IV 02/13/25 22:00 02/13/25 22:14 Atorvastatin Calcium (Lipitor) 20 mg HS PO 02/13/25 22:00 02/13/25 22:18 [place] [address] Ph: [phone] DIAGNOSTIC IMAGING Diagnostic Imaging Report : [id number] Signed PATIENT: LISA HERRERAACCT: [id number] UNIT: [id number] : 1950 LOC: ER ROOM / BED: / AGE / SEX: 74 / M ADM STATUS: REG ER SERVICE 16 ORDERING PHYSICIAN: JESSICA MILLAN DO PROCEDURE(s): CXRP - CHEST PORTABLE REASON: SOB ORDER NUMBER(s): [id number], ACCESSION NUMBER(s): [id number] CHEST RADIOGRAPH Indication: SOB Technique: Single frontal view of the chest was obtained Comparison: XY CHEST PORTABLE on DOS: 01/23/25, XY CHEST PORTABLE on DOS: 01/22/25, XY CHEST XRAY 1 VIEW on DOS: 01/21/25 FINDINGS: Lines and Tubes: Dual-chamber pacemaker in place with the pulse generator over the left chest. Internal jugular catheter place from the right with the tip in the right atrium. Lungs: No focal consolidation. Pleura: Bilateral pleural effusions No pneumothorax. Cardiomediastinal contours: Cardiomegaly Bones: No acute osseous abnormality. IMPRESSION: 1. Cardiomegaly with bilateral pulmonary airspace disease and pleural effusions. Findings may represent congestive failure or pneumonia. Correlate with the clinical setting. 2. Hemodialysis catheter in place from a right internal jugular vein. 3. Dual-chamber pacemaker in place with pulse generator over the left chest. ATED BY: GERMÁN CALVILLO Jr., DO DICTATED DATE/TIME: 02/13/252013 SIGNED BY: GERMÁN CALVILLO Jr., SIGNED DATE/TIME: 02/13/252013 CC: Time of 1ST Reevaluation: 20:49 (The case was discussed with the [facility] admitting team (HPI, physical exam, labs and diagnostic tests that were available at the time of disposition, ED course, treatment plan) on the phone. They authorized us to admit the patient to our service for further evaluation and treatment. Dr. Melendez. Authorization number is--authorization #[id number]) Reevaluation 1ST: Unchanged Time of 2ND Reevaluation: 00:51 (I was informed that the patient was unresponsive and code blue was initiated. I went and checked on the patient and CPR was in progress already by the nursing staff. Patient is being bag-valve mask.. Patient had no palpable pulse. Patient was intubated successfully with 1st attempt by a GlideScope. Patient was given epinephrine, calcium, Solu- Cortef, atropine because he is on carvedilol,Patient obtained ROSC. EPINEPHRINE DRIP WAS INITIATED.Bedside ultrasound was performed to evaluate cardiac window. There was some mild pericardial effusion noted. Patient has chronic atrial fibrillation rate controlled.I called the family on the phone and spoke with the daughter as well in a conference call. I updated them of the patient's critical condition. The stated that the patient code status is do not intubate. We were never informed of this during this ED encounter. stated this was the patient's code status in previous admissions. However we did not have access to this information during this critical time. However patient condition and code status changes from time to time. I informed the patient's why we needed to intubate the patient because the alternative is that someone will be bagging all night long to supply oxygen efficiently to the patient.Medicine team was made aware of the patient condition. They will assume care from this point forward and discuss further care and management with the family when they arrived to the ED shortly.Pupils are not reactive to light and 5 mm in diameter bilaterally. No corneal reflex.Still awaiting post intubation chest x-ray.) Patient Education/Counseling: Diagnosis, Treatment Family Education/Counseling: Diagnosis, Treatment Departure 1 Departure Time of Disposition: 19:49 Impression: Primary Impression: CHF exacerbation Additional Impressions: Hypoxemia Elevated troponin Acute respiratory failure Pneumonia Pleural effusion Cardiopulmonary arrest Disposition: ADMITTED INPATIENT Admit to: [facility] Condition: Guarded Discharged With: Self Critical Care Note Critical Care Time?: No I personally scribed for JESSICA MILLAN J DO ([email or web address]) on 02/13/25 at 18:13. Electronically submitted by Karen Hilliard ([email or web address]). I personally scribed for YNAA,JESSICA J DO ([email or web address]) on 02/13/25 at 18:26. Electronically submitted by Karen Hilliard ([email or web address]). I personally scribed for YANA,JESSICA J DO ([email or web address]) on 02/13/25 at 19:22. Electronically submitted by Karen Hilliard ([email or web address]). I personally scribed for YANA,JESSICA J DO ([email or web address]) on 02/13/25 at 20:23. Electronically submitted by Karen Hilliard ([email or web address]). I personally scribed for YANA,JESSICA J DO ([email or web address]) on 02/14/25 at 01:08. Electronically submitted by Haile Burton ([email or web address]). YANA,JESSICA J DO Feb 13, 2025 18:13
[2025-02-13 19:00] LABS: Nucleated Red Blood Cells % 0.1 %
[2025-02-13 19:02] LABS: Hematocrit 33.6 % (41.0-53.0); Hemoglobin 11.0 g/dL (13.5-17.5); Mean Corpuscular Hemoglobin 27.4 pg (28.0-32.0); Mean Corpuscular Volume 83.8 fL (80.0-100.0)
[2025-02-13 19:18] LABS: Alanine Aminotransferase 16 U/L (7-40); Albumin 3.5 g/dL (3.2-4.8); Alkaline Phosphatase 104 U/L (46-116); Anion Gap 9 (5-15); BUN/Creatinine Ratio 9.6 (10.0-20.0); Blood Urea Nitrogen 22 mg/dL (9-23); Calcium 9.1 mg/dL (8.7-10.4); Glucose 105 mg/dL (74-106); Magnesium 2.0 mg/dL (1.6-2.6); Potassium 3.7 mmol/L (3.5-5.1); Total Protein 6.2 g/dL (5.7-8.2)
[2025-02-13 19:19] LABS: Bilirubin, Total 0.6 mg/dL (0.2-1.0); Carbon Dioxide 32 mmol/L (20-31); Chloride 95 mmol/L (98-107); Sodium 136 mmol/L (136-145)
[2025-02-13] MEDS: IPRATROPIUM BROM 0.5 MG/2.5ML INH SOL NEB ONE (20:03)
[2025-02-13] MEDS: ALBUTEROL SULF 2.5 MG/0.5ML(0.5%) NEB SOLN NEB ONE (20:03)
--- NOTE | 2025-02-13 20:17 | DVH ---
CHEST RADIOGRAPH Indication: SOB Technique: Single frontal view of the chest was obtained Comparison: XY CHEST PORTABLE on DOS: 01/23/25, XY CHEST PORTABLE on DOS: 01/22/25, XY CHEST XRAY 1 VIE W on DOS: 01/21/25 FINDINGS: Lines and Tubes: Dual-chamber pacemaker in place with the pulse generator over the left chest. Inter nal jugular catheter place from the right with the tip in the right atrium. Lungs: No focal consolidation. Pleura: Bilateral pleural effusions No pneumothorax. Cardiomediastinal contours: Cardiomegaly Bones: No acute osseous abnormality. IMPRESSION: 1. Cardiomegaly with bilateral pulmonary airspace disease and pleural effusions. Findings may represe nt congestive failure or pneumonia. Correlate with the clinical setting. 2. Hemodialysis catheter in place from a right internal jugular vein. 3. Dual-chamber pacemaker in place with pulse generator over the left chest.
[2025-02-13] MEDS ORDERED: ALBUTEROL SULF 2.5 MG/0.5ML(0.5%) NEB SOLN NEB PRN (21:45)
[2025-02-13] MEDS ORDERED: ACETAMINOPHEN 325 MG TAB PO PRN (21:45)
[2025-02-13] MEDS ORDERED: HYDROcodone-ACET 5/325MG TAB PO PRN (21:45)
[2025-02-13] MEDS ORDERED: IPRATROPIUM BROM 0.5 MG/2.5ML INH SOL NEB PRN (21:45)
[2025-02-13] MEDS ORDERED: ONDANSETRON HCL 4 MG/2 ML VIAL IV PRN (21:45)
[2025-02-13] MEDS ORDERED: DOCUSATE SOD 100 MG CAP PO PRN (21:45)
[2025-02-13 21:50] VITALS: PULSE 73; RESP 9; O2SAT 97
[2025-02-13] MEDS: methylPREDNISolone SOD SUCC 40 MG/ML VL IV SCH (22:00)
[2025-02-13] MEDS: methylPREDNISolone SOD SUCC 125 MG/2 ML VL IV ONE (22:02)
[2025-02-13] MEDS: FUROSEMIDE 100 MG/10ML VIAL IV ONE (22:05)
[2025-02-13] MEDS: SODIUM CHLOR 0.9% PF (SALINE LOCK) 10ML VIAL/SYR IV SCH (22:14)
[2025-02-13] MEDS: PIPERACILLIN-TAZOB 3.375GM 100 ML IV ONE (22:14)
[2025-02-13] MEDS: ATORVASTATIN 20 MG TAB PO SCH (22:18)
[2025-02-13] MEDS: CARVEDILOL 3.125 MG TAB PO SCH (22:19)
--- NOTE | 2025-02-13 22:23 | DVHHP2 ---
History of Present Illness Reason for Visit: Acute exacerbation of congestive heart failure History of Present Illness The patient is a 74-year-old male with past medical history of hypertension, MO, hyperlipidemia, AFib, CHF, end-stage renal disease on hemodialysis began three weeks ago, last dialysis was yesterday, and diabetes mellitus who presented to [facility] from [facility] with complaint of shortness of breaths. Patient reports he has been experiencing shortness of breaths with cough, facility was trying to treat patient with breathing susan tment, patient refused, also refused to come to ED all morning until now. Patient's symptoms progressively get worse with hypoxia, O2 saturation at 78% and was placed on oxygen 2 L/min via nasal cannula, O2 saturation improved to 96%. Patient was seen and evaluated in the ED, laboratory data shows WBC 6.4, platelets 177, sodium 136, potassium 3.7, BUN 22, creatinine 2.30, glucose 105, calcium 9.1, troponin 122, BNP 4393.98, blood pressure 110/69, heart rate 70, temperature 97.6 F, O2 saturation 96% on oxygen. Chest x-ray revealing cardiomegaly with bilateral pulmonary airspace disease and pleural effusions; finding may represent congestive failure or pneumonia; dual-chamber pacemaker in place with pulse generator over the left chest. However, patient's condition progressively get worse with hypoxia, increased work of breathing despite use of oxygen, and subsequently intubated. Please see medication orders section in the computer. On my assessment, patient remains fully intubated, family at bedside, no diaphoresis, no vomiting, no fever, no chills. Patient was admitted for further evaluation and medical management. Past Medical History HTN, HLD, MO, A-fib, CHF, CKF, DM Past Surgical History Pacemaker Family History Reviewed, noncontributory to the management of this case. Past Social History The patient lives at home, denies smoking, alcohol or illicit drugs abuse. Review of Systems Constitutional: Yes: Weakness, Other (Fatigue); No: Fever, Chills, Sweats, Malaise Eyes: No: Pain, Vision change, Conjunctivae inflammation, Eyelid inflammation, Other, Redness ENT: No: Ear pain, Ear discharge, Nose pain, Nose discharge, Nose congestion, Mouth pain, Mouth swelling, Throat pain, Throat swelling, Other Respiratory: No: Cough, Dry, Shortness of breath, SOB with excertion, Wheezing, Hemoptysis, Pleuritic Pain, Sputum, Wheezing, Other Cardiovascular: Other (PermCath right upper chest); No: Chest Pain, Palpitations, Orthopnea, Paroxysmal Noc. Dyspnea, Edema, Lt Headedness Gastrointestinal: No: Nausea, Vomiting, Abdominal Pain, Diarrhea, Constipation, Melena, Hematochezia, Other Genitourinary: No Dysuria, No Frequency, No Incontinence, No Hematuria, No Retention; Other (On hemodialysis) Musculoskeletal: No: other, neck pain, shoulder pain, arm pain, back pain, hand pain, leg pain, foot pain Skin: No: Rash, Lesions, Jaundice, Bruising, Other Neurological: Weakness; No: Numbness, Incoordination, Change in speech, Confusion, Seizures, Other Allergies: Coded Allergies: Metformin (Verified Allergy, Unknown, 02/13/25) NSAIDs (Verified Allergy, Unknown, 02/13/25) Uncoded Allergies: TAPE (Allergy, Unknown, 02/13/25) Medications Current Medications Medications Dose Ordered Sig/Mario Route Start Time Stop Time Status Last Admin Dose Admin Aspirin 81 mg DAILY PO 02/14/25 10:00 Methylprednisolone Sodium Succinate 40 mg Q8HR IV 02/13/25 22:00 Famotidine 20 mg DAILY IV 02/14/25 10:00 Furosemide 40 mg DAILY IV 02/14/25 10:00 Azithromycin 250 ml @ 125 mls/hr DAILY IV 02/14/25 10:00 Albuterol 2.5 mg Q4HPRN PRN NEB 02/13/25 21:45 Ipratropium [place] 0.5 mg Q4HPRN PRN NEB 02/13/25 21:45 Tamsulosin HCl 0.4 mg QPM PO 02/14/25 18:00 Multivit/Ca Carb/ B Cmplx/FA/Prenat 1 tab DAILY PO 02/14/25 10:00 Sevelamer HCl 800 mg TIDWM PO 02/14/25 08:00 Carvedilol 3.125 mg Q12HR PO 02/13/25 22:00 02/13/25 22:19 3.125 MG Sodium Chloride 10 ml Q8HR IV 02/13/25 22:00 02/13/25 22:14 10 ML Acetaminophen/ Hydrocodone Bitart 1 tab Q4HP PRN PO 02/13/25 21:45 Ondansetron HCl 4 mg Q4HP PRN IV 02/13/25 21:45 Docusate Sodium 100 mg BIDPRN PRN PO 02/13/25 21:45 Acetaminophen 650 mg Q6HP PRN PO 02/13/25 21:45 Atorvastatin Calcium 20 mg HS PO 02/13/25 22:00 02/13/25 22:18 20 MG Exam Vital Signs Vital Signs Date Time Temp Pulse Resp B/P (MAP) Pulse Ox O2 Delivery O2 Flow Rate FiO2 02/13/25 22:19 65 111/60 02/13/25 18:15 97.3 22 96 97.3 02/13/25 18:15 Nasal Cannula* 6 44 General Appearance: Alert, Oriented X3, Cooperative, No acute distress HEENT: Atraumatic, PERRLA, EOMI, Mucous membr. moist/pink Respiratory: Normal air movement, Other (Diminished breath sounds) Cardiovascular: Regular rate, Normal S1, Normal S2, No murmurs Abdominal: Normal bowel sounds, Soft, No tenderness, No hepatospenomegaly, No masses Extremities: No clubbing, No cyanosis, No edema, Normal pulses, No tenderness/s welling Skin: No rashes, No significant lesion Neuro: Normal speech, Normal tone, Sensation intact, Cranial nerves 3-12 NL, Reflexes 2+, Other (Generalized weakness) Psych/Mental Status: Mental status NL, Mood NL Labs/Xrays Labs Test 02/13/25 22:00 02/13/25 18:54 02/13/25 18:40 Range/Units POC Glucose 106 70-106 mg/dl White Blood Count 6.4 4.4-10.8 10^3/uL Red Blood Count 4.01 L 4.5-5.90 10^6/uL Hemoglobin 11.0 L 13.5-17.5 g/dL Hematocrit 33.6 L 41.0-53.0 % Mean Corpuscular Volume 83.8 80.0-100.0 fL Mean Corpuscular Hemoglobin 27.4 L 28.0-32.0 pg Mean Corpuscular Hemoglobin Concent 32.7 32.0-36.0 g/dL Red Cell Distribution Width 17.4 H 11.8-14.3 % Platelet Count 177 140-450 10^3/uL Mean Platelet Volume 8.6 6.9-10.8 fL Neutrophils (%) (Auto) 78.1 37.0-80.0 % Lymphocytes (%) (Auto) 14.2 10.0-50.0 % Monocytes (%) (Auto) 6.9 0.0-12.0 % Eosinophils (%) (Auto) 0.5 0.0-7.0 % Basophils (%) (Auto) 0.3 0.0-2.0 % Neutrophils # (Auto) 5.0 1.6-8.6 10 ^3/uL Lymphocytes # (Auto) 0.9 0.4-5.4 10 ^3/uL Monocytes # (Auto) 0.4 0-1.3 10 ^3/uL Eosinophils # (Auto) 0 0-0.8 10 ^3/uL Basophils # (Auto) 0 0-0.2 10 ^3/uL Nucleated Red Blood Cells 0.1 % Sodium Level 136 136-145 mmol/L Potassium Level 3.7 3.5-5.1 mmol/L Chloride Level 95 L 98-107 mmol/L Carbon Dioxide Level 32 H 20-31 mmol/L Anion Gap 9 5-15 Blood Urea Nitrogen 22 9-23 mg/dL Creatinine 2.30 H 0.700-1.30 mg/dL Glomerular Filtration Rate Calc 29 >90 mL/min BUN/Creatinine Ratio 9.6 L 10.0-20.0 Serum Glucose 105 74-106 mg/dL Lactic Acid Level 1.9 0.4-2.0 mmol/L Calcium Level 9.1 8.7-10.4 mg/dL Magnesium Level 2.0 1.6-2.6 mg/dL Total Bilirubin 0.6 0.2-1.0 mg/dL Aspartate Amino Transferase (AST) 24 13-40 U/L Alanine Aminotransferase (ALT) 16 7-40 U/L Alkaline Phosphatase 104 46-116 U/L B-Type Natriuretic Peptide 4393.98 0-100 pg/mL Total Protein 6.2 5.7-8.2 g/dL Albumin 3.5 3.2-4.8 g/dL PATIENT: LISA HERRERAACCT: [id number] UNIT: [id number] : 1950 LOC: ER ROOM / BED: / AGE / SEX: 74 / M ADM STATUS: REG ER SERVICE 1817 ORDERING PHYSICIAN: JESSICA MILLAN DO PROCEDURE(s): CXRP - CHEST PORTABLE REASON: SOB ORDER NUMBER(s): [id number], ACCESSION NUMBER(s): [id number] CHEST RADIOGRAPH Indication: SOB Technique: Single frontal view of the chest was obtained Comparison: XY CHEST PORTABLE on DOS: 01/23/25, XY CHEST PORTABLE on DOS: 01/22/25, XY CHEST XRAY 1 VIEW on DOS: 01/21/25 FINDINGS: Lines and Tubes: Dual-chamber pacemaker in place with the pulse generator over the left chest. Internal jugular catheter place from the right with the tip in the right atrium. Lungs: No focal consolidation. Pleura: Bilateral pleural effusions No pneumothorax. Cardiomediastinal contours: Cardiomegaly Bones: No acute osseous abnormality. IMPRESSION: 1. Cardiomegaly with bilateral pulmonary airspace disease and pleural effusions. Findings may represent congestive failure or pneumonia. Correlate with the clinical setting. 2. Hemodialysis catheter in place from a right internal jugular vein. 3. Dual-chamber pacemaker in place with pulse generator over the left chest. ORDERING PHYSICIAN: JESSICA MILLAN DO PROCEDURE(s): CXRP - CHEST PORTABLE REASON: POST INTUBATION ORDER NUMBER(s): [id number], ACCESSION NUMBER(s): [id number] CHEST RADIOGRAPH Indication: POST INTUBATION Technique: Single frontal view of the chest was obtained COMPARISON: XY CHEST PORTABLE on DOS: 02/13/25, XY CHEST PORTABLE on DOS: 01/23/25, XY CHEST PORTABLE on DOS: 01/22/25, XY CHEST XRAY 1 VIEW on DOS: 01/21/25, XY CHEST PORTABLE on DOS: 10/25/24 FINDINGS: Lines and Tubes: Status post interval intubation. The endotracheal tube tip projects approximately 5.3 cm above the level of the guilherme. Right PermCath unchanged. Lungs: Improved visualization of the left lung with concomitant decrease in diffuse opacification. Persistent right pulmonary airspace disease and bilateral pleural effusions. No pneumothorax. Cardiomediastinal contours: Cardiomegaly. Bones: Unremarkable IMPRESSION: 1. Status post interval intubation with endotracheal tube projecting approximately 5.3 cm above the level of the guilherme. Right permCath. 2. Interval decrease in left hemithoracic opacification with persistent bilateral pulmonary airspace disease and pleural effusions. 3. Cardiomegaly. SEPSIS Sepsis Screen Date sepsis recognized/suspect: Feb 13, 2025 Time Sepsis recognized/suspect: 1814 Recent Procedure: No On Antibiotic Therapy: No Respiratory Rate >20: Yes Heart Rate >90: No Temp<36 C (96.8 F) or >38.3 C: No SBP <90 or MAP <65 mmHG: No New Acute Mental Status Change: No Is the patient on CPAP, BIPAP,: No Physician Orders Magnetic Locater (02/13/25 ) Urinalysis (02/13/25 18:17) Chest Portable (02/13/25 18:17) Electrocardigram (02/13/25 18:17) Troponin-I Hs (02/13/25 21:17) Electrocardigram (02/13/25 19:17) Electrocardigram (02/13/25 21:17) Aspirin Tablet (02/14/25 10:00) Methylprednisolone Sod Succ (Solu Medrol (02/13/25 22:00) Furosemide Injection (Lasix Injection) (02/14/25 10:00) Azithromycin 500mg/ 250ml (Zithromax 50 (02/14/25 10:00) Consistent Carb(Ccho)Diabetes (02/14/25 Breakfast) Albuterol Medneb (Ventolin Medneb) (02/13/25 21:45) Ipratropium Medneb (Atrovent Medneb) (02/13/25 21:45) Tamsulosin Hydrochloride (Flomax) (02/14/25 18:00) B-Complex W/ C & Folic Tablet (Nephro-Vi (02/14/25 10:00) Sevelamer (Renagel) (02/14/25 08:00) Carvedilol Tablet (Coreg Tablet) (02/13/25 22:00) Allergies (02/13/25 21:36) Code Status (02/13/25 21:36) Sodium Chloride Lock (Saline Lock Ns) (02/13/25 22:00) Oxygen Per Hour (02/13/25 21:36) Hydrocodone-Acet 5/325mg Tab ([place] 5/32 (02/13/25 21:45) Ondansetron Hcl (Zofran) (02/13/25 21:45) Docusate Sodium Capsule (Colace Capsule) (02/13/25 21:45) Complete Blood Count (02/14/25 04:00) Comprehensive Metabolic Panel (02/14/25 04:00) Condition: Serious (02/13/25 21:36) Acetaminophen Tablet (Tylenol Tablet) (02/13/25 21:45) Bedrest With Bathroom Privileg (02/13/25 21:36) Sequential Compression Device (02/13/25 ) Atorvastatin (Lipitor) (02/13/25 22:00) Famotidine Injection (Pepcid Injection) (02/14/25 10:00) Admit (02/13/25 22:22) Nitroglycerin Sublingual (Ntrostat Subli (02/13/25 22:30) Morphine Sulfate Injection (02/13/25 22:30) Stat Ekg For Chest Pain (02/13/25 22:22) Notify Md Of Changes From Base (02/13/25 22:22) Core Laying Machine Operator For 24 Hours (02/13/25 22:22) Emergency Dysrhythmia Protocol (02/13/25 22:22) Rhythm Strips Once Every Shift (02/13/25 22:22) Oxygen By Nasal Cannula (02/13/25 22:22) Vital Signs Date Time Temp Pulse Resp B/P (MAP) Pulse Ox O2 Delivery O2 Flow Rate FiO2 02/13/25 22:19 65 111/60 02/13/25 22:05 111/60 02/13/25 19:23 70 02/13/25 18:15 97.3 65 22 110/69 (83) 96 97.3 02/13/25 18:15 22 96 Nasal Cannula* 6 44 Laboratory Tests Test 02/13/25 18:40 Lactic Acid Level 1.9 mmol/L (0.4-2.0) White Blood Count 6.4 10^3/uL (4.4-10.8) Medications Medications Dose Ordered Sig/Mario Route Start Time Stop Time Status Last Admin Dose Admin Albuterol 2.5 mg ONCE ONCE NEB 02/13/25 18:30 02/13/25 18:31 DC 02/13/25 20:03 2.5 MG Aspirin 325 mg ONCE ONCE PO 02/13/25 19:30 02/13/25 19:31 DC 02/13/25 22:06 325 MG Atorvastatin Calcium 20 mg HS PO 02/13/25 22:00 02/13/25 22:18 20 MG Carvedilol 3.125 mg Q12HR PO 02/13/25 22:00 02/13/25 22:19 3.125 MG Furosemide 60 mg ONCE ONCE IV 02/13/25 20:00 02/13/25 20:04 DC 02/13/25 22:05 60 MG Ipratropium [place] 1 mg ONCE ONCE NEB 02/13/25 18:30 02/13/25 18:31 DC 02/13/25 20:03 1 MG Methylprednisolone Sodium Succinate 125 mg ONCE ONCE IV 02/13/25 18:30 02/13/25 18:31 DC 02/13/25 22:02 125 MG Piperacillin Sod/ Tazobactam Sod 100 ml @ 100 mls/hr ONCE ONCE IV 02/13/25 20:30 02/13/25 21:29 DC 02/13/25 22:14 100 MLS/HR Sodium Chloride 10 ml Q8HR IV 02/13/25 22:00 02/13/25 22:14 10 ML Assessment/Plan Assessment/Plan Acute exacerbation of congestive heart failure Pleural effusion Cardiopulmonary arrest Hypoxemia End-stage renal disease on hemodialysis Elevated troponin Acute respiratory failure Pneumonia, unspecified organism Generalized weakness Plan 1. Admit to intensive care unit 2. Breathing treatment 3. Pain control management 4. IV antibiotic management 5. Management of fluids and electrolytes 6. Consultation for Nephrology/pharmacist hospital/cardiology 7. Diagnostic test chest x-ray 8. DVT prophylaxis-on aspirin 9. Repeat labs CBC, CMP in a.m. 10. Home medication reviewed and reconciled 11. Continue with current medical management 12. Treatment plan discussed with patient/family member and RN. Family member verbalized understanding.. Plan discussed with: Patient, Spouse ( at bedside), Other (RN) My Orders Orders - MILAD BOSTON DNP Procedure Category Date Status Time Aspirin Tablet PHA 02/14/25 In Process 10:00 Methylprednisolone PHA 02/13/25 In Process Sod Succ (Solu Medrol 22:00 Furosemide Injection PHA 02/14/25 In Process (Lasix Injection) 10:00 Azithromycin 500mg/ PHA 02/14/25 In Process 250ml (Zithromax 50 10:00 Consistent DIET 02/14/25 Transmitted Carb(Ccho)Diabetes Breakfast Albuterol Medneb PHA 02/13/25 In Process (Ventolin Medneb) 21:45 Ipratropium Medneb PHA 02/13/25 In Process (Atrovent Medneb) 21:45 Tamsulosin PHA 02/14/25 In Process Hydrochloride (Flomax) 18:00 B-Complex W/ C & PHA 02/14/25 In Process Folic Tablet 10:00 Sevelamer (Renagel) PHA 02/14/25 In Process 08:00 Carvedilol Tablet PHA 02/13/25 In Process (Coreg Tablet) 22:00 Allergies [place]ONCIO 02/13/25 In Process 21:36 Code Status CODE 02/13/25 Transmitted 21:36 Sodium Chloride Lock PHA 02/13/25 In Process (Saline Lock Ns) 22:00 Oxygen Per Hour RT 02/13/25 Transmitted 21:36 Hydrocodone-Acet PHA 02/13/25 In Process 5/325mg Tab ([place] 21:45 Ondansetron Hcl PHA 02/13/25 In Process (Zofran) 21:45 Docusate Sodium PHA 02/13/25 In Process Capsule (Colace 21:45 Complete Blood Count LAB 02/14/25 Verified 04:00 Comprehensive LAB 02/14/25 Verified Metabolic Panel 04:00 Condition: Serious LEONCIO 02/13/25 In Process 21:36 Acetaminophen Tablet PHA 02/13/25 In Process (Tylenol Tablet) 21:45 Bedrest With Bathroom [place]CIO 02/13/25 In Process Privileg 21:36 Sequential [place]CIO 02/13/25 In Process Compression Device Atorvastatin (Lipitor) PHA 02/13/25 In Process 22:00 Famotidine Injection PHA 02/14/25 In Process (Pepcid Injection) 10:00 Admit ADMIT 02/13/25 Verified 22:22 Nitroglycerin PHA 02/13/25 Verified Sublingual (Ntrostat 22:30 Morphine Sulfate PHA 02/13/25 Verified Injection 22:30 Stat Ekg For Chest [facility] 02/13/25 Verified Pain 22:22 Notify Of Changes [facility] 02/13/25 Verified From Base 22:22 Core Laying Machine Operator For [facility] 02/13/25 Verified 24 Hours 22:[address] [facility] 02/13/25 Verified Protocol 22:22 R[address] [facility] 02/13/25 Verified Every Shift 22:22 Oxygen By Nasal RT 02/13/25 Verified Cannula 22:22 Problem List: (1) Acute exacerbation of congestive heart failure (2) Elevated troponin (3) Pleural effusion (4) Hypoxemia (5) Acute respiratory failure (6) Cardiopulmonary arrest (7) Pneumonia, unspecified organism (8) Generalized weakness (9) End-stage renal disease on hemodialysis Date of Service: Feb 13, 2025 Billing Provider: MILAD BOSTON DNP Common Visit Codes: [id number] INP/OBS CARE (HIGH) MILAD BOSTON DNP Feb 13, 2025 22:23
[2025-02-13] MEDS ORDERED: MORPHINE SULFATE INJ 2 MG/ml SYRG IV PRN (22:30)
[2025-02-13] MEDS ORDERED: NITROGLYCERIN 0.4 MG SL TAB SL PRN (22:30)
[2025-02-13 22:53] VITALS: BP 111/60; PULSE 65; RESP 22; O2SAT 95
[2025-02-14] VITALS (57 sets, daily range): BP systolic 91–131; BP diastolic 55–82; PULSE 63–105; RESP 0–24; TEMP 84.6–98.2; O2SAT 80–100
[2025-02-14] MEDS: HYDROCORTISONE SOD SUCC 100 MG/2ML INJ VIAL ONE (00:06)
[2025-02-14] MEDS: EPINEPHrine HCL 250 ML IV ONE ×2 (00:10→05:32)
--- NOTE | 2025-02-14 01:51 | DVH ---
CHEST RADIOGRAPH Indication: POST INTUBATION Technique: Single frontal view of the chest was obtained COMPARISON: XY CHEST PORTABLE on DOS: 02/13/25, XY CHEST PORTABLE on DOS: 01/23/25, XY CHEST PORTABLE o n DOS: 01/22/25, XY CHEST XRAY 1 VIEW on DOS: 01/21/25, XY CHEST PORTABLE on DOS: 10/25/24 FINDINGS: Lines and Tubes: Status post interval intubation. The endotracheal tube tip projects approximately 5 .3 cm above the level of the guilherme. Right PermCath unchanged. Lungs: Improved visualization of the left lung with concomitant decrease in diffuse opacification. P ersistent right pulmonary airspace disease and bilateral pleural effusions. No pneumothorax. Cardiomediastinal contours: Cardiomegaly. Bones: Unremarkable IMPRESSION: 1. Status post interval intubation with endotracheal tube projecting approximately 5.3 cm above the l evel of the guilherme. Right permCath. 2. Interval decrease in left hemithoracic opacification with persistent bilateral pulmonary airspace disease and pleural effusions. 3. Cardiomegaly.
--- NOTE | 2025-02-14 04:03 | RESUS ---
FLORES FUCHS ASSESSSMENT History of Events History of Events: Primary RN went to assess pt when pt was found to be unresponsive and pulseless. CPR initiated and FLORES FUCHS called. Initial Information Date: Feb 13, 2025 Time: :49 Location of Arrest: ER Arrest Witnessed: No CPR started initial time: 23:49 CPR started by whom: Hospital Staff Pre-Hospital Care: Pre-Code Care (inpatient) Type of arrest: Cardiac, Respiratory, Adult, Unwitnessed Spontaneous Respirations: No Pulse Present: No Monitoring: ECG, Pulse Oximetry, Telemetry Crash Cart Opened and Supplies: Yes Airway Ventilation Breathing at Onset: Assisted Oxygen Delivery Method: Ambu-Bag Time of first Assisted Ventila: 23:49 Artificial Ventilation: Bag/Mask Intubation Time: 23:57 Intubation Size: 8.0 cuffed Intubated by: Dr Martinez Intubation Attempts: 1 Intubated orally: Yes Intubated Nasaly: No Tube secured at: 24 (cm @ lip) Cricoid pressure done: Yes CO2 indicator used: Yes Confirmation: Auscultation, Exhaled CO2 Circulation Circulation #1: Time: 23:49 Pulse Rate (adult): 0 Blood Pressure Systolic: 0 Blood Pressure Diastolic: 0 Temperature (Fahrenheit): 97 (F; rectal) Circulation Comment: PEA Circulation #2: Time: 23:52 Pulse Rate (adult): 0 Blood Pressure Systolic: 0 Blood Pressure Diastolic: 0 Circulation Comment: PEA Circulation #3: Time: 23:54 Pulse Rate (adult): 0 Blood Pressure Systolic: 0 Blood Pressure Diastolic: 0 Circulation Comment: PEA Circulation #4: Time: 23:56 Pulse Rate (adult): 0 Blood Pressure Systolic: 0 Blood Pressure Diastolic: 0 Circulation Comment: PEA Circulation #5: Time: 23:58 Pulse Rate (adult): 0 Blood Pressure Systolic: 0 Blood Pressure Diastolic: 0 Circulation Comment: PEA Circulation #6: Time: 00:00 Pulse Rate (adult): 0 Blood Pressure Systolic: 0 Blood Pressure Diastolic: 0 Circulation Comment: PEA Circulation #7: Time: 00:02 Pulse Rate (adult): 0 Blood Pressure Systolic: 0 Blood Pressure Diastolic: 0 Circulation Comment: PEA, confirmed with ultrasound by Dr Martinez Circulation #8: Time: 00:04 Pulse Rate (adult): 77 Blood Pressure Systolic: 85 Blood Pressure Diastolic: 47 Circulation Comment: ROSC Circulation #9: Time: 00:10 Pulse Rate (adult): 55 Blood Pressure Systolic: 80 Blood Pressure Diastolic: 41 Circulation #10: Time: 00:15 Pulse Rate (adult): 100 Blood Pressure Systolic: 90 Blood Pressure Diastolic: 45 Circulation #11: Time: 00:20 Pulse Rate (adult): 101 Blood Pressure Systolic: 99 Blood Pressure Diastolic: 51 Procedure - IV Procedure - IV : IV Side: Right IV Location: Hand IV Catheter Type: Saline Lock IV Placed: In Hospital IV Gauge: 20 IV Line Care: Saline Flush Comment IV initiated prior to code Medications & Response Medications and Responses #1: Medication Time: 23:51 ADULT Medications Given ADULT: Epinephrine 1 mg Route of Administration: IV Heart Rate: 0 Blood Pressure Systolic: 0 Blood Pressure Diastolic: 0 Respiratory Rate: 0 Medications and Responses #2: Medication Time: 23:53 ADULT Medications Given ADULT: Sodium Bacarbinate 50 meq Route of Administration: IV Heart Rate: 0 Blood Pressure Systolic: 0 Blood Pressure Diastolic: 0 Respiratory Rate: 0 Medications and Responses #3: Medication Time: 23:56 ADULT Medications Given ADULT: Epinephrine 1 mg Route of Administration: IV Heart Rate: 0 Blood Pressure Systolic: 0 Blood Pressure Diastolic: 0 Respiratory Rate: 0 Medications and Responses #4: Medication Time: 00:00 ADULT Medications Given ADULT: Epinephrine 1 mg Route of Administration: IV Heart Rate: 0 Blood Pressure Systolic: 0 Blood Pressure Diastolic: 0 Respiratory Rate: 0 Medications and Responses #5: Medication Time: 00:01 ADULT Medications Given ADULT: Calcium Chloride 10 mL Route of Administration: IV Heart Rate: 0 Blood Pressure Systolic: 0 Blood Pressure Diastolic: 0 Respiratory Rate: 0 Nurses Notes [place] Coma Scale Eye Opening: None (1) [place] Coma Scale Verbal: None (1) [place] Coma Scale Motor: None (1) [place] Total: 3 Pupil Reaction: Non Reactive Bedside Blood Glucose: 101 EKG Rhythm: Atrial Fibrillation (HR 114 @ 0010) Nurses Notes - Comment: 0004 - 100mg Solu-Cortef verbal order by Dr Martinez administered; Verbal order for Epi drip 0006 - 1mg Atropine IVP verbal order by Dr Martinez administered 0010 - Epi drip initiated by ER milking worker Time Code Ended Time Code Ended: 00:04 Post Arrest Status: Ventilated Outcome of code: Successful Family notified: Yes Code Team Present: Dr Martinez - JOSÉ MIGUEL STANLEY; Esvin Patton RN - ER milking worker; Alma Mancini RN - Senior Scrum Master; Brendon R, RN - primary RN; Charlene Cochran, RT; Mirela Woods, RN; Jazzy Briones, RN; Mirlande Roth, ERT; Chery Esquivel, ERT; Alma Cruz, ERT; Jennifer Roth, Mortgage Branch Manager Student Post Resuscitation Neurologica Pupil Size: 5 ROSC Time of ROSC: 00:04 Pt Meets Criteria for Therapeu: Alma Robles Feb 14, 2025 04:03
[2025-02-14 04:36] LABS: Base Excess 1.7 mmol/L (-2.0-3.0)
[2025-02-14] MEDS: EPINEPHrine HCL 250 ML IV SCH (05:00)
[2025-02-14 05:56] LABS: Hematocrit 35.0 % (41.0-53.0); Hemoglobin 11.4 g/dL (13.5-17.5); Mean Corpuscular Hemoglobin 27.1 pg (28.0-32.0); Mean Corpuscular Volume 83.3 fL (80.0-100.0); Nucleated Red Blood Cells % 0.1 %
[2025-02-14 06:09] LABS: Anion Gap 13 (5-15); BUN/Creatinine Ratio 11.2 (10.0-20.0); Calcium 9.4 mg/dL (8.7-10.4); Carbon Dioxide 29 mmol/L (20-31); Potassium 4.2 mmol/L (3.5-5.1); Total Protein 5.9 g/dL (5.7-8.2)
[2025-02-14 06:10] LABS: Alanine Aminotransferase 61 U/L (7-40); Albumin 3.4 g/dL (3.2-4.8); Alkaline Phosphatase 127 U/L (46-116); Bilirubin, Total 1.0 mg/dL (0.2-1.0); Blood Urea Nitrogen 29 mg/dL (9-23); Chloride 93 mmol/L (98-107); Glucose 188 mg/dL (74-106); Sodium 135 mmol/L (136-145)
[2025-02-14] MEDS ORDERED: PHENYLEPHRINE IV 250 ML IV SCH (06:30)
[2025-02-14] MEDS: PROPOFOL 100 ML IV SCH (07:01)
--- NOTE | 2025-02-14 07:23 | DVH ---
CHEST RADIOGRAPH Indication: central line Technique: Single frontal view of the chest was obtained COMPARISON: 02/14/2025 FINDINGS: Endotracheal tube tip projects 6.9 cm above the guilherme. Right IJ perma catheter tip proje cts over the SVC. Left IJ catheter placed in the interval with tip projecting over the SVC. The cardiac silhouette is enlarged. The lungs demonstrate bilateral patchy airspace opacities, left-g [id number]. The pulmonary vasculature is prominent. Moderate left and small to moderate right pleural effusions.. There is no pneumothorax. Left chest dual lead cardiac pacer device. IMPRESSION: As above
[2025-02-14] MEDS ORDERED: SEVELAMER 800 MG TAB PO SCH (08:00)
[2025-02-14] MEDS: AZITHROMYCIN 500MG/ 250ML 250 ML IV SCH (08:38)
[2025-02-14] MEDS: FUROSEMIDE 40 MG/4 ML VIAL IV SCH (08:39)
[2025-02-14] MEDS: FAMOTIDINE (10MG/ML) 2ML VL IV SCH (08:39)
[2025-02-14] MEDS ORDERED: ATROPINE SULF 1 MG/10ml SYR IV ONE (10:15)
--- NOTE | 2025-02-14 10:38 | DVH ---
EXAM DESCRIPTION: CT HEAD WITHOUT CONTRAST CLINICAL HISTORY: S/P CODE BLUE COMPARISON: CT HEAD WITHOUT CONTRAST on DOS: 01/21/25, CT HEAD WITHOUT CONTRAST on DOS: 10/25/24, CT HE AD WITHOUT CONTRAST on DOS: 10/14/24 TECHNIQUE: Noncontrast CT head was performed. Coronal MPR images were generated. CTDI/ DLP = 59.55 / 1173.46. Dose reduction technique with one or more of the following methods was performed: Automated exposure control, adjustment of the mA and/or kV according to patient size, use of iterative reconstruction te chnique. FINDINGS: No evidence of acute intracranial hemorrhage. No mass effect. No extra-axial collections of fluid or blood. Similar hypoattenuation within the bilateral periventricular and deep white matter likely representin g chronic microvascular ischemic changes. Moderately enlarged ventricles and sulci, suggesting moderate global volume loss. Clear basal cisterns. The calvarium is intact. The soft tissues are unremarkable. The paranasal sinuses and mastoid air cells are clear. IMPRESSION: 1. No acute intracranial findings.
[2025-02-14] MEDS: MIDAZOLAM DRIP 50 mg/50mL 50 ML IV SCH (10:47)
[2025-02-14] MEDS: LORazepam 2MG/ML-1ML VIAL IV ONE (10:48)
--- NOTE | 2025-02-14 10:55 | DVHPN2 ---
Subjective Patient unresponsive Reviewed: Care Plan, H&P, Labs, Medications Changes from previous H/P or p: No Changes General: Per HPI Eyes: No Pain, No Vision change, No Conjunctivae inflammation, No Eyelid inflammation, No Other, No Redness ENT: No Ear pain, No Ear discharge, No Nose pain, No Nose discharge, No Nose congestion, No Mouth pain, No Mouth swelling, No Throat pain, No Throat swelling, No Other Cardiovascular: Other Respiratory: No Cough, No Dry, No Shortness of breath, No SOB with excertion, No Wheezing, No Hemoptysis, No Pleuritic Pain, No Sputum, No Other Gastrointestinal: No Nausea, No Vomiting, No Abdominal Pain, No Diarrhea, No Constipation, No Melena, No Hematochezia, No Other Genitourinary: Other Musculoskeletal: No other, No neck pain, No shoulder pain, No arm pain, No back pain, No hand pain, No leg pain, No foot pain Skin: No Rash, No Lesions, No Jaundice, No Bruising, No Other Objective Vitals Vital Signs Date Time Temp Pulse Resp B/P (MAP) Pulse Ox O2 Delivery O2 Flow Rate FiO2 02/14/25 10:00 16 100 Mechanical Ventilator+ 40 40 02/14/25 10:00 79 02/14/25 09:45 90.3 106/67 (80) 194.5 02/13/25 22:53 6.0 General Appearance: Alert, Oriented X3, Cooperative, No acute distress HEENT: Atraumatic, PERRLA Lungs: Normal air movement, Other (Mechanical ventilation) Chest/Breasts: Other (Hemodialysis catheter) Cardiovascular: Normal S1, Normal S2 Abdomen: Normal bowel sounds, Soft, No tenderness Genitourinary: No Apparent Abnormalities (Jensen catheter) Skin: Dry, Intact Psych/Mental Status: Other (Unable to assess) Medications Current Medications Medications Dose Ordered Sig/Mario Route Start Time Stop Time Status Last Admin Dose Admin Aspirin 81 mg DAILY PO 02/14/25 10:00 Famotidine 20 mg DAILY IV 02/14/25 10:00 02/14/25 08:39 20 MG Azithromycin 250 ml @ 125 mls/hr DAILY IV 02/14/25 10:00 02/14/25 08:38 125 MLS/HR Multivit/Ca Carb/ B Cmplx/FA/Prenat 1 tab DAILY PO 02/14/25 10:00 Ondansetron HCl 4 mg Q4HP PRN IV 02/13/25 21:45 Docusate Sodium 100 mg BIDPRN PRN PO 02/13/25 21:45 Acetaminophen 650 mg Q6HP PRN PO 02/13/25 21:45 Epinephrine HCl 250 ml @ 7.5 mls/hr Q24H IV 02/14/25 05:00 02/14/25 05:00 7.5 MLS/HR Propofol 100 ml @ 2.454 mls/ hr Q24H IV 02/14/25 05:30 02/14/25 07:01 2.454 MLS/HR Phenylephrine HCl 250 ml @ 30 mls/hr Q8H20M IV 02/14/25 06:30 Cancel Midazolam HCl 50 ml @ 1 mls/hr Q24H IV 02/14/25 10:30 Albuterol 2.5 mg Q6HR NEB 02/14/25 12:00 Ipratropium [place] 0.5 mg Q6HR NEB 02/14/25 12:00 Laboratory Results Laboratory Tests 02/14/25 05:05 Chemistry Test 02/13/25 18:40 02/14/25 05:05 Albumin 3.5 g/dL (3.2-4.8) 3.4 g/dL (3.2-4.8) Calcium Level 9.1 mg/dL (8.7-10.4) 9.4 mg/dL (8.7-10.4) Magnesium Level 2.0 mg/dL (1.6-2.6) Total Protein 6.2 g/dL (5.7-8.2) 5.9 g/dL (5.7-8.2) Cardiac Markers Test 02/13/25 18:40 B-Type Natriuretic Peptide 4393.98 pg/mL (0-100) LFT Test 02/13/25 18:40 02/14/25 05:05 Alanine Aminotransferase (ALT) 16 U/L (7-40) 61 U/L (7-40) H Alkaline Phosphatase 104 U/L (46-116) 127 U/L (46-116) H Aspartate Amino Transferase (AST) 24 U/L (13-40) 81 U/L (13-40) H Total Bilirubin 0.6 mg/dL (0.2-1.0) 1.0 mg/dL (0.2-1.0) Blood Gas Results Test 02/14/25 04:21 Arterial Blood pH 7.426 (7.350-7.450) FiO2 % 100.0 Labs and/or images reviewed: Labs reviewed by me, Image(s) reviewed by me Assessment/Plan Assessment/Plan Impression: -acute hypoxic respiratory failure -status post cardiopulmonary arrest -COPD -left lung opacity with mucus plugging -probable anoxic injury with seizure activity -aortic stenosis -pulmonary hypertension -metabolic encephalopathy -ESRD with hemodialysis -septic shock Plan: -patient had cardiopulmonary arrest while in the emergency room. Patient was found to be in asystole. -patient apparently made a DNR after resuscitation. -consultations: Neurology, Nephrology -EEG -continue Diprivan, add Versed -noted probable seizure activity, IV Ativan p.r.n. seizure activity -CT scan of the head pending -bronchodilators, Mucomyst -repeat labs, chest x-ray, ABG in a.m. Total time spent with patient discussing and formulating plan of care: 35 minutes. This medical document was created using an electronic medical record system with [employer] dictation system. Although this document has been carefully reviewed, there may still be some phonetic and typographical errors. These areas are purely typographical due to imperfections of the software programs, and do not reflect any compromise in the patient's medical care. Plan discussed with: Patient, Other (RN) My Orders Orders - DUKE MOHAN OUTBOUND SUPERVISOR Procedure Category Date Status Time Eeg Awake/Sleep/Act EEG 02/14/25 Transmitted 10:21 Midazolam Drip 50 PHA 02/14/25 In Process Mg/50ml (Versed Drip 5 10:30 Albuterol Medneb PHA 02/14/25 In Process (Ventolin Medneb) 12:00 Ipratropium Medneb PHA 02/14/25 In Process (Atrovent Medneb) 12:00 Basic Metabolic Panel LAB 02/15/25 Verified 05:00 Basic Metabolic Panel LAB 02/16/25 Verified 05:00 Basic Metabolic Panel LAB 02/17/25 Verified 05:00 Complete Blood Count LAB 02/15/25 Verified 04:00 Ceftriaxone 1gm/50ml PHA 02/15/25 Logged D5w (Rocephin) 09:00 Acetylcysteine PHA 02/14/25 Logged Inhalation 10% 12:00 Date of Service: Feb 14, 2025 Billing Provider: DUKE MOHAN NP Common Visit Codes: [id number] CARE 30-74 MIN DUKE MOHAN NP Feb 14, 2025 10:55
--- NOTE | 2025-02-14 11:02 | DVHNC2 ---
Central Line Recorder of insertion practice: Cash Posting Representative Occupation of configuration management advisor: Other Room prepared for procedure: Yes Cash Posting Representative performed hand hygien: Yes Maximal sterile barrier precau: Mask/Eye shield, Sterile gown, Cap, Sterlie gloves, Large sterlie drape Skin Preparation: Chlorhexidine gluconate, Providine iodine Skin preparation completely dr: Yes Insertion site: Left, Internal jugular Central line catheter type: [id number] dialysis Number of lumens: 3 Antiseptic ointment applied to: Yes Post Assessment: Chest X-Ray Informed consent obtained: Yes Risks/benefits/alt described: Yes ONEYDA JANG RESIDENT Feb 14, 2025 11:02
[2025-02-14] MEDS: ALBUTEROL SULF 2.5 MG/0.5ML(0.5%) NEB SOLN NEB SCH (11:53)
[2025-02-14] MEDS: IPRATROPIUM BROM 0.5 MG/2.5ML INH SOL NEB SCH (11:53)
[2025-02-14] MEDS: ACETYLCYSTEINE 10 %(100MG/ML) SOL 4ML NEB SCH (11:53)
[2025-02-14] MEDS: B-COMPLEX W/ C & FOLIC ACID(NEPHROVITE TAB) PO SCH (12:05)
[2025-02-14] MEDS: cefTRIAXone 1GM/50ML D5W 50 ML IV SCH (12:06)
--- NOTE | 2025-02-14 12:44 | DVHINCON2 ---
Date of service: Feb 13, 2025 Referring Physician Teodoro Shearer NP Reason for Consultation Acute respiratory failure History of Present Illness History Source: Patient, RN Notes, MD Notes Exam Limitations: Clinical condition HPI Patient is a 74-year old gentleman with a history of congestive heart failure, diabetes, afib and ESRD on HD who presented with shortness of breath and respiratory distress . Was seen in the emergency room where he was found to be desaturate to 80% and he was placed on facemask. He was noted to develop cardiac arrest requiring approximately 9 minutes of CPR per ACLS protocols and was intubated by the ER provider during the event. Return of spontaneous circulation was obtained and patient was transferred to the ICU for further management. Home Meds Reported Medications Furosemide (Furosemide) 40 Mg Tab, 1 TAB PO TID for 30 Days, #90 01/22/25 Amlodipine Besylate (Amlodipine Besylate) 10 Mg Tab, 1 TAB PO DAILY for 90 Days, #90 01/22/25 Insulin NPH Isophane & Reg (Hu (Humulin 70/30 Kwikpen (70-30) 100 Unit/ml) 1 Inj Inj, SC IF BS >100, GIVE 30 UNITS INSULIN SC. 09/09/24 Sevelamer Carbonate (Sevelamer Carbonate) 800 Mg Tab, 1 TAB PO TID for 100 Days, #300 25 Sodium Bicarbonate (Sodium Bicarbonate) 650 Mg Tab, 650 MG PO TID, TAB 2 Finasteride (Finasteride) 5 Mg Tab, 1 TAB PO DAILY for 100 Days, #100 09/09/24 Apixaban Base (ELIQUIS) 5 Mg Tab, 5 MG PO BID, TAB 09/09/24 Tamsulosin Hcl (Flomax) 0.4 Mg Cap, 0.8 MG PO HS for 100 Days, #200 09/09/24 Atorvastatin Calcium (Lipitor) 40 Mg Tab, 1 TAB PO DAILY for 100 Days, #100 09/09/24 Past Medical History Cardiac: AFIB, CHF Renal/: ESRD HD/PD Endocrine: NIDDM Past Surgical History: No pertinent Hx Family History: DM Patient Family History: Diabetes mellitus G8 BROTHER FH: kidney disease G8 SISTER Smoker: No Hx (Negative) Alocohol: None Drugs: None Lives with: With family Domestic Violence: Neg Review of Systems Comments Unable to perform- patient intubated and sedated H&P Exam Vital Signs Vital Signs Date Time Temp Pulse Resp B/P (MAP) Pulse Ox O2 Delivery O2 Flow Rate FiO2 02/14/25 12:08 106/67 02/14/25 11:53 72 17 100 30 02/14/25 10:00 Mechanical Ventilator+ 02/14/25 09:45 90.3 194.5 02/13/25 22:53 6.0 General Appeara: Well developed, Well nourished, Normal Appearance Head Exam: Normal inspection Neck Exam: Normal inspection, Non-tender, Normal alignment Eye Exam: bilateral eye Normal inspection, bilateral eye PERRL, bilateral eye EOMI Ear Exam: bilateral ear Auricle normal, bilateral ear Canal normal, bilateral ear TM normal Nasal Exam: Normal inspection Mouth: Normal Inspection Pulmonary/Respiratory: Decreased breath sounds Cardiovascular/Chest: Normal inspection Peripheral Pulses: 4+ Radial (R), 4+ Radial (L), 4+ Brachial (R), 4+ Brachial (L) Abdominal Exam: Normal bowel sounds Labs/Xrays Labs Test 02/14/25 12:13 02/14/25 05:05 02/14/25 04:21 02/13/25 22:00 Range/Units White Blood Count 10.6 # 4.4-10.8 10^3/uL Red Blood Count 4.20 L 4.5-5.90 10^6/uL Hemoglobin 11.4 L 13.5-17.5 g/dL Hematocrit 35.0 L 41.0-53.0 % Mean Corpuscular Volume 83.3 80.0-100.0 fL Mean Corpuscular Hemoglobin 27.1 L 28.0-32.0 pg Mean Corpuscular Hemoglobin Concent 32.6 32.0-36.0 g/dL Red Cell Distribution Width 17.4 H 11.8-14.3 % Platelet Count 189 140-450 10^3/uL Mean Platelet Volume 8.8 6.9-10.8 fL Neutrophils (%) (Auto) 93.9 H 37.0-80.0 % Lymphocytes (%) (Auto) 2.9 L 10.0-50.0 % Monocytes (%) (Auto) 3.1 0.0-12.0 % Eosinophils (%) (Auto) 0.1 0.0-7.0 % Basophils (%) (Auto) 0.0 0.0-2.0 % Neutrophils # (Auto) 10.0 H 1.6-8.6 10 ^3/uL Lymphocytes # (Auto) 0.3 L 0.4-5.4 10 ^3/uL Monocytes # (Auto) 0.3 0-1.3 10 ^3/uL Eosinophils # (Auto) 0 0-0.8 10 ^3/uL Basophils # (Auto) 0 0-0.2 10 ^3/uL Nucleated Red Blood Cells 0.1 % Sodium Level 135 L 136-145 mmol/L Potassium Level 4.2 3.5-5.1 mmol/L Chloride Level 93 L 98-107 mmol/L Carbon Dioxide Level 29 20-31 mmol/L Anion Gap 13 5-15 Blood Urea Nitrogen 29 H 9-23 mg/dL Creatinine 2.59 H 0.700-1.30 mg/dL Glomerular Filtration Rate Calc 25 >90 mL/min BUN/Creatinine Ratio 11.2 10.0-20.0 Serum Glucose 188 H 74-106 mg/dL Calcium Level 9.4 8.7-10.4 mg/dL Total Bilirubin 1.0 0.2-1.0 mg/dL Aspartate Amino Transferase (AST) 81 H 13-40 U/L Alanine Aminotransferase (ALT) 61 H 7-40 U/L Alkaline Phosphatase 127 H 46-116 U/L Total Protein 5.9 5.7-8.2 g/dL Albumin 3.4 3.2-4.8 g/dL Blood Gas Specimen Type Arterial Blood Gas Sample Site Left brachial Blood Gas Patient Temperature 37.0 Arterial Blood Date Drawn [id number] Arterial Blood pH 7.426 7.350-7.450 Arterial Blood Partial Pressure CO2 40.8 35.0-48.0 mmHg Arterial Blood Partial Pressure O2 282.7 H 83.0-108.0 mmHg Arterial Blood HCO3 26.2 21.0-28.0 mmol/L Arterial Blood Oxygen Saturation 99.8 H 94.0-98.0 % Arterial Blood Base Excess 1.7 -2.0-3.0 mmol/L Arterial Blood Oxyhemoglobin 98.6 H 94.0-98.0 % Arterial Blood Carboxyhemoglobin 0.7 0.5-1.5 % Arterial Blood Methemoglobin 0.5 0.0-1.5 % Andrés Test N/a Blood Gas Total Hemoglobin 12.10 L 13.5-17.5 g/dL Blood Gas Set Respiration Rate 16.0 Blood Gas Modality Vent - ac FiO2 % 100.0 Blood Gas Tidal Volume 500.0 Blood Gas PEEP or CPAP 7.0 Troponin I High Sensitivity 174 *H </=54 ng/L Test 02/13/25 18:54 02/13/25 18:40 Range/Units POC Glucose 106 70-106 mg/dl Lactic Acid Level 1.9 0.4-2.0 mmol/L Magnesium Level 2.0 1.6-2.6 mg/dL B-Type Natriuretic Peptide 4393.98 0-100 pg/mL Assessment/Plan Plan Impression Acute hypoxemic respiratory failure S/p cardiac arrest Fluid overload ESRD on HD Patient seen and examined in ICU Events On mechanical ventilation S/p intubation PEEP 7, FiO2 100% Labs and imaging reviewed Chest x-ray shows infiltrates, bilateral pleural effusions and pulmonary edema ABG reviewed Management Vent support Titrate to maintain sats 90% or above Sedation for vent synchrony Antibiotics Bronchodilators Monitor renal function Monitor electrolytes Supplement as needed Pressors as needed for hemodynamic support To maintain a mean arterial pressure of 65 mmHg DVT prophylaxis Critical care time 35 minutes Plan discussed with: Other (Rn) AMELIA HICKS MD Feb 14, 2025 12:44
--- NOTE | 2025-02-14 12:46 | DVHPN2 ---
Progress Note - Dictate Date Seen: Feb 14, 2025 Medical Necessity Reason Pt with a Central, PICC or Fol: Yes The following are medically ne: Central Line, Jensen Catheter vital signs Vital Sign Date Time Temp Pulse Resp B/P (MAP) Pulse Ox O2 Delivery O2 Flow Rate FiO2 02/14/25 12:08 106/67 02/14/25 11:53 72 17 100 30 02/14/25 10:00 Mechanical Ventilator+ 02/14/25 09:45 90.3 194.5 02/13/25 22:53 6.0 medications Current Medications Medications Dose Ordered Sig/Mario Route Start Time Stop Time Status Last Admin Dose Admin Aspirin 81 mg DAILY PO 02/14/25 10:00 02/14/25 12:06 81 MG Famotidine 20 mg DAILY IV 02/14/25 10:00 02/14/25 08:39 20 MG Azithromycin 250 ml @ 125 mls/hr DAILY IV 02/14/25 10:00 02/14/25 08:38 125 MLS/HR Multivit/Ca Carb/ B Cmplx/FA/Prenat 1 tab DAILY PO 02/14/25 10:00 02/14/25 12:05 1 TAB Ondansetron HCl 4 mg Q4HP PRN IV 02/13/25 21:45 Docusate Sodium 100 mg BIDPRN PRN PO 02/13/25 21:45 Acetaminophen 650 mg Q6HP PRN PO 02/13/25 21:45 Epinephrine HCl 250 ml @ 7.5 mls/hr Q24H IV 02/14/25 05:00 02/14/25 10:48 26.25 MLS/HR Propofol 100 ml @ 2.454 mls/ hr Q24H IV 02/14/25 05:30 02/14/25 12:01 17.178 MLS/HR Phenylephrine HCl 250 ml @ 30 mls/hr Q8H20M IV 02/14/25 06:30 Cancel Midazolam HCl 50 ml @ 1 mls/hr Q24H IV 02/14/25 10:30 02/14/25 10:47 1 MLS/HR Albuterol 2.5 mg Q6HR NEB 02/14/25 12:00 02/14/25 11:53 2.5 MG Ipratropium [place] 0.5 mg Q6HR NEB 02/14/25 12:00 02/14/25 11:53 0.5 MG Ceftriaxone Sodium 50 ml @ 100 mls/hr DAILY@09 IV 02/14/25 11:00 02/14/25 12:06 100 MLS/HR Acetylcysteine 100 mg Q6HR NEB 02/14/25 12:00 02/14/25 11:53 100 MG laboratory and microbiology Laboratory Tests 02/14/25 05:05 Test 02/14/25 05:05 Range/Units Serum Glucose 188 H 74-106 mg/dL Assessment/Plan Impression Acute hypoxemic respiratory failure S/p cardiac arrest Fluid overload ESRD on HD Patient seen and examined in ICU Events On mechanical ventilation S/p intubation PEEP 7, FiO2 70% On Epinephrine drip today Concern raised for anoxic brain injury Labs and imaging reviewed Chest x-ray shows infiltrates, bilateral pleural effusions and pulmonary edema CT of the brain unremarkable ABG reviewed Management Vent support Titrate to maintain sats 90% or above Consider sedation holiday in AM Continue antibiotics F/u cultures Bronchodilators Monitor renal function HD as per nephrology Management defeffered Monitor electrolytes Supplement as needed Echo pending F/u cardiology Pressors as needed for hemodynamic support To maintain a mean arterial pressure of 65 mmHg Recommend transition to Levophed drip DVT prophylaxis Critical care time 35 minutes Plan discussed with: Other (Rn) AMELIA HICKS MD Feb 14, 2025 12:46
[2025-02-14 13:04] LABS: Urine Protein, UAD 1+ (Negative)
--- NOTE | 2025-02-14 15:55 | DVH ---
CHEST RADIOGRAPH Indication: post ng tube placement Technique: Single frontal view of the chest was obtained Comparison: XY CHEST XRAY 1 VIEW on DOS: 02/14/25, XY CHEST PORTABLE on DOS: 02/14/25, XY CHEST PORTABL E on DOS: 02/13/25 FINDINGS: Lines and Tubes: Hemodialysis catheter in place in the right internal jugular vein unchanged in posit ion from 0654 on 02/14 [address]25. Pacemaker in place unchanged. Left central venous catheter in place unchanged. Enteric tube below t he left diaphragm in the stomach. Lungs: Unimproved bibasilar airspace disease. Pleura: No effusion. No pneumothorax. Cardiomediastinal contours: Unremarkable Bones: No acute osseous abnormality. IMPRESSION: 1. Enteric tube in place below the left diaphragm in the stomach. 2. Hemodialysis catheter in place right internal jugular vein unchanged from prior study 3. Left central line in place in the superior vena cava unchanged. 4. Pacemaker in place unchanged 5. Endotracheal tube in place unchanged. 6. Airspace disease in both lower lung rodriguez unchanged.
[2025-02-14] MEDS: LORazepam 2MG/ML-1ML VIAL IV PRN (17:57)
[2025-02-14] MEDS: MORPHINE SULFATE INJ 2 MG/ml SYRG IV PRN (17:58)
[2025-02-14] MEDS ORDERED: TAMSULOSIN HYDROCHLORIDE 0.4 MG CAP PO SCH (18:00)
--- NOTE | 2025-02-14 18:10 | CODING ---
Date of Service: Feb 14, 2025 Billing Provider: DUKE MOHAN NP Common Visit Codes: [id number] CARE-EACH +30MIN DUKE MOHAN NP Feb 14, 2025 18:10
--- NOTE | 2025-02-14 18:34 | DVHINCON2 ---
Date of service: Feb 14, 2025 Referring Physician Caroline Reason for Consultation ALOC History of Present Illness TERMINALLY WEANED 02/13/25 74 year old male presents to the emergency department via EMS with a chief complaint of shortness of breath onset today (02/13/25). Per EMS, patient is from [facility], has been experiencing shortness of breath with cough, facility was trying to treat patient with a breathing treatment, patient refused, patient also refused to come to ED all morning until now. Patient began dialysis 3 weeks ago, last dialysis was yesterday. Upon EMS arrival, O2 sat was 78% on RA, given breathing treatment in route to ED. Patient states symptoms improved after breathing treatment. No other symptoms or modifying factors present at this time. Patient has history of coronary artery disease. later stated that he had an angiogram done recently and there was occlusion but patient was not a candidate for stents medical management only. She also stated that they stopped his Lasix at the nursing facility/post-acute Care due to some episodes of hypotension. He was recently diagnosed with a UTI in a previous hospitalization and was septic. Code assistance, 02/13/2025 2349, ROSC: 02/14/2025 0004 Urinalysis, 02/14/2025: WBC: 2, urine leukocyte esterase: Negative WBC/HB/PLT/MCV, 02/14/2025: 10.6/11.4/189/83.3 BUN/CR, 02/14/2025: Two 9/2.59 HCO3 02/13/2025: 32, 02/14/2025: 29 TBI/AST/ALT/AP, 02/13/2025: 0.6/24/16/104, 02/14/2025: 1/81/61/127 Chest x-ray, 02/14/2025: 1. Enteric tube in place below the left diaphragm in the stomach. 2. Hemodialysis catheter in place right internal jugular vein unchanged from prior study 3. Left central line in place in the superior vena cava unchanged. 4. Pacemaker in place unchanged 5. Endotracheal tube in place unchanged. 6. Airspace disease in both lower lung rodriguez un CT head, 02/14/2025: No acute intracranial findings. Hypertension, diabetes, dyslipidemia, coronary artery disease, heart attack, atrial fibrillation, congestive heart failure, chronic kidney failure Pacemaker insertion Family History: Diabetes mellitus G8 BROTHER FH: kidney disease G8 SISTER Allergies: Coded Allergies: Metformin (Verified Allergy, Unknown, 02/13/25) NSAIDs (Verified Allergy, Unknown, 02/13/25) Uncoded Allergies: TAPE (Allergy, Unknown, 02/13/25) Home Meds Reported Medications Furosemide (Furosemide) 40 Mg Tab, 1 TAB PO TID for 30 Days, #90 01/22/25 Amlodipine Besylate (Amlodipine Besylate) 10 Mg Tab, 1 TAB PO DAILY for 90 Days, #90 01/22/25 Insulin NPH Isophane & Reg (Hu (Humulin 70/30 Kwikpen (70-30) 100 Unit/ml) 1 Inj Inj, SC IF BS >100, GIVE 30 UNITS INSULIN SC. 09/09/24 Sevelamer Carbonate (Sevelamer Carbonate) 800 Mg Tab, 1 TAB PO TID for 100 Days, #300 09/09/24 Sodium Bicarbonate (Sodium Bicarbonate) 650 Mg Tab, 650 MG PO TID, TAB 09/09/24 Finasteride (Finasteride) 5 Mg Tab, 1 TAB PO DAILY for 100 Days, #100 09/09/24 Apixaban Base (ELIQUIS) 5 Mg Tab, 5 MG PO BID, TAB 09/09/24 Tamsulosin Hcl (Flomax) 0.4 Mg Cap, 0.8 MG PO HS for 100 Days, #200 09/09/24 Atorvastatin Calcium (Lipitor) 40 Mg Tab, 1 TAB PO DAILY for 100 Days, #100 09/09/24 Current Medications Current Medications Medications (Trade) Dose Ordered Sig/Mario Route PRN Reason Start Time Stop Time Status Last Admin Aspirin 81 mg DAILY PO 02/14/25 10:00 02/14/25 12:06 Methylprednisolone Sodium Succinate (Solu Medrol) 40 mg Q8HR IV 02/13/25 22:00 02/14/25 10:26 DC 02/14/25 08:05 Famotidine (Pepcid Injection) 20 mg DAILY IV 02/14/25 10:00 02/14/25 08:39 Furosemide (Lasix Injection) 40 mg DAILY IV 02/14/25 10:00 02/14/25 10:26 DC 02/14/25 08:39 Azithromycin 250 ml @ 125 mls/hr DAILY IV 02/14/25 10:00 02/14/25 08:38 Albuterol (Ventolin Medneb) 2.5 mg Q4HPRN PRN NEB SHORTNESS OF BREATH 02/13/25 21:45 02/14/25 10:29 DC Ipratropium [place] (Atrovent Medneb) 0.5 mg Q4HPRN PRN NEB SHORTNESS OF BREATH 02/13/25 21:45 02/14/25 10:29 DC Tamsulosin HCl (Flomax) 0.4 mg QPM PO 02/14/25 18:00 02/14/25 10:26 DC Multivit/Ca Carb/ B Cmplx/FA/Prenat (Nephro-Wander Tablet) 1 tab DAILY PO 02/14/25 10:00 02/14/25 12:05 Sevelamer HCl (Renagel) 800 mg TIDWM PO 02/14/25 08:00 02/14/25 10:26 DC Carvedilol (Coreg Tablet) 3.125 mg Q12HR PO 02/13/25 22:00 02/14/25 10:26 DC 02/13/25 22:19 Sodium Chloride (Saline Lock Ns) 10 ml Q8HR IV 02/13/25 22:00 02/14/25 10:26 DC 02/14/25 06:01 Acetaminophen/ Hydrocodone Bitart ([place] 5/325MG Tab) 1 tab Q4HP PRN PO MODERATE PAIN (4-6 PAIN SCALE) 02/13/25 21:45 02/14/25 10:26 DC Ondansetron HCl (Zofran) 4 mg Q4HP PRN IV NAUSEA / VOMITING 02/13/25 21:45 Docusate Sodium (Colace Capsule) 100 mg BIDPRN PRN PO FOR CONSTIPATION 02/13/25 21:45 Acetaminophen (Tylenol Tablet) 650 mg Q6HP PRN PO PAIN SCALE 1-3 OR TEMP>100.4 02/13/25 21:45 Atorvastatin Calcium (Lipitor) 20 mg HS PO 02/13/25 22:00 02/14/25 10:30 DC 02/13/25 22:18 Nitroglycerin (Ntrostat Sublingual) 0.4 mg Q5MINP PRN SL FOR CHEST PAIN 02/13/25 22:30 02/14/25 10:26 DC Morphine Sulfate 2 mg Q30M PRN IV FOR CHEST PAIN 02/13/25 22:30 02/14/25 10:26 DC Epinephrine HCl 250 ml @ 7.5 mls/hr Q24H IV 02/14/25 05:00 02/14/25 10:48 Propofol 100 ml @ 2.454 mls/ hr Q24H IV 02/14/25 05:30 02/14/25 17:09 Phenylephrine HCl 250 ml @ 30 mls/hr Q8H20M IV 02/14/25 06:30 Cancel Midazolam HCl 50 ml @ 1 mls/hr Q24H IV 02/14/25 10:30 02/14/25 10:47 Albuterol (Ventolin Medneb) 2.5 mg Q6HR NEB 02/14/25 12:00 02/14/25 11:53 Ipratropium [place] (Atrovent Medneb) 0.5 mg Q6HR NEB 02/14/25 12:00 02/14/25 11:53 Ceftriaxone Sodium 50 ml @ 100 mls/hr DAILY@09 IV 02/14/25 11:00 02/14/25 12:06 Acetylcysteine (Mucomyst Inahalation 10%) 100 mg Q6HR NEB 02/14/25 12:00 02/14/25 11:53 Morphine Sulfate 1 mg Q1HP PRN IV MODERATE PAIN (4-6 PAIN SCALE) 02/14/25 17:30 02/14/25 17:58 Lorazepam (Ativan Inj) 1 mg Q1HP PRN IV ANXIETY 02/14/25 17:30 02/14/25 17:57 Vital Signs Vital Signs Date Time Temp Pulse Resp B/P (MAP) Pulse Ox O2 Delivery O2 Flow Rate FiO2 02/14/25 17:58 73 16 101/64 02/14/25 16:00 30 02/14/25 16:00 96 Mechanical Ventilator+ 02/14/25 14:45 97.1 97.1 02/13/25 22:53 6.0 Labs/Diagnostic Data Labs Test 02/14/25 12:13 02/14/25 05:05 02/14/25 04:21 02/13/25 22:00 Range/Units Urine Color Yellow Yellow Urine Clarity Turbid H Clear Urine pH 5.0 5.0-9.0 Urine Specific [place] 1.016 1.001-1.035 Urine Protein 1+ H Negative Urine Ketones Negative Negative Urine Blood Negative Negative /uL Urine Nitrite Negative Negative Urine Bilirubin Negative Negative Urine Urobilinogen Normal Negative mg/dL Urine Leukocyte Esterase Negative Negative /uL Urine RBC 2 0 - 3 /hpf Urine Microscopic WBC 2 0-3 /HPF Urine Squamous Epithelial Cells Few <5 /hpf Urine Bacteria Few H None Seen /hpf Urine Hyaline Casts Few 0 - 2 /lpf Urine Glucose Trace Normal mg/dL White Blood Count 10.6 # 4.4-10.8 10^3/uL Red Blood Count 4.20 L 4.5-5.90 10^6/uL Hemoglobin 11.4 L 13.5-17.5 g/dL Hematocrit 35.0 L 41.0-53.0 % Mean Corpuscular Volume 83.3 80.0-100.0 fL Mean Corpuscular Hemoglobin 27.1 L 28.0-32.0 pg Mean Corpuscular Hemoglobin Concent 32.6 32.0-36.0 g/dL Red Cell Distribution Width 17.4 H 11.8-14.3 % Platelet Count 189 140-450 10^3/uL Mean Platelet Volume 8.8 6.9-10.8 fL Neutrophils (%) (Auto) 93.9 H 37.0-80.0 % Lymphocytes (%) (Auto) 2.9 L 10.0-50.0 % Monocytes (%) (Auto) 3.1 0.0-12.0 % Eosinophils (%) (Auto) 0.1 0.0-7.0 % Basophils (%) (Auto) 0.0 0.0-2.0 % Neutrophils # (Auto) 10.0 H 1.6-8.6 10 ^3/uL Lymphocytes # (Auto) 0.3 L 0.4-5.4 10 ^3/uL Monocytes # (Auto) 0.3 0-1.3 10 ^3/uL Eosinophils # (Auto) 0 0-0.8 10 ^3/uL Basophils # (Auto) 0 0-0.2 10 ^3/uL Nucleated Red Blood Cells 0.1 % Sodium Level 135 L 136-145 mmol/L Potassium Level 4.2 3.5-5.1 mmol/L Chloride Level 93 L 98-107 mmol/L Carbon Dioxide Level 29 20-31 mmol/L Anion Gap 13 5-15 Blood Urea Nitrogen 29 H 9-23 mg/dL Creatinine 2.59 H 0.700-1.30 mg/dL Glomerular Filtration Rate Calc 25 >90 mL/min BUN/Creatinine Ratio 11.2 10.0-20.0 Serum Glucose 188 H 74-106 mg/dL Calcium Level 9.4 8.7-10.4 mg/dL Total Bilirubin 1.0 0.2-1.0 mg/dL Aspartate Amino Transferase (AST) 81 H 13-40 U/L Alanine Aminotransferase (ALT) 61 H 7-40 U/L Alkaline Phosphatase 127 H 46-116 U/L Total Protein 5.9 5.7-8.2 g/dL Albumin 3.4 3.2-4.8 g/dL Blood Gas Specimen Type Arterial Blood Gas Sample Site Left brachial Blood Gas Patient Temperature 37.0 Arterial Blood Date Drawn [id number] Arterial Blood pH 7.426 7.350-7.450 Arterial Blood Partial Pressure CO2 40.8 35.0-48.0 mmHg Arterial Blood Partial Pressure O2 282.7 H 83.0-108.0 mmHg Arterial Blood HCO3 26.2 21.0-28.0 mmol/L Arterial Blood Oxygen Saturation 99.8 H 94.0-98.0 % Arterial Blood Base Excess 1.7 -2.0-3.0 mmol/L Arterial Blood Oxyhemoglobin 98.6 H 94.0-98.0 % Arterial Blood Carboxyhemoglobin 0.7 0.5-1.5 % Arterial Blood Methemoglobin 0.5 0.0-1.5 % Andrés Test N/a Blood Gas Total Hemoglobin 12.10 L 13.5-17.5 g/dL Blood Gas Set Respiration Rate 16.0 Blood Gas Modality Vent - ac FiO2 % 100.0 Blood Gas Tidal Volume 500.0 Blood Gas PEEP or CPAP 7.0 Troponin I High Sensitivity 174 *H </=54 ng/L Test 02/13/25 18:54 02/13/25 18:40 Range/Units POC Glucose 106 70-106 mg/dl Lactic Acid Level 1.9 0.4-2.0 mmol/L Magnesium Level 2.0 1.6-2.6 mg/dL B-Type Natriuretic Peptide 4393.98 0-100 pg/mL Plan discussed with: Other MARILY PAULINO MD Feb 14, 2025 18:34
--- NOTE | 2025-02-14 20:26 | DVHEEG2 ---
Neurology EEG Procedural Note Procedural Note EXAM DATE: 02/14/2025 REFERRING DOCTOR: Rudy TECHNIQUE: Eighteen channels of EEG, 2 channels of EOG, and 1 channel of EKG were recorded using the International 10/20 system. CLINICAL DATA: The patient was referred for an EEG evaluation for the evidence of seizure disorder. MEDICATIONS: See chart BACKGROUND ACTIVITY: This record showed bursts of low to medium voltage spikes, sharps, slow waves lasting for 0.5-6 sec with suppressed background activity 0.5-94 sec ACTIVATION: Hyperventilation: Not done Photic Stimulation: Not done Sleep: Nonresponsiveness IMPRESSION: This is a remarkably abnormal EEG with a pattern of burst suppression, which can be seen in hypoxic encephalopathy or 2nd stage of any seizure, please correlate clinically [place] [address] MARILY PAULINO MD Feb 14, 2025 20:26
--- NOTE | 2025-02-15 16:22 | DVHDS2 ---
Discharge Summary Date of Admission Feb 13, 2025 at 22:22 Date of Discharge: Feb 15, 2025 Admitting Diagnosis Acute exacerbation of COPD Labs/Diagnostic Data: Laboratory Results Test 02/14/25 12:13 02/14/25 05:05 02/14/25 04:21 02/13/25 22:00 Urine Color Yellow (Yellow) Urine Clarity Turbid (Clear) Urine pH 5.0 (5.0-9.0) Urine Specific [place] 1.016 (1.001-1.035) Urine Protein 1+ (Negative) Urine Ketones Negative (Negative) Urine Blood Negative /uL (Negative) Urine Nitrite Negative (Negative) Urine Bilirubin Negative (Negative) Urine Urobilinogen Normal mg/dL (Negative) Urine Leukocyte Esterase Negative /uL (Negative) Urine RBC 2 /hpf (0 - 3) Urine Microscopic WBC 2 /HPF (0-3) Urine Squamous Epithelial Cells Few /hpf (<5) Urine Bacteria Few /hpf (None Seen) Urine Hyaline Casts Few /lpf (0 - 2) Urine Glucose Trace mg/dL (Normal) White Blood Count 10.6 10^3/uL (4.4-10.8) Red Blood Count 4.20 10^6/uL (4.5-5.90) Hemoglobin 11.4 g/dL (13.5-17.5) Hematocrit 35.0 % (41.0-53.0) Mean Corpuscular Volume 83.3 fL (80.0-100.0) Mean Corpuscular Hemoglobin 27.1 pg (28.0-32.0) Mean Corpuscular Hemoglobin Concent 32.6 g/dL (32.0-36.0) Red Cell Distribution Width 17.4 % (11.8-14.3) Platelet Count 189 10^3/uL (140-450) Mean Platelet Volume 8.8 fL (6.9-10.8) Neutrophils (%) (Auto) 93.9 % (37.0-80.0) Lymphocytes (%) (Auto) 2.9 % (10.0-50.0) Monocytes (%) (Auto) 3.1 % (0.0-12.0) Eosinophils (%) (Auto) 0.1 % (0.0-7.0) Basophils (%) (Auto) 0.0 % (0.0-2.0) Neutrophils # (Auto) 10.0 10 ^3/uL (1.6-8.6) Lymphocytes # (Auto) 0.3 10 ^3/uL (0.4-5.4) Monocytes # (Auto) 0.3 10 ^3/uL (0-1.3) Eosinophils # (Auto) 0 10 ^3/uL (0-0.8) Basophils # (Auto) 0 10 ^3/uL (0-0.2) Nucleated Red Blood Cells 0.1 % Sodium Level 135 mmol/L (136-145) Potassium Level 4.2 mmol/L (3.5-5.1) Chloride Level 93 mmol/L (98-107) Carbon Dioxide Level 29 mmol/L (20-31) Anion Gap 13 (5-15) Blood Urea Nitrogen 29 mg/dL (9-23) Creatinine 2.59 mg/dL (0.700-1.30) Glomerular Filtration Rate Calc 25 mL/min (>90) BUN/Creatinine Ratio 11.2 (10.0-20.0) Serum Glucose 188 mg/dL (74-106) Calcium Level 9.4 mg/dL (8.7-10.4) Total Bilirubin 1.0 mg/dL (0.2-1.0) Aspartate Amino Transferase (AST) 81 U/L (13-40) Alanine Aminotransferase (ALT) 61 U/L (7-40) Alkaline Phosphatase 127 U/L (46-116) Total Protein 5.9 g/dL (5.7-8.2) Albumin 3.4 g/dL (3.2-4.8) Blood Gas Specimen Type Arterial Blood Gas Sample Site Left brachial Blood Gas Patient Temperature 37.0 Arterial Blood Date Drawn [id number] Arterial Blood pH 7.426 (7.350-7.450) Arterial Blood Partial Pressure CO2 40.8 mmHg (35.0-48.0) Arterial Blood Partial Pressure O2 282.7 mmHg (83.0-108.0) Arterial Blood HCO3 26.2 mmol/L (21.0-28.0) Arterial Blood Oxygen Saturation 99.8 % (94.0-98.0) Arterial Blood Base Excess 1.7 mmol/L (-2.0-3.0) Arterial Blood Oxyhemoglobin 98.6 % (94.0-98.0) Arterial Blood Carboxyhemoglobin 0.7 % (0.5-1.5) Arterial Blood Methemoglobin 0.5 % (0.0-1.5) Andrés Test N/a Blood Gas Total Hemoglobin 12.10 g/dL (13.5-17.5) Blood Gas Set Respiration Rate 16.0 Blood Gas Modality Vent - ac FiO2 % 100.0 Blood Gas Tidal Volume 500.0 Blood Gas PEEP or CPAP 7.0 Troponin I High Sensitivity 174 ng/L (</=54) Test 02/13/25 18:54 02/13/25 18:40 POC Glucose 106 mg/dl (70-106) Lactic Acid Level 1.9 mmol/L (0.4-2.0) Magnesium Level 2.0 mg/dL (1.6-2.6) B-Type Natriuretic Peptide 4393.98 pg/mL (0-100) Other Laboratory Tests 02/14/25 05:05 Brief Hx & Hospital Course: History of Present Illness The patient is a 74-year-old male with past medical history of hypertension, [place], hyperlipidemia, AFib, CHF, end-stage renal disease on hemodialysis began three weeks ago, last dialysis was yesterday, and diabetes mellitus who presented to [facility] ED from [facility] with complaint of shortness of breaths. Patient reports he has been experiencing shortness of breaths with cough, facility was trying to treat patient with breathing treatment, patient refused, also refused to come to ED all morning until now. Patient's symptoms progressively get worse with hypoxia, O2 saturation at 78% and was placed on oxygen 2 L/min via nasal cannula, O2 saturation improved to 96%. Patient was seen and evaluated in the ED, laboratory data shows WBC 6.4, platelets 177, sodium 136, potassium 3.7, BUN 22, creatinine 2.30, glucose 105, calcium 9.1, troponin 122, BNP 4393.98, blood pressure 110/69, heart rate 70, temperature 97.6 F, O2 saturation 96% on oxygen. Chest x-ray revealing cardiomegaly with bilateral pulmonary airspace disease and pleural effusions; finding may represent congestive failure or pneumonia; dual-chamber pacemaker in place with pulse generator over the left chest. However, patient's condition progressively get worse with hypoxia, increased work of breathing despite use of oxygen, and subsequently intubated. Please see medication orders section in the computer. On my assessment, patient remains fully intubated, family at bedside, no diaphoresis, no vomiting, no fever, no chills. Patient was admitted for further evaluation and medical management. Course of hospitalization: Patient was started on vasopressor therapy, continue sedation. My initial assessment reveals patient was having signs of seizure activity with myoclonic jerking. Patient was given IV Ativan in addition to starting Versed drip which did assist with patient's clinical presentation with seizures. Neurology consultation was placed. Patient had EEG, and after reviewing it reveals patient was having burst suppression, coinciding with noted seizure activity. Long discussion was made with the patient's family was bedside. Given his recent multiple admissions in the hospital and overall clinical deterioration, the patient was made comfort care. Patient was subsequently extubated and placed on IV morphine and IV Ativan as needed for signs of pain or anxiety. Time of was pronounced by Dr. Burgos. Total time spent with patient discussing and formulating plan of care: 35 minutes. This medical document was created using an electronic medical record system with [employer] dictation system. Although this document has been carefully reviewed, there may still be some phonetic and typographical errors. These areas are purely typographical due to imperfections of the software programs, and do not reflect any compromise in the patient's medical care. Condition at Discharge: Poor Final Diagnosis/Problems List Impression: -acute hypoxic respiratory failure -status post cardiopulmonary arrest -COPD -left lung opacity with mucus plugging -probable anoxic injury with seizure activity -aortic stenosis -pulmonary hypertension -metabolic encephalopathy -ESRD with hemodialysis -septic shock Discharge Disposition: at Hospital Discharge Instruct/Medications Scheduled Amlodipine Besylate (Amlodipine Besylate), 1 TAB PO DAILY, (Reported) Apixaban Base (Eliquis), 5 MG PO BID, (Reported) Atorvastatin Calcium (Lipitor), 1 TAB PO DAILY, (Reported) Finasteride (Finasteride), 1 TAB PO DAILY, (Reported) Furosemide (Furosemide), 1 TAB PO TID, (Reported) Sevelamer Carbonate (Sevelamer Carbonate), 1 TAB PO TID, (Reported) Sodium Bicarbonate (Sodium Bicarbonate), 650 MG PO TID, (Reported) Tamsulosin Hcl (Flomax), 0.8 MG PO HS, (Reported) Miscellaneous Medications Insulin NPH Isophane & Reg (Hu (Humulin 70/30 Kwikpen (70-30) 100 Unit/ml), [place], (Reported) 36 Discharge Statement: "Patient was advised to return to the ER or call 911 if any headaches, dizziness, shortness of breath, chest pain, abdominal pain, bleeding, fevers, or worsening of medical condition. Patient was counseled about treatment plan, medications, possible side effects, patientverbalized understanding. All questions were answered to the best of my ability. This discharge took greater then 30 minutes in planning, reviewing documentation, counseling the patient, and discussing with other team members." ASSESSMENT ASSESSMENT Assessment Date of Service: Feb 15, 2025 Billing Provider: DUKE MOHAN NP Common Visit Codes: 95998-YUE/OBS DISCH DAY >30min DUKE MOHAN NP Feb 15, 2025 16:22
--- NOTE | 2025-02-16 08:09 | ECG ---
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
--- NOTE | 2025-02-16 08:11 | ECG ---
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
--- NOTE | 2025-02-16 08:11 | ECG ---
[facility] Test Date: 2025-02-14 Test Time: 00:45:11 Pat Name: LISA HERRERA Department: ED Room: [address] [place] [address] A Gender: M Bar Captain: : 1950 Requested By: JESSICA MILLAN Order Number: [id number] Reading MD: Valdo Patterson Measurements Intervals [place] Rate: 95 P: 0 [place]: 0 QRS: 31 QRSD: 90 T: 217 QT: 330 QTc: 415 Interpretive Statements Atrial fibrillation Low voltage, extremity and precordial leads Anteroseptal infarct, old Borderline repolarization abnormality Electronically Signed On 02-16-2025 19:24:24 PDT by Valdo Patterson Please click the below link to view image of tracing.
== END 2025-02-14 18:57 | DRG 871 ==
LOC: ER 17:51 → EDBD 17:51 → OVERFLOW 22:22 → ICU WEST 02-14 09:56
PROVIDERS: ADMIT Nurse Practitioner Family; ATTEND Nurse Practitioner Family
PROC: 5A12012 Performance of Cardiac Output, Single, Manual (ICD-10-PCS; principal; 2025-02-13)
PROC: 0BH17EZ Insertion of Endotracheal Airway into Trachea, Via Natural or Artificial Opening (ICD-10-PCS; 2025-02-13)
PROC: 5A1935Z Respiratory Ventilation, Less than 24 Consecutive Hours (ICD-10-PCS; 2025-02-13)
PROC: 02HV33Z Insertion of Infusion Device into Superior Vena Cava, Percutaneous Approach (ICD-10-PCS; 2025-02-14)
DX: A41.9 Sepsis, unspecified organism (principal); G93.41 Metabolic encephalopathy; J18.9 Pneumonia, unspecified organism; J96.01 Acute respiratory failure with hypoxia; N18.6 End stage renal disease; R65.21 Severe sepsis with septic shock; J44.0 Chronic obstructive pulmonary disease with (acute) lower respiratory infection; I13.2 Hypertensive heart and chronic kidney disease with heart failure and with stage 5 chronic kidney disease, or end stage renal disease; J44.1 Chronic obstructive pulmonary disease with (acute) exacerbation; I46.9 Cardiac arrest, cause unspecified; I50.9 Heart failure, unspecified; I25.10 Atherosclerotic heart disease of native coronary artery without angina pectoris; E11.22 Type 2 diabetes mellitus with diabetic chronic kidney disease; E78.5 Hyperlipidemia, unspecified; I27.20 Pulmonary hypertension, unspecified; I35.0 Nonrheumatic aortic (valve) stenosis; G25.3 Myoclonus; I48.91 Unspecified atrial fibrillation; R56.9 Unspecified convulsions; Z91.048 Other nonmedicinal substance allergy status; Z88.8 Allergy status to other drugs, medicaments and biological substances; Z79.84 Long term (current) use of oral hypoglycemic drugs; Z79.01 Long term (current) use of anticoagulants; Z79.899 Other long term (current) drug therapy; Z83.3 Family history of diabetes mellitus; Z99.2 Dependence on renal dialysis; Z79.4 Long term (current) use of insulin; E87.70 Fluid overload, unspecified; Z95.0 Presence of cardiac pacemaker
CPT/HCPCS: 36415; 36556; 36600; 70450; 71045; 80053; 81001; 82805; 82962; 83605; 83735; 83880; 84484; 85025; 87070; 87081; 87086; 87205; 93005; 94002; 94003; 95819; 96374; 96375; 99291; G0378; J0171; J2543; J2704; J3490